=== PATIENT | male | born 1965 | race Caucasian/White ===

== ENCOUNTER 2018-02-17 14:58 | Inpatient (IN) | payer OTHER ==
[2018-02-17] MEDS ORDERED: NORMAL SALINE 1000 ML 1,000 ML IV ONE (17:01)
--- NOTE | 2018-02-17 17:01 | ER Document Report ---
ED Medical Screen (RME) - General Chief Complaint: Skin Sore(s) Stated Complaint: R FOOT PAIN Time Seen by Provider: 02/17/18 16:55 Notes: Patient is a 52-year-old male with diabetes mellitus that presents to the emergency department for chief complaint of foot pain, and worsened diabetic foot wound and abscess. ROS: GENERAL: Denies fever or chills CV: Denies chest pain PHYSICAL EXAMINATION: Vital signs reviewed. GENERAL: Well-appearing, well-nourished and in no acute distress. HEAD: Atraumatic, normocephalic. EYES: Pupils equal round extraocular movements intact, conjunctiva are normal. ENT: Nares patent NECK: Normal range of motion CV: Heart regular rate and rhythm LUNGS: No respiratory distress Musculoskeletal: The sole of the right foot has a deep wound, and erythema extending, wound measures approximately 2 cm x 2 cm, currently packed with gauze. NEUROLOGICAL: Normal speech PSYCH: Normal mood, normal affect. MDM: Patient seen and examined for rapid initial assessment. Vital signs reviewed. A comprehensive ED assessment and evaluation of the patient, analysis of test results and completion of the medical decision making process will be conducted by additional ED providers. *Note is created using voice recognition software and may contain spelling, syntax or grammatical errors. - Related Data Allergies/Adverse Reactions: lisinopril Allergy (Verified 02/17/18 15:02) tape Allergy (Uncoded 02/17/18 15:02) Physical Exam - Vital signs Vitals: Temp Pulse Resp BP Pulse Ox 98.7 F 100 18 197/88 H 97 02/17/18 16:08 02/17/18 16:08 02/17/18 16:08 02/17/18 16:08 02/17/18 16:08 Course - Vital Signs Vital signs: Temp Pulse Resp BP Pulse Ox 98.7 F 100 18 197/88 H 97 02/17/18 16:08 02/17/18 16:08 02/17/18 16:08 02/17/18 16:08 02/17/18 16:08 Doctor's Discharge - Discharge Referrals: LOCALMD,NO [Primary Care Provider] - Follow up as needed
[2018-02-17] MEDS ORDERED: VANCOMYCIN HCL INJ 1000 MG VIAL IV ONE (17:04)
--- NOTE | 2018-02-17 17:46 | RADIOLOGY REPORT (SQ) ---
EXAM DESCRIPTION: FOOT RIGHT COMPLETE COMPLETED DATE/TIME: 02/17/2018 5:32 pm REASON FOR STUDY: RIGHT DIABETIC FOOT WOUND COMPARISON: None. NUMBER OF VIEWS: Three views. TECHNIQUE: AP, lateral and oblique radiographic images acquired of the right foot. LIMITATIONS: None. FINDINGS: MINERALIZATION: Normal. BONES: Amputation of the 1st digit. No evidence of osteomyelitis. JOINTS: Marked degenerative joint changes in the 2nd metatarsal phalangeal joint. SOFT TISSUES: There is an ulcer in the ball of foot. OTHER: No other significant finding. IMPRESSION: Prior amputation. Degenerative joint disease. TECHNICAL DOCUMENTATION: JOB ID: [id number] [employer]- All Rights Reserved Reading location - IP/workstation name: [email or web address]
--- NOTE | 2018-02-17 19:30 | EKG REPORT ---
SEVERITY:- ABNORMAL ECG - SINUS RHYTHM LEFT ANTERIOR FASCICULAR BLOCK : Confirmed by: Ronny Espana MD 17-Feb-2018 19:29:34
[2018-02-17] MEDS ORDERED: VANCOMYCIN HCL INJ 1000 MG VIAL ONE ×2 (19:56→20:40)
[2018-02-17] MEDS ORDERED: PIPERACILLIN/TAZOBACTAM 3.375 GM VIAL IV ONE (20:26)
--- NOTE | 2018-02-17 20:48 | ER Document Report ---
ED General - General Chief Complaint: Skin Sore(s) Stated Complaint: R FOOT PAIN Time Seen by Provider: 02/17/18 16:55 - HPI Notes: 52-year-old diabetic male presents with pain, swelling, and ulcer to his right foot. It has been worsening over the past 4 days. He just recently moved here. He was seen by intellectual property counsel today and abscess was opened and drained about 4 cc of pus. He has a approximate 1 cm ulcer with about 2 cm penetration according to the podiatry notes. X-ray did not show any signs of osteomyelitis. He has had prior amputations. Redness and swelling has extended up towards ankle. Denies fevers or chills. He has had nausea and one episode of vomiting. - Related Data Allergies/Adverse Reactions: lisinopril Allergy (Verified 02/17/18 15:02) tape Allergy (Uncoded 02/17/18 15:02) Past Medical History - Social History Smoking Status: Never Smoker Family History: Reviewed & Not Pertinent Patient has suicidal ideation: No Patient has homicidal ideation: No Endocrine Medical History: Reports: Hx Diabetes Mellitus Type 1 Renal/ Medical History: Denies: Hx Peritoneal Dialysis Review of Systems - Review of Systems Notes: Constitutional: Negative for fever. HENT: Negative for sore throat. Eyes: Negative for visual changes. Cardiovascular: Negative for chest pain. Respiratory: Negative for shortness of breath. Gastrointestinal: Negative for abdominal pain, positive for vomiting, negative for diarrhea. Genitourinary: Negative for dysuria. Musculoskeletal: Negative for back pain. Skin: Negative for rash. Positive for right foot ulcer and infection Neurological: Negative for headaches, weakness or numbness. 10 point ROS negative except as marked above and in HPI. Physical Exam - Vital signs Vitals: Temp Pulse Resp BP Pulse Ox 98.7 F 100 18 197/88 H 97 02/17/18 16:08 02/17/18 16:08 02/17/18 16:08 02/17/18 16:08 02/17/18 16:08 - Notes Notes: PHYSICAL EXAMINATION: GENERAL: Well-appearing, well-nourished and in no acute distress. HEAD: Atraumatic, normocephalic. EYES: Pupils equal round and reactive to light, extraocular movements intact, conjunctiva are normal. ENT: nares patent, oropharynx clear without exudates. Moist mucous membranes. NECK: Normal range of motion, supple without lymphadenopathy LUNGS: Breath sounds clear to auscultation bilaterally and equal. No wheezes rales or rhonchi. HEART: Regular rate and rhythm, no chest wall tenderness ABDOMEN: Soft, nontender, normoactive bowel sounds. No guarding, no rebound. No masses appreciated. EXTREMITIES: Normal range of motion. Edema right foot extending to mid ankle with cellulitis and diabetic ulcer with packing in place. Prior amputations. NEUROLOGICAL: Cranial nerves grossly intact. Normal speech, normal gait. Normal sensory and motor exams. PSYCH: Normal mood, normal affect. SKIN: Erythema and warmth right foot with swelling and erythema extending up to mid ankle. Approximate 2 cm ulcer to base of first metatarsal extending deep into foot with packing in place. Course - Re-evaluation Re-evalutation: 02/17/18 20:47 Already evaluated an I&D by podiatry today and recommended admission for IV antibiotics. Culture sent. Broad-spectrum antibiotics initiated. Discussed with hospitalist for admission. Labs pending. - Vital Signs Vital signs: Temp Pulse Resp BP Pulse Ox 98.7 F 100 18 197/88 H 97 02/17/18 16:08 02/17/18 16:08 02/17/18 16:08 02/17/18 16:08 02/17/18 16:08 - Laboratory Laboratory results interpreted by sd: 02/17/18 17:34 POC Glucose 344 H Discharge - Discharge Clinical Impression: Cellulitis Qualifiers: Site of cellulitis: extremity Site of cellulitis of extremity: lower extremity Laterality: right Qualified Code(s): L03.115 - Cellulitis of right lower limb Diabetic foot ulcer Qualifiers: Diabetic foot ulcer location: midfoot Diabetes mellitus type: due to underlying condition Laterality: right Non-pressure ulcer stage: with other severity Qualified Code(s): E08.621 - Diabetes mellitus due to underlying condition with foot ulcer; L97.418 - Non-pressure chronic ulcer of right heel and midfoot with other specified severity; L97.418 - Non-pressure chronic ulcer of right heel and midfoot with other specified severity; L97.418 - Non-pressure chronic ulcer of right heel and midfoot with other specified severity; L97.418 - Non-pressure chronic ulcer of right heel and midfoot with other specified severity Condition: Fair Disposition: ADMITTED INPATIENT Admitting Provider: Hospitalist Unit Admitted: Medical Floor Referrals: LOCALMD,NO [Primary Care Provider] - Follow up as needed
[2018-02-17 20:53] LABS: ABSOLUTE BASOPHILS # (AUTO) 0.1 10^3/uL (0.0-0.2); ABSOLUTE EOSINOPHILS # (AUTO) 0.2 10^3/uL (0.0-0.6); ABSOLUTE LYMPHOCYTES (AUTO) 1.2 10^3/uL (0.5-4.7); ABSOLUTE MONOCYTES (AUTO) 1.1 10^3/uL (0.1-1.4); ABSOLUTE NEUT (AUTO) 14.5 10^3/uL (1.7-8.2); BASOPHILS % (AUTO) 0.4 % (0-2); EOSINOPHILS % (AUTO) 1.1 % (0-6); HEMATOCRIT 35.3 % (37.9-51.0); HEMOGLOBIN 12.1 g/dL (13.5-17.0); LYMPHOCYTES % (AUTO) 6.9 % (13-45); MEAN CORPUSCULAR HGB CONC 34.1 g/dL (32.0-36.0); MEAN CORPUSCULAR VOLUME 85 fl (80-97); MONOCYTES % (AUTO) 6.3 % (3-13); PLATELET COUNT 267 10^3/uL (150-450); RED BLOOD COUNT 4.16 10^6/uL (4.35-5.55); SEGMENTED NEUTROPHILS % (AUTO) 85.3 % (42-78); TOTAL CELLS COUNTED % (AUTO) 100 %
[2018-02-17 21:16] LABS: ALANINE AMINOTRANSFERASE 17 U/L (21-72); ALBUMIN 3.6 g/dL (3.5-5.0); ALKALINE PHOSPHATASE 173 U/L (38-126); ANION GAP 9 (5-19); ASPARTATE AMINO TRANSFERASE 22 U/L (17-59); BILIRUBIN,DIRECT 0.5 mg/dL (0.0-0.4); BILIRUBIN,TOTAL 0.9 mg/dL (0.2-1.3); BLOOD UREA NITROGEN 31 mg/dL (7-20); CARBON DIOXIDE 29 mmol/L (22-30); CHLORIDE 101 mmol/L (98-107); GLUCOSE 309 mg/dL (75-110); POTASSIUM 3.7 mmol/L (3.6-5.0); SODIUM 138.8 mmol/L (137-145); TOTAL PROTEIN 7.4 g/dL (6.3-8.2)
[2018-02-17 21:34] LABS: ERYTHROCYTE SEDIMENTATION RATE 110 mm/hr (0-20)
[2018-02-17 21:45] LABS: C-REACTIVE PROTEIN 346.6 mg/L (<10.0)
[2018-02-17] MEDS ORDERED: OXYCODONE-ACETAMINOPHEN 5-325 MG TABLET PO PRN (22:22)
[2018-02-17] MEDS ORDERED: TEMAZEPAM 7.5 MG CAPSULE PO PRN (22:22)
[2018-02-17] MEDS ORDERED: MAG HYDROX/AL HYDROX/SIMETH SUSP 30 ML UDCUP PO PRN (22:22)
[2018-02-17] MEDS ORDERED: ACETAMINOPHEN 325 MG TABLET PO PRN (22:22)
[2018-02-17] MEDS ORDERED: VANCOMYCIN HCL INJ 1000 MG VIAL IV SCH (22:45)
[2018-02-17] MEDS ORDERED: PIPERACILLIN/TAZOBACTAM 3.375 GM VIAL IV SCH (22:45)
[2018-02-17] MEDS ORDERED: PIPERACILLIN/TAZOBACTAM 3.375 GM VIAL IV PRN (22:51)
[2018-02-18] MEDS: NORMAL SALINE 1000 ML 1,000 ML IV PRN ×2 (00:44→11:07)
[2018-02-18] MEDS ORDERED: LABETALOL HCL INJ 20 MG/4 ML DISP.SYRIN IV PRN (01:14)
--- NOTE | 2018-02-18 01:14 | PDOC H&P ---
History of Present Illness Admission Date/PCP: 02/17/18 21:06 None Patient complains of: Right foot pain History of Present Illness: JOHN SANDERS is a 52 year old male. Patient comes to the emergency department as he noticed a callous about a week ago in the base of the first metatarsum, did not go to his police service technician who is in [place] until today as he noticed swelling, redness, warmth extending to the mid ankle area, apparently he had clear secretions. He was to his police service technician and she noticed an abscess in that area that was open and draining about 4 cc of pulse, he has approximately 1 cm ulcer with about 2 cm penetration according to the podiatry notes, there is a drain in place with no further secretions. His tells me that the police service technician sent him to the emergency department and he might need an I&D done by general surgery as well as a MRI. Patient has been nauseous but denies vomiting, fever, chills, chest pain, shortness of breath. X-ray of the right foot shows degenerative joint disease but no osteomyelitis. Patient was initiated on IV Zosyn and IV vancomycin. Patient just moved to this area. Cultures sent by the police service technician. Past Medical History Cardiac Medical History: Reports: Hypertension Pulmonary Medical History: Reports: Sleep Apnea - Not on CPAP yet Neurological Medical History: Reports: Ischemic CVA, Other - Silent stroke as per MRI done on November this year. 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 Endocrine Medical History: Reports: Diabetes Mellitus Type 2 Psychiatric Medical History: Reports: Post Traumatic Stress Disorder Past Surgical History Past Surgical History: Right first toe amputation 2013, secondary to diabetic complication Past Surgical History: Reports: Other - Left toe shave bone cataract surgery Neck cyst Social History Smoking Status: Never Smoker Frequency of Alcohol Use: None Hx Recreational Drug Use: No Hx Prescription Drug Abuse: No Past Social History Note: Lives with his who is at the bedside Family History Family History: Reviewed & Not Pertinent Parental Family History Reviewed: No - Patient is adopted Children Family History Reviewed: NA Sibling(s) Family History Reviewed.: NA Medication/Allergy Allergies/Adverse Reactions: lisinopril Allergy (Verified 02/17/18 15:02) tape Allergy (Uncoded 02/17/18 15:02) Review of Systems Review of Systems: As outlined in the HPI, others negative Physical Exam Vital Signs: Temp Pulse Resp BP Pulse Ox 98.3 F 100 18 197/88 H 97 02/17/18 23:09 02/17/18 16:08 02/17/18 16:08 02/17/18 16:08 02/17/18 16:08 Additional comments: General appearance: Well-developed, well-nourished, alert and cooperative, and appears to be in no acute distress Head: Normocephalic Eyes: PEERL, EOMI, vision is grossly intact. Ears: External auditory canal and tympanic membranes clear, hearing grossly intact. Nose: No nasal discharge. Throat: Oral cavity and pharynx normal. No inflammation, swelling, exudate or lesions. Neck: Neck supple, nontender without lymphadenopathy, masses or thyromegaly. Cardiac: Normal S1 and S2. No S3, S4 or murmurs. Rhythm is regular. There is no peripheral edema, cyanosis or pallor. Extremities are warm and well perfused. Capillary refill is less than 2 seconds. No carotid bruits. Lungs: Clear to auscultation and percussion without rales, rhonchi, wheezing or diminished breath sounds. Not using accessory muscles. Abdomen: Positive bowel sounds. Soft. Nondistended, nontender. No guarding or rebound. No masses. No hepatosplenomegaly Extremities: Right foot: Approximately 1-2 cm of ulcer in the base of the first metatarsal extending deep into the foot with a packing in place, surrounded by erythema and swelling. Left foot with callus to the base of the first toe, apparently not infected. Neurological: Cranial nerves II through XII grossly intact. Strength and sensation symmetric and intact throughout. Reflexes 2+ throughout. Skin: Skin normal color, texture and turgor with no lesions or eruptions, warm and dry. Psychiatric: The mental examination revealed the patient was oriented to person , place, and time. The patient was able to demonstrate good judgment on recent , without hallucinations, abnormal affect or abnormal behaviors. Results Laboratory Results: 02/17/18 02/17/18 02/17/18 17:34 20:25 20:25 WBC 17.0 H RBC 4.16 L Hgb 12.1 L Hct 35.3 L MCV 85 MCH 29.0 MCHC 34.1 RDW 13.0 Plt Count 267 Seg Neutrophils % 85.3 H Lymphocytes % 6.9 L Monocytes % 6.3 Eosinophils % 1.1 Basophils % 0.4 Absolute Neutrophils 14.5 H Absolute Lymphocytes 1.2 Absolute Monocytes 1.1 Absolute Eosinophils 0.2 Absolute Basophils 0.1 ESR 110 H Sodium 138.8 Potassium 3.7 Chloride 101 Carbon Dioxide 29 Anion Gap 9 BUN 31 H Creatinine 1.33 H Est GFR ( Amer) > 60 Est GFR (Non-Af Amer) 57 L Glucose 309 H POC Glucose 344 H Calcium 9.0 Total Bilirubin 0.9 Direct Bilirubin 0.5 H AST 22 ALT 17 L Alkaline Phosphatase 173 H C-Reactive Protein 346.6 H Total Protein 7.4 Albumin 3.6 Impressions: Foot X-Ray 02/17/18 17:02 IMPRESSION: Prior amputation. Degenerative joint disease. Assessment & Plan - Diagnosis (1) Diabetic foot ulcer Qualifiers: Diabetic foot ulcer location: midfoot Diabetes mellitus type: due to underlying condition Laterality: right Non-pressure ulcer stage: with other severity Qualified Code(s): E08.621 - Diabetes mellitus due to underlying condition with foot ulcer; L97.418 - Non-pressure chronic ulcer of right heel and midfoot with other specified severity; L97.418 - Non-pressure chronic ulcer of right heel and midfoot with other specified severity; L97.418 - Non-pressure chronic ulcer of right heel and midfoot with other specified severity; L97.418 - Non-pressure chronic ulcer of right heel and midfoot with other specified severity Is this a current diagnosis for this admission?: Yes Plan: Diabetic foot ulcer to the base of the first metatarsal with cellulitis, status post debridement by his police service technician, currently with a packing. Patient will continue with IV Zosyn and IV vancomycin. We will have to request cultures from his police service technician. He will pain medication as needed. I will request an MRI of the foot to rule out osteomyelitis, so far x-ray of the right foot is negative and shows degenerative joint disease. Please follow blood cultures. Will place a consultation for general surgery for reassessment and further recommendations. IV fluids. Cytosis with white blood cells 17 K with 85% neutrophils. (2) Diabetes mellitus, type II Is this a current diagnosis for this admission?: Yes Plan: Resume his home diabetic medication, unfortunately medication reconciliation has not been done yet. Accu-Cheks every 4 hours with insulin lispro sliding scale and hypoglycemia protocol. His blood sugar in the ED was 309, tells me that he usually gets uncontrolled when he has any kind of infection. (3) Hypertension Is this a current diagnosis for this admission?: Yes Plan: His blood pressure has been elevated initially 197/88, will resume his home antihypertensive medications and place him on Labetalol IV as needed. - Time Time Spent: 30 to 50 Minutes - Inpatient Certification Medical Necessity: Risk of Complication if Not Cared For in Hospital
[2018-02-18] MEDS ORDERED: GLUCAGON,HUMAN RECOMB 1 MG INJ IM PRN (01:45)
[2018-02-18] MEDS ORDERED: DEXTROSE 40% GEL 15 GM TUBE PO PRN ×4 (01:45→07:45)
[2018-02-18] MEDS ORDERED: DEXTROSE 50%-WATER 25 GM/50 ML DISP.SYRIN IV PRN ×4 (01:45→07:45)
[2018-02-18] MEDS: PIPERACILLIN SODIUM/TAZOBACTAM 3.375 GM in NORMAL SALINE 100 ML IV SCH ×4 (02:45→18:24)
[2018-02-18] MEDS: PROMETHAZINE HCL INJ 25 MG/1 ML VIAL IV PRN ×2 (03:05→08:29)
[2018-02-18] MEDS ORDERED: PIPERACILLIN/TAZOBACTAM 3.375 GM VIAL IV ONE (04:54)
[2018-02-18] MEDS: HEPARIN SOD (PORCINE) 5,000 UNIT/ML 1 ML SYRINGE SUBCUT SCH ×3 (05:34→21:20)
[2018-02-18 06:47] LABS: INTERNATIONAL RATION (INR) 1.11; PROTHROMBIN TIME 14.9 SEC (11.4-15.4)
[2018-02-18 06:48] LABS: PARTIAL THROMBOPLASTIN TIME 37.3 SEC (23.5-35.8)
[2018-02-18 07:01] LABS: ANION GAP 7 (5-19); BLOOD UREA NITROGEN 26 mg/dL (7-20); CALCIUM 8.1 mg/dL (8.4-10.2); CARBON DIOXIDE 27 mmol/L (22-30); CHLORIDE 106 mmol/L (98-107); GLUCOSE 215 mg/dL (75-110); PHOSPHORUS 3.2 mg/dL (2.5-4.5); POTASSIUM 3.5 mmol/L (3.6-5.0); SODIUM 140.1 mmol/L (137-145)
[2018-02-18] MEDS ORDERED: GLUCAGON,HUMAN RECOMB 1 MG INJ SUBCUT PRN (07:45)
--- NOTE | 2018-02-18 07:54 | PDOC CONSULTATION ---
Consultation Consult Date: 02/18/18 Consult reason:: Diabetic foot ulcer History of Present Illness Admission Date/PCP: 02/17/18 21:06 History of Present Illness: JOHN SANDERS is a 52 year old male seen in consultation at the request of the hospitalist service. Patient has had an ulcer to the right plantar surface for the last 2 months. The patient reports that he saw his stone crusher operator and debridement was performed. The patient had purulent drainage from his foot, and was sent directly to the emergency department. The patient has lost most of the feeling in his foot. He denies any pain associated with his infection. Patient denies any chest pain, shortness of breath, fevers, chills, dizziness, orthostasis, blurry vision, abdominal pain, diarrhea, melena, hematochezia. The patient has had nausea and occasional vomiting. He finds it difficult to eat. Past Medical History Cardiac Medical History: Reports: Hypertension Pulmonary Medical History: Reports: Sleep Apnea - Not on CPAP yet Neurological Medical History: Reports: Ischemic CVA, Other - Silent stroke as per MRI done on November this year. 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 Endocrine Medical History: Reports: Diabetes Mellitus Type 1, Diabetes Mellitus Type 2 Psychiatric Medical History: Reports: Post Traumatic Stress Disorder Past Surgical History Past Surgical History: Reports: Other - Left toe shave bone, cataract surgery, Neck cyst, debridement of rt foot Social History Smoking Status: Never Smoker Frequency of Alcohol Use: None Hx Recreational Drug Use: No Drugs: None Hx Prescription Drug Abuse: No Family History Family History: Reviewed & Not Pertinent Parental Family History Reviewed: Yes Children Family History Reviewed: Yes Sibling(s) Family History Reviewed.: Yes Medication/Allergy Allergies/Adverse Reactions: lisinopril Allergy (Verified 02/17/18 15:02) tape Allergy (Uncoded 02/17/18 15:02) Review of Systems Constitutional: PRESENT: anorexia. ABSENT: chills, fatigue, fever(s), headache( s) Eyes: ABSENT: visual disturbances Ears: ABSENT: hearing changes Nose, Mouth, and Throat: ABSENT: sore throat Cardiovascular: ABSENT: chest pain, palpitations Respiratory: ABSENT: cough, dyspnea Gastrointestinal: PRESENT: nausea, vomiting. ABSENT: abdominal pain, diarrhea Genitourinary: ABSENT: dysuria Musculoskeletal: ABSENT: back pain Integumentary: PRESENT: wounds - Right plantar ulcer Neurological: PRESENT: numbness, paresthesias. ABSENT: abnormal movements, abnormal speech, convulsions, dizziness Psychiatric: ABSENT: anxiety, depression Endocrine: ABSENT: cold intolerance, heat intolerance Hematologic/Lymphatic: ABSENT: easy bleeding, easy bruising Physical Exam Vital Signs: Temp Pulse Resp BP Pulse Ox 98.8 F 96 16 158/77 H 99 02/18/18 02:46 02/18/18 02:46 02/18/18 02:46 02/18/18 02:46 02/18/18 02:46 Intake & Output 02/17/18 02/18/18 02/19/18 06:59 06:59 06:59 Weight 106.8 kg General appearance: PRESENT: no acute distress Head exam: PRESENT: atraumatic, normocephalic Eye exam: PRESENT: EOMI, PERRLA. ABSENT: scleral icterus Mouth exam: PRESENT: moist, neck supple Teeth exam: PRESENT: poor dentation Neck exam: ABSENT: lymphadenopathy, meningismus, tenderness, thyromegaly, tracheal deviation Respiratory exam: PRESENT: clear to auscultation rupa, unlabored. ABSENT: chest wall tenderness, tachypnea, wheezes Cardiovascular exam: PRESENT: RRR Pulses: PRESENT: normal radial pulses Vascular exam: PRESENT: pallor GI/Abdominal exam: PRESENT: normal bowel sounds, soft. ABSENT: distended, guarding, rebound, tenderness Rectal exam: PRESENT: deferred Extremities exam: PRESENT: pedal edema, other - Ulcer to the right plantar surface. Purulent material emanating from the ulcer. Musculoskeletal exam: PRESENT: other - Status post right great toe amputation Neurological exam: PRESENT: alert, awake, oriented to person, oriented to place , oriented to time, oriented to situation, CN II-XII grossly intact. ABSENT: motor sensory deficit Psychiatric exam: ABSENT: agitated, anxious, depressed Focused psych exam: ABSENT: delusional Skin exam: PRESENT: other - Ulcer to right plantar surface of the foot. ABSENT : cyanosis, jaundice Results Laboratory Results: 02/18/18 06:31 02/18/18 06:31 02/18/18 02/18/18 06:31 06:31 WBC Cancelled RBC Cancelled Hgb Cancelled Hct Cancelled MCV Cancelled MCH Cancelled MCHC Cancelled RDW Cancelled Plt Count Cancelled Seg Neutrophils % Cancelled Lymphocytes % Cancelled Monocytes % Cancelled Eosinophils % Cancelled Basophils % Cancelled Absolute Neutrophils Cancelled Absolute Lymphocytes Cancelled Absolute Monocytes Cancelled Absolute Eosinophils Cancelled Absolute Basophils Cancelled Sodium 140.1 Potassium 3.5 L Chloride 106 Carbon Dioxide 27 Anion Gap 7 BUN 26 H Creatinine 1.19 Est GFR ( Amer) > 60 Est GFR (Non-Af Amer) > 60 Glucose 215 H Calcium 8.1 L Phosphorus 3.2 Magnesium 2.0 Impressions: Foot X-Ray 02/17/18 17:02 IMPRESSION: Prior amputation. Degenerative joint disease. Assessment & Plan - Diagnosis (1) Diabetes mellitus type II, uncontrolled Qualifiers: Glycemic state: with hyperglycemia Qualified Code(s): E11.65 - Type 2 diabetes mellitus with hyperglycemia Is this a current diagnosis for this admission?: Yes (2) Diabetic foot ulcer Qualifiers: Diabetic foot ulcer location: midfoot Diabetes mellitus type: due to underlying condition Laterality: right Non-pressure ulcer stage: with other severity Qualified Code(s): E08.621 - Diabetes mellitus due to underlying condition with foot ulcer; L97.418 - Non-pressure chronic ulcer of right heel and midfoot with other specified severity; L97.418 - Non-pressure chronic ulcer of right heel and midfoot with other specified severity; L97.418 - Non-pressure chronic ulcer of right heel and midfoot with other specified severity; L97.418 - Non-pressure chronic ulcer of right heel and midfoot with other specified severity Is this a current diagnosis for this admission?: Yes - Plan Summary Plan Summary: This is a 52-year-old male with a diabetic foot ulcer to the right plantar surface. There is purulent material emanating from the ulcer. The patient will require incision and drainage of the ulcer today. N.p.o. now. The patient would also benefit from an MRI of the foot to identify any active osteomyelitis. I will also order a peripheral arterial duplex to assess his vascular flow. Risks/benefits discussed, informed consent obtained, and all questions answered.
[2018-02-18 08:29] LABS: ABSOLUTE BASOPHILS # (AUTO) 0.1 10^3/uL (0.0-0.2); ABSOLUTE EOSINOPHILS # (AUTO) 0.3 10^3/uL (0.0-0.6); ABSOLUTE LYMPHOCYTES (AUTO) 1.2 10^3/uL (0.5-4.7); ABSOLUTE MONOCYTES (AUTO) 1.1 10^3/uL (0.1-1.4); BASOPHILS % (AUTO) 0.4 % (0-2); EOSINOPHILS % (AUTO) 1.5 % (0-6); HEMATOCRIT 26.5 % (37.9-51.0); LYMPHOCYTES % (AUTO) 6.9 % (13-45); MEAN CORPUSCULAR HEMOGLOBIN 29.5 pg (27.0-33.4); MEAN CORPUSCULAR HGB CONC 34.8 g/dL (32.0-36.0); MEAN CORPUSCULAR VOLUME 85 fl (80-97); MONOCYTES % (AUTO) 6.8 % (3-13); PLATELET COUNT 232 10^3/uL (150-450); RED BLOOD COUNT 3.13 10^6/uL (4.35-5.55); RED CELL DISTRIBUTION WIDTH 12.7 % (11.5-14.0); SEGMENTED NEUTROPHILS % (AUTO) 84.4 % (42-78); TOTAL CELLS COUNTED % (AUTO) 100 %; WHITE BLOOD COUNT 16.6 10^3/uL (4.0-10.5)
[2018-02-18 08:33] LABS: HEMOGLOBIN 9.2 g/dL (13.5-17.0)
--- NOTE | 2018-02-18 12:45 | RADIOLOGY REPORT (SQ) ---
EXAM DESCRIPTION: MRI RT LOWER EXTREMITY COMBO COMPLETED DATE/TIME: 02/18/2018 12:25 pm REASON FOR STUDY: right diabetic foot infection, eval osteo COMPARISON: None. TECHNIQUE: Multiplanar imaging of the right foot to include fat and fluid sensitive sequences. LIMITATIONS: Patient motion. FINDINGS: BONE MARROW: No marrow signal alteration. Specifically no marrow replacement or marrow ed elias. No evidence for osteomyelitis. No cortical break through. SOFT TISSUES: Plantar cellulitis extending into the deep forefoot. Skin ulcers plantar aspect 1st me tatarsal stump and 2nd metatarsal heads. No abscess. OTHER: No other significant finding. IMPRESSION: Cellulitis. No evidence of osteomyelitis. TECHNICAL DOCUMENTATION: JOB ID: [id number] [employer]- All Rights Reserved Reading location - IP/workstation name: [email or web address]
[2018-02-18] MEDS ORDERED: LIDOCAINE 0.5% INJ-PF (5 MG/ML) 50 ML SDV ONE (13:43)
[2018-02-18] MEDS ORDERED: EPHEDRINE SULFATE INJ 50 MG/1 ML AMPULE ONE (14:06)
[2018-02-18] MEDS ORDERED: ONDANSETRON HCL INJ/PF 4 MG/2 ML SDV ONE (14:06)
[2018-02-18] MEDS ORDERED: MIDAZOLAM 2 MG/2 ML INJ ONE (14:06)
[2018-02-18] MEDS ORDERED: HYDROMORPHONE HCL INJ/PF 2 MG/ML AMPULE ONE (14:06)
[2018-02-18] MEDS ORDERED: PROPOFOL INJ 200 MG/20 ML VIAL IV ONE (14:07)
[2018-02-18] MEDS ORDERED: DIPHENHYDRAMINE HCL 50 MG/ML VIAL IV PRN (14:31)
[2018-02-18] MEDS ORDERED: ONDANSETRON HCL INJ/PF 4 MG/2 ML SDV IV PRN (14:31)
[2018-02-18] MEDS ORDERED: FENTANYL CITRATE INJ/PF 100 MCG/2 ML AMPUL IV PRN ×3 (14:31)
[2018-02-18] MEDS ORDERED: MEPERIDINE HCL/PF INJ 25 MG/1 ML DISP.SYRIN IV PRN (14:31)
[2018-02-18] MEDS ORDERED: VANCOMYCIN HCL 2,000 MG in DEXTROSE 5%-WATER 500 ML IV ONE (16:00)
--- NOTE | 2018-02-18 16:36 | OPERATIVE REPORT E ---
Operative Report NAME: JOHN SANDERS : 1965 AGE: 52Y DATE OF SURGERY: 02/18/2018 ROOM: 424 PREOPERATIVE DIAGNOSIS: Abscess of the right foot. POSTOPERATIVE DIAGNOSIS: Abscess of the right foot. OPERATION: Incision and drainage, debridement and placement of drains through the path of the tendons but not through the bone. SURGEON: ALLIE HUDDLESTON M.D. ANESTHESIA: Local, MAC. INDICATION: This is a 52-year-old male with history of diabetes and a right big toe amputation, apparently fell and injured his right foot plantar area about a week ago. The patient has a chronic ulcer along the right foot plantar area for the past few months, and he is being followed at the [facility] in [place]. The foot got swollen, and the patient eventually went to the ED last night. He had an MRI of the right foot which was negative for osteomyelitis. The patient is starting to have a little amount of discharge from the middle part of the ulcer scab on the plantar area. DESCRIPTION OF PROCEDURE: After adequate IV sedation, the patient was placed in supine position and the right leg elevated, and the right foot and lower leg were then prepped and draped in the usual sterile fashion. Appropriate timeout was then called. Next, the area that was slightly draining purulent material was then probed with a hemostat and further pus squeezed out. Cultures were then obtained. The area was subsequently injected with 10 mL of 1% Xylocaine surrounding the area of the scab ulcer which roughly measured about 2 cm. Ulcer was debrided. This was opposite the 3rd metatarsal area. Next, the hemostat was then placed through the ulcer area and noted to go towards the area of the first toe amputation site. An incision was made towards the area, roughly about 4 cm long. A 1/4 inch kumar drain was eventually threaded to this area fom the ulcer site. Next, the foot was then squeezed out and further pus noted coming from the area of the plantar site. This was further probed and a kumar drain eventually was placed here thru a 1.5 cm counter incision. An area further medially was noted to extrude some purulent material. Again, this was then further probed and another kumar drain placed. All the 3 drains were then anchored to the skin with 4-0 Prolene. The patient did have a considerable amount of bleeding, though no active bleeding noted after completion of the procedure. Most of the bleeding controlled with cautery. Sterile dressings were then placed over the operative sites. Needle, instrument, and sponge count were all correct and estimated blood loss about 30 mL. The patient was then brought to the recovery room in satisfactory condition. DICTATING PHYSICIAN: ALLIE HUDDLESTON M.D. [id number] PHY#: [id number] ID: [id number] JOB#: [id number] ACCT: [id number] cc:ALLIE HUDDLESTON M.D. > MTDD
[2018-02-18] MEDS: LOSARTAN POTASSIUM 50 MG TABLET PO SCH (21:19)
[2018-02-18] MEDS: INSULIN LISPRO 100 UNIT/ML 3 ML VIAL SUBCUT PRN (21:19)
[2018-02-19] MEDS: PIPERACILLIN SODIUM/TAZOBACTAM 3.375 GM in NORMAL SALINE 100 ML IV SCH ×4 (01:17→17:46)
[2018-02-19] MEDS: HEPARIN SOD (PORCINE) 5,000 UNIT/ML 1 ML SYRINGE SUBCUT SCH ×3 (09:18→22:49)
[2018-02-19] MEDS: VANCOMYCIN HCL 1,500 MG in DEXTROSE 5%-WATER 250 ML IV SCH ×2 (09:18→18:36)
--- NOTE | 2018-02-19 10:12 | XCELERA REPORT ---
[address] [address] Lower Extremity Arterial Evaluation Name: JOHN SANDERS Age: 52 yrs Gender: Male : 1965 Patient Status: Inpatient Patient Location: [facility]^A Study Date: 02/18/2018 10:13 AM Procedure: Normal velocity and triphasic waveforms noted from the Common Femoral artery to the Posterior Tibial artery. Spectral broadening, with no diminution in velocity at the Anterior Tibial. 20-49% stenosis at the Anterior tibial artery. Ankle Brachial index not done manish to patient refusal. Reason For Study: foot ulcerations Ordering Physician: TITUS WHEAT Performed By: Candis Hernández Measurements and Calculations Right Left PURCHASE REQUEST EDITOR PSV 159.5 168.9 cm/sec Prox PFA PSV -168.9 71.6 cm/sec Prox SFA PSV 145.4 128.5 cm/sec Mid SFA PSV -124.9 -90.4 cm/sec Dist SFA PSV -130.4 -101.5cm/sec Prox Pop A PSV 152.4 108.1 cm/sec Dist ANALI PSV 152.4 71.6 cm/sec Dist NAIL GALVANIZER PSV 150.1 85.5 cm/sec Uriel Pedis PSV 143.2 69.4 cm/sec Left Side Arterial Evaluation Normal velocity and triphasic waveforms noted from the Common Femoral artery to the infrageniculate vessels. 0 % stenosis. Ankle Brachial index not done due to patient declining.. Interpretation Summary Mild hemodynamically significant lesions in the right lower extremity only, on duplex imaging, at rest. No hemodynamically significant lesions in the left lower extremity only, on duplex imaging, at rest. : TITUS WHEAT > Jarod Roberson
[2018-02-19] MEDS: INSULIN LISPRO 100 UNIT/ML 3 ML VIAL SUBCUT PRN ×2 (10:24→22:50)
[2018-02-19] MEDS ORDERED: SUCCINYLCHOLINE CHLORIDE INJ 200 MG/10 ML VIAL ONE (10:24)
--- NOTE | 2018-02-19 13:01 | PDOC PROGRESS REPORT ---
Subjective Progress Note for:: 02/19/18 Subjective:: No complaints, patient has a dysesthetic foot; nauseated Reason For Visit: RIGHT 1ST TOE/AMPUTATION SITE INFECTION Physical Exam Vital Signs: Temp Pulse Resp BP Pulse Ox 98.8 F 82 18 148/72 H 95 02/19/18 11:59 02/19/18 11:59 02/19/18 11:59 02/19/18 11:59 02/19/18 11:59 Intake & Output 02/18/18 02/19/18 02/20/18 06:59 06:59 06:59 Intake Total 3738 Output Total 625 Balance 3113 Weight 106.8 kg 106.8 kg General appearance: PRESENT: no acute distress Musculoskeletal exam: PRESENT: other - Right foot examined; 3 [place] drains, small; one is fallen out; there is cellulitic and edematous changes to the distal foot; there is heaped up nonviable tissue coming mal perforans ulcer. Results Laboratory Results: 02/18/18 08:07 02/18/18 06:31 Impressions: Foot X-Ray 02/17/18 17:02 IMPRESSION: Prior amputation. Degenerative joint disease. Lower Extremity MRI 02/18/18 00:00 IMPRESSION: Cellulitis. No evidence of osteomyelitis. Assessment & Plan - Diagnosis (1) Diabetic foot ulcer Qualifiers: Diabetic foot ulcer location: midfoot Diabetes mellitus type: due to underlying condition Laterality: right Non-pressure ulcer stage: with other severity Qualified Code(s): E08.621 - Diabetes mellitus due to underlying condition with foot ulcer; L97.418 - Non-pressure chronic ulcer of right heel and midfoot with other specified severity; L97.418 - Non-pressure chronic ulcer of right heel and midfoot with other specified severity; L97.418 - Non-pressure chronic ulcer of right heel and midfoot with other specified severity; L97.418 - Non-pressure chronic ulcer of right heel and midfoot with other specified severity Is this a current diagnosis for this admission?: Yes Plan: Impression: Infected diabetic foot at site of second mal perforans ulcer with inadequate source control of sepsis. Medications: 1. Keep patient n.p.o. 2. Patient to return to operating room today for additional debridement, possible drain placement, to better control sepsis involving right foot. The importance of this was explained to the patient. I believe he understands and agrees to proceed.
[2018-02-19] MEDS ORDERED: MIDAZOLAM 2 MG/2 ML INJ ONE (14:36)
[2018-02-19] MEDS ORDERED: PROPOFOL INJ 200 MG/20 ML VIAL IV ONE (14:37)
[2018-02-19] MEDS ORDERED: KETAMINE HCL INJ 500 MG/10 ML VIAL ONE (15:35)
[2018-02-19] MEDS ORDERED: LIDOCAINE 1% INJ-PF (10 MG/ML) 30 ML SDV ONE (15:43)
[2018-02-19] MEDS ORDERED: DIPHENHYDRAMINE HCL 50 MG/ML VIAL IV PRN (16:05)
[2018-02-19] MEDS ORDERED: OXYCODONE-ACETAMINOPHEN 5-325 MG TABLET PO PRN ×2 (16:05)
[2018-02-19] MEDS ORDERED: MEPERIDINE HCL/PF INJ 25 MG/1 ML DISP.SYRIN IV PRN (16:05)
[2018-02-19] MEDS ORDERED: PROMETHAZINE HCL INJ 25 MG/1 ML VIAL IV PRN ×2 (16:05)
[2018-02-19] MEDS ORDERED: MORPHINE SULFATE 10 MG/ML INJ IV PRN (16:05)
[2018-02-19] MEDS ORDERED: FENTANYL CITRATE INJ/PF 100 MCG/2 ML AMPUL IV PRN ×3 (16:05)
[2018-02-19] MEDS ORDERED: FENTANYL CITRATE INJ/PF 100 MCG/2 ML AMPUL ONE (16:08)
--- NOTE | 2018-02-19 16:35 | Operative Report ---
Operative Report DATE OF SURGERY: 02/19/18 PREOPERATIVE DIAGNOSIS: Septic right foot; status post remote right great toe amputation status post debridement right foot POSTOPERATIVE DIAGNOSIS: Same with soft tissue infection right foot including right second mal perforans ulcer, with extension up the plantar surface of the foot OPERATION: Excisional debridement of skin, subcutaneous tissue, fascia of the right foot including the right second metatarsal perforans ulcer, underlying plantar surface fascia below the first tarsal head, counterincision mid plantar foot, second counterincision small aspect right foot placement of [place] loop drain between 2 counterincisions. SURGEON: POLLY NOVAK ANESTHESIA: GA TISSUE REMOVED OR ALTERED: Necrotic skin, tissue, fascia; tissue sent for Gram stain culture and sensitivity COMPLICATIONS: None ESTIMATED BLOOD LOSS: 75 cc INTRAOPERATIVE FINDINGS: See below PROCEDURE: The patient was taken to the operating room where general anesthesia was induced. Right foot was exposed, residual [place] drains removed, prepped and draped in sterile fashion Surgical plan and surgical timeout conducted. The foot was significant for previous right great toe amputation; by imaging, the right first metatarsal head persisted. Was evidence of a previous opening of the mal perforans ulcer at the second metatarsal head. There is a counter incision mid plantar foot, medial aspect. Using a #10 blade, a 8 x 3.5 cm ellipse of skin, subcutaneous tissue, and deep subcutaneous tissue was excised, including a portion of the previous operative incision closing the first great toe amputation. Purulent subcutaneous tissue and nonviable fascia debrided with rongeurs, medium then large. The counter incision previously made by Dr. Yoon was opened in elliptical fashion and seropurulent discharge was evacuated. This tract in the deep plantar space all the way up to the small foot, medial aspect, subtalar. A counterincision was made over the talus medially, and these 2 counter incisions were connected by the [place] sucker; no further more proximal pus was encountered. A large [place] drain was placed between the 2 counterincisions, and tied in a loop knot. We now vigorously gated all wounds particularly the initial second metatarsal head wound. Of note there was no apparent communication with the periosteum of either the first and second metatarsal heads. Hemostasis was achieved with electrocautery, Surgicel placed in the recess of the wound, and all wounds packed with iodoform 1/2 inch packing. 4 x 4's Kerlix all applied. Patient tolerated procedure well, taken recovery in stable condition.
[2018-02-19 18:49] LABS: HEMATOCRIT 25.9 % (37.9-51.0); HEMOGLOBIN 8.9 g/dL (13.5-17.0); MEAN CORPUSCULAR HEMOGLOBIN 28.9 pg (27.0-33.4); MEAN CORPUSCULAR HGB CONC 34.4 g/dL (32.0-36.0); MEAN CORPUSCULAR VOLUME 84 fl (80-97); PLATELET COUNT 241 10^3/uL (150-450); RED BLOOD COUNT 3.08 10^6/uL (4.35-5.55); RED CELL DISTRIBUTION WIDTH 12.7 % (11.5-14.0); WHITE BLOOD COUNT 14.7 10^3/uL (4.0-10.5)
--- NOTE | 2018-02-19 21:04 | PDOC PROGRESS REPORT ---
Subjective Progress Note for:: 02/19/18 Subjective:: Reji states that his right foot and toes have been swollen and tender for the last 5 days prior to his admission. He states that his foot has continued to be red and swollen and gotten more tender and more swollen over that period of time. Eventually he came to the emergency room and was subsequently admitted for an ulceration of the sole of his right foot in the area of the second metatarsal phalangeal joint. He states that the wound started to drain a couple of days ago and he decided finally to seek attention due to the increasing discomfort of walking. He denies fever or chills but acknowledges that he has had some nausea and vomiting that he feels are associated with this episode. He has had previous similar problems that have resulted in amputations of his right great toe and prior hospitalizations. He is anticipating having surgery today as the surgeon has already seen him and is apparently going to do a biopsy of the bone as well as surgically addressing the wound of his right sole. 02/19/18: Reji had debridement of his right plantar ulceration yesterday and surgery is planning to take him back again for further debridement today, according to his understanding. He states that he is having moderate pain but it is reasonably well-controlled by his medications. He denies feeling feverish or chilled and he has had no palpitations or sensation of tachycardia or weakness, syncope or lightheadedness with activity. We will follow his hemoglobin later today after he returns from surgery and recheck his routine lab works tomorrow. Reason For Visit: RIGHT 1ST TOE/AMPUTATION SITE INFECTION Physical Exam Vital Signs: Temp Pulse Resp BP Pulse Ox 98.4 F 78 16 142/72 H 95 02/19/18 19:35 02/19/18 19:35 02/19/18 19:35 02/19/18 19:35 02/19/18 19:35 Intake & Output 02/18/18 02/19/18 02/20/18 06:59 06:59 06:59 Intake Total 3738 3100 Output Total 097 4910 Balance 3113 450 Weight 106.8 kg 106.8 kg Results Laboratory Results: 02/19/18 18:43 02/18/18 06:31 02/19/18 18:43 WBC 14.7 H RBC 3.08 L Hgb 8.9 L Hct 25.9 L MCV 84 MCH 28.9 MCHC 34.4 RDW 12.7 Plt Count 241 Impressions: Foot X-Ray 02/17/18 17:02 IMPRESSION: Prior amputation. Degenerative joint disease. Lower Extremity MRI 02/18/18 00:00 IMPRESSION: Cellulitis. No evidence of osteomyelitis. Assessment & Plan - Diagnosis (1) Diabetes mellitus type II, uncontrolled Qualifiers: Glycemic state: with hyperglycemia Qualified Code(s): E11.65 - Type 2 diabetes mellitus with hyperglycemia Is this a current diagnosis for this admission?: Yes Plan: Continue with diabetic diet, home medications for diabetes and before meals and at bedtime blood sugar determinations using a sliding scale for correction. (2) Diabetic foot ulcer Qualifiers: Diabetic foot ulcer location: midfoot Diabetes mellitus type: due to underlying condition Laterality: right Non-pressure ulcer stage: with other severity Qualified Code(s): E08.621 - Diabetes mellitus due to underlying condition with foot ulcer; L97.418 - Non-pressure chronic ulcer of right heel and midfoot with other specified severity; L97.418 - Non-pressure chronic ulcer of right heel and midfoot with other specified severity; L97.418 - Non-pressure chronic ulcer of right heel and midfoot with other specified severity; L97.418 - Non-pressure chronic ulcer of right heel and midfoot with other specified severity Is this a current diagnosis for this admission?: Yes Plan: Patient is on IV antibiotics utilizing vancomycin and Zosyn. His wound and treatment of his infection will be managed by the surgical services coordinator. (3) Hypertension Is this a current diagnosis for this admission?: Yes - Time Time Spent with patient: 25-34 minutes Medications reviewed and adjusted accordingly: Yes
[2018-02-19] MEDS: LOSARTAN POTASSIUM 50 MG TABLET PO SCH (22:46)
[2018-02-20] MEDS: PIPERACILLIN SODIUM/TAZOBACTAM 3.375 GM in NORMAL SALINE 100 ML IV SCH ×4 (00:39→20:52)
[2018-02-20] MEDS: INSULIN LISPRO 100 UNIT/ML 3 ML VIAL SUBCUT PRN ×6 (00:40→18:31)
[2018-02-20] MEDS: NORMAL SALINE 1000 ML 1,000 ML IV PRN (03:23)
[2018-02-20] MEDS: HEPARIN SOD (PORCINE) 5,000 UNIT/ML 1 ML SYRINGE SUBCUT SCH ×3 (05:34→21:01)
[2018-02-20] MEDS: VANCOMYCIN HCL 1,500 MG in DEXTROSE 5%-WATER 250 ML IV SCH ×2 (06:41→18:30)
[2018-02-20 06:57] LABS: ABSOLUTE BASOPHILS # (AUTO) 0.1 10^3/uL (0.0-0.2); ABSOLUTE EOSINOPHILS # (AUTO) 0.2 10^3/uL (0.0-0.6); ABSOLUTE LYMPHOCYTES (AUTO) 1.3 10^3/uL (0.5-4.7); ABSOLUTE NEUT (AUTO) 10.8 10^3/uL (1.7-8.2); BASOPHILS % (AUTO) 0.6 % (0-2); EOSINOPHILS % (AUTO) 1.3 % (0-6); HEMATOCRIT 26.5 % (37.9-51.0); HEMOGLOBIN 9.2 g/dL (13.5-17.0); MEAN CORPUSCULAR HEMOGLOBIN 29.4 pg (27.0-33.4); MEAN CORPUSCULAR HGB CONC 34.7 g/dL (32.0-36.0); MEAN CORPUSCULAR VOLUME 85 fl (80-97); MONOCYTES % (AUTO) 7.7 % (3-13); PLATELET COUNT 247 10^3/uL (150-450); RED BLOOD COUNT 3.13 10^6/uL (4.35-5.55); SEGMENTED NEUTROPHILS % (AUTO) 80.4 % (42-78); TOTAL CELLS COUNTED % (AUTO) 100 %; WHITE BLOOD COUNT 13.4 10^3/uL (4.0-10.5)
[2018-02-20 07:20] LABS: ANION GAP 9 (5-19); BLOOD UREA NITROGEN 25 mg/dL (7-20); CALCIUM 8.1 mg/dL (8.4-10.2); CARBON DIOXIDE 22 mmol/L (22-30); CHLORIDE 109 mmol/L (98-107); GLUCOSE 139 mg/dL (75-110); POTASSIUM 3.9 mmol/L (3.6-5.0); SODIUM 140.4 mmol/L (137-145)
[2018-02-20] MEDS ORDERED: ATORVASTATIN CALCIUM 20 MG TABLET PO PRN (15:09)
[2018-02-20] MEDS ORDERED: (PENDING PHARMACY ID) (Sennosides [Senna] 8.6 MG) PO SCH (15:15)
[2018-02-20] MEDS: GABAPENTIN 300 MG CAPSULE PO SCH ×2 (18:26→23:32)
[2018-02-20] MEDS: ASPIRIN 81 MG TABLET, ENT COATED PO SCH (18:29)
[2018-02-20] MEDS: SENNOSIDES/DOCUSATE 8.6-50 MG 1 EACH TABLET PO SCH (18:30)
[2018-02-20] MEDS: DULOXETINE HCL 30 MG CAPSULE.DR PO SCH ×2 (18:30→23:29)
[2018-02-20 18:48] LABS: VANCOMYCIN,TROUGH 21.7 ug/mL (5.0-20.0)
[2018-02-20] MEDS: QUETIAPINE FUMARATE 100 MG TABLET PO SCH (20:55)
[2018-02-20] MEDS: INSULIN GLARGINE,HUM.REC.ANLOG 300 UNIT/3 ML INSULN.PEN SUBCUT SCH (21:00)
[2018-02-20] MEDS: LOSARTAN POTASSIUM 50 MG TABLET PO SCH (21:01)
[2018-02-20] MEDS: TRAZODONE HCL 50 MG TABLET PO SCH (21:06)
[2018-02-20] MEDS ORDERED: (PENDING PHARMACY ID) (Trazodone Hcl [Desyrel] 100 MG) PO SCH (22:00)
--- NOTE | 2018-02-20 23:47 | PDOC PROGRESS REPORT ---
Subjective Progress Note for:: 02/20/18 Subjective:: no pains Reason For Visit: RIGHT 1ST TOE/AMPUTATION SITE INFECTION Physical Exam Vital Signs: Temp Pulse Resp BP Pulse Ox 98.4 F 91 18 171/89 H 98 02/20/18 19:29 02/20/18 19:29 02/20/18 19:29 02/20/18 19:29 02/20/18 19:29 Intake & Output 02/19/18 02/20/18 02/21/18 06:59 06:59 06:59 Intake Total 3738 4067 924 Output Total 625 2650 600 Balance 3113 1417 324 Weight 106.8 kg 106.7 kg Exam: Dressings are dry. foot is warm. Results Laboratory Results: 02/20/18 06:27 02/20/18 06:27 02/20/18 02/20/18 06:27 06:27 WBC 13.4 H RBC 3.13 L Hgb 9.2 L Hct 26.5 L MCV 85 MCH 29.4 MCHC 34.7 RDW 13.0 Plt Count 247 Seg Neutrophils % 80.4 H Lymphocytes % 10.0 L Monocytes % 7.7 Eosinophils % 1.3 Basophils % 0.6 Absolute Neutrophils 10.8 H Absolute Lymphocytes 1.3 Absolute Monocytes 1.0 Absolute Eosinophils 0.2 Absolute Basophils 0.1 Sodium 140.4 Potassium 3.9 Chloride 109 H Carbon Dioxide 22 Anion Gap 9 BUN 25 H Creatinine 1.33 H Est GFR ( Amer) > 60 Est GFR (Non-Af Amer) 57 L Glucose 139 H Calcium 8.1 L Magnesium 1.9 02/18/18 14:31 Foot - Right Gram Stain - Final Impressions: Foot X-Ray 02/17/18 17:02 IMPRESSION: Prior amputation. Degenerative joint disease. Lower Extremity MRI 02/18/18 00:00 IMPRESSION: Cellulitis. No evidence of osteomyelitis. Assessment & Plan - Time Time Spent with patient: 15-24 minutes - Inpatient Certification Medical Necessity: Need For IV Fluids, Need for IV Antibiotics - Plan Summary Plan Summary: Continue IV antibiotics Will remove dressing tomorrow
--- NOTE | 2018-02-21 00:48 | PDOC PROGRESS REPORT ---
Subjective Progress Note for:: 02/20/18 Subjective:: Reji states that his right foot and toes have been swollen and tender for the last 5 days prior to his admission. He states that his foot has continued to be red and swollen and gotten more tender and more swollen over that period of time. Eventually he came to the emergency room and was subsequently admitted for an ulceration of the sole of his right foot in the area of the second metatarsal phalangeal joint. He states that the wound started to drain a couple of days ago and he decided finally to seek attention due to the increasing discomfort of walking. He denies fever or chills but acknowledges that he has had some nausea and vomiting that he feels are associated with this episode. He has had previous similar problems that have resulted in amputations of his right great toe and prior hospitalizations. He is anticipating having surgery today as the surgeon has already seen him and is apparently going to do a biopsy of the bone as well as surgically addressing the wound of his right sole. 02/19/18: Reji had debridement of his right plantar ulceration yesterday and surgery is planning to take him back again for further debridement today, according to his understanding. He states that he is having moderate pain but it is reasonably well-controlled by his medications. He denies feeling feverish or chilled and he has had no palpitations or sensation of tachycardia or weakness, syncope or lightheadedness with activity. We will follow his hemoglobin later today after he returns from surgery and recheck his routine lab works tomorrow. 02/20/18: Reji is depressed today. He complains of flushing (warm and sweaty) feeling on the left side of his face. He admits he has had this numerous times in the past. He also complains of dyspepsia and upper esophageal pain/discomfort. He is upset that the surgeon has not seen him today. His wound has been draining a lot and he is worried about losing his foot. Reason For Visit: RIGHT 1ST TOE/AMPUTATION SITE INFECTION Physical Exam Vital Signs: Temp Pulse Resp BP Pulse Ox 99.0 F 96 18 172/65 H 93 02/20/18 23:12 02/20/18 23:12 02/20/18 23:12 02/20/18 23:12 02/20/18 23:12 Intake & Output 02/19/18 02/20/18 02/21/18 06:59 06:59 06:59 Intake Total 3737 4067 1150 Output Total 330 3850 600 Balance 3113 1417 550 Weight 106.8 kg 106.7 kg General appearance: PRESENT: cooperative, mild distress Head exam: PRESENT: atraumatic, normocephalic Eye exam: PRESENT: conjunctiva pink. ABSENT: scleral icterus Ear exam: PRESENT: normal external ear exam. ABSENT: bleeding, drainage Mouth exam: PRESENT: neck supple, tongue midline Neck exam: ABSENT: thyromegaly, tracheal deviation Respiratory exam: PRESENT: clear to auscultation rupa, symmetrical, unlabored Cardiovascular exam: PRESENT: RRR. ABSENT: clicks, gallop, rubs Pulses: PRESENT: normal carotid pulses, normal radial pulses Vascular exam: PRESENT: normal capillary refill. ABSENT: pallor GI/Abdominal exam: PRESENT: normal bowel sounds, soft. ABSENT: tenderness Extremities exam: ABSENT: full ROM, joint swelling Musculoskeletal exam: ABSENT: deformity, dislocation Neurological exam: PRESENT: alert, awake, oriented to person, oriented to place , oriented to time, oriented to situation, CN II-XII grossly intact. ABSENT: motor sensory deficit Psychiatric exam: PRESENT: depressed, flat affect Skin exam: ABSENT: jaundice, rash, urticaria Results Laboratory Results: 02/20/18 06:27 02/20/18 06:27 02/20/18 02/20/18 06:27 06:27 WBC 13.4 H RBC 3.13 L Hgb 9.2 L Hct 26.5 L MCV 85 MCH 29.4 MCHC 34.7 RDW 13.0 Plt Count 247 Seg Neutrophils % 80.4 H Lymphocytes % 10.0 L Monocytes % 7.7 Eosinophils % 1.3 Basophils % 0.6 Absolute Neutrophils 10.8 H Absolute Lymphocytes 1.3 Absolute Monocytes 1.0 Absolute Eosinophils 0.2 Absolute Basophils 0.1 Sodium 140.4 Potassium 3.9 Chloride 109 H Carbon Dioxide 22 Anion Gap 9 BUN 25 H Creatinine 1.33 H Est GFR ( Amer) > 60 Est GFR (Non-Af Amer) 57 L Glucose 139 H Calcium 8.1 L Magnesium 1.9 02/18/18 14:31 Foot - Right Gram Stain - Final Impressions: Foot X-Ray 02/17/18 17:02 IMPRESSION: Prior amputation. Degenerative joint disease. Lower Extremity MRI 02/18/18 00:00 IMPRESSION: Cellulitis. No evidence of osteomyelitis. Assessment & Plan - Diagnosis (1) Diabetes mellitus type II, uncontrolled Qualifiers: Glycemic state: with hyperglycemia Qualified Code(s): E11.65 - Type 2 diabetes mellitus with hyperglycemia Is this a current diagnosis for this admission?: Yes Plan: Continue with diabetic diet, home medications for diabetes and before meals and at bedtime blood sugar determinations using a sliding scale for correction. (2) Diabetic foot ulcer Qualifiers: Diabetic foot ulcer location: midfoot Diabetes mellitus type: due to underlying condition Laterality: right Non-pressure ulcer stage: with other severity Qualified Code(s): E08.621 - Diabetes mellitus due to underlying condition with foot ulcer; L97.418 - Non-pressure chronic ulcer of right heel and midfoot with other specified severity; L97.418 - Non-pressure chronic ulcer of right heel and midfoot with other specified severity; L97.418 - Non-pressure chronic ulcer of right heel and midfoot with other specified severity; L97.418 - Non-pressure chronic ulcer of right heel and midfoot with other specified severity Is this a current diagnosis for this admission?: Yes Plan: Patient is on IV antibiotics utilizing vancomycin and Zosyn. His wound and treatment of his infection will be managed by the [employer] consultant. (3) Hypertension Is this a current diagnosis for this admission?: Yes Plan: Patient will have his usual home medications restarted and further adjustment of medications can be made if his blood pressure is not well controlled when he is back on his regular medications. (4) Dysthymic disorder Is this a current diagnosis for this admission?: Yes Plan: Restart home medications including antidepressant agents. - Time Time Spent with patient: 35 or more minutes Anticipated discharge: Home
[2018-02-21] MEDS: PIPERACILLIN SODIUM/TAZOBACTAM 3.375 GM in NORMAL SALINE 100 ML IV SCH ×3 (01:12→13:47)
[2018-02-21] MEDS: GABAPENTIN 300 MG CAPSULE PO SCH ×3 (05:08→21:01)
[2018-02-21] MEDS: HEPARIN SOD (PORCINE) 5,000 UNIT/ML 1 ML SYRINGE SUBCUT SCH ×3 (05:08→21:02)
[2018-02-21 05:36] LABS: ABSOLUTE BASOPHILS # (AUTO) 0.1 10^3/uL (0.0-0.2); ABSOLUTE EOSINOPHILS # (AUTO) 0.2 10^3/uL (0.0-0.6); ABSOLUTE LYMPHOCYTES (AUTO) 1.4 10^3/uL (0.5-4.7); ABSOLUTE MONOCYTES (AUTO) 0.9 10^3/uL (0.1-1.4); ABSOLUTE NEUT (AUTO) 7.5 10^3/uL (1.7-8.2); BASOPHILS % (AUTO) 0.5 % (0-2); EOSINOPHILS % (AUTO) 2.3 % (0-6); HEMATOCRIT 22.2 % (37.9-51.0); LYMPHOCYTES % (AUTO) 13.4 % (13-45); MEAN CORPUSCULAR HEMOGLOBIN 29.9 pg (27.0-33.4); MEAN CORPUSCULAR HGB CONC 35.3 g/dL (32.0-36.0); MEAN CORPUSCULAR VOLUME 85 fl (80-97); MONOCYTES % (AUTO) 9.2 % (3-13); PLATELET COUNT 265 10^3/uL (150-450); RED BLOOD COUNT 2.62 10^6/uL (4.35-5.55); RED CELL DISTRIBUTION WIDTH 12.9 % (11.5-14.0); SEGMENTED NEUTROPHILS % (AUTO) 74.6 % (42-78); TOTAL CELLS COUNTED % (AUTO) 100 %; WHITE BLOOD COUNT 10.1 10^3/uL (4.0-10.5)
[2018-02-21 05:52] LABS: ANION GAP 6 (5-19); BLOOD UREA NITROGEN 20 mg/dL (7-20); CALCIUM 7.7 mg/dL (8.4-10.2); CARBON DIOXIDE 24 mmol/L (22-30); CHLORIDE 111 mmol/L (98-107); GLUCOSE 182 mg/dL (75-110); POTASSIUM 3.6 mmol/L (3.6-5.0); SODIUM 141.4 mmol/L (137-145)
[2018-02-21 06:06] LABS: HEMOGLOBIN 7.8 g/dL (13.5-17.0)
[2018-02-21] MEDS: INSULIN LISPRO 100 UNIT/ML 3 ML VIAL SUBCUT PRN ×2 (08:42→18:49)
[2018-02-21] MEDS: FUROSEMIDE 40 MG TABLET PO SCH (08:43)
[2018-02-21] MEDS: HYDROCHLOROTHIAZIDE 25 MG TABLET PO SCH (08:44)
[2018-02-21] MEDS: NORMAL SALINE 1000 ML 1,000 ML IV PRN ×2 (08:47→19:00)
[2018-02-21] MEDS: QUETIAPINE FUMARATE 100 MG TABLET PO SCH (10:23)
[2018-02-21] MEDS: ASPIRIN 81 MG TABLET, ENT COATED PO SCH (10:23)
[2018-02-21] MEDS: DULOXETINE HCL 30 MG CAPSULE.DR PO SCH ×2 (10:23→21:01)
[2018-02-21] MEDS ORDERED: BENZOCAINE/MENTHOL SORE THROAT LOZENGE BUCCAL PRN (12:46)
[2018-02-21] MEDS ORDERED: VANCOMYCIN HCL 1,250 MG in DEXTROSE 5%-WATER 250 ML IV SCH (13:00)
--- NOTE | 2018-02-21 15:37 | PDOC PROGRESS REPORT ---
Subjective Progress Note for:: 02/21/18 Subjective:: Reji states that his right foot and toes have been swollen and tender for the last 5 days prior to his admission. He states that his foot has continued to be red and swollen and gotten more tender and more swollen over that period of time. Eventually he came to the emergency room and was subsequently admitted for an ulceration of the sole of his right foot in the area of the second metatarsal phalangeal joint. He states that the wound started to drain a couple of days ago and he decided finally to seek attention due to the increasing discomfort of walking. He denies fever or chills but acknowledges that he has had some nausea and vomiting that he feels are associated with this episode. He has had previous similar problems that have resulted in amputations of his right great toe and prior hospitalizations. He is anticipating having surgery today as the surgeon has already seen him and is apparently going to do a biopsy of the bone as well as surgically addressing the wound of his right sole. 02/19/18: Reji had debridement of his right plantar ulceration yesterday and surgery is planning to take him back again for further debridement today, according to his understanding. He states that he is having moderate pain but it is reasonably well-controlled by his medications. He denies feeling feverish or chilled and he has had no palpitations or sensation of tachycardia or weakness, syncope or lightheadedness with activity. We will follow his hemoglobin later today after he returns from surgery and recheck his routine lab works tomorrow. 02/20/18: Reji is depressed today. He complains of flushing (warm and sweaty) feeling on the left side of his face. He admits he has had this numerous times in the past. He also complains of dyspepsia and upper esophageal pain/discomfort. He is upset that the surgeon has not seen him today. His wound has been draining a lot and he is worried about losing his foot. 02/21/18: Reji is still somewhat depressed today and continues to have some sensation of warmth and sweating on the left side of his face he also feels like he has something stuck in his throat which he describes as a feeling of like a piece of spaghetti that will not come up and it will not go down. Additionally he is disappointed that his surgery is again not seen him yet today and he feels that his wound is continuing to be draining too much and he is worried about losing his foot. He continues to be angry about his most recent induction for surgical anesthesia and he has been noted to be complaining of the minor problems and annoyances he addresses the nursing staff today. Reason For Visit: RIGHT 1ST TOE/AMPUTATION SITE INFECTION Physical Exam Vital Signs: Temp Pulse Resp BP Pulse Ox 98.2 F 88 16 138/66 H 99 02/21/18 13:52 02/21/18 13:52 02/21/18 13:52 02/21/18 13:52 02/21/18 13:52 Intake & Output 02/20/18 02/21/18 02/22/18 06:59 06:59 06:59 Intake Total 4067 1450 0 Output Total 2650 600 Balance 1417 850 0 Weight 106.7 kg 100.4 kg General appearance: PRESENT: cooperative, mild distress - Emotionally upset and angry Head exam: PRESENT: atraumatic, normocephalic Eye exam: PRESENT: conjunctiva pink. ABSENT: conjunctival injection Ear exam: PRESENT: normal external ear exam. ABSENT: drainage Mouth exam: PRESENT: moist, neck supple Neck exam: ABSENT: thyromegaly, tracheal deviation Respiratory exam: PRESENT: clear to auscultation rupa, symmetrical, unlabored Cardiovascular exam: PRESENT: RRR. ABSENT: clicks, gallop, rubs Vascular exam: PRESENT: normal capillary refill. ABSENT: pallor GI/Abdominal exam: PRESENT: normal bowel sounds, soft. ABSENT: tenderness Extremities exam: PRESENT: tenderness - Right foot with surgical dressing noted. Dressing is partially saturated with serosanguineous drainage., +1 edema - Left lower extremity, +2 edema - Right lower extremity Musculoskeletal exam: ABSENT: deformity, dislocation Neurological exam: PRESENT: alert, awake, oriented to person, oriented to place , oriented to time, oriented to situation, CN II-XII grossly intact. ABSENT: motor sensory deficit Psychiatric exam: PRESENT: anxious, depressed, unusual affect Skin exam: ABSENT: jaundice, rash, urticaria Results Laboratory Results: 02/21/18 04:59 02/21/18 04:59 02/21/18 02/21/18 02/21/18 04:59 04:59 06:58 WBC 10.1 RBC 2.62 L Hgb 7.8 L Hct 22.2 L MCV 85 MCH 29.9 MCHC 35.3 RDW 12.9 Plt Count 265 Seg Neutrophils % 74.6 Lymphocytes % 13.4 Monocytes % 9.2 Eosinophils % 2.3 Basophils % 0.5 Absolute Neutrophils 7.5 Absolute Lymphocytes 1.4 Absolute Monocytes 0.9 Absolute Eosinophils 0.2 Absolute Basophils 0.1 Sodium 141.4 Potassium 3.6 Chloride 111 H Carbon Dioxide 24 Anion Gap 6 BUN 20 Creatinine 1.42 H Est GFR ( Amer) > 60 Est GFR (Non-Af Amer) 53 L Glucose 182 H Calcium 7.7 L Magnesium 1.8 Blood Type O NEGATIVE Antibody Screen NEGATIVE 02/18/18 14:31 Foot - Right Gram Stain - Final 02/18/18 14:31 Foot - Right Wound Culture - Final Staphylococcus Aureus No Anaerobic Organisms 02/18/18 00:32 Toe - Abscess Gram Stain - Final Impressions: Foot X-Ray 02/17/18 17:02 IMPRESSION: Prior amputation. Degenerative joint disease. Lower Extremity MRI 02/18/18 00:00 IMPRESSION: Cellulitis. No evidence of osteomyelitis. Assessment & Plan - Diagnosis (1) Diabetes mellitus type II, uncontrolled Qualifiers: Glycemic state: with hyperglycemia Qualified Code(s): E11.65 - Type 2 diabetes mellitus with hyperglycemia Is this a current diagnosis for this admission?: Yes Plan: Continue with diabetic diet, home medications for diabetes and before meals and at bedtime blood sugar determinations using a sliding scale for correction. (2) Diabetic foot ulcer Qualifiers: Diabetic foot ulcer location: midfoot Diabetes mellitus type: due to underlying condition Laterality: right Non-pressure ulcer stage: with other severity Qualified Code(s): E08.621 - Diabetes mellitus due to underlying condition with foot ulcer; L97.418 - Non-pressure chronic ulcer of right heel and midfoot with other specified severity; L97.418 - Non-pressure chronic ulcer of right heel and midfoot with other specified severity; L97.418 - Non-pressure chronic ulcer of right heel and midfoot with other specified severity; L97.418 - Non-pressure chronic ulcer of right heel and midfoot with other specified severity Is this a current diagnosis for this admission?: Yes Plan: Patient is on IV antibiotics utilizing vancomycin and Zosyn. His wound and treatment of his infection will be managed by the commercial solar sales consultant. His culture results are positive for Staphylococcus aureus which is coagulase- negative. This bacteria is broadly sensitive to beta-lactam antibiotics and as such therapy will be changed to Ancef 2 g every 8 hours. (3) Hypertension Is this a current diagnosis for this admission?: Yes Plan: Patient will have his usual home medications restarted and further adjustment of medications can be made if his blood pressure is not well controlled when he is back on his regular medications. (4) Dysthymic disorder Is this a current diagnosis for this admission?: Yes Plan: Restart home medications including antidepressant agents. - Time Time Spent with patient: 25-34 minutes Medications reviewed and adjusted accordingly: Yes
[2018-02-21 17:10] LABS: ARTERIAL BLOOD BASE EXCESS 0.8 mmol/L; ARTERIAL BLOOD H2CO3 1.32 mmol/L (1.05-1.35); ARTERIAL BLOOD O2 SATURATION 95.9 % (94-98); ARTERIAL BLOOD PCO2 43.7 mmHg (35-45); ARTERIAL BLOOD PH 7.39 (7.35-7.45); ARTERIAL BLOOD PO2 81.1 mmHg (80-100); ARTERIAL BLOOD TOTAL CO2 27.4 mmol/L (23-27)
[2018-02-21 17:11] LABS: ARTERIAL BLOOD FIO2 2L
[2018-02-21] MEDS ORDERED: CEFAZOLIN 2 GM/D5W RTU 2 GM/50 ML RTUPB IV SCH (18:00)
[2018-02-21] MEDS: SENNOSIDES/DOCUSATE 8.6-50 MG 1 EACH TABLET PO SCH (18:48)
[2018-02-21] MEDS: CEFAZOLIN SODIUM 2 GM in DEXTROSE 5%-WATER 100 ML IV SCH (18:49)
[2018-02-21] MEDS: LOSARTAN POTASSIUM 50 MG TABLET PO SCH (21:01)
[2018-02-21] MEDS: TRAZODONE HCL 50 MG TABLET PO SCH (21:01)
[2018-02-21] MEDS: INSULIN GLARGINE,HUM.REC.ANLOG 300 UNIT/3 ML INSULN.PEN SUBCUT SCH (21:02)
[2018-02-22] MEDS: CEFAZOLIN SODIUM 2 GM in DEXTROSE 5%-WATER 100 ML IV SCH ×5 (00:37→23:56)
[2018-02-22] MEDS: NORMAL SALINE 1000 ML 1,000 ML IV PRN ×2 (04:28→20:00)
[2018-02-22] MEDS: GABAPENTIN 300 MG CAPSULE PO SCH ×3 (05:01→22:42)
[2018-02-22] MEDS: HEPARIN SOD (PORCINE) 5,000 UNIT/ML 1 ML SYRINGE SUBCUT SCH ×3 (05:02→22:41)
[2018-02-22 07:22] LABS: ABSOLUTE EOSINOPHILS # (AUTO) 0.2 10^3/uL (0.0-0.6); ABSOLUTE LYMPHOCYTES (AUTO) 1.1 10^3/uL (0.5-4.7); ABSOLUTE MONOCYTES (AUTO) 0.9 10^3/uL (0.1-1.4); ABSOLUTE NEUT (AUTO) 7.4 10^3/uL (1.7-8.2); BASOPHILS % (AUTO) 0.4 % (0-2); EOSINOPHILS % (AUTO) 2.4 % (0-6); LYMPHOCYTES % (AUTO) 11.8 % (13-45); MEAN CORPUSCULAR HEMOGLOBIN 29.8 pg (27.0-33.4); MEAN CORPUSCULAR HGB CONC 35.1 g/dL (32.0-36.0); MEAN CORPUSCULAR VOLUME 85 fl (80-97); PLATELET COUNT 299 10^3/uL (150-450); RED BLOOD COUNT 3.42 10^6/uL (4.35-5.55); RED CELL DISTRIBUTION WIDTH 12.9 % (11.5-14.0); SEGMENTED NEUTROPHILS % (AUTO) 76.4 % (42-78); TOTAL CELLS COUNTED % (AUTO) 100 %; WHITE BLOOD COUNT 9.7 10^3/uL (4.0-10.5)
[2018-02-22 07:23] LABS: ANION GAP 7 (5-19); BLOOD UREA NITROGEN 17 mg/dL (7-20); CALCIUM 8.7 mg/dL (8.4-10.2); CARBON DIOXIDE 25 mmol/L (22-30); CHLORIDE 108 mmol/L (98-107); GLUCOSE 172 mg/dL (75-110); POTASSIUM 3.8 mmol/L (3.6-5.0); SODIUM 140.1 mmol/L (137-145)
[2018-02-22 07:29] LABS: HEMOGLOBIN 10.2 g/dL (13.5-17.0)
[2018-02-22] MEDS: HYDROCHLOROTHIAZIDE 25 MG TABLET PO SCH (07:53)
[2018-02-22] MEDS: FUROSEMIDE 40 MG TABLET PO SCH (07:54)
[2018-02-22] MEDS: INSULIN LISPRO 100 UNIT/ML 3 ML VIAL SUBCUT PRN (08:17)
[2018-02-22] MEDS: PROMETHAZINE HCL INJ 25 MG/1 ML VIAL IV PRN ×2 (08:17→22:57)
[2018-02-22] MEDS: QUETIAPINE FUMARATE 100 MG TABLET PO SCH (11:06)
[2018-02-22] MEDS: DULOXETINE HCL 30 MG CAPSULE.DR PO SCH ×2 (11:06→22:42)
[2018-02-22] MEDS: METOPROLOL SUCCINATE 50 MG TAB.SR.24H PO SCH (11:06)
[2018-02-22] MEDS: ASPIRIN 81 MG TABLET, ENT COATED PO SCH (11:06)
[2018-02-22] MEDS: SENNOSIDES/DOCUSATE 8.6-50 MG 1 EACH TABLET PO SCH (17:29)
--- NOTE | 2018-02-22 20:21 | PDOC PROGRESS REPORT ---
Subjective Progress Note for:: 02/22/18 Subjective:: Reji states that his right foot and toes have been swollen and tender for the last 5 days prior to his admission. He states that his foot has continued to be red and swollen and gotten more tender and more swollen over that period of time. Eventually he came to the emergency room and was subsequently admitted for an ulceration of the sole of his right foot in the area of the second metatarsal phalangeal joint. He states that the wound started to drain a couple of days ago and he decided finally to seek attention due to the increasing discomfort of walking. He denies fever or chills but acknowledges that he has had some nausea and vomiting that he feels are associated with this episode. He has had previous similar problems that have resulted in amputations of his right great toe and prior hospitalizations. He is anticipating having surgery today as the surgeon has already seen him and is apparently going to do a biopsy of the bone as well as surgically addressing the wound of his right sole. 02/19/18: Reji had debridement of his right plantar ulceration yesterday and surgery is planning to take him back again for further debridement today, according to his understanding. He states that he is having moderate pain but it is reasonably well-controlled by his medications. He denies feeling feverish or chilled and he has had no palpitations or sensation of tachycardia or weakness, syncope or lightheadedness with activity. We will follow his hemoglobin later today after he returns from surgery and recheck his routine lab works tomorrow. 02/20/18: Reji is depressed today. He complains of flushing (warm and sweaty) feeling on the left side of his face. He admits he has had this numerous times in the past. He also complains of dyspepsia and upper esophageal pain/discomfort. He is upset that the surgeon has not seen him today. His wound has been draining a lot and he is worried about losing his foot. 02/21/18: Reji is still somewhat depressed today and continues to have some sensation of warmth and sweating on the left side of his face he also feels like he has something stuck in his throat which he describes as a feeling of like a piece of spaghetti that will not come up and it will not go down. Additionally he is disappointed that his surgery is again not seen him yet today and he feels that his wound is continuing to be draining too much and he is worried about losing his foot. He continues to be angry about his most recent induction for surgical anesthesia and he has been noted to be complaining of the minor problems and annoyances he addresses the nursing staff today. 02/22/18: Reji continues to do well postoperatively he is tolerating increased amounts of activity though he is still allowed to step on his foot. He is having minimal discomfort and his mood is generally improved. He denies any nausea vomiting diarrhea cough fever or chills. We are awaiting surgery's approval for disposition. Reason For Visit: RIGHT 1ST TOE/AMPUTATION SITE INFECTION Physical Exam Vital Signs: Temp Pulse Resp BP Pulse Ox 98.0 F 77 16 167/90 H 95 02/22/18 15:03 02/22/18 15:03 02/22/18 15:03 02/22/18 15:03 02/22/18 15:03 Intake & Output 02/21/18 02/22/18 02/23/18 06:59 06:59 06:59 Intake Total 1700 4256 1418 Output Total 600 0 Balance 1100 4256 1418 Weight 100.4 kg 100.4 kg General appearance: PRESENT: no acute distress, cooperative Head exam: PRESENT: atraumatic, normocephalic Eye exam: PRESENT: conjunctiva pink. ABSENT: conjunctival injection Ear exam: PRESENT: normal external ear exam. ABSENT: drainage Mouth exam: PRESENT: moist, neck supple Neck exam: ABSENT: thyromegaly, tracheal deviation Respiratory exam: PRESENT: clear to auscultation rupa, symmetrical, unlabored Cardiovascular exam: PRESENT: RRR. ABSENT: clicks, gallop, rubs Vascular exam: PRESENT: normal capillary refill. ABSENT: pallor GI/Abdominal exam: PRESENT: normal bowel sounds, soft Extremities exam: PRESENT: tenderness - Left foot is rice cleaning machine tender at the toes with a bulky dressing present covering the area.. ABSENT: joint swelling Musculoskeletal exam: ABSENT: deformity, dislocation Neurological exam: PRESENT: alert, awake, oriented to person, oriented to place , oriented to time, oriented to situation, CN II-XII grossly intact. ABSENT: motor sensory deficit Psychiatric exam: PRESENT: appropriate affect, normal mood Skin exam: ABSENT: jaundice, rash, urticaria Results Laboratory Results: 02/22/18 06:34 02/22/18 06:34 02/22/18 02/22/18 06:34 06:34 WBC 9.7 RBC 3.42 L Hgb 10.2 L D Hct 29.0 L MCV 85 MCH 29.8 MCHC 35.1 RDW 12.9 Plt Count 299 Seg Neutrophils % 76.4 Lymphocytes % 11.8 L Monocytes % 9.0 Eosinophils % 2.4 Basophils % 0.4 Absolute Neutrophils 7.4 Absolute Lymphocytes 1.1 Absolute Monocytes 0.9 Absolute Eosinophils 0.2 Absolute Basophils 0.0 Sodium 140.1 Potassium 3.8 Chloride 108 H Carbon Dioxide 25 Anion Gap 7 BUN 17 Creatinine 1.44 H Est GFR ( Amer) > 60 Est GFR (Non-Af Amer) 52 L Glucose 172 H Calcium 8.7 Magnesium 1.8 02/18/18 00:32 Toe - Abscess Gram Stain - Final Impressions: Foot X-Ray 02/17/18 17:02 IMPRESSION: Prior amputation. Degenerative joint disease. Lower Extremity MRI 02/18/18 00:00 IMPRESSION: Cellulitis. No evidence of osteomyelitis. Assessment & Plan - Diagnosis (1) Diabetes mellitus type II, uncontrolled Qualifiers: Glycemic state: with hyperglycemia Qualified Code(s): E11.65 - Type 2 diabetes mellitus with hyperglycemia Is this a current diagnosis for this admission?: Yes Plan: Continue with diabetic diet, home medications for diabetes and before meals and at bedtime blood sugar determinations using a sliding scale for correction. (2) Diabetic foot ulcer Qualifiers: Diabetic foot ulcer location: midfoot Diabetes mellitus type: due to underlying condition Laterality: right Non-pressure ulcer stage: with other severity Qualified Code(s): E08.621 - Diabetes mellitus due to underlying condition with foot ulcer; L97.418 - Non-pressure chronic ulcer of right heel and midfoot with other specified severity; L97.418 - Non-pressure chronic ulcer of right heel and midfoot with other specified severity; L97.418 - Non-pressure chronic ulcer of right heel and midfoot with other specified severity; L97.418 - Non-pressure chronic ulcer of right heel and midfoot with other specified severity Is this a current diagnosis for this admission?: Yes Plan: Patient is now on IV Ancef and this may be converted to oral Keflex at the time of discharge. His wound and treatment of his infection will be managed by the director surgical. (3) Hypertension Is this a current diagnosis for this admission?: Yes Plan: Patient will have his usual home medications restarted and further adjustment of medications can be made if his blood pressure is not well controlled when he is back on his regular medications. (4) Dysthymic disorder Is this a current diagnosis for this admission?: Yes Plan: Restart home medications including antidepressant agents. - Time Time Spent with patient: 25-34 minutes Medications reviewed and adjusted accordingly: Yes
--- NOTE | 2018-02-22 22:06 | PDOC PROGRESS REPORT ---
Subjective Progress Note for:: 02/22/18 Subjective:: minimal pains Reason For Visit: RIGHT 1ST TOE/AMPUTATION SITE INFECTION Physical Exam Vital Signs: Temp Pulse Resp BP Pulse Ox 98.0 F 77 16 167/90 H 95 02/22/18 15:03 02/22/18 15:03 02/22/18 15:03 02/22/18 15:03 02/22/18 15:03 Intake & Output 02/21/18 02/22/18 02/23/18 06:59 06:59 06:59 Intake Total 1700 4256 1418 Output Total 600 0 Balance 1100 4256 1418 Weight 100.4 kg 100.4 kg Exam: Dressings changed No drainage noted but the medial part of right foot still has redness/ cellulitis. Rubber drain left in placed Wet to dry dressings placed and wrapped with kerlix over 2 ABD pads. concerned about left foot being pale earlier today. Left foot is warm with palpable ankle pulses. Results Laboratory Results: 02/22/18 06:34 02/22/18 06:34 02/22/18 02/22/18 06:34 06:34 WBC 9.7 RBC 3.42 L Hgb 10.2 L D Hct 29.0 L MCV 85 MCH 29.8 MCHC 35.1 RDW 12.9 Plt Count 299 Seg Neutrophils % 76.4 Lymphocytes % 11.8 L Monocytes % 9.0 Eosinophils % 2.4 Basophils % 0.4 Absolute Neutrophils 7.4 Absolute Lymphocytes 1.1 Absolute Monocytes 0.9 Absolute Eosinophils 0.2 Absolute Basophils 0.0 Sodium 140.1 Potassium 3.8 Chloride 108 H Carbon Dioxide 25 Anion Gap 7 BUN 17 Creatinine 1.44 H Est GFR ( Amer) > 60 Est GFR (Non-Af Amer) 52 L Glucose 172 H Calcium 8.7 Magnesium 1.8 02/18/18 00:32 Toe - Abscess Gram Stain - Final Impressions: Foot X-Ray 02/17/18 17:02 IMPRESSION: Prior amputation. Degenerative joint disease. Lower Extremity MRI 02/18/18 00:00 IMPRESSION: Cellulitis. No evidence of osteomyelitis. Assessment & Plan - Diagnosis (1) Abscess Is this a current diagnosis for this admission?: Yes - Time Time Spent with patient: 15-24 minutes - Inpatient Certification Medical Necessity: Need Close Monitoring Due to Risk of Patient Decompensation, Need for IV Antibiotics, Risk of Complication if Not Cared For in Hospital - Plan Summary Plan Summary: Continue IV antibiotics Leg elevation
[2018-02-22] MEDS: TRAZODONE HCL 50 MG TABLET PO SCH (22:42)
[2018-02-22] MEDS: LOSARTAN POTASSIUM 50 MG TABLET PO SCH (22:42)
[2018-02-22] MEDS: INSULIN GLARGINE,HUM.REC.ANLOG 300 UNIT/3 ML INSULN.PEN SUBCUT SCH (22:43)
[2018-02-23] MEDS: CEFAZOLIN SODIUM 2 GM in DEXTROSE 5%-WATER 100 ML IV SCH ×2 (06:34→11:11)
[2018-02-23] MEDS: HEPARIN SOD (PORCINE) 5,000 UNIT/ML 1 ML SYRINGE SUBCUT SCH ×3 (06:35→21:31)
[2018-02-23] MEDS: GABAPENTIN 300 MG CAPSULE PO SCH ×3 (06:36→21:40)
[2018-02-23] MEDS: HYDROCHLOROTHIAZIDE 25 MG TABLET PO SCH (08:07)
[2018-02-23] MEDS: FUROSEMIDE 40 MG TABLET PO SCH (08:07)
[2018-02-23] MEDS: METOPROLOL SUCCINATE 50 MG TAB.SR.24H PO SCH (11:11)
[2018-02-23] MEDS: DULOXETINE HCL 30 MG CAPSULE.DR PO SCH ×2 (11:12→21:31)
[2018-02-23] MEDS: ASPIRIN 81 MG TABLET, ENT COATED PO SCH (11:12)
[2018-02-23] MEDS: QUETIAPINE FUMARATE 100 MG TABLET PO SCH (11:12)
--- NOTE | 2018-02-23 14:59 | PDOC PROGRESS REPORT ---
Subjective Progress Note for:: 02/23/18 Reason For Visit: RIGHT 1ST TOE/AMPUTATION SITE INFECTION Patient is postoperative day 4 status post vigorous debridement right foot. He has no complaints. Physical Exam Vital Signs: Temp Pulse Resp BP Pulse Ox 98.1 F 79 20 152/80 H 99 02/23/18 11:05 02/23/18 11:05 02/23/18 11:05 02/23/18 11:05 02/23/18 11:05 Intake & Output 02/22/18 02/23/18 02/24/18 06:59 06:59 06:59 Intake Total 4256 2718 200 Output Total 0 Balance 4256 2718 200 Weight 100.4 kg 104.2 kg General appearance: PRESENT: no acute distress Extremities exam: PRESENT: other - Right foot dressing examined; Clay loop drain removed; all 3 wounds clean, no foul smell; minimal serous discharge right forefoot granulating nicely, no foul smell; erythema and edema to foot resolved Results Laboratory Results: 02/22/18 06:34 02/22/18 06:34 02/18/18 00:32 Toe - Abscess Gram Stain - Final 02/18/18 00:32 Toe - Abscess Wound Culture - Final Staphylococcus Aureus Skin Gilda No Anaerobic Organisms Impressions: Foot X-Ray 02/17/18 17:02 IMPRESSION: Prior amputation. Degenerative joint disease. Lower Extremity MRI 02/18/18 00:00 IMPRESSION: Cellulitis. No evidence of osteomyelitis. Assessment & Plan - Diagnosis (1) Diabetic foot ulcer Qualifiers: Diabetic foot ulcer location: midfoot Diabetes mellitus type: due to underlying condition Laterality: right Non-pressure ulcer stage: with other severity Qualified Code(s): E08.621 - Diabetes mellitus due to underlying condition with foot ulcer; L97.418 - Non-pressure chronic ulcer of right heel and midfoot with other specified severity; L97.418 - Non-pressure chronic ulcer of right heel and midfoot with other specified severity; L97.418 - Non-pressure chronic ulcer of right heel and midfoot with other specified severity; L97.418 - Non-pressure chronic ulcer of right heel and midfoot with other specified severity Is this a current diagnosis for this admission?: Yes Plan: Patient is 4 days status post vigorous debridement of right foot, with excellent source control of septic focus; growing staph aureus, sensitive to antimicrobials Recommendations 1. Continue local wound care; orders written 2. May be up with surgical boot only 3. Patient follow-up with [facility] upon discharge him from hospital 4. Patient can be managed on p.o. antibiotics upon discharge from hospital.
[2018-02-23] MEDS ORDERED: BISACODYL 5 MG TABEC PO PRN (15:56)
[2018-02-23] MEDS: CEPHALEXIN 500 MG CAPSULE PO SCH ×2 (16:17→21:33)
[2018-02-23] MEDS: ONDANSETRON 4 MG TAB.RAPDIS PO SCH ×2 (16:18→21:31)
[2018-02-23] MEDS ORDERED: BISACODYL 5 MG TABEC PO ONE (17:00)
--- NOTE | 2018-02-23 17:06 | PDOC PROGRESS REPORT ---
Subjective Progress Note for:: 02/23/18 Subjective:: Reji states that his right foot and toes have been swollen and tender for the last 5 days prior to his admission. He states that his foot has continued to be red and swollen and gotten more tender and more swollen over that period of time. Eventually he came to the emergency room and was subsequently admitted for an ulceration of the sole of his right foot in the area of the second metatarsal phalangeal joint. He states that the wound started to drain a couple of days ago and he decided finally to seek attention due to the increasing discomfort of walking. He denies fever or chills but acknowledges that he has had some nausea and vomiting that he feels are associated with this episode. He has had previous similar problems that have resulted in amputations of his right great toe and prior hospitalizations. He is anticipating having surgery today as the surgeon has already seen him and is apparently going to do a biopsy of the bone as well as surgically addressing the wound of his right sole. 02/19/18: Reji had debridement of his right plantar ulceration yesterday and surgery is planning to take him back again for further debridement today, according to his understanding. He states that he is having moderate pain but it is reasonably well-controlled by his medications. He denies feeling feverish or chilled and he has had no palpitations or sensation of tachycardia or weakness, syncope or lightheadedness with activity. We will follow his hemoglobin later today after he returns from surgery and recheck his routine lab works tomorrow. 02/20/18: Reji is depressed today. He complains of flushing (warm and sweaty) feeling on the left side of his face. He admits he has had this numerous times in the past. He also complains of dyspepsia and upper esophageal pain/discomfort. He is upset that the surgeon has not seen him today. His wound has been draining a lot and he is worried about losing his foot. 02/21/18: Reji is still somewhat depressed today and continues to have some sensation of warmth and sweating on the left side of his face he also feels like he has something stuck in his throat which he describes as a feeling of like a piece of spaghetti that will not come up and it will not go down. Additionally he is disappointed that his surgery is again not seen him yet today and he feels that his wound is continuing to be draining too much and he is worried about losing his foot. He continues to be angry about his most recent induction for surgical anesthesia and he has been noted to be complaining of the minor problems and annoyances he addresses the nursing staff today. 02/22/18: Reji continues to do well postoperatively he is tolerating increased amounts of activity though he is still allowed to step on his foot. He is having minimal discomfort and his mood is generally improved. He denies any nausea vomiting diarrhea cough fever or chills. We are awaiting surgery's approval for disposition. 02/23/18: Reji once again is doing quite well. He denies nausea, vomiting, diarrhea, fever, chills, chest pain and dyspnea. His blood pressure has been doing quite well and remains in good control and he feels well with this. Additionally his appetite is improved and he feels much better emotionally with less depression since his surgeon told him that his wound is healing very nicely and that he can be placed on oral antibiotics and followed up as an outpatient. I have discussed this with the surgeon and with Reji and he will be started on oral antibiotics today with the plan to be discharged tomorrow. This was agreeable to both Reji and his surgeon. Reason For Visit: RIGHT 1ST TOE/AMPUTATION SITE INFECTION Physical Exam Vital Signs: Temp Pulse Resp BP Pulse Ox 98.2 F 74 16 156/76 H 92 02/23/18 15:02 02/23/18 15:02 02/23/18 15:02 02/23/18 15:02 02/23/18 15:02 Intake & Output 02/22/18 02/23/18 02/24/18 06:59 06:59 06:59 Intake Total 4256 2718 200 Output Total 0 Balance 4256 2718 200 Weight 100.4 kg 104.2 kg General appearance: PRESENT: no acute distress, cooperative Head exam: PRESENT: atraumatic, normocephalic Eye exam: PRESENT: conjunctiva pink. ABSENT: conjunctival injection Ear exam: PRESENT: normal external ear exam. ABSENT: drainage Mouth exam: PRESENT: moist, neck supple Neck exam: ABSENT: thyromegaly, tracheal deviation Respiratory exam: PRESENT: clear to auscultation rupa, symmetrical, unlabored Cardiovascular exam: PRESENT: RRR. ABSENT: clicks, gallop, rubs Vascular exam: PRESENT: normal capillary refill. ABSENT: pallor GI/Abdominal exam: PRESENT: normal bowel sounds, soft Extremities exam: ABSENT: clubbing, joint swelling Musculoskeletal exam: PRESENT: deformity - Status post amputation of the right great toe. ABSENT: dislocation Neurological exam: PRESENT: alert, awake, oriented to person, oriented to place , oriented to time, oriented to situation, CN II-XII grossly intact. ABSENT: motor sensory deficit Psychiatric exam: PRESENT: appropriate affect, normal mood Skin exam: ABSENT: jaundice, rash, urticaria Results Laboratory Results: 02/22/18 06:34 02/22/18 06:34 02/18/18 00:32 Toe - Abscess Gram Stain - Final 02/18/18 00:32 Toe - Abscess Wound Culture - Final Staphylococcus Aureus Skin Gilda No Anaerobic Organisms Impressions: Foot X-Ray 02/17/18 17:02 IMPRESSION: Prior amputation. Degenerative joint disease. Lower Extremity MRI 02/18/18 00:00 IMPRESSION: Cellulitis. No evidence of osteomyelitis. Assessment & Plan - Diagnosis (1) Diabetes mellitus type II, uncontrolled Qualifiers: Glycemic state: with hyperglycemia Qualified Code(s): E11.65 - Type 2 diabetes mellitus with hyperglycemia Is this a current diagnosis for this admission?: Yes Plan: Continue with diabetic diet, home medications for diabetes and before meals and at bedtime blood sugar determinations using a sliding scale for correction. (2) Diabetic foot ulcer Qualifiers: Diabetic foot ulcer location: midfoot Diabetes mellitus type: due to underlying condition Laterality: right Non-pressure ulcer stage: with other severity Qualified Code(s): E08.621 - Diabetes mellitus due to underlying condition with foot ulcer; L97.418 - Non-pressure chronic ulcer of right heel and midfoot with other specified severity; L97.418 - Non-pressure chronic ulcer of right heel and midfoot with other specified severity; L97.418 - Non-pressure chronic ulcer of right heel and midfoot with other specified severity; L97.418 - Non-pressure chronic ulcer of right heel and midfoot with other specified severity Is this a current diagnosis for this admission?: Yes Plan: Patient is now on IV Ancef and this will be converted to oral Keflex today in anticipation of discharge tomorrow if he remains stable. (3) Hypertension Is this a current diagnosis for this admission?: Yes Plan: Patient will have his usual home medications restarted and further adjustment of medications can be made if his blood pressure is not well controlled when he is back on his regular medications. (4) Dysthymic disorder Is this a current diagnosis for this admission?: Yes Plan: Continue home medications including antidepressant agents. - Time Time Spent with patient: 25-34 minutes Medications reviewed and adjusted accordingly: Yes Anticipated discharge: Home with Homehealth Within: within 24 hours
[2018-02-23] MEDS: SENNOSIDES/DOCUSATE 8.6-50 MG 1 EACH TABLET PO SCH (17:13)
[2018-02-23] MEDS: PROMETHAZINE HCL INJ 25 MG/1 ML VIAL IV PRN (20:34)
[2018-02-23] MEDS ORDERED: INSULIN GLARGINE,HUM.REC.ANLOG 1,000 UNIT/10 ML UNIT SUBCUT ONE (21:15)
[2018-02-23] MEDS: LOSARTAN POTASSIUM 50 MG TABLET PO SCH (21:31)
[2018-02-23] MEDS: TRAZODONE HCL 50 MG TABLET PO SCH (21:31)
[2018-02-23] MEDS: INSULIN GLARGINE,HUM.REC.ANLOG 300 UNIT/3 ML INSULN.PEN SUBCUT SCH (21:40)
[2018-02-24] MEDS: HEPARIN SOD (PORCINE) 5,000 UNIT/ML 1 ML SYRINGE SUBCUT SCH (06:26)
[2018-02-24] MEDS: GABAPENTIN 300 MG CAPSULE PO SCH (06:27)
[2018-02-24] MEDS: CEPHALEXIN 500 MG CAPSULE PO SCH ×2 (08:52→11:14)
[2018-02-24] MEDS: FUROSEMIDE 40 MG TABLET PO SCH (08:52)
[2018-02-24] MEDS: ONDANSETRON 4 MG TAB.RAPDIS PO SCH ×2 (08:52→11:14)
[2018-02-24] MEDS: HYDROCHLOROTHIAZIDE 25 MG TABLET PO SCH (08:52)
--- NOTE | 2018-02-24 09:20 | PDOC DISCHARGE SUMMARY ---
General - Admit/Disc Date/PCP Admission Date/Primary Care Provider: 02/17/18 21:06 Discharge Date: 02/24/18 - Discharge Diagnosis (1) Diabetic foot ulcer Is this a current diagnosis for this admission?: Yes Summary: Cellulitis and abscess formation which required extensive debridement. (2) Diabetes mellitus type II, uncontrolled Is this a current diagnosis for this admission?: Yes (3) Hypertension Is this a current diagnosis for this admission?: Yes - Additional Information Resuscitation Status: Full Code Discharge Diet: Diabetic Discharge Activity: Activity As Tolerated Prescriptions: Cephalexin Monohydrate [Keflex 500 mg Capsule] 1,000 mg PO ACHS 10 Days #80 capsule Metoprolol Succinate 100 mg PO ACBRKFST 30 Days #30 tab.er.24h Ondansetron [Zofran Odt 4 mg Tablet] 4 mg PO ACHS 10 Days #40 tab.rapdis Home Medications: Aspirin [Aspirin EC] 81 mg PO DAILY 02/18/18 Atorvastatin Calcium [Lipitor 20 mg Tablet] 20 mg PO .NOT STARTED PRN 02/18/18 Duloxetine HCl [Cymbalta] 30 mg PO Q12 02/18/18 Furosemide [Lasix 40 mg Tablet] 40 mg PO QAM 02/18/18 Gabapentin [Neurontin 300 mg Capsule] 300 mg PO Q8 02/18/18 Hydrochlorothiazide [Hydrodiuril 25 mg Tablet] 25 mg PO QAM 02/18/18 Insulin Aspart [Novolog Insulin (Aspart) 100 unit/mL] 10 - 12 unit SUBCUT AC 10/31 Insulin Glargine,Hum.rec.anlog [Lantus Solostar] 50 unit SQ QHS 02/18/18 Losartan Potassium [Cozaar 100 mg Tablet] 100 mg PO DAILY 02/18/18 Quetiapine Fumarate [Seroquel 100 mg Tablet] 100 mg PO DAILY 02/18/18 Sennosides [Senna] 8.6 mg PO DAILY 02/18/18 Trazodone HCl [Desyrel] 100 mg PO QHS 02/18/18 Cephalexin Monohydrate [Keflex 500 mg Capsule] 1,000 mg PO ACHS 10 Days #80 capsule 02/23/18 Metoprolol Succinate 100 mg PO ACBRKFST 30 Days #30 tab.er.24h 02/23/18 Ondansetron [Zofran Odt 4 mg Tablet] 4 mg PO ACHS 10 Days #40 tab.rapdis History of Present Illness History of Present Illness: JOHN SANDERS is a 52 year old male Patient comes to the emergency department as he noticed a callous about a week ago in the base of the first metatarsum, did not go to his respooler who is in [place] until today as he noticed swelling, redness, warmth extending to the mid ankle area, apparently he had clear secretions. He was to his respooler and she noticed an abscess in that area that was open and draining about 4 cc of pulse, he has approximately 1 cm ulcer with about 2 cm penetration according to the podiatry notes, there is a drain in place with no further secretions. His tells me that the respooler sent him to the emergency department and he might need an I&D done by general surgery as well as a MRI. Patient has been nauseous but denies vomiting, fever, chills, chest pain, shortness of breath. X-ray of the right foot shows degenerative joint disease but no osteomyelitis. Patient was initiated on IV Zosyn and IV vancomycin. Patient just moved to this area. Cultures sent by the respooler. Hospital Course Hospital Course: This is a 52 years old male patient with past medical history of diabetes mellitus and hypertension admitted for right foot cellulitis and abscess. Patient seen and evaluated by Dr. Prince who performed incision and drainage and extensive debridement. His wound culture grew MSSA which is sensitive to multiple antibiotics. Yesterday patient reevaluated by Dr. Prince who cleared him for discharge and follow-up at wound care center. This morning patient seen and evaluated at bedside. He is awake alert oriented he does not have any new complaints. His vital signs are within normal limits. I will continue all his medication and I will prescribe for him Keflex. Physical Exam Vital Signs: Temp Pulse Resp BP Pulse Ox 98.4 F 79 18 172/85 H 97 02/24/18 07:22 02/24/18 07:22 02/24/18 07:22 02/24/18 07:22 02/24/18 07:22 Intake & Output 02/23/18 02/24/18 02/25/18 06:59 06:59 06:59 Intake Total 2718 1321 Balance 2718 1321 Weight 104.2 kg 104.8 kg General appearance: PRESENT: no acute distress, well-developed, well-nourished Head exam: PRESENT: atraumatic, normocephalic Eye exam: PRESENT: conjunctiva pink, EOMI, PERRLA. ABSENT: scleral icterus Ear exam: PRESENT: normal external ear exam Mouth exam: PRESENT: moist, tongue midline Neck exam: ABSENT: carotid bruit, JVD, lymphadenopathy, thyromegaly Respiratory exam: PRESENT: clear to auscultation rupa. ABSENT: rales, rhonchi, wheezes Cardiovascular exam: PRESENT: RRR. ABSENT: diastolic murmur, rubs, systolic murmur Pulses: PRESENT: normal dorsalis pedis pul Vascular exam: PRESENT: normal capillary refill GI/Abdominal exam: PRESENT: normal bowel sounds, soft. ABSENT: distended, guarding, mass, organolmegaly, rebound, tenderness Rectal exam: PRESENT: deferred Extremities exam: PRESENT: full ROM, other - Right foot dressed no oozing or soaking.. ABSENT: calf tenderness, clubbing, pedal edema Neurological exam: PRESENT: alert, awake, oriented to person, oriented to place , oriented to time, oriented to situation, CN II-XII grossly intact. ABSENT: motor sensory deficit Psychiatric exam: PRESENT: appropriate affect, normal mood. ABSENT: homicidal ideation, suicidal ideation Skin exam: PRESENT: dry, intact, warm. ABSENT: cyanosis, rash Results Laboratory Results: 02/22/18 06:34 02/22/18 06:34 02/18/18 00:32 Toe - Abscess Gram Stain - Final 02/18/18 00:32 Toe - Abscess Wound Culture - Final Staphylococcus Aureus Skin Gilda No Anaerobic Organisms Impressions: Foot X-Ray 02/17/18 17:02 IMPRESSION: Prior amputation. Degenerative joint disease. Lower Extremity MRI 02/18/18 00:00 IMPRESSION: Cellulitis. No evidence of osteomyelitis. Qualifiers - * PATIENT BEING DISCHARGED WITH ANY OF THE FOLLOWING DIAGNOSIS: No
[2018-02-24] MEDS: DULOXETINE HCL 30 MG CAPSULE.DR PO SCH (10:50)
[2018-02-24] MEDS: QUETIAPINE FUMARATE 100 MG TABLET PO SCH (10:50)
[2018-02-24] MEDS: ASPIRIN 81 MG TABLET, ENT COATED PO SCH (10:50)
[2018-02-24] MEDS: METOPROLOL SUCCINATE 50 MG TAB.SR.24H PO SCH (10:51)
[2018-02-24 13:53] VITALS: BP 113/60
== END 2018-02-24 14:19 | disposition home or self-care (01) | DRG 623 ==
LOC: ER 14:58 → EH 21:06 → 4S 02-18 02:20
PROVIDERS: ADMIT Internal Medicine; ATTEND Internal Medicine
PROC: 0L9 Tendons, Drainage (ICD-10-PCS; 2018-02-18)
PROC: 0JBQ0ZZ Excision of Right Foot Subcutaneous Tissue and Fascia, Open Approach (ICD-10-PCS; principal; 2018-02-19 14:45)
PROC: 30233N1 Transfusion of Nonautologous Red Blood Cells into Peripheral Vein, Percutaneous Approach (ICD-10-PCS; 2018-02-21)
PROC: 5A09457 Assistance with Respiratory Ventilation, 24-96 Consecutive Hours, Continuous Positive Airway Pressure (ICD-10-PCS; 2018-02-21)
DX: E11.621 Type 2 diabetes mellitus with foot ulcer (principal); L02.611 Cutaneous abscess of right foot; L97.418 Non-pressure chronic ulcer of right heel and midfoot with other specified severity; I10 Essential (primary) hypertension; L03.031 Cellulitis of right toe; B95.61 Methicillin susceptible Staphylococcus aureus infection as the cause of diseases classified elsewhere; G47.30 Sleep apnea, unspecified; F43.10 Post-traumatic stress disorder, unspecified; F34.1 Dysthymic disorder; Z79.899 Other long term (current) drug therapy; Z79.4 Long term (current) use of insulin; Z86.73 Personal history of transient ischemic attack (TIA), and cerebral infarction without residual deficits; Z88.8 Allergy status to other drugs, medicaments and biological substances
CPT/HCPCS: 01470; 01480; 36415; 36430; 36600; 80048; 80053; 80202; 82803; 82962; 83036; 83735; 84100; 85025; 85027; 85610; 85652; 85730; 86140; 86850; 86900; 86901; 86920; 87040; 87070; 87075; 87077; 87186; 87205; 93005; 93010; 93925; 94660; 96365; 99285; A9576; J0330; J0690; J1170; J1644; J1815; J2250; J2405; J2543; J2550; J2704; J3010; J3370; J3490; J7030; J7060; P9016; S0119

== ENCOUNTER → 2018-03-26 | Outpatient (CLI) | payer OTHER ==
[2018-03-26 10:32] LABS: ABSOLUTE BASOPHILS # (AUTO) 0.1 10^3/uL (0.0-0.2); ABSOLUTE EOSINOPHILS # (AUTO) 0.1 10^3/uL (0.0-0.6); ABSOLUTE LYMPHOCYTES (AUTO) 1.4 10^3/uL (0.5-4.7); ABSOLUTE MONOCYTES (AUTO) 0.6 10^3/uL (0.1-1.4); ABSOLUTE NEUT (AUTO) 7.9 10^3/uL (1.7-8.2); BASOPHILS % (AUTO) 0.5 % (0-2); EOSINOPHILS % (AUTO) 1.3 % (0-6); HEMATOCRIT 31.3 % (37.9-51.0); HEMOGLOBIN 10.8 g/dL (13.5-17.0); LYMPHOCYTES % (AUTO) 14.2 % (13-45); MEAN CORPUSCULAR HEMOGLOBIN 29.4 pg (27.0-33.4); MEAN CORPUSCULAR HGB CONC 34.5 g/dL (32.0-36.0); MEAN CORPUSCULAR VOLUME 85 fl (80-97); PLATELET COUNT 329 10^3/uL (150-450); RED BLOOD COUNT 3.67 10^6/uL (4.35-5.55); RED CELL DISTRIBUTION WIDTH 13.7 % (11.5-14.0); TOTAL CELLS COUNTED % (AUTO) 100 %; WHITE BLOOD COUNT 10.1 10^3/uL (4.0-10.5)
--- NOTE | 2018-03-26 10:46 | RADIOLOGY REPORT (SQ) ---
EXAM DESCRIPTION: FOOT RIGHT COMPLETE COMPLETED DATE/TIME: 03/26/2018 10:17 am REASON FOR STUDY: NON-PRS CHRONIC ULCER OTH PRT RIGHT FOOT W FAT LAYER EXPOSED L97.512 NON-PRS ENGINEERING ADMINISTRATOR WILDA ULCER OTH PRT RIGHT FOOT W FAT LAYER COMPARISON: None. NUMBER OF VIEWS: Three views. TECHNIQUE: AP, lateral and oblique radiographic images acquired of the right foot. LIMITATIONS: None. FINDINGS: MINERALIZATION: Normal. BONES: There is amputation of the great toe including a small portion of the head of the 1st metatars al. There is no evidence of osteomyelitis. JOINTS: No effusions. SOFT TISSUES: Soft tissue swelling in the distal foot. OTHER: No other significant finding. IMPRESSION: No evidence of osteomyelitis. Soft tissue swelling. TECHNICAL DOCUMENTATION: JOB ID: [id number] [employer]- All Rights Reserved Reading location - IP/workstation name: [email or web address]
[2018-03-26 10:57] LABS: ALANINE AMINOTRANSFERASE 18 U/L (21-72); ALBUMIN 3.2 g/dL (3.5-5.0); ALKALINE PHOSPHATASE 106 U/L (38-126); ANION GAP 8 (5-19); ASPARTATE AMINO TRANSFERASE 13 U/L (17-59); BILIRUBIN,DIRECT 0.2 mg/dL (0.0-0.4); BILIRUBIN,TOTAL 0.4 mg/dL (0.2-1.3); BLOOD UREA NITROGEN 28 mg/dL (7-20); C-REACTIVE PROTEIN 29.7 mg/L (<10.0); CARBON DIOXIDE 28 mmol/L (22-30); CHLORIDE 106 mmol/L (98-107); GLUCOSE 197 mg/dL (75-110); POTASSIUM 4.1 mmol/L (3.6-5.0); SODIUM 141.5 mmol/L (137-145); TOTAL PROTEIN 6.1 g/dL (6.3-8.2)
[2018-03-26 11:07] LABS: ERYTHROCYTE SEDIMENTATION RATE 97 mm/hr (0-20)
--- NOTE | 2018-03-26 12:56 | XCELERA REPORT ---
[address] [address] Lower Extremity Arterial Evaluation Name: JOHN SANDERS Age: 52 yrs Gender: Male : 1965 Patient Status: Outpatient Patient Location: Study Date: 03/26/2018 08:20 AM Procedure: A color flow and duplex scan of the lower extremity arteries was performed bilaterally with velocity and waveform anaylsis. Reason For Study: ULCER Ordering Physician: KATHY CABRERA Performed By: Ned Solis Measurements and Calculations Right Left MECHANICAL ENGINEERING TECHNICIAN PSV 147.6 139.7 cm/sec Prox PFA PSV -144.4 -110.6cm/sec Prox SFA PSV 151.0 128.9 cm/sec Mid SFA PSV -150.2 -107.0cm/sec Dist SFA PSV -183.7 -128.5cm/sec Prox Pop A PSV 191.9 146.1 cm/sec Dist ANALI PSV 153.6 109.4 cm/sec Dist PUBLICITY DIRECTOR PSV 148.5 137.0 cm/sec Uriel Pedis PSV -184.6cm/sec Right Side Arterial Evaluation Normal velocity and triphasic waveforms noted from the Common Femoral artery to the infrageniculate vessels. 0 % stenosis. Ankle Brachial index not done due to bandage. Left Side Arterial Evaluation Normal velocity and triphasic waveforms noted from the Common Femoral artery to the infrageniculate vessels. 0 % stenosis. Ankle Brachial index not done due patient declining.. Interpretation Summary No hemodynamically significant lesions in the bilateral lower extremities, on duplex imaging, at rest. : KATHY CABRERA > Jarod Roberson
--- NOTE | 2018-03-27 16:05 | XCELERA REPORT ---
[address] [address] Lower Extremity Venous Evaluation Procedure: A bilateral duplex scan of the lower extremity veins was performed. The evaluation included responses to compression and other maneuvers with patient in the supine and standing positions to assess venous insufficiency. Right Sided Venous Evaluation Deep venous system evaluatiion shows patent veins with no obstruction or significant reflux identified. Sapheno Femoral junction: no reflux. Femoral vein reflux: no reflux. Greater Saphenous vein, Proximal thigh: reflux: no reflux. Greater Saphenous vein, Distal thigh: reflux: no reflux. Greater Saphenous vein, Proximal below knee: reflux: no reflux. No significant Perforators identified. Left Sided Venous Evaluation Deep venous system evaluatiion shows patent veins with no obstruction or significant reflux identified. Sapheno Femoral junction: no reflux. Femoral vein reflux: no reflux. Greater Saphenous vein, Proximal thigh: reflux: no reflux. Greater Saphenous vein, Distal thigh: reflux: no reflux. Greater Saphenous vein, Proximal below knee: reflux: no reflux. No significant Perforators identified. Interpretation Summary No duplex evidence of DVT or obstruction in the bilateral lower extremities. No significant deep or superficial reflux noted. Name: JOHN SANDERS Age: 52 yrs Gender: Male : 1965 Patient Status: Outpatient Patient Location: Study Date: 03/26/2018 08:46 AM Reason For Study: ULCER Ordering Physician: KATHY CABRERA Performed By: Ned Solis : KATHY CABRERA > Jarod Roberson
== END ==
LOC: SP 07:17
PROVIDERS: ATTEND Nurse Practitioner
DX: L97.512 Non-pressure chronic ulcer of other part of right foot with fat layer exposed (principal)
CPT/HCPCS: 36415; 80053; 83036; 85025; 85652; 86140; 93925; 93970

== ENCOUNTER → 2018-04-24 | Outpatient (CLI) | payer OTHER ==
--- NOTE | 2018-04-24 13:15 | RADIOLOGY REPORT (SQ) ---
EXAM DESCRIPTION: FOOT RIGHT COMPLETE COMPLETED DATE/TIME: 04/24/2018 12:59 pm REASON FOR STUDY: TYPE 2 DIABETES (E11.621), NON-PRS CHRONIC ULCER OTH PRT RIGHT FOOT W FAT L COMPARISON: 03/26/2018. NUMBER OF VIEWS: Three views right foot. LIMITATIONS: Limited clinical information. Area of reported ulcer is not marked on the radiographs. FINDINGS: Status post resection distal great toe. This is chronic. Amputated at the level of the m etatarsal head. No bone resorption here. 2nd toe MP arthropathy. Probable IP joint arthropathy in the 2nd toe as well. Relatively similar appearance compared to prior. Soft tissue artifact along th e plantar aspect of the foot distally. Presumably ulcer lies in this region. No aggressive bone ava truction. OTHER: No other significant finding. IMPRESSION: 1. No overt osteomyelitis. Findings as above, fairly stable. TECHNICAL DOCUMENTATION: JOB ID: [id number] Reading location - IP/workstation name: [email or web address]
[2018-04-24 14:07] LABS: ABSOLUTE EOSINOPHILS # (AUTO) 0.3 10^3/uL (0.0-0.6); ABSOLUTE LYMPHOCYTES (AUTO) 1.3 10^3/uL (0.5-4.7); ABSOLUTE MONOCYTES (AUTO) 0.8 10^3/uL (0.1-1.4); ABSOLUTE NEUT (AUTO) 7.9 10^3/uL (1.7-8.2); BASOPHILS % (AUTO) 0.4 % (0-2); EOSINOPHILS % (AUTO) 2.5 % (0-6); HEMATOCRIT 34.2 % (37.9-51.0); HEMOGLOBIN 11.7 g/dL (13.5-17.0); LYMPHOCYTES % (AUTO) 13.1 % (13-45); MEAN CORPUSCULAR HEMOGLOBIN 28.7 pg (27.0-33.4); MEAN CORPUSCULAR HGB CONC 34.2 g/dL (32.0-36.0); MEAN CORPUSCULAR VOLUME 84 fl (80-97); MONOCYTES % (AUTO) 7.4 % (3-13); PLATELET COUNT 241 10^3/uL (150-450); RED BLOOD COUNT 4.08 10^6/uL (4.35-5.55); RED CELL DISTRIBUTION WIDTH 14.5 % (11.5-14.0); SEGMENTED NEUTROPHILS % (AUTO) 76.6 % (42-78); TOTAL CELLS COUNTED % (AUTO) 100 %; WHITE BLOOD COUNT 10.3 10^3/uL (4.0-10.5)
[2018-04-24 14:33] LABS: ALANINE AMINOTRANSFERASE 16 U/L (21-72); ALBUMIN 3.1 g/dL (3.5-5.0); ALKALINE PHOSPHATASE 108 U/L (38-126); ANION GAP 11 (5-19); ASPARTATE AMINO TRANSFERASE 17 U/L (17-59); BILIRUBIN,DIRECT 0.2 mg/dL (0.0-0.4); BILIRUBIN,TOTAL 0.8 mg/dL (0.2-1.3); BLOOD UREA NITROGEN 28 mg/dL (7-20); C-REACTIVE PROTEIN 30.2 mg/L (<10.0); CALCIUM 8.7 mg/dL (8.4-10.2); CARBON DIOXIDE 25 mmol/L (22-30); CHLORIDE 108 mmol/L (98-107); GLUCOSE 122 mg/dL (75-110); POTASSIUM 3.9 mmol/L (3.6-5.0); SODIUM 143.8 mmol/L (137-145); TOTAL PROTEIN 5.8 g/dL (6.3-8.2)
[2018-04-24 14:46] LABS: ERYTHROCYTE SEDIMENTATION RATE 56 mm/hr (0-20)
== END ==
LOC: RAD 12:44
PROVIDERS: ATTEND Nurse Practitioner
DX: E11.621 Type 2 diabetes mellitus with foot ulcer (principal); L97.512 Non-pressure chronic ulcer of other part of right foot with fat layer exposed
CPT/HCPCS: 36415; 80053; 83036; 85025; 85652; 86140

== ENCOUNTER 2018-05-18 15:00 | Inpatient (IN) | payer OTHER ==
--- NOTE | 2018-05-18 16:57 | ER Document Report ---
ED Medical Screen (RME) - General Chief Complaint: Breathing Difficulty Stated Complaint: SWOLLEN LEGS,SHORTNESS OF BREATH Time Seen by Provider: 05/18/18 16:54 Mode of Arrival: Ambulatory Information source: Patient Notes: 52-year-old man with a history of hypertension diabetes, congestive heart failure presents to the emergency room with shortness of breath, dyspnea on exertion, worsening lower extremity swelling TRAVEL OUTSIDE OF THE [place] IN LAST 30 DAYS: No - Related Data Allergies/Adverse Reactions: lisinopril Allergy (Verified 02/17/18 15:02) tape Allergy (Uncoded 02/17/18 15:02) Past Medical History - Past Medical History Cardiac Medical History: Reports: Hx Hypertension Pulmonary Medical History: Reports: Hx Sleep Apnea - Not on CPAP yet Endocrine Medical History: Reports: Hx Diabetes Mellitus Type 1, Hx Diabetes Mellitus Type 2 Renal/ Medical History: Denies: Hx Peritoneal Dialysis Psychiatric Medical History: Reports: Hx Post Traumatic Stress Disorder Past Surgical History: Reports: Other - Left toe shave bone, cataract surgery, Neck cyst, debridement of rt foot Physical Exam - Vital signs Vitals: Temp Pulse Resp BP Pulse Ox 98.1 F 88 14 176/78 H 95 05/18/18 15:15 05/18/18 15:15 05/18/18 15:15 05/18/18 15:15 05/18/18 15:15 Course - Vital Signs Vital signs: Temp Pulse Resp BP Pulse Ox 98.1 F 88 14 176/78 H 95 05/18/18 15:15 05/18/18 15:15 05/18/18 15:15 05/18/18 15:15 05/18/18 15:15 Doctor's Discharge - Discharge Referrals: KATHY CABRERA, RECREATION TECHNICIAN [Primary Care Provider] - Follow up as needed
[2018-05-18 17:45] LABS: ABSOLUTE BASOPHILS # (AUTO) 0.1 10^3/uL (0.0-0.2); ABSOLUTE EOSINOPHILS # (AUTO) 0.1 10^3/uL (0.0-0.6); ABSOLUTE LYMPHOCYTES (AUTO) 1.4 10^3/uL (0.5-4.7); ABSOLUTE MONOCYTES (AUTO) 0.8 10^3/uL (0.1-1.4); ABSOLUTE NEUT (AUTO) 9.4 10^3/uL (1.7-8.2); BASOPHILS % (AUTO) 0.5 % (0-2); EOSINOPHILS % (AUTO) 1.1 % (0-6); HEMATOCRIT 34.7 % (37.9-51.0); HEMOGLOBIN 11.8 g/dL (13.5-17.0); LYMPHOCYTES % (AUTO) 11.7 % (13-45); MEAN CORPUSCULAR HEMOGLOBIN 27.9 pg (27.0-33.4); MEAN CORPUSCULAR HGB CONC 33.9 g/dL (32.0-36.0); MEAN CORPUSCULAR VOLUME 82 fl (80-97); MONOCYTES % (AUTO) 6.5 % (3-13); PLATELET COUNT 258 10^3/uL (150-450); RED BLOOD COUNT 4.21 10^6/uL (4.35-5.55); RED CELL DISTRIBUTION WIDTH 14.9 % (11.5-14.0); SEGMENTED NEUTROPHILS % (AUTO) 80.2 % (42-78); TOTAL CELLS COUNTED % (AUTO) 100 %; WHITE BLOOD COUNT 11.7 10^3/uL (4.0-10.5)
[2018-05-18 17:56] LABS: ALANINE AMINOTRANSFERASE 13 U/L (21-72); ALBUMIN 3.7 g/dL (3.5-5.0); ALKALINE PHOSPHATASE 136 U/L (38-126); ANION GAP 11 (5-19); ASPARTATE AMINO TRANSFERASE 33 U/L (17-59); BILIRUBIN,DIRECT 0.3 mg/dL (0.0-0.4); BILIRUBIN,TOTAL 1.2 mg/dL (0.2-1.3); BLOOD UREA NITROGEN 33 mg/dL (7-20); CALCIUM 9.3 mg/dL (8.4-10.2); CARBON DIOXIDE 29 mmol/L (22-30); CHLORIDE 105 mmol/L (98-107); CREATINE KINASE 214 U/L (55-170); GLUCOSE 170 mg/dL (75-110); POTASSIUM 4.1 mmol/L (3.6-5.0); SODIUM 144.7 mmol/L (137-145)
--- NOTE | 2018-05-18 18:00 | RADIOLOGY REPORT (SQ) ---
EXAM DESCRIPTION: CHEST SINGLE VIEW COMPLETED DATE/TIME: 05/18/2018 5:47 pm REASON FOR STUDY: sob COMPARISON: None. EXAM PARAMETERS: NUMBER OF VIEWS: One view. TECHNIQUE: Single frontal radiographic view of the chest acquired. RADIATION DOSE: NA LIMITATIONS: None. FINDINGS: LUNGS AND PLEURA: Bilateral pleural effusions. No pneumothorax. MEDIASTINUM AND HILAR STRUCTURES: No masses. Contour normal. HEART AND VASCULAR STRUCTURES: Heart normal in size. Normal vasculature. BONES: No acute findings. HARDWARE: None in the chest. OTHER: No other significant finding. IMPRESSION: Bilateral pleural effusions. TECHNICAL DOCUMENTATION: JOB ID: [id number] [employer] All Rights Reserved Reading location - IP/workstation name: [email or web address]
[2018-05-18 18:08] LABS: CREATINE KINASE MB 3.45 ng/mL (<4.55); TROPONIN I 0.014 ng/mL
[2018-05-18] MEDS ORDERED: FUROSEMIDE INJ/PF 40 MG/4 ML SDV IV ONE ×2 (20:06→23:35)
--- NOTE | 2018-05-18 20:57 | ER Document Report ---
ED Respiratory Problem - General Chief Complaint: Breathing Difficulty Stated Complaint: SWOLLEN LEGS,SHORTNESS OF BREATH Time Seen by Provider: 05/18/18 16:54 Mode of Arrival: Ambulatory Notes: Patient is a 52-year-old male who comes in with increasing dyspnea on exertion and orthopnea. Patient does not have a primary care doctor as his left and he has not been [facility] a new one through [facility]. Denies chest pain. Denies cough or fever. Patient had surgery on his foot and states that he had Dopplers within the last month or 2 but cannot tell me the exact day. TRAVEL OUTSIDE OF THE [place] IN LAST 30 DAYS: No - HPI Patient complains to provider of: Short of breath Duration: Continuous Quality of pain: No pain Context: denies: Hx CHF Short of Breath: Mild Associated symptoms: Ankle/leg swelling - Related Data Allergies/Adverse Reactions: lisinopril Allergy (Verified 02/17/18 15:02) tape Allergy (Uncoded 02/17/18 15:02) Past Medical History - General Information source: Patient - Social History Smoking Status: Never Smoker Chew tobacco use (# tins/day): No Frequency of alcohol use: None Family History: Reviewed & Not Pertinent Patient has suicidal ideation: No Patient has homicidal ideation: No - Past Medical History Cardiac Medical History: Reports: Hx Hypertension Pulmonary Medical History: Reports: Hx Sleep Apnea - Not on CPAP yet Endocrine Medical History: Reports: Hx Diabetes Mellitus Type 2 Renal/ Medical History: Denies: Hx Peritoneal Dialysis Psychiatric Medical History: Reports: Hx Post Traumatic Stress Disorder Past Surgical History: Reports: Other - Left toe shave bone, cataract surgery, Neck cyst, debridement of rt foot Review of Systems - Review of Systems Constitutional: No symptoms reported EENT: No symptoms reported Cardiovascular: No symptoms reported Respiratory: See HPI Gastrointestinal: No symptoms reported Genitourinary: No symptoms reported Male Genitourinary: No symptoms reported Musculoskeletal: No symptoms reported Skin: No symptoms reported Hematologic/Lymphatic: No symptoms reported Neurological/Psychological: No symptoms reported Physical Exam - Vital signs Vitals: Temp Pulse Resp BP Pulse Ox 98.1 F 88 14 176/78 H 95 05/18/18 15:15 05/18/18 15:15 05/18/18 15:15 05/18/18 15:15 05/18/18 15:15 Interpretation: Normal - General General appearance: Appears well, Alert - HEENT Head: Normocephalic, Atraumatic Eyes: Normal Pupils: PERRL - Respiratory Respiratory status: No respiratory distress Chest status: Nontender Breath sounds: Decreased air movement - At bases Chest palpation: Normal - Cardiovascular Rhythm: Regular Heart sounds: Normal auscultation Murmur: No - Abdominal Inspection: Normal Distension: No distension Bowel sounds: Normal Tenderness: Nontender Organomegaly: No organomegaly - Back Back: Normal, Nontender - Extremities General upper extremity: Normal inspection, Nontender, Normal color, Normal ROM , Normal temperature General lower extremity: Normal inspection, Nontender, Normal color, Normal ROM , Normal temperature, Normal weight bearing. No: Armando's sign - Neurological Neuro grossly intact: Yes Cognition: Normal Orientation: AAOx4 Gregory Coma Scale Eye Opening: Spontaneous Everett Coma Scale Verbal: Oriented Everett Coma Scale Motor: Obeys Commands Grgeory Coma Scale Total: 15 Speech: Normal Motor strength normal: LUE, RUE, LLE, RLE Sensory: Normal - Psychological Associated symptoms: Normal affect, Normal mood - Skin Skin Temperature: Warm Skin Moisture: Dry Skin Color: Normal Course - Re-evaluation Re-evalutation: 1 patient is a 52-year-old male with increasing dyspnea on exertion, orthopnea. Denies chest pain. He does not have a primary care doctor and has never had an echocardiogram. BNP is elevated. Bilateral pleural effusions on x-ray. No evidence for pneumonia or infection. Patient was given Lasix and will be admitted to the hospital service for further evaluation of what appears to be new onset heart failure. Patient is agreeable to this plan. Stable time of admission. Of note, Dopplers of bilateral lower extremities negative for DVT - Vital Signs Vital signs: Temp Pulse Resp BP Pulse Ox 98.1 F 88 24 H 163/89 H 94 05/18/18 15:15 05/18/18 15:15 05/18/18 22:01 05/18/18 22:01 05/18/18 22:01 - Laboratory Result Diagrams: 05/18/18 17:34 05/18/18 17:34 Laboratory results interpreted by me: 05/18/18 05/18/18 05/18/18 17:34 17:34 17:34 WBC 11.7 H RBC 4.21 L Hgb 11.8 L Hct 34.7 L RDW 14.9 H Seg Neutrophils % 80.2 H Lymphocytes % 11.7 L Absolute Neutrophils 9.4 H D-Dimer BUN 33 H Creatinine 1.26 H Glucose 170 H ALT 13 L Alkaline Phosphatase 136 H Creatine Kinase 214 H NT-Pro-B Natriuret Pep 3100 H 05/18/18 17:34 WBC RBC Hgb Hct RDW Seg Neutrophils % Lymphocytes % Absolute Neutrophils D-Dimer 1.32 H BUN Creatinine Glucose ALT Alkaline Phosphatase Creatine Kinase NT-Pro-B Natriuret Pep - Diagnostic Test Radiology reviewed: Reports reviewed Discharge - Discharge Clinical Impression: New onset of congestive heart failure Condition: Stable Disposition: ADMITTED INPATIENT [facility] Admitted: Telemetry
[2018-05-18] MEDS ORDERED: ACETAMINOPHEN 325 MG TABLET PO PRN (22:54)
[2018-05-18] MEDS ORDERED: MAG HYDROX/AL HYDROX/SIMETH SUSP 30 ML UDCUP PO PRN (22:54)
[2018-05-18] MEDS ORDERED: PROMETHAZINE HCL INJ 25 MG/1 ML VIAL IV PRN (22:54)
--- NOTE | 2018-05-19 00:46 | PDOC H&P ---
History of Present Illness Admission Date/PCP: 05/18/18 21:01 None Patient complains of: Shortness of breath History of Present Illness: JOHN SANDERS is a 52 year old male with medical history remarkable for hypertension, MAXIMINO not on CPAP, ischemic CVA, Graham's palsy, diabetes mellitus type 2. Information was obtained via patient and who is at the bedside. Apparently patient has been having worsening lower extremities edema for the last 3-4 weeks, he went to see a primary doctor in [place] who told him he might have CHF and started him on Lasix 100 mg for 2 days, 80 mg next 2 days, 60 mg next 2 days and he was not on a maintenance dose of 40 mg a day. His tells me that initially he improved but as the dose was getting lower his lower extremities edema was worsening, lately has been associated with orthopnea , patient has to sleep on his right side with 2 pillows, intermittent dry cough , progressive shortness of breath with wheezing. His oxygen saturation has been 96% on room air but he is evident on some respiratory distress. His chest x-ray shows mild bilateral pleural effusion, BNP 3100, no prior to compare it. Patient does not have any history of CHF and [facility] and he is supposed to get a primary care physician on July. 40 mg of IV Lasix given in the emergency department. Past Medical History Cardiac Medical History: Reports: Hypertension Pulmonary Medical History: Reports: Sleep Apnea - Not on CPAP yet Neurological Medical History: Reports: Ischemic CVA, Other - Silent stroke as per MRI done November 2017. 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 Past Surgical History: Reports: Other - Left toe shave bone, cataract surgery, Neck cyst, debridement of rt foot Social History Information Source: Patient Smoking Status: Never Smoker Frequency of Alcohol Use: None Hx Recreational Drug Use: No Drugs: None Hx Prescription Drug Abuse: No Past Social History Note: Lives with his who is at the bedside Family History Family History: Reviewed & Not Pertinent Family History: Patient is adopted Parental Family History Reviewed: Yes Children Family History Reviewed: NA Sibling(s) Family History Reviewed.: NA Medication/Allergy Home Medications: Aspirin [Aspirin EC] 81 mg PO DAILY 02/18/18 Atorvastatin Calcium [Lipitor 20 mg Tablet] 10 mg PO QHS 02/18/18 Duloxetine HCl [Cymbalta] 120 mg PO Q12 02/18/18 Furosemide [Lasix 40 mg Tablet] 40 mg PO QAM 02/18/18 Gabapentin [Neurontin 300 mg Capsule] 300 mg PO Q8 02/18/18 Hydrochlorothiazide [Hydrodiuril 25 mg Tablet] 25 mg PO QAM 02/18/18 Insulin Aspart [Novolog Insulin (Aspart) 100 unit/mL] 5 unit SUBCUT AC 02/18/18 Insulin Glargine,Hum.rec.anlog [Lantus Solostar] 40 unit SQ QHS 02/18/18 Losartan Potassium [Cozaar 100 mg Tablet] 100 mg PO DAILY 02/18/18 Quetiapine Fumarate [Seroquel 100 mg Tablet] 100 mg PO QHS 02/18/18 Trazodone HCl [Desyrel] 100 mg PO QHS 02/18/18 Amlodipine Besylate [Norvasc 10 mg Tablet] 10 mg PO DAILY 05/18/18 Loratadine [Claritin 10 mg Tablet] 10 mg PO DAILY 05/18/18 Metoprolol Tartrate [Lopressor 50 mg Tablet] 50 mg PO Q12 05/18/18 Omeprazole 20 mg PO DAILY 05/18/18 Allergies/Adverse Reactions: lisinopril Allergy (Verified 02/17/18 15:02) tape Allergy (Uncoded 02/17/18 15:02) Review of Systems Review of Systems: As outlined in the HPI, all others negative Physical Exam Vital Signs: Temp Pulse Resp BP Pulse Ox 98.1 F 88 24 H 163/89 H 94 05/18/18 15:15 05/18/18 15:15 05/18/18 22:01 05/18/18 22:01 05/18/18 22:01 Additional comments: General appearance: Well-developed, morbidly obese, alert and cooperative, and appears to be in mild distress secondary to shortness of breath Head: Normocephalic Eyes: PEERL, EOMI, vision is grossly intact. Ears: External auditory canal and tympanic membranes clear, hearing grossly intact. Nose: No nasal discharge. Throat: Oral cavity and pharynx normal. No inflammation, swelling, exudate or lesions. Neck: Neck supple, nontender without lymphadenopathy, masses or thyromegaly. Cardiac: Normal S1 and S2. No S3, S4 or murmurs. Rhythm is regular. There is no cyanosis or pallor. Extremities are warm and well perfused. Capillary refill is less than 2 seconds. No carotid bruits. Lungs: Bibasilar crackles, mild expiratory wheezing, no appreciate rhonchi, distant breath sounds. Not using accessory muscles. Abdomen: Positive bowel sounds. Soft. Nondistended, nontender. No guarding or rebound. No masses. Difficult to appreciate hepatosplenomegaly due to body habitus Extremities: No significant deformity or joint abnormality. 4+ lower extremities pitting edema. Peripheral pulses intact. Neurological: Cranial nerves II through XII grossly intact. Strength and sensation symmetric and intact throughout. Reflexes 2+ throughout. Skin: Skin normal color, texture and turgor with no lesions or eruptions, warm and dry. Psychiatric: The mental examination revealed the patient was oriented to person , place, and time. The patient was able to demonstrate good judgment on recent , without hallucinations, abnormal affect or abnormal behaviors. Results Laboratory Results: 05/18/18 21:17 Troponin I 0.014 05/18/18 05/18/18 05/18/18 17:34 17:34 17:34 WBC 11.7 H RBC 4.21 L Hgb 11.8 L Hct 34.7 L MCV 82 MCH 27.9 MCHC 33.9 RDW 14.9 H Plt Count 258 Seg Neutrophils % 80.2 H Lymphocytes % 11.7 L Monocytes % 6.5 Eosinophils % 1.1 Basophils % 0.5 Absolute Neutrophils 9.4 H Absolute Lymphocytes 1.4 Absolute Monocytes 0.8 Absolute Eosinophils 0.1 Absolute Basophils 0.1 D-Dimer Sodium 144.7 Potassium 4.1 Chloride 105 Carbon Dioxide 29 Anion Gap 11 BUN 33 H Creatinine 1.26 H Est GFR ( Amer) > 60 Est GFR (Non-Af Amer) > 60 Glucose 170 H Calcium 9.3 Total Bilirubin 1.2 Direct Bilirubin 0.3 AST 33 ALT 13 L Alkaline Phosphatase 136 H Creatine Kinase 214 H CK-MB (CK-2) 3.45 Troponin I 0.014 NT-Pro-B Natriuret Pep 3100 H Total Protein 7.0 Albumin 3.7 05/18/18 05/18/18 17:34 21:17 WBC RBC Hgb Hct MCV MCH MCHC RDW Plt Count Seg Neutrophils % Lymphocytes % Monocytes % Eosinophils % Basophils % Absolute Neutrophils Absolute Lymphocytes Absolute Monocytes Absolute Eosinophils Absolute Basophils D-Dimer 1.32 H Sodium Potassium Chloride Carbon Dioxide Anion Gap BUN Creatinine Est GFR ( Amer) Est GFR (Non-Af Amer) Glucose Calcium Total Bilirubin Direct Bilirubin AST ALT Alkaline Phosphatase Creatine Kinase CK-MB (CK-2) Troponin I 0.014 NT-Pro-B Natriuret Pep Total Protein Albumin EKG Comments: Sinus rhythm at 86 beats per minute, T wave inversions in lead III Impressions: Chest X-Ray 05/18/18 16:56 IMPRESSION: Bilateral pleural effusions. Assessment & Plan - Diagnosis (1) New onset of congestive heart failure Is this a current diagnosis for this admission?: Yes Plan: Patient comes with symptomatology consistent with a florid onset of CHF exacerbation. I will place the patient 60 mg IV Lasix twice daily, I will give him 40 mg more of IV Lasix in addition to the 40 given in the emergency department. Gambino catheter is ordered for strict urinary input and output. Daily weights. Echocardiogram ordered. Cardiology consultation with Dr. Martins for assessment and further recommendations. Cardiac markers x3. BNP 3100, no prior to compare to. Patient initially tachycardic 121x' and tachypneic with a respiratory of 27x' P.o. potassium started. Chest x-ray shows bilateral small pleural effusions, do not appreciate pulmonary edema. First set of troponins negative. (2) Diabetes mellitus, type II Is this a current diagnosis for this admission?: Yes Plan: Resume insulin NovoLog and glargine. Accu-Cheks q. before meals and at bedtime , insulin lispro sliding scale and hypoglycemia protocol. (3) Hypertension Qualifiers: Hypertension type: essential hypertension Qualified Code(s): I10 - Essential (primary) hypertension Is this a current diagnosis for this admission?: Yes Plan: Uncontrolled blood pressure in the emergency department. We will place the patient on IV Lopressor as needed. Resume home antihypertensive. (4) DVT prophylaxis Is this a current diagnosis for this admission?: Yes Plan: Lovenox - Time Time Spent: 50 to 70 Minutes - Inpatient Certification Based on my medical assessment, after consideration of the patient's comorbidities, presenting symptoms, or acuity I expect that the services needed warrant INPATIENT care.: Yes I certify that my determination is in accordance with my understanding of Medicare's requirements for reasonable and necessary INPATIENT services [42 CFR 412.3e].: Yes Medical Necessity: Risk of Complication if Not Cared For in Hospital - Acute respiratory recent distress with respiratory failure - Plan Summary Plan Summary: Case discussed with patient and at the bedside, agree with plan
[2018-05-19 03:36] LABS: INTERNATIONAL RATION (INR) 1.06; PROTHROMBIN TIME 14.3 SEC (11.4-15.4)
[2018-05-19 03:37] LABS: PARTIAL THROMBOPLASTIN TIME 31.6 SEC (23.5-35.8)
[2018-05-19 03:38] LABS: ANION GAP 9 (5-19); BLOOD UREA NITROGEN 31 mg/dL (7-20); CALCIUM 8.8 mg/dL (8.4-10.2); CARBON DIOXIDE 29 mmol/L (22-30); CHLORIDE 104 mmol/L (98-107); GLUCOSE 179 mg/dL (75-110); POTASSIUM 3.8 mmol/L (3.6-5.0); SODIUM 141.9 mmol/L (137-145); TRIGLYCERIDES 109 mg/dL (<150)
[2018-05-19 03:48] LABS: DIRECT LDL 113 mg/dL (<100)
[2018-05-19] MEDS: HEPARIN SOD (PORCINE) 5,000 UNIT/ML 1 ML SYRINGE SUBCUT SCH ×3 (06:25→22:23)
[2018-05-19 06:47] LABS: ARTERIAL BLOOD BASE EXCESS 4.8 mmol/L; ARTERIAL BLOOD FIO2 ROOM AIR; ARTERIAL BLOOD HCO3 29.4 mmol/L (20-24); ARTERIAL BLOOD PCO2 43.3 mmHg (35-45); ARTERIAL BLOOD PH 7.45 (7.35-7.45); ARTERIAL BLOOD PO2 57.5 mmHg (80-100); ARTERIAL BLOOD TOTAL CO2 30.7 mmol/L (23-27)
[2018-05-19] MEDS: POTASSIUM CHLORIDE 10 MEQ CAPSULE.ER PO SCH ×2 (10:57→22:23)
[2018-05-19] MEDS: FUROSEMIDE 20 MG TABLET PO SCH ×2 (10:58→17:47)
--- NOTE | 2018-05-19 11:14 | XCELERA REPORT ---
[address] [place] [facility] [address] Lower Extremity Venous Evaluation Procedure: Color flow and duplex imaging of the veins of the right lower extremity as well as the left Common Femoral vein. Right Sided Venous Evaluation Normal vessel filling wall to wall, compression and augmentation as well as Colour flow down to the infrageniculate veins. Left Sided Venous Evaluation The left common femoral vein is fully compressible. Spontaneous and phasic flow is present in the left common femoral vein. Interpretation Summary No duplex evidence of DVT or obstruction in the right lower extremity nor in the left Common Femoral vein. Name: JOHN SANDERS Age: 52 yrs Gender: Male : 1965 Patient Status: Inpatient Patient Location: [place] [address]^A Study Date: 05/18/2018 09:09 PM Reason For Study: leg swelling, recent surgery Ordering Physician: CHRISTOPHER MARTINEZ Performed By: Marija Lui : CHRISTOPHER MARTINEZ > Jarod Roberson
--- NOTE | 2018-05-19 11:26 | EKG REPORT ---
SEVERITY:- ABNORMAL ECG - SINUS RHYTHM MARKEDLY LEFT QRS AXIS BORDERLINE PROLONGED QT INTERVAL INCOMPLETE RIGHT BUNDLE BRANCH BLOCK : Confirmed by: Emy De Jesus 19-May-2018 11:25:50
[2018-05-19] MEDS ORDERED: GLUCAGON,HUMAN RECOMB 1 MG INJ IM PRN (11:59)
[2018-05-19] MEDS ORDERED: DEXTROSE 50%-WATER SYRINGE 12.5 GM/25 ML DOSE IV PRN (11:59)
[2018-05-19] MEDS ORDERED: DEXTROSE 50%-WATER SYRINGE 25 GM/50 ML DOSE IV PRN (11:59)
[2018-05-19] MEDS ORDERED: DEXTROSE 40% GEL 15 GM TUBE X 2 PO PRN (11:59)
[2018-05-19] MEDS ORDERED: DEXTROSE 40% GEL 15 GM TUBE PO PRN (11:59)
[2018-05-19] MEDS: INSULIN LISPRO 100 UNIT/ML 3 ML VIAL SUBCUT PRN (14:17)
[2018-05-19] MEDS: INSULIN LISPRO 100 UNIT/ML 3 ML VIAL SUBCUT SCH (17:44)
--- NOTE | 2018-05-19 21:41 | PDOC PROGRESS REPORT ---
Subjective Progress Note for:: 05/19/18 Subjective:: Patient is sitting at the edge of the bed. Marked edema bilateral lower extremities. Kerlix wrap on the right ankle. Patient is breathing comfortably. Reason For Visit: HEART FAILURE Physical Exam Vital Signs: Temp Pulse Resp BP Pulse Ox 98.1 F 87 18 171/89 H 95 05/19/18 20:34 05/19/18 20:34 05/19/18 20:34 05/19/18 20:34 05/19/18 20:34 Intake & Output 05/18/18 05/19/18 05/20/18 06:59 06:59 06:59 Intake Total 590 Output Total 800 Balance -800 590 Weight 115.3 kg General appearance: PRESENT: no acute distress, cooperative, well-developed Respiratory exam: PRESENT: rales - Faint rales bilateral bases, symmetrical, unlabored. ABSENT: prolonged expiratory phas, wheezes Cardiovascular exam: PRESENT: RRR, +S1, +S2, systolic murmur - 2/6 GI/Abdominal exam: PRESENT: normal bowel sounds, soft. ABSENT: distended, guarding, tenderness Extremities exam: PRESENT: +2 edema Neurological exam: PRESENT: alert, awake, oriented to person, oriented to place , oriented to time, oriented to situation Results Laboratory Results: 05/19/18 03:14 05/19/18 05/19/18 03:14 06:20 Carbonic Acid 1.30 HCO3/H2CO3 Ratio 22:1 ABG pH 7.45 ABG pCO2 43.3 ABG pO2 57.5 L ABG HCO3 29.4 H ABG O2 Saturation 91.0 L ABG Base Excess 4.8 FiO2 ROOM AIR Sodium 141.9 Potassium 3.8 Chloride 104 Carbon Dioxide 29 Anion Gap 9 BUN 31 H Creatinine 1.23 Est GFR ( Amer) > 60 Est GFR (Non-Af Amer) > 60 Glucose 179 H Calcium 8.8 Magnesium 1.8 Triglycerides 109 Cholesterol 140.90 LDL Cholesterol Direct 113 H VLDL Cholesterol 22.0 HDL Cholesterol 30 L 05/18/18 05/19/18 05/19/18 21:17 03:14 09:42 Troponin I 0.014 0.016 0.015 05/19/18 14:50 Troponin I 0.015 Impressions: Chest X-Ray 05/18/18 16:56 IMPRESSION: Bilateral pleural effusions. Assessment & Plan - Diagnosis (1) New onset of congestive heart failure Is this a current diagnosis for this admission?: Yes Plan: Patient is on increased dose of furosemide. I have added Zaroxolyn. Echocardiogram is pending. I resumed his beta-ethan therapy as well as his losartan. (2) Diabetes mellitus, type II Qualifiers: Diabetes mellitus assisted insulin use: with assisted use Diabetes mellitus complication status: without complication Qualified Code(s): E11.9 - Type 2 diabetes mellitus without complications; Z79.4 - halfway (current) use of insulin; Z79.4 - halfway (current) use of insulin; Z79.4 - halfway ( current) use of insulin; Z79.4 - [employer] (current) use of insulin Is this a current diagnosis for this admission?: Yes Plan: The patient will be on his Lantus with a sliding scale. We will continue to monitor his sliding scale needs and adjust his Lantus dose accordingly. (3) Hypertension Qualifiers: Hypertension type: essential hypertension Qualified Code(s): I10 - Essential (primary) hypertension Is this a current diagnosis for this admission?: Yes Plan: I have resumed all his medications except the hydrochlorothiazide as he is on markedly increased dose of furosemide. We will continue to monitor his blood pressure. (4) Localized edema Is this a current diagnosis for this admission?: Yes Plan: Admitted Micah to the furosemide. In addition I have obtained urine studies to assess for renal involvement. The patient would benefit from 2 layer compression wraps as well. - Time Time Spent with patient: 25-34 minutes Medications reviewed and adjusted accordingly: Yes
[2018-05-19] MEDS: GABAPENTIN 300 MG CAPSULE PO SCH (22:23)
[2018-05-19] MEDS: AMLODIPINE BESYLATE 10 MG TABLET PO SCH (22:23)
[2018-05-19] MEDS: DULOXETINE HCL 30 MG CAPSULE.DR PO SCH (22:23)
[2018-05-19] MEDS: QUETIAPINE FUMARATE 100 MG TABLET PO SCH (22:24)
[2018-05-19] MEDS: METOPROLOL TARTRATE 50 MG TABLET PO SCH (22:24)
[2018-05-19] MEDS: INSULIN GLARGINE,HUM.REC.ANLOG 300 UNIT/3 ML INSULN.PEN SUBCUT SCH (22:24)
--- NOTE | 2018-05-19 23:20 | XCELERA REPORT ---
[address] [address] Transthoracic Echocardiogram Report Name: JOHN SANDERS Age: 52 yrs Gender: Male : 1965 Patient Status: Inpatient Patient Location: [address] [place] [address] Study Date: 05/19/2018 10:32 AM Procedure: A two-dimensional transthoracic echocardiogram with color flow and Doppler was performed. Study Quality: Poor. The study was technically difficult with many images being suboptimal in quality. Reason For Study: new onset chf History: CHF. Ordering Physician: CHAY SNOW Performed By: Barbara Posadas Interpretation Summary The left ventricle is normal in size. There is normal left ventricular wall thickness. LV EF is > than 65% Left ventricular systolic function is low normal. Doppler measurements suggest normal left ventricular diastolic function The left ventricular wall motion is normal. The left atrial size is normal. There is no evidence of mitral valve prolapse. There is no mitral valve stenosis. There is no mitral regurgitation noted. There is no aortic valve stenosis No aortic regurgitation is present. There is no LVOT obstruction. There is no tricuspid stenosis. No tricuspid regurgitation. Unable to calculate RVSP due lack of TR jet. The pulmonic valve is not well visualized. There is no pericardial effusion. MMode/2D Measurements & Calculations RVDd: 3.2 cm LVIDd: 5.4 cm FS: 39.2 % Ao root diam: 3.0 cm IVSd: 0.98 cm LVIDs: 3.3 cm EDV(Teich): 143.3 ml Ao root area: 7.2 cm2 LVPWd: 1.1 cm ESV(Teich): 44.2 ml EF(Teich): 69.1 % Doppler Measurements & Calculations MV E max zulema: MV dec slope: Ao V2 max: LV V1 max P.9 cm/sec 143.9 cm/sec 4.7 mmHg MV A max zulema: 716.9 cm/sec2 Ao max PG: LV V1 max: 101.8 cm/sec MV dec time: 0.16 sec8.3 mmHg 108.2 cm/sec MV E/A: 1.1 PA V2 max: 91.3 cm/sec PA max P.3 mmHg Left Ventricle The left ventricle is normal in size. There is normal left ventricular wall thickness. LV EF is > than 65%. Left ventricular systolic function is low normal. Doppler measurements suggest normal left ventricular diastolic function. The left ventricular wall motion is normal. Right Ventricle The right ventricle is not well visualized secondary to technical limitations. Atria Right atrium not well visualized secondary to technical limitations. The left atrial size is normal. Mitral Valve There is no evidence of mitral valve prolapse. There is no vegetation seen on the mitral valve. There is no mitral valve stenosis. There is no mitral regurgitation noted. Aortic Valve There is no aortic valvular vegetation. There is no aortic valve stenosis. There is no LVOT obstruction. No aortic regurgitation is present. Tricuspid Valve There is no tricuspid stenosis. Unable to calculate RVSP due lack of TR jet. No tricuspid regurgitation. Pulmonic Valve The pulmonic valve is not well visualized. Great Vessels The aortic root is normal size. Effusions There is no pericardial effusion. : CHAY SNOW > Stacia Evans
[2018-05-20] MEDS: HEPARIN SOD (PORCINE) 5,000 UNIT/ML 1 ML SYRINGE SUBCUT SCH ×3 (05:11→21:55)
[2018-05-20] MEDS: GABAPENTIN 300 MG CAPSULE PO SCH ×3 (05:12→21:54)
[2018-05-20 07:00] LABS: UR PRO/CREAT RATIO RESULT 2.3 mg/mg (0.0-0.2); URINE CREATININE 67.8 mg/dL (22-328); URINE PROTEIN 153.6 mg/dL (<12)
[2018-05-20 07:03] LABS: ABSOLUTE EOSINOPHILS # (AUTO) 0.1 10^3/uL (0.0-0.6); ABSOLUTE LYMPHOCYTES (AUTO) 1.4 10^3/uL (0.5-4.7); ABSOLUTE MONOCYTES (AUTO) 0.8 10^3/uL (0.1-1.4); BASOPHILS % (AUTO) 0.3 % (0-2); EOSINOPHILS % (AUTO) 1.7 % (0-6); HEMATOCRIT 28.6 % (37.9-51.0); HEMOGLOBIN 10.1 g/dL (13.5-17.0); LYMPHOCYTES % (AUTO) 16.8 % (13-45); MEAN CORPUSCULAR HEMOGLOBIN 28.7 pg (27.0-33.4); MEAN CORPUSCULAR HGB CONC 35.3 g/dL (32.0-36.0); MEAN CORPUSCULAR VOLUME 81 fl (80-97); MONOCYTES % (AUTO) 9.2 % (3-13); PLATELET COUNT 187 10^3/uL (150-450); RED BLOOD COUNT 3.52 10^6/uL (4.35-5.55); RED CELL DISTRIBUTION WIDTH 14.5 % (11.5-14.0); TOTAL CELLS COUNTED % (AUTO) 100 %; WHITE BLOOD COUNT 8.3 10^3/uL (4.0-10.5)
[2018-05-20 07:18] LABS: ALBUMIN 2.9 g/dL (3.5-5.0); ANION GAP 8 (5-19); BLOOD UREA NITROGEN 35 mg/dL (7-20); CALCIUM 8.9 mg/dL (8.4-10.2); CARBON DIOXIDE 29 mmol/L (22-30); CHLORIDE 107 mmol/L (98-107); GLUCOSE 85 mg/dL (75-110); PHOSPHORUS 4.2 mg/dL (2.5-4.5); POTASSIUM 4.5 mmol/L (3.6-5.0); SODIUM 143.9 mmol/L (137-145)
[2018-05-20] MEDS: INSULIN LISPRO 100 UNIT/ML 3 ML VIAL SUBCUT SCH ×3 (10:53→17:10)
[2018-05-20] MEDS: METOPROLOL TARTRATE 50 MG TABLET PO SCH ×2 (10:56→21:54)
[2018-05-20] MEDS: FUROSEMIDE 20 MG TABLET PO SCH ×2 (10:56→17:26)
[2018-05-20] MEDS: POTASSIUM CHLORIDE 10 MEQ CAPSULE.ER PO SCH ×2 (10:56→21:54)
[2018-05-20] MEDS: DULOXETINE HCL 30 MG CAPSULE.DR PO SCH ×2 (10:56→21:54)
[2018-05-20] MEDS: LOSARTAN POTASSIUM 50 MG TABLET PO SCH (10:57)
[2018-05-20] MEDS: METOLAZONE 2.5 MG TABLET PO SCH ×2 (10:57→17:27)
--- NOTE | 2018-05-20 18:29 | PDOC PROGRESS REPORT ---
Subjective Progress Note for:: 05/20/18 Subjective:: Patient is sitting at the edge of the bed. Marked edema bilateral lower extremities. Kerlix wrap on the right ankle. Patient is breathing comfortably. 05/20/2018-the patient actually feels better. He has less edema in his legs. Easier. His is at the bedside. Reason For Visit: HEART FAILURE Physical Exam Vital Signs: Temp Pulse Resp BP Pulse Ox 98.1 F 75 14 135/66 H 93 05/20/18 16:55 05/20/18 16:55 05/20/18 16:55 05/20/18 16:55 05/20/18 16:55 Intake & Output 05/19/18 05/20/18 05/21/18 06:59 06:59 06:59 Intake Total 1332 Output Total 800 300 Balance -800 1032 Weight 115.3 kg 113.7 kg General appearance: PRESENT: no acute distress, cooperative, well-developed Mouth exam: PRESENT: moist, tongue midline Respiratory exam: ABSENT: rales, rhonchi, wheezes Cardiovascular exam: PRESENT: RRR, +S1, +S2. ABSENT: systolic murmur GI/Abdominal exam: PRESENT: normal bowel sounds, soft. ABSENT: tenderness Extremities exam: PRESENT: +2 edema Neurological exam: PRESENT: alert, awake, oriented to person, oriented to place , oriented to time, oriented to situation, CN II-XII grossly intact Psychiatric exam: PRESENT: appropriate affect, normal mood Results Laboratory Results: 05/20/18 06:30 05/20/18 06:30 05/20/18 05/20/18 06:30 06:30 WBC 8.3 RBC 3.52 L Hgb 10.1 L Hct 28.6 L MCV 81 MCH 28.7 MCHC 35.3 RDW 14.5 H Plt Count 187 Seg Neutrophils % 72.0 Lymphocytes % 16.8 Monocytes % 9.2 Eosinophils % 1.7 Basophils % 0.3 Absolute Neutrophils 6.0 Absolute Lymphocytes 1.4 Absolute Monocytes 0.8 Absolute Eosinophils 0.1 Absolute Basophils 0.0 Sodium 143.9 Potassium 4.5 Chloride 107 Carbon Dioxide 29 Anion Gap 8 BUN 35 H Creatinine 1.36 H Est GFR ( Amer) > 60 Est GFR (Non-Af Amer) 55 L Glucose 85 Calcium 8.9 Phosphorus 4.2 Albumin 2.9 L 05/18/18 05/19/18 05/19/18 21:17 03:14 09:42 Troponin I 0.014 0.016 0.015 05/19/18 14:50 Troponin I 0.015 Impressions: Chest X-Ray 05/18/18 16:56 IMPRESSION: Bilateral pleural effusions. Assessment & Plan - Diagnosis (1) Acute kidney failure Qualifiers: Acute renal failure type: unspecified Qualified Code(s): N17.9 - Acute kidney failure, unspecified Is this a current diagnosis for this admission?: Yes Plan: 05/20/2018-urine studies show proteinuria. The patient's serum creatinine is slowly increasing. The edema is renal in origin. I have ordered additional studies including renal ultrasound and serology studies. I will have nephrology see the patient tomorrow. The patient reports no history of kidney disease to the best of his knowledge. 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 We will continue to monitor his sliding scale needs and adjust his Lantus dose accordingly. 05/20/[id number] are stable. Continue current regimen. (3) Hypertension Qualifiers: Hypertension type: essential hypertension Qualified Code(s): I10 - Essential (primary) hypertension Is this a current diagnosis for this admission?: Yes Plan: I have resumed all his medications except the hydrochlorothiazide as he is on markedly increased dose of furosemide. We will continue to monitor his blood pressure. 05/20/2018-with the resumption of the patient's antihypertensive medications his blood pressure is much better. Continue current regimen. The only medication that is on hold is the hydrochlorothiazide. (4) Localized edema Is this a current diagnosis for this admission?: Yes Plan: Admitted Micah to the furosemide. In addition I have obtained urine studies to assess for renal involvement. The patient would benefit from 2 layer compression wraps as well. 05/20/2018-patient has less edema in both legs. In fact his breathing is easier. We will continue diuresis. The etiology of the edema is going to be renal. (5) New onset of congestive heart failure Is this a current diagnosis for this admission?: No Plan: Patient is on increased dose of furosemide. I have added Zaroxolyn. Echocardiogram is pending. I resumed his beta-ethan therapy as well as his losartan. 05/20/2018-the patient's echocardiogram in fact was normal. This rules out congestive heart failure. This edema appears to be renal in nature. See above. - Time Time Spent with patient: 25-34 minutes Medications reviewed and adjusted accordingly: Yes
[2018-05-20] MEDS: QUETIAPINE FUMARATE 100 MG TABLET PO SCH (21:54)
[2018-05-20] MEDS: INSULIN GLARGINE,HUM.REC.ANLOG 300 UNIT/3 ML INSULN.PEN SUBCUT SCH (21:55)
[2018-05-20] MEDS: AMLODIPINE BESYLATE 10 MG TABLET PO SCH (21:55)
[2018-05-21] MEDS: GABAPENTIN 300 MG CAPSULE PO SCH ×3 (05:03→21:57)
[2018-05-21] MEDS: HEPARIN SOD (PORCINE) 5,000 UNIT/ML 1 ML SYRINGE SUBCUT SCH ×3 (05:29→21:56)
--- NOTE | 2018-05-21 06:48 | RADIOLOGY REPORT (SQ) ---
EXAM DESCRIPTION: US RETROPERITONEUM COMPLETED DATE/TME: 05/21/2018 06:00 CLINICAL HISTORY: 52 years Male, proteinuria Comparison: None. LIMITATIONS: None. FINDINGS: 12-cm right kidney, 12-cm left kidney, and urinary bladder with demonstrated bilateral ureteral jet flow appear otherwise of normal size, shape, echotexture, and vascularity. IMPRESSION: Normal renal sonogram.
[2018-05-21] MEDS: INSULIN LISPRO 100 UNIT/ML 3 ML VIAL SUBCUT SCH ×3 (08:07→17:45)
[2018-05-21] MEDS: DULOXETINE HCL 30 MG CAPSULE.DR PO SCH ×2 (09:47→21:54)
[2018-05-21] MEDS: FUROSEMIDE 20 MG TABLET PO SCH ×2 (09:48→18:53)
[2018-05-21] MEDS: LOSARTAN POTASSIUM 50 MG TABLET PO SCH (09:48)
[2018-05-21] MEDS: METOPROLOL TARTRATE 50 MG TABLET PO SCH ×2 (09:49→21:56)
[2018-05-21] MEDS: METOLAZONE 2.5 MG TABLET PO SCH ×2 (09:49→18:53)
[2018-05-21] MEDS: POTASSIUM CHLORIDE 10 MEQ CAPSULE.ER PO SCH (09:49)
[2018-05-21 12:15] LABS: ANION GAP 10 (5-19); BLOOD UREA NITROGEN 33 mg/dL (7-20); CALCIUM 9.3 mg/dL (8.4-10.2); CARBON DIOXIDE 29 mmol/L (22-30); CHLORIDE 103 mmol/L (98-107); GLUCOSE 87 mg/dL (75-110); PHOSPHORUS 4.7 mg/dL (2.5-4.5); POTASSIUM 5.1 mmol/L (3.6-5.0); SODIUM 142.2 mmol/L (137-145)
[2018-05-21] MEDS ORDERED: PROMETHAZINE HCL INJ 25 MG/1 ML VIAL IV PRN (13:00)
--- NOTE | 2018-05-21 21:07 | PDOC CONSULTATION ---
Consultation Consult Date: 05/21/18 Attending physician:: CHAPIN HERRERA Consult reason:: I was asked to see the patient because of proteinuria and worsening kidney function. History of Present Illness Admission Date/PCP: 05/18/18 21:01 History of Present Illness: JOHN SANDERS is a 52 year old male with history of diabetes mellitus type 2, previous silent LA, hypertension, obstructive sleep apnea not currently using CPAP and ischemic CVA who presented to the emergency room and was admitted on May 18, 2018 due to worsening lower extremity edema and shortness of breath. Patient related that he is having shortness of breath for about 3-4 weeks associated with 3 pillow orthopnea and increasing lower extremity swelling. He went to [facility] and was told that he has congestive heart failure with a chest x-ray showing some fluid in the lungs likely. He was being given Lasix initially at 40 mg once a day only. Later on he was given higher dose of Lasix of 100 mg daily for 2 days and then tapered for the next 6 days until 40 mg once a day. It helps until he is taking the Lasix but then the leg swelling got worse again. He is currently taking losartan but this previously on lisinopril which was discontinued because of persistent coughing. When he presented he has a BUN of 33 and creatinine of 1.26 with estimated GFR greater than 60. Currently he has a BUN of 33, creatinine of 1.39 with estimated GFR 54. Based on records from the past his BUN has been running anywhere from 20-30, creatinine about 1.2-1.4 with estimated GFR 52-57. Patient also has mildly elevated phosphorus of 11.7 and a low albumin of 3.0. Urine protein to creatinine ratio done was 2.3. He has negative ASO titer. His urine output is anywhere between 13-1400 daily. He had an renal ultrasound which shows bilateral normal-sized kidneys of around 12 cm each without any obstruction or any other remarkable findings. He had an echocardiogram which showed normal left ventricular ejection fraction of greater than 65%. Patient denies any known kidney problems in the past but he had an episode of kidney stone more than 20 years ago. He denied any history of denies steroidal anti- inflammatory abuse but states that he was taking Aleve every once in a while. He denies any blood in the urine but notes some slight foamy urine once in a while. He said he has history of hepatitis unknown what kind. His diabetes has been currently controlled with A1c recently of 6.8 but last year it was 12.8 and admittedly has not been very well controlled until this year. Patient related that in February he had foot surgery for diabetic foot ulcers. Currently still having 3 ulcers in his right foot. Since admission the patient is being given a higher dose of Lasix currently at 60 mg p.o. twice daily. Patient admits that his leg swelling and shortness of breath are significantly better now compared to admission. Past Medical History Cardiac Medical History: Reports: Hypertension-primary, Myocardial Infarction - Silent LA Pulmonary Medical History: Reports: Sleep Apnea - Not on CPAP yet Neurological Medical History: Reports: Ischemic CVA, Other - Silent stroke as per MRI done November 2017. Graham's palsy in 2017 Endocrine Medical History: Reports: Diabetes Mellitus Type 2 Complications of Diabetes: Reports: Retinopathy Psychiatric Medical History: Reports: Post Traumatic Stress Disorder Past Surgical History Past Surgical History: Reports: Orthopedic Surgery - Right big toe amputation in 2013 for diabetic complication, Other - Left toe shave bone, cataract surgery , Neck cyst, debridement of rt foot Social History Information Source: Patient Smoking Status: Never Smoker Frequency of Alcohol Use: None Hx Recreational Drug Use: No Drugs: None Hx Prescription Drug Abuse: No - Advance Directive Resuscitation Status: Full Code Family History Family History: Other - Unknown since patient is adopted Parental Family History Reviewed: Yes - Patient was adopted Children Family History Reviewed: Unknown Sibling(s) Family History Reviewed.: Unknown Medication/Allergy Home Medications: Aspirin [Aspirin EC] 81 mg PO DAILY 02/18/18 Atorvastatin Calcium [Lipitor 20 mg Tablet] 10 mg PO QHS 02/18/18 Duloxetine HCl [Cymbalta] 120 mg PO Q12 02/18/18 Furosemide [Lasix 40 mg Tablet] 40 mg PO QAM 02/18/18 Gabapentin [Neurontin 300 mg Capsule] 300 mg PO Q8 02/18/18 Hydrochlorothiazide [Hydrodiuril 25 mg Tablet] 25 mg PO QAM 02/18/18 Insulin Aspart [Novolog Insulin (Aspart) 100 unit/mL] 5 unit SUBCUT AC 02/18/18 Insulin Glargine,Hum.rec.anlog [Lantus Solostar] 40 unit SQ QHS 02/18/18 Losartan Potassium [Cozaar 100 mg Tablet] 100 mg PO DAILY 02/18/18 Quetiapine Fumarate [Seroquel 100 mg Tablet] 100 mg PO QHS 02/18/18 Trazodone HCl [Desyrel] 100 mg PO QHS 02/18/18 Amlodipine Besylate [Norvasc 10 mg Tablet] 10 mg PO DAILY 05/18/18 Loratadine [Claritin 10 mg Tablet] 10 mg PO DAILY 05/18/18 Metoprolol Tartrate [Lopressor 50 mg Tablet] 50 mg PO Q12 05/18/18 Omeprazole 20 mg PO DAILY 05/18/18 Allergies/Adverse Reactions: lisinopril Allergy (Verified 02/17/18 15:02) tape Allergy (Uncoded 02/17/18 15:02) Review of Systems All systems: reviewed and no additional remarkable complaints except as stated Review of Systems: Constitutional: ABSENT: chills, fatigue, fever(s), headache(s), weight gain, weight loss Eyes: ABSENT: visual disturbances Ears: ABSENT: hearing changes Cardiovascular: ABSENT: chest pain, palpitations; admits shortness of breath, orthopnea, edema Respiratory: ABSENT: cough, dyspnea, hemoptysis Gastrointestinal: ABSENT: abdominal pain, constipation, diarrhea, hematemesis, hematochezia, nausea, vomiting Genitourinary: ABSENT: dysuria, hematuria Musculoskeletal: ABSENT: joint swelling Integumentary: ABSENT: rash, wounds Neurological: ABSENT: abnormal gait, abnormal speech, confusion, dizziness, focal weakness, numbness, syncope Psychiatric: ABSENT: anxiety, depression Endocrine: ABSENT: cold intolerance, heat intolerance, polydipsia, polyuria Hematologic/Lymphatic: ABSENT: easy bleeding, easy bruising, lymphadenopathy Physical Exam Vital Signs: Temp Pulse Resp BP Pulse Ox 98.0 F 68 14 149/80 H 94 05/21/18 15:35 05/21/18 15:35 05/21/18 15:35 05/21/18 15:35 05/21/18 15:35 Intake & Output 05/20/18 05/21/18 05/22/18 06:59 06:59 06:59 Intake Total 1332 1005 438 Output Total 300 1300 1405 Balance 1032 -057 -968 Weight 113.7 kg 111.7 kg Exam: General appearance: No acute distress, cooperative, well-developed, well- nourished Head exam: PRESENT: atraumatic, normocephalic Eye exam: PRESENT: Conjunctiva pale, EOMI, PERRLA. ABSENT: conjunctival injection, scleral icterus Mouth exam: PRESENT: moist, neck supple, tongue midline Neck exam: PRESENT: full ROM. ABSENT: carotid bruit, JVD, lymphadenopathy, thyromegaly Respiratory exam: PRESENT: clear to auscultation bilaterally. ABSENT: rales, rhonchi, stridor, wheezes Cardiovascular exam: PRESENT: RRR, +S1, +S2. ABSENT: systolic murmur Pulses: PRESENT: normal radial pulses, normal dorsalis pedis pulses GI/Abdominal exam: PRESENT: normal bowel sounds, soft. ABSENT: guarding, mass, tenderness Rectal exam: Deferred Extremities exam: PRESENT: full ROM. Grade 2 bilateral pitting edema slightly improved from admission ABSENT: calf tenderness Musculoskeletal: PRESENT: full ROM. ABSENT: deformity Neurological exam: PRESENT: alert, Awake, Oriented to person, Oriented to place , Oriented to time, reflexes normal, CN II-XII grossly intact. ABSENT: motor sensory deficit Psychiatric exam: PRESENT: appropriate affect, normal mood. ABSENT: homicidal ideation, suicidal ideation Skin exam: PRESENT: intact, dry, warm. ABSENT: rash Results Laboratory Results: 05/20/18 06:30 05/21/18 06:21 05/21/18 06:21 Sodium 142.2 Potassium 5.1 H Chloride 103 Carbon Dioxide 29 Anion Gap 10 BUN 33 H Creatinine 1.39 H Est GFR ( Amer) > 60 Est GFR (Non-Af Amer) 54 L Glucose 87 Calcium 9.3 Phosphorus 4.7 H Albumin 3.0 L 05/18/18 05/19/18 05/19/18 21:17 03:14 09:42 Troponin I 0.014 0.016 0.015 05/19/18 14:50 Troponin I 0.015 Impressions: Chest X-Ray 05/18/18 16:56 IMPRESSION: Bilateral pleural effusions. Renal Ultrasound 05/21/18 06:00 IMPRESSION: Normal renal sonogram. Assessment & Plan - Diagnosis (1) Chronic kidney disease, stage 3 Is this a current diagnosis for this admission?: Yes Plan: Review of records reveals that the patient must be having abnormal kidney function for a while and his kidney function currently he is not really worse. Mild elevation of creatinine is expected due to diuresis. Patient has not nephrotic range proteinuria. Most likely cause of the patient's CKD is diabetic nephropathy associated with nonnephrotic range proteinuria, hypoalbuminemia and peripheral leg edema. Due to the proteinuria also need to rule out other causes including paraproteinemia, cannot really exclude membranous nephropathy however history favors diabetic nephropathy as a cause. We will check for complications of chronic kidney disease and send some lab work. Discussed with patient and his at bedside regarding chronic kidney disease including etiology and complications. 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 (2) Diabetic nephropathy Qualifiers: Diabetes mellitus type: type 2 Qualified Code(s): E11.21 - Type 2 diabetes mellitus with diabetic nephropathy Is this a current diagnosis for this admission?: Yes Plan: Positive for non-nephrotic range proteinuria. Continue losartan as the patient is unable to tolerate lisinopril. (3) Proteinuria due to type 2 diabetes mellitus Is this a current diagnosis for this admission?: Yes (4) Anemia in chronic kidney disease Is this a current diagnosis for this admission?: Yes Plan: Check iron panel. (5) Hyperphosphatemia Is this a current diagnosis for this admission?: Yes Plan: Mild. Follow low phosphorus diet. 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 (7) Hypertension Qualifiers: Hypertension type: essential hypertension Qualified Code(s): I10 - Essential (primary) hypertension Is this a current diagnosis for this admission?: Yes Plan: Fairly controlled. - Notes Notes: Thank you very much for this consultation. We will follow patient with you. - Time Time Spent: Greater than 70 Minutes
[2018-05-21] MEDS: AMLODIPINE BESYLATE 10 MG TABLET PO SCH (21:54)
[2018-05-21] MEDS: QUETIAPINE FUMARATE 100 MG TABLET PO SCH (21:54)
[2018-05-21] MEDS: INSULIN GLARGINE,HUM.REC.ANLOG 300 UNIT/3 ML INSULN.PEN SUBCUT SCH (21:55)
[2018-05-22 04:03] LABS: URINE CREATININE 34.2 mg/dL (22-328)
[2018-05-22 04:17] LABS: APPEARANCE,URINE CLEAR; BILIRUBIN,URINE NEGATIVE (NEGATIVE); COLOR,URINE COLORLESS; GLUCOSE, URINE NEGATIVE (NEGATIVE); KETONES,URINE NEGATIVE (NEGATIVE); LEUKOCYTE ESTERASE,URINE NEGATIVE (NEGATIVE); NITRITE,URINE NEGATIVE (NEGATIVE); PROTEIN,URINE 30 mg/dL (NEGATIVE); URINE SPECIFIC GRAVITY 1.006; UROBILINOGEN,URINE NEGATIVE mg/dL (<2.0)
[2018-05-22] MEDS: HEPARIN SOD (PORCINE) 5,000 UNIT/ML 1 ML SYRINGE SUBCUT SCH ×3 (05:16→21:34)
[2018-05-22] MEDS: GABAPENTIN 300 MG CAPSULE PO SCH ×3 (05:16→21:33)
[2018-05-22 05:29] LABS: ABSOLUTE RETICS # 0.058 10^6/uL (0.028-0.122)
[2018-05-22 05:54] LABS: IRON(TIBC) 39.8 ug/dL (49-181)
[2018-05-22] MEDS: DULOXETINE HCL 30 MG CAPSULE.DR PO SCH ×2 (11:16→21:34)
[2018-05-22] MEDS: METOPROLOL TARTRATE 50 MG TABLET PO SCH ×2 (11:17→21:32)
[2018-05-22] MEDS: FUROSEMIDE 20 MG TABLET PO SCH ×2 (11:17→17:45)
[2018-05-22] MEDS: METOLAZONE 2.5 MG TABLET PO SCH ×2 (11:17→17:45)
[2018-05-22] MEDS: LOSARTAN POTASSIUM 50 MG TABLET PO SCH (11:18)
[2018-05-22] MEDS: POTASSIUM CHLORIDE 10 MEQ CAPSULE.ER PO SCH (12:10)
[2018-05-22] MEDS: INSULIN LISPRO 100 UNIT/ML 3 ML VIAL SUBCUT PRN (12:28)
[2018-05-22 13:46] LABS: ANION GAP 10 (5-19); BLOOD UREA NITROGEN 36 mg/dL (7-20); CARBON DIOXIDE 31 mmol/L (22-30); CHLORIDE 101 mmol/L (98-107); GLUCOSE 65 mg/dL (75-110); POTASSIUM 4.7 mmol/L (3.6-5.0); SODIUM 141.9 mmol/L (137-145)
--- NOTE | 2018-05-22 16:58 | PDOC PROGRESS REPORT ---
Subjective Progress Note for:: 05/21/18 Subjective:: Patient is sitting at the edge of the bed. Marked edema bilateral lower extremities. Kerlix wrap on the right ankle. Patient is breathing comfortably. 05/20/2018-the patient actually feels better. He has less edema in his legs. Easier. His is at the bedside. 05/21/2018-patient is resting in bed. His is present. Multiple questions again today. The patient is actually resting comfortably. Reason For Visit: HEART FAILURE Physical Exam Vital Signs: Temp Pulse Resp BP Pulse Ox 98.1 F 65 14 120/54 L 96 05/22/18 14:13 05/22/18 14:13 05/22/18 14:13 05/22/18 14:13 05/22/18 14:13 Intake & Output 05/21/18 05/22/18 05/23/18 06:59 06:59 06:59 Intake Total 1005 970 Output Total 1300 2305 Balance -295 -1335 Weight 111.7 kg 108.4 kg General appearance: PRESENT: no acute distress, cooperative, well-developed Respiratory exam: PRESENT: clear to auscultation rupa, symmetrical, unlabored. ABSENT: rales, rhonchi, wheezes Cardiovascular exam: PRESENT: RRR, +S1, +S2 GI/Abdominal exam: PRESENT: normal bowel sounds, soft. ABSENT: tenderness Extremities exam: PRESENT: +1 edema Neurological exam: PRESENT: alert, awake, oriented to person, oriented to place , oriented to time, oriented to situation Psychiatric exam: PRESENT: appropriate affect, normal mood. ABSENT: agitated, anxious Additional comments: The patient is status post old hallux amputation. On the plantar aspect near the first met head there is diabetic ulcer. There is excellent granulation tissue. There is a keratinized margin. Results Laboratory Results: 05/20/18 06:30 05/22/18 03:59 05/22/18 05/22/18 05/22/18 03:25 03:51 03:59 Retic Count (auto) Absolute Retic Sodium Potassium Chloride Carbon Dioxide Anion Gap BUN Creatinine Est GFR ( Amer) Est GFR (Non-Af Amer) Glucose Calcium Magnesium Iron TIBC % Saturation Ferritin Vitamin B12 Folate PTH Intact 62.7 Urine Color COLORLESS Urine Appearance CLEAR Urine pH 6.0 Ur Specific [place] 1.006 Urine Protein 30 H Urine Glucose (UA) NEGATIVE Urine Ketones NEGATIVE Urine Blood NEGATIVE Urine Nitrite NEGATIVE Ur Leukocyte Esterase NEGATIVE Urine WBC (Auto) 0 Urine RBC (Auto) 0 Ur 24 Hour Volume [id number] 05/22/18 05/22/18 05/22/18 03:59 03:59 03:59 Retic Count (auto) 1.60 Absolute Retic 0.058 Sodium 141.9 Potassium 4.7 Chloride 101 Carbon Dioxide 31 H Anion Gap 10 BUN 36 H Creatinine 1.55 H Est GFR ( Amer) 58 L Est GFR (Non-Af Amer) 48 L Glucose 65 L Calcium 9.0 Magnesium 2.4 H Iron 39.8 L TIBC 221 L % Saturation 18 Ferritin 417.00 Vitamin B12 276.0 Folate 12.80 PTH Intact Urine Color Urine Appearance Urine pH Ur Specific [place] Urine Protein Urine Glucose (UA) Urine Ketones Urine Blood Urine Nitrite Ur Leukocyte Esterase Urine WBC (Auto) Urine RBC (Auto) Ur 24 Hour Volume 05/18/18 05/19/18 05/19/18 21:17 03:14 09:42 Troponin I 0.014 0.016 0.015 05/19/18 14:50 Troponin I 0.015 Impressions: Chest X-Ray 05/18/18 16:56 IMPRESSION: Bilateral pleural effusions. Renal Ultrasound 05/21/18 06:00 IMPRESSION: Normal renal sonogram. Assessment & Plan - Diagnosis (1) Acute kidney failure Qualifiers: Acute renal failure type: unspecified Qualified Code(s): N17.9 - Acute kidney failure, unspecified Is this a current diagnosis for this admission?: Yes Plan: 05/20/2018-urine studies show proteinuria. The patient's serum creatinine is slowly increasing. The edema is renal in origin. I have ordered additional studies including renal ultrasound and serology studies. I will have nephrology see the patient tomorrow. The patient reports no history of kidney disease to the best of his knowledge. 05/21/2018-appreciate nephrology input. Likely early stages of diabetic nephropathy. Please see Dr. Llanos's note. 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 We will continue to monitor his sliding scale needs and adjust his Lantus dose accordingly. 05/20/[id number] are stable. Continue current regimen. 05/21/2018-as noted above current regimen has good control of his diabetes. (3) Hypertension Qualifiers: Hypertension type: essential hypertension Qualified Code(s): I10 - Essential (primary) hypertension Is this a current diagnosis for this admission?: Yes Plan: I have resumed all his medications except the hydrochlorothiazide as he is on markedly increased dose of furosemide. We will continue to monitor his blood pressure. 05/20/2018-with the resumption of the patient's antihypertensive medications his blood pressure is much better. Continue current regimen. The only medication that is on hold is the hydrochlorothiazide. 05/21/2018-continue current regimen. He may not need the hydrochlorothiazide moving forward. (4) Localized edema Is this a current diagnosis for this admission?: Yes Plan: Admitted Zaroxolyn to the furosemide. In addition I have obtained urine studies to assess for renal involvement. The patient would benefit from 2 layer compression wraps as well. 05/20/2018-patient has less edema in both legs. In fact his breathing is easier. We will continue diuresis. The etiology of the edema is going to be renal. 05/21/2018-responding to diuresis. (5) New onset of congestive heart failure Is this a current diagnosis for this admission?: No Plan: Patient is on increased dose of furosemide. I have added Zaroxolyn. Echocardiogram is pending. I resumed his beta-ethan therapy as well as his losartan. 05/20/2018-the patient's echocardiogram in fact was normal. This rules out congestive heart failure. This edema appears to be renal in nature. See above. - Time Time Spent with patient: 15-24 minutes Medications reviewed and adjusted accordingly: Yes
--- NOTE | 2018-05-22 20:18 | PDOC PROGRESS REPORT ---
Subjective Progress Note for:: 05/22/18 - Seen on rounds this morning Subjective:: Patient states that he is feeling much better with his breathing at this time. States that he has been having this swelling for the last 3-4 weeks. Is been going to his primary care to figure out what the problem is. He is currently being seen by a sprayer hand in our hospital. Reason For Visit: HEART FAILURE Physical Exam Vital Signs: Temp Pulse Resp BP Pulse Ox 98.0 F 64 16 141/81 H 95 05/22/18 17:11 05/22/18 17:11 05/22/18 17:11 05/22/18 17:11 05/22/18 17:11 Intake & Output 05/21/18 05/22/18 05/23/18 06:59 06:59 06:59 Intake Total 1005 970 768 Output Total 1300 2305 450 Balance -295 -1335 318 Weight 246 lb 4.101 oz 238 lb 15.697 oz General appearance: PRESENT: no acute distress Head exam: PRESENT: atraumatic, normocephalic Eye exam: PRESENT: EOMI. ABSENT: conjunctival injection, scleral icterus Ear exam: PRESENT: normal external ear exam Mouth exam: PRESENT: moist, tongue midline Neck exam: ABSENT: tracheal deviation Respiratory exam: PRESENT: clear to auscultation rupa, symmetrical Cardiovascular exam: PRESENT: +S1, +S2 Pulses: PRESENT: +1 pedal pulses bilateral GI/Abdominal exam: PRESENT: normal bowel sounds, soft. ABSENT: tenderness Extremities exam: PRESENT: pedal edema - Bilateral lower extremity edema Musculoskeletal exam: ABSENT: tenderness Neurological exam: PRESENT: alert, awake, oriented to person, oriented to place , oriented to time, oriented to situation, CN II-XII grossly intact Skin exam: PRESENT: dry, warm, other - There are some open areas of wounds noted in lower extremities Results Laboratory Results: 05/20/18 06:30 05/22/18 03:59 05/22/18 05/22/18 05/22/18 03:25 03:51 03:59 Retic Count (auto) Absolute Retic Sodium Potassium Chloride Carbon Dioxide Anion Gap BUN Creatinine Est GFR ( Amer) Est GFR (Non-Af Amer) Glucose Calcium Magnesium Iron TIBC % Saturation Ferritin Vitamin B12 Folate PTH Intact 62.7 Urine Color COLORLESS Urine Appearance CLEAR Urine pH 6.0 Ur Specific [place] 1.006 Urine Protein 30 H Urine Glucose (UA) NEGATIVE Urine Ketones NEGATIVE Urine Blood NEGATIVE Urine Nitrite NEGATIVE Ur Leukocyte Esterase NEGATIVE Urine WBC (Auto) 0 Urine RBC (Auto) 0 Ur 24 Hour Volume [id number] 05/22/18 05/22/18 05/22/18 03:59 03:59 03:59 Retic Count (auto) 1.60 Absolute Retic 0.058 Sodium 141.9 Potassium 4.7 Chloride 101 Carbon Dioxide 31 H Anion Gap 10 BUN 36 H Creatinine 1.55 H Est GFR ( Amer) 58 L Est GFR (Non-Af Amer) 48 L Glucose 65 L Calcium 9.0 Magnesium 2.4 H Iron 39.8 L TIBC 221 L % Saturation 18 Ferritin 417.00 Vitamin B12 276.0 Folate 12.80 PTH Intact Urine Color Urine Appearance Urine pH Ur Specific [place] Urine Protein Urine Glucose (UA) Urine Ketones Urine Blood Urine Nitrite Ur Leukocyte Esterase Urine WBC (Auto) Urine RBC (Auto) Ur 24 Hour Volume 05/18/18 05/19/18 05/19/18 21:17 03:14 09:42 Troponin I 0.014 0.016 0.015 05/19/18 14:50 Troponin I 0.015 Impressions: Chest X-Ray 05/18/18 16:56 IMPRESSION: Bilateral pleural effusions. Renal Ultrasound 05/21/18 06:00 IMPRESSION: Normal renal sonogram. Assessment & Plan - Diagnosis (1) Anemia in chronic kidney disease Is this a current diagnosis for this admission?: Yes (2) Diabetic nephropathy Qualifiers: Diabetes mellitus type: type 2 Qualified Code(s): E11.21 - Type 2 diabetes mellitus with diabetic nephropathy Is this a current diagnosis for this admission?: Yes (3) Localized edema Is this a current diagnosis for this admission?: Yes (4) Diabetes mellitus, type II Qualifiers: Diabetes mellitus intermediate insulin use: with terminal supervisor use Diabetes mellitus complication status: without complication Qualified Code(s): E11.9 - Type 2 diabetes mellitus without complications; Z79.4 - supervisor intermediates (current) use of insulin; Z79.4 - supervisor intermediates (current) use of insulin; Z79.4 - supervisor intermediates ( current) use of insulin; Z79.4 - halfway (current) use of insulin Is this a current diagnosis for this admission?: Yes (5) Hypertension Qualifiers: Hypertension type: essential hypertension Qualified Code(s): I10 - Essential (primary) hypertension Is this a current diagnosis for this admission?: Yes - Plan Summary Plan Summary: Lower extremity edema-currently he is on Lasix 60 mg twice daily and Zaroxolyn 2.5 mg twice daily. He is having good urine output and his creatinine is stable. We will have to transition him to p.o. Lasix upon discharge. Most likely his Lasix will need to be titrated outpatient by his PCP. We did have an echocardiogram completed but does not show any systolic or diastolic dysfunction. Chronic kidney disease-nephrology is consulted and I appreciate their assistance. As per nephrology this is most likely diabetic nephropathy which is also the cause of his lower extremity edema. We will continue with losartan and diuresis with Lasix and Zaroxolyn. Anemia of chronic disease-most likely secondary to chronic kidney disease. Diabetes mellitus-continue with Lantus and sliding scale insulin
[2018-05-22] MEDS: AMLODIPINE BESYLATE 10 MG TABLET PO SCH (21:33)
[2018-05-22] MEDS: QUETIAPINE FUMARATE 100 MG TABLET PO SCH (21:38)
[2018-05-22] MEDS: INSULIN GLARGINE,HUM.REC.ANLOG 300 UNIT/3 ML INSULN.PEN SUBCUT SCH (21:41)
--- NOTE | 2018-05-22 22:26 | PDOC PROGRESS REPORT ---
Subjective Progress Note for:: 05/22/18 Subjective:: Patient is feeling much better and noticeably his leg swelling is much better as well. His breathing is improved as well. He does not have any new complaints. Reason For Visit: HEART FAILURE Physical Exam Vital Signs: Temp Pulse Resp BP Pulse Ox 98.0 F 69 16 143/83 H 98 05/22/18 19:45 05/22/18 19:45 05/22/18 19:45 05/22/18 19:45 05/22/18 19:45 Intake & Output 05/21/18 05/22/18 05/23/18 06:59 06:59 06:59 Intake Total 1005 970 768 Output Total 1300 2305 450 Balance -295 -1335 318 Weight 111.7 kg 108.4 kg Exam: General appearance: PRESENT: no acute distress, cooperative, well-developed, well-nourished Head exam: PRESENT: atraumatic, normocephalic Eye exam: PRESENT: conjunctiva pink, PERRLA. ABSENT: scleral icterus Neck exam: ABSENT: JVD Respiratory exam: PRESENT: Normal breath sounds. ABSENT: crackles, rales, rhonchi, unlabored, wheezes Cardiovascular exam: PRESENT: Regular rate rhythm -+S1, +S2. ABSENT: diastolic murmur, systolic murmur GI/Abdominal exam: PRESENT: normal bowel sounds, soft. ABSENT: guarding, mass, tenderness Extremities exam: Much improved grade 1 bilateral lower extremity pitting edema Neurological exam: PRESENT: alert, awake, oriented to person, place and time. Skin exam: PRESENT: dry, warm, Results Laboratory Results: 05/20/18 06:30 05/22/18 03:59 05/22/18 05/22/18 05/22/18 03:25 03:51 03:59 Retic Count (auto) Absolute Retic Sodium Potassium Chloride Carbon Dioxide Anion Gap BUN Creatinine Est GFR ( Amer) Est GFR (Non-Af Amer) Glucose Calcium Magnesium Iron TIBC % Saturation Ferritin Vitamin B12 Folate PTH Intact 62.7 Urine Color COLORLESS Urine Appearance CLEAR Urine pH 6.0 Ur Specific [place] 1.006 Urine Protein 30 H Urine Glucose (UA) NEGATIVE Urine Ketones NEGATIVE Urine Blood NEGATIVE Urine Nitrite NEGATIVE Ur Leukocyte Esterase NEGATIVE Urine WBC (Auto) 0 Urine RBC (Auto) 0 Ur 24 Hour Volume [id number] 05/22/18 05/22/1805/22/18 03:59 03:59 03:59 Retic Count (auto) 1.60 Absolute Retic 0.058 Sodium 141.9 Potassium 4.7 Chloride 101 Carbon Dioxide 31 H Anion Gap 10 BUN 36 H Creatinine 1.55 H Est GFR ( Amer) 58 L Est GFR (Non-Af Amer) 48 L Glucose 65 L Calcium 9.0 Magnesium 2.4 H Iron 39.8 L TIBC 221 L % Saturation 18 Ferritin 417.00 Vitamin B12 276.0 Folate 12.80 PTH Intact Urine Color Urine Appearance Urine pH Ur Specific [place] Urine Protein Urine Glucose (UA) Urine Ketones Urine Blood Urine Nitrite Ur Leukocyte Esterase Urine WBC (Auto) Urine RBC (Auto) Ur 24 Hour Volume 05/18/18 05/19/18 05/19/18 21:17 03:14 09:42 Troponin I 0.014 0.016 0.015 05/19/18 14:50 Troponin I 0.015 Impressions: Chest X-Ray 05/18/18 16:56 IMPRESSION: Bilateral pleural effusions. Renal Ultrasound 05/21/18 06:00 IMPRESSION: Normal renal sonogram. Assessment & Plan - Diagnosis (1) Chronic kidney disease, stage 3 Is this a current diagnosis for this admission?: Yes Plan: Mild increase in the creatinine is expected with initiation of Lasix and Zaroxolyn. Patient will need maintenance doses and this can be further adjusted as an outpatient. Patient is likely to be establishing a new baseline kidney function at this point. (2) Diabetic nephropathy Qualifiers: Diabetes mellitus type: type 2 Qualified Code(s): E11.21 - Type 2 diabetes mellitus with diabetic nephropathy Is this a current diagnosis for this admission?: Yes (3) Proteinuria due to type 2 diabetes mellitus Is this a current diagnosis for this admission?: Yes Plan: With thin nonnephrotic range. (4) Anemia in chronic kidney disease Is this a current diagnosis for this admission?: Yes Plan: Iron is mildly low so we will start ferrous sulfate 325 mg p.o. daily (5) Hyperphosphatemia Is this a current diagnosis for this admission?: Yes Plan: Needs low phosphorus diet. (6) Diabetes mellitus, type II Qualifiers: Diabetes mellitus car top bolter insulin use: with car top bolter use Diabetes mellitus complication status: without complication Qualified Code(s): E11.9 - Type 2 diabetes mellitus without complications; Z79.4 - USP (current) use of insulin; Z79.4 - hydro excavation operator (current) use of insulin; Z79.4 - USP ( current) use of insulin; Z79.4 - USP (current) use of insulin Is this a current diagnosis for this admission?: Yes (7) Hypertension Qualifiers: Hypertension type: essential hypertension Qualified Code(s): I10 - Essential (primary) hypertension Is this a current diagnosis for this admission?: Yes - Notes Notes: Continue current management. Patient should go home with current medications. From nephrology standpoint I think patient can be discharged home tomorrow. I will be happy to see the patient in outpatient setting in 2-3 weeks. However since the patient needs authorization with [facility], he needs to work on this referral. - Time Time with patient: 15-25 minutes
[2018-05-23] MEDS: HEPARIN SOD (PORCINE) 5,000 UNIT/ML 1 ML SYRINGE SUBCUT SCH (05:24)
[2018-05-23] MEDS: GABAPENTIN 300 MG CAPSULE PO SCH (05:25)
[2018-05-23] MEDS: DULOXETINE HCL 30 MG CAPSULE.DR PO SCH (09:04)
[2018-05-23] MEDS: LOSARTAN POTASSIUM 50 MG TABLET PO SCH (09:04)
[2018-05-23] MEDS: FUROSEMIDE 20 MG TABLET PO SCH (09:05)
[2018-05-23] MEDS: METOPROLOL TARTRATE 50 MG TABLET PO SCH (09:05)
[2018-05-23] MEDS: POTASSIUM CHLORIDE 10 MEQ CAPSULE.ER PO SCH (09:05)
[2018-05-23] MEDS: METOLAZONE 2.5 MG TABLET PO SCH (09:05)
[2018-05-23 09:38] LABS: HEPATITS B SURFACE ANTIGEN Negative (Negative)
[2018-05-23] MEDS ORDERED: FERROUS SULFATE 325 MG TABLET PO SCH (10:00)
[2018-05-23 10:12] LABS: ANION GAP 13 (5-19); BLOOD UREA NITROGEN 39 mg/dL (7-20); CALCIUM 9.7 mg/dL (8.4-10.2); CARBON DIOXIDE 31 mmol/L (22-30); CHLORIDE 97 mmol/L (98-107); GLUCOSE 111 mg/dL (75-110); SODIUM 141.2 mmol/L (137-145)
[2018-05-23 12:52] VITALS: BP 112/58
--- NOTE | 2018-05-23 17:22 | PDOC DISCHARGE SUMMARY ---
General - Admit/Disc Date/PCP Admission Date/Primary Care Provider: 05/18/18 21:01 Discharge Date: 05/23/18 - Discharge Diagnosis (1) Anemia in chronic kidney disease Is this a current diagnosis for this admission?: Yes (2) Diabetic nephropathy Is this a current diagnosis for this admission?: Yes (3) Localized edema Is this a current diagnosis for this admission?: Yes (4) Diabetes mellitus, type II Is this a current diagnosis for this admission?: Yes (5) Hypertension Is this a current diagnosis for this admission?: Yes - Additional Information Resuscitation Status: Full Code Discharge Diet: Cardiac, Diabetic Discharge Activity: Activity As Tolerated, Slowly Increase Activity Prescriptions: Ferrous Sulfate [Feosol 325 mg Tablet] 325 mg PO DAILY #30 tablet Furosemide [Lasix 20 mg Tablet] 60 mg PO BID #60 tablet Metolazone [Zaroxolyn 2.5 mg Tablet] 2.5 mg PO BID 30 Days #60 tablet Potassium Chloride [Klor-Con 10 Meq Capsule ER] 20 meq PO DAILY #30 capsule.er Home Medications: Aspirin [Aspirin EC] 81 mg PO DAILY 02/18/18 Atorvastatin Calcium [Lipitor 20 mg Tablet] 10 mg PO QHS 02/18/18 Duloxetine HCl [Cymbalta] 120 mg PO Q12 02/18/18 Gabapentin [Neurontin 300 mg Capsule] 300 mg PO Q8 02/18/18 Insulin Aspart [Novolog Insulin (Aspart) 100 unit/mL] 5 unit SUBCUT AC 02/18/18 Insulin Glargine,Hum.rec.anlog [Lantus Solostar] 40 unit SQ QHS 02/18/18 Losartan Potassium [Cozaar 100 mg Tablet] 100 mg PO DAILY 02/18/18 Quetiapine Fumarate [Seroquel 100 mg Tablet] 100 mg PO QHS 02/18/18 Trazodone HCl [Desyrel] 100 mg PO QHS 02/18/18 Amlodipine Besylate [Norvasc 10 mg Tablet] 10 mg PO DAILY 05/18/18 Loratadine [Claritin 10 mg Tablet] 10 mg PO DAILY 05/18/18 Metoprolol Tartrate [Lopressor 50 mg Tablet] 50 mg PO Q12 05/18/18 Omeprazole 20 mg PO DAILY 05/18/18 Amlodipine Besylate [Norvasc 10 mg Tablet] 10 mg PO QHS tablet 05/23/18 Duloxetine HCl [Cymbalta 30 mg Capsule.] 120 mg PO Q12 capsule. 05/23/18 Ferrous Sulfate [Feosol 325 mg Tablet] 325 mg PO DAILY #30 tablet 05/23/18 Furosemide [Lasix 20 mg Tablet] 60 mg PO BID #60 tablet 05/23/18 Gabapentin [Neurontin 300 mg Capsule] 300 mg PO Q8 capsule 05/23/18 Insulin Glargine,Hum.rec.anlog [Lantus Insulin 100 Unit/mL] 40 unit SUBCUT QHS insuln.pen 05/23/18 Losartan Potassium [Cozaar 50 mg Tablet] 100 mg PO DAILY tablet 05/23/18 Metolazone [Zaroxolyn 2.5 mg Tablet] 2.5 mg PO BID 30 Days #60 tablet 05/23/18 Metoprolol Tartrate [Lopressor 50 mg Tablet] 50 mg PO Q12 tablet 05/23/18 Potassium Chloride [Klor-Con 10 Meq Capsule ER] 20 meq PO DAILY #30 capsule.er 05/23/18 Quetiapine Fumarate [Seroquel 100 mg Tablet] 100 mg PO QHS tablet 05/23/18 History of Present Illness History of Present Illness: JOHN SANDERS is a 52 year old male was admitted for suspected heart failure. please see initial H&P for full A&P Hospital Course Hospital Course: After admission to the hospital he was started on IV Lasix and he had an echocardiogram. Initially it was suspected that he has congestive heart failure. But his echocardiogram did not showed preserved EF and no diastolic dysfunction. Due to his acute renal failure nephrology was consulted. After further evaluation it was deemed by nephrology that he has diabetic nephropathy which most likely caused him lower extremity edema. His insulin was titrated and his glucose was much well controlled. He was also found to be anemic and iron pills were ordered. For his lower extremity edema he was started on Zaroxolyn. His hydrochlorothiazide was stopped due to hyperkalemia. He was told to follow-up with his PCP within 1 week. He was told to follow-up with nephrology within 1-2 weeks. Today during rounds he requested discharge. I discussed with him about his care and he verbalized understanding. Physical Exam Vital Signs: Temp Pulse Resp BP Pulse Ox 97.7 F 64 14 110/83 97 05/23/18 07:46 05/23/18 07:46 05/23/18 07:46 05/23/18 07:46 05/23/18 07:46 Intake & Output 05/22/18 05/23/18 05/24/18 06:59 06:59 06:59 Intake Total 970 1242 Output Total 2305 1250 Balance -1335 -8 Weight 238 lb 15.697 oz 238 lb 15.697 oz General appearance: PRESENT: no acute distress Head exam: PRESENT: atraumatic, normocephalic Eye exam: PRESENT: EOMI. ABSENT: conjunctival injection, scleral icterus Ear exam: PRESENT: normal external ear exam Mouth exam: PRESENT: tongue midline Neck exam: ABSENT: tracheal deviation Respiratory exam: PRESENT: clear to auscultation rupa, symmetrical Cardiovascular exam: PRESENT: +S1, +S2 GI/Abdominal exam: PRESENT: normal bowel sounds, soft. ABSENT: tenderness Extremities exam: PRESENT: +1 edema - bilaterally at the ankles Musculoskeletal exam: ABSENT: tenderness Neurological exam: PRESENT: alert, awake, oriented to person, oriented to place , oriented to time, oriented to situation, CN II-XII grossly intact Skin exam: PRESENT: dry, skin tears - some small areas of wound on b/l shins- does not look infected, warm Results Laboratory Results: 05/20/18 06:30 05/23/18 09:20 05/22/18 05/23/18 03:59 09:20 Sodium 141.9 141.2 Potassium 4.7 5.0 Chloride 101 97 L Carbon Dioxide 31 H 31 H Anion Gap 10 13 BUN 36 H 39 H Creatinine 1.55 H 1.57 H Est GFR ( Amer) 58 L 57 L Est GFR (Non-Af Amer) 48 L 47 L Glucose 65 L 111 H Calcium 9.0 9.7 Magnesium 2.4 H 2.6 H 05/18/18 05/19/18 05/19/18 21:17 03:14 09:42 Troponin I 0.014 0.016 0.015 05/19/18 14:50 Troponin I 0.015 Impressions: Chest X-Ray 05/18/18 16:56 IMPRESSION: Bilateral pleural effusions. Renal Ultrasound 05/21/18 06:00 IMPRESSION: Normal renal sonogram. Qualifiers - * PATIENT BEING DISCHARGED WITH ANY OF THE FOLLOWING DIAGNOSIS: No Plan Time Spent: Less than 30 Minutes
[2018-05-23 17:28] LABS: ANTINUCLEAR ANTIBODIES Negative (Negative)
[2018-05-23 17:31] LABS: HEPATITIS B CORE AB TOT Negative (Negative); HEPATITIS B SURFACE AB QUANT <3.1 mIU/mL (Immunity>9)
[2018-05-25 16:38] LABS: A/G RATIO 1.1 (0.7-1.7); ALBUMIN 2 2.8 g/dL (2.9-4.4); ALPHA-2-GLOBULIN 2 0.8 g/dL (0.4-1.0); BETA GLOBULINS 0.8 g/dL (0.7-1.3); GAMMA GLOBULIN 0.7 g/dL (0.4-1.8); GLOBULIN TOTAL 2.6 g/dL (2.2-3.9); MONOCLONAL SPIKE Not Observed g/dL (Not Observ); PROTEIN TOTAL SERUM 5.4 g/dL (6.0-8.5)
== END 2018-05-23 13:25 | disposition home or self-care (01) | DRG 683 ==
LOC: ER 15:00 → EH 21:01 → 5 05-19 01:47
PROVIDERS: ADMIT Internal Medicine; ATTEND Internal Medicine
DX: I12.9 Hypertensive chronic kidney disease with stage 1 through stage 4 chronic kidney disease, or unspecified chronic kidney disease (principal); N17.9 Acute kidney failure, unspecified; E11.21 Type 2 diabetes mellitus with diabetic nephropathy; E11.22 Type 2 diabetes mellitus with diabetic chronic kidney disease; E83.39 Other disorders of phosphorus metabolism; N18.3 Chronic kidney disease, stage 3 (moderate); E87.5 Hyperkalemia; L97.519 Non-pressure chronic ulcer of other part of right foot with unspecified severity; E11.621 Type 2 diabetes mellitus with foot ulcer; R80.8 Other proteinuria; F43.10 Post-traumatic stress disorder, unspecified; D63.1 Anemia in chronic kidney disease; G47.33 Obstructive sleep apnea (adult) (pediatric); I25.2 Old myocardial infarction; Z86.73 Personal history of transient ischemic attack (TIA), and cerebral infarction without residual deficits; Z89.411 Acquired absence of right great toe; Z79.4 Long term (current) use of insulin; Z79.899 Other long term (current) drug therapy; Z88.8 Allergy status to other drugs, medicaments and biological substances
CPT/HCPCS: 36415; 71045; 76770; 80048; 80053; 80061; 80069; 81001; 82550; 82553; 82570; 82607; 82728; 82746; 82803; 82962; 83540; 83550; 83735; 83880; 83970; 84156; 84165; 84484; 85025; 85045; 85379; 85610; 85730; 86038; 86060; 86317; 86704; 87340; 87521; 93005; 93010; 93306; 93971; 96374; 99285; J1644; J1815; J1940; J3490

== ENCOUNTER → 2018-06-25 | Outpatient (CLI) | payer OTHER ==
[2018-06-25 12:03] LABS: ABSOLUTE BASOPHILS # (AUTO) 0.1 10^3/uL (0.0-0.2); ABSOLUTE EOSINOPHILS # (AUTO) 0.2 10^3/uL (0.0-0.6); ABSOLUTE LYMPHOCYTES (AUTO) 1.9 10^3/uL (0.5-4.7); ABSOLUTE MONOCYTES (AUTO) 0.8 10^3/uL (0.1-1.4); BASOPHILS % (AUTO) 0.6 % (0-2); EOSINOPHILS % (AUTO) 1.4 % (0-6); HEMATOCRIT 34.1 % (37.9-51.0); HEMOGLOBIN 11.7 g/dL (13.5-17.0); LYMPHOCYTES % (AUTO) 17.5 % (13-45); MEAN CORPUSCULAR HEMOGLOBIN 28.4 pg (27.0-33.4); MEAN CORPUSCULAR HGB CONC 34.4 g/dL (32.0-36.0); MEAN CORPUSCULAR VOLUME 82 fl (80-97); PLATELET COUNT 311 10^3/uL (150-450); RED BLOOD COUNT 4.14 10^6/uL (4.35-5.55); RED CELL DISTRIBUTION WIDTH 14.8 % (11.5-14.0); SEGMENTED NEUTROPHILS % (AUTO) 73.5 % (42-78); TOTAL CELLS COUNTED % (AUTO) 100 %; WHITE BLOOD COUNT 10.9 10^3/uL (4.0-10.5)
[2018-06-25 12:29] LABS: ALANINE AMINOTRANSFERASE 16 U/L (21-72); ALBUMIN 3.6 g/dL (3.5-5.0); ALKALINE PHOSPHATASE 122 U/L (38-126); ANION GAP 8 (5-19); ASPARTATE AMINO TRANSFERASE 15 U/L (17-59); BILIRUBIN,DIRECT 0.2 mg/dL (0.0-0.4); BILIRUBIN,TOTAL 0.6 mg/dL (0.2-1.3); BLOOD UREA NITROGEN 48 mg/dL (7-20); C-REACTIVE PROTEIN 20.4 mg/L (<10.0); CALCIUM 9.2 mg/dL (8.4-10.2); CARBON DIOXIDE 28 mmol/L (22-30); CHLORIDE 103 mmol/L (98-107); GLUCOSE 157 mg/dL (75-110); SODIUM 139.2 mmol/L (137-145); TOTAL PROTEIN 6.3 g/dL (6.3-8.2)
[2018-06-25 12:39] LABS: ERYTHROCYTE SEDIMENTATION RATE 92 mm/hr (0-20)
--- NOTE | 2018-06-25 13:59 | RADIOLOGY REPORT (SQ) ---
EXAM DESCRIPTION: FOOT RIGHT COMPLETE COMPLETED DATE/TIME: 06/25/2018 11:40 am REASON FOR STUDY: NON-PRS CHRONIC ULCER OTH PRT RIGHT FOOT W FAT LAYER EXPOSED (L97.512) L97.512 NO N-PRS CHRONIC ULCER OTH PRT RIGHT FOOT W FAT LAYER E11.621 TYPE 2 DIABETES MELLITUS WITH FOOT ULCER COMPARISON: 04/24/2018 NUMBER OF VIEWS: Three views. TECHNIQUE: AP, lateral and oblique radiographic images acquired of the right foot. LIMITATIONS: None. FINDINGS: MINERALIZATION: Osteopenia. 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 No active periosteal reaction. JOINTS: Intact. SOFT TISSUES: Vascular calcifications. No foreign body. OTHER: No other significant finding. IMPRESSION: No evidence of osteomyelitis. TECHNICAL DOCUMENTATION: JOB ID: [id number] [employer]- All Rights Reserved Reading location - IP/workstation name: [email or web address]
== END ==
LOC: RAD 11:23
PROVIDERS: ATTEND Nurse Practitioner
DX: E11.621 Type 2 diabetes mellitus with foot ulcer (principal); L97.512 Non-pressure chronic ulcer of other part of right foot with fat layer exposed
CPT/HCPCS: 36415; 80053; 83036; 85025; 85652; 86140

== ENCOUNTER 2018-07-08 12:29 | Inpatient (IN) | payer OTHER ==
--- NOTE | 2018-07-08 14:35 | ER Document Report ---
ED General - General Chief Complaint: Shortness Of Breath Stated Complaint: DIFFICULTY BREATHING Time Seen by Provider: 07/08/18 14:21 TRAVEL OUTSIDE OF THE [place] IN LAST 30 DAYS: No - HPI Notes: Patient is a 52-year-old male that presents to the emergency department for chief complaint of shortness of breath and fluid overload. Patient states he has had a 20 pound weight gain in the last week. He states that his legs have become significantly more swollen and he is getting progressively more short of breath. He does endorse orthopnea. He denies fevers and chills but does report a dry cough. Patient states he takes Lasix 60 mg twice daily and has not changed his dosing. He states he is urinating frequently. He denies any chest pain and lightheadedness. Patient states he has had similar issues back in May and was told that he had renal failure. He states he had an echo that showed it was not from congestive heart failure. Past medical history: CKD Past Surgical History: Reviewed in chart Social History: Denies drugs alcohol and tobacco Family History: Reviewed and noncontributory for presenting illness Allergies: Reviewed, see documented allergy list. REVIEW OF SYSTEMS: CONSTITUTIONAL : No fever No chills No diaphoresis No recent illness EENT: No vision changes No congestion No sore throat CARDIOVASCULAR: No chest pain No palpitations RESPIRATORY: shortness of breath cough difficulty breathing GASTROINTESTINAL: No abdominal pain No nausea No vomiting No diarrhea GENITOURINARY: No dysuria No hematuria No difficulty urinating MUSCULOSKELETAL: No back pain No leg pain No arm pain SKIN: No rashes No lesions LYMPHATIC: No swollen, enlarged glands. NEUROLOGICAL: No lightheadedness No headache No weakness No paresthesias PSYCHIATRIC: No anxiety No depression PHYSICAL EXAMINATION: Vital signs reviewed, nursing noted reviewed. GENERAL: Well-appearing, obese and in no acute distress. HEAD: Atraumatic, normocephalic. EYES: Eyes appear normal, extraocular movements intact, sclera anicteric, conjunctiva are normal. ENT: nares patent, oropharynx clear without exudates. Moist mucous membranes. NECK: Normal range of motion, supple without lymphadenopathy LUNGS: Breath sounds diminished to auscultation bilaterally and equal. No wheezes rales or rhonchi. HEART: Regular rate and rhythm without murmurs ABDOMEN: Protuberant, soft, nontender, normoactive bowel sounds. No rebound, guarding, or rigidity. No masses appreciated. EXTREMITIES: Nontender, good range of motion, +2 pitting edema bilateral lower extremities NEUROLOGICAL: No focal neurological deficits. Moves all extremities spontaneously Motor and sensory grossly intact on exam. PSYCH: Normal mood, normal affect. SKIN: Warm, Dry, normal turgor, right foot wound dressing clean and dry, erythema consistent with venous stasis to bilateral lower extremities - Related Data Allergies/Adverse Reactions: lisinopril Allergy (Verified 07/08/18 12:31) tape Allergy (Uncoded 07/08/18 12:31) Past Medical History - Social History Smoking Status: Unknown if Ever Smoked Family History: Reviewed & Not Pertinent Patient has suicidal ideation: No Patient has homicidal ideation: No - Past Medical History Cardiac Medical History: Reports: Hx Heart Attack - Silent [place], Hx Hypertension Pulmonary Medical History: Reports: Hx Sleep Apnea - Not on CPAP yet Endocrine Medical History: Reports: Hx Diabetes Mellitus Type 1, Hx Diabetes Mellitus Type 2 Renal/ Medical History: Denies: Hx Peritoneal Dialysis Psychiatric Medical History: Reports: Hx Post Traumatic Stress Disorder Denies: Hx Depression Past Surgical History: Reports: Hx Orthopedic Surgery - Right big toe amputation in 2013 for diabetic complication, Other - Left toe shave bone, cataract surgery, Neck cyst, debridement of rt foot Physical Exam - Vital signs Vitals: Temp Pulse Resp BP Pulse Ox 98.2 F 76 20 156/72 H 97 07/08/18 13:05 07/08/18 13:05 07/08/18 13:05 07/08/18 13:05 07/08/18 13:05 Course - Re-evaluation Re-evalutation: 07/08/18 14:34 Vitals reviewed. Nursing notes reviewed. Patient is afebrile and nontoxic in appearance. He is in no acute respiratory distress. He does appear fluid overload with significant peripheral edema. He is currently oxygenating well on room air. EKG shows no acute ischemic changes 07/08/18 14:56 While he was placing an IV in this patient he clutched his chest and started complaining that his heart was racing. Telemetry monitoring showed SVT with a rate around 160 at max. Patient did vasovagal maneuvers which did not relieve the SVT, carotid massage did make his SVT stop. Patient is now back in normal sinus rhythm with no cardiac symptomology. I did review his previous chart records which showed a normal ejection fraction in May. He was diagnosed with CKD 3 which is what they believe the edema was from. Patient states that he has had heart palpitations like this which lasts for a few minutes at a time and only occur 1 or 2 times a month. He has never been diagnosed with a dysrhythmia. Chest x-ray today shows some mild pulmonary vascular congestion. Lab work is still pending. - Vital Signs Vital signs: Temp Pulse Resp BP Pulse Ox 98.2 F 76 20 156/72 H 97 07/08/18 13:05 07/08/18 13:05 07/08/18 13:05 07/08/18 13:05 07/08/18 13:05 - EKG Interpretation by Me Additional EKG results interpreted by me: 07/08/18 14:34 Interpreted by myself 1403: Normal sinus rhythm, rate 76, left axis, no ectopy, no STEMI, borderline prolonged QT, QTc 477 Procedures - Additional Procedures IV insertion Time performed: 14:45 Additional Procedures: IV insertion, Other - Right proximal extremity ultrasound-guided IV placement. Linear probe used. 18-gauge needle. One attempt. Good blood flow and flushed easily with normal saline. Secured in place with tape. Notes: 07/08/18 14:55 Peripheral IV with ultrasound assistance Discharge - Discharge Clinical Impression: SVT (supraventricular tachycardia), Peripheral edema Pulmonary edema Qualifiers: Chronicity: acute Qualified Code(s): J81.0 - Acute pulmonary edema
--- NOTE | 2018-07-08 14:49 | RADIOLOGY REPORT (SQ) ---
EXAM DESCRIPTION: CHEST SINGLE VIEW COMPLETED DATE/TIME: 07/08/2018 2:42 pm REASON FOR STUDY: sob COMPARISON: 05/18/2018. EXAM PARAMETERS: NUMBER OF VIEWS: One view. TECHNIQUE: Single frontal radiographic view of the chest acquired. RADIATION DOSE: NA LIMITATIONS: None. FINDINGS: LUNGS AND PLEURA: No opacities, masses or pneumothorax. No pleural effusion. MEDIASTINUM AND HILAR STRUCTURES: No masses. Contour normal. HEART AND VASCULAR STRUCTURES: Cardiomegaly. Mild vascular prominence. BONES: No acute findings. HARDWARE: None in the chest. OTHER: No other significant finding. IMPRESSION: CARDIOMEGALY. MILD VASCULAR PROMINENCE. TECHNICAL DOCUMENTATION: JOB ID: [id number] [employer]- All Rights Reserved Reading location - IP/workstation name: [email or web address]
[2018-07-08 15:18] LABS: APPEARANCE,URINE CLEAR; BILIRUBIN,URINE NEGATIVE (NEGATIVE); COLOR,URINE YELLOW; GLUCOSE, URINE 150 mg/dL (NEGATIVE); KETONES,URINE NEGATIVE (NEGATIVE); LEUKOCYTE ESTERASE,URINE NEGATIVE (NEGATIVE); NITRITE,URINE NEGATIVE (NEGATIVE); PROTEIN,URINE >=500 mg/dL (NEGATIVE); URINE SPECIFIC GRAVITY 1.013; UROBILINOGEN,URINE NEGATIVE mg/dL (<2.0)
[2018-07-08 15:29] LABS: ABSOLUTE EOSINOPHILS # (AUTO) 0.2 10^3/uL (0.0-0.6); ABSOLUTE LYMPHOCYTES (AUTO) 2.1 10^3/uL (0.5-4.7); ABSOLUTE MONOCYTES (AUTO) 0.9 10^3/uL (0.1-1.4); ABSOLUTE NEUT (AUTO) 10.3 10^3/uL (1.7-8.2); BASOPHILS % (AUTO) 0.3 % (0-2); EOSINOPHILS % (AUTO) 1.6 % (0-6); HEMOGLOBIN 10.4 g/dL (13.5-17.0); LYMPHOCYTES % (AUTO) 15.6 % (13-45); MEAN CORPUSCULAR HEMOGLOBIN 28.8 pg (27.0-33.4); MEAN CORPUSCULAR HGB CONC 34.6 g/dL (32.0-36.0); MEAN CORPUSCULAR VOLUME 83 fl (80-97); MONOCYTES % (AUTO) 6.4 % (3-13); RED CELL DISTRIBUTION WIDTH 15.2 % (11.5-14.0); SEGMENTED NEUTROPHILS % (AUTO) 76.1 % (42-78); TOTAL CELLS COUNTED % (AUTO) 100 %; WHITE BLOOD COUNT 13.5 10^3/uL (4.0-10.5)
[2018-07-08 15:37] LABS: ALANINE AMINOTRANSFERASE 14 U/L (21-72); ALBUMIN 3.5 g/dL (3.5-5.0); ALKALINE PHOSPHATASE 105 U/L (38-126); ANION GAP 5 (5-19); ASPARTATE AMINO TRANSFERASE 25 U/L (17-59); BILIRUBIN,DIRECT 0.3 mg/dL (0.0-0.4); BILIRUBIN,TOTAL 0.8 mg/dL (0.2-1.3); BLOOD UREA NITROGEN 41 mg/dL (7-20); CARBON DIOXIDE 28 mmol/L (22-30); CHLORIDE 108 mmol/L (98-107); GLUCOSE 216 mg/dL (75-110); POTASSIUM 4.5 mmol/L (3.6-5.0); TOTAL PROTEIN 6.3 g/dL (6.3-8.2)
[2018-07-08] MEDS ORDERED: FUROSEMIDE INJ/PF 40 MG/4 ML SDV IV ONE (15:43)
[2018-07-08 15:49] LABS: PLATELET COUNT 215 10^3/uL (150-450)
[2018-07-08] MEDS ORDERED: DEXTROSE 50%-WATER 25 GM/50 ML DISP.SYRIN IV PRN ×2 (17:22)
[2018-07-08] MEDS ORDERED: DEXTROSE 40% GEL 15 GM TUBE PO PRN ×2 (17:22)
[2018-07-08] MEDS ORDERED: GLUCAGON,HUMAN RECOMB 1 MG INJ IM PRN (17:22)
[2018-07-08] MEDS ORDERED: IPRATROPIUM/ALBUTEROL 0.5-2.5 MG/3 ML AMPUL NEB PRN (17:23)
[2018-07-08] MEDS ORDERED: ACETAMINOPHEN 325 MG TABLET PO PRN (17:23)
--- NOTE | 2018-07-08 17:52 | PDOC H&P ---
History of Present Illness Admission Date/PCP: 07/08/18 16:20 History of Present Illness: JOHN SANDERS is a 52 year old male past medical history of type 2 diabetes, hypertension, obstructive sleep apnea, diabetic neuropathy, right foot diabetic foot, right foot great toe amputation, patient has had several recent admissions for volume overload. Last admission was on 05/18/2018 and discharged on 05/23/2018 admitted for volume overload. Patient had an echo done which was read as normal he has seen Dr. Garza as outpatient and a stress was scheduled for next week. Patient also has history of diabetic nephropathy and Dr. Llanos manager mental health was consulted to rule out renal causes of volume overload. Complete renal workup was done by nephrology and patient was found to have non nephrotic range proteinuria hypoalbuminemia and a workup was also done to rule out any paraproteinemia which was negative. Membranous nephropathy could not be ruled out as per nephrology notes patient. Renal ultrasound was also read as normal. Patient presenting to the ED today complaining of worsening bilateral lower extremity edema, orthopnea, paroxysmal nocturnal dyspnea, low urine output, foamy urine and dyspnea on exertion. Patient has been trying to see nephrology as an outpatient however due to the fact that he is being via its being arranged by [place]. Patient is stating that he is drinks about 2-3 L of water per day and he states that he feels bloated, low appetite however he has gained about 20 pounds since last week. While in the ED it was also observed the patient had a run of SVT by ED doctor. On my encounter patient did not have any chest pain, nausea, vomiting, diarrhea, constipation. Past Medical History Cardiac Medical History: Reports: Myocardial Infarction - Silent ME, Hypertension Pulmonary Medical History: Reports: Sleep Apnea - Not on CPAP yet Endocrine Medical History: Reports: Diabetes Mellitus Type 1, Diabetes Mellitus Type 2 Psychiatric Medical History: Reports: Post Traumatic Stress Disorder Denies: Depression Past Surgical History Past Surgical History: Reports: Orthopedic Surgery - Right big toe amputation in 2013 for diabetic complication, Other - Left toe shave bone, cataract surgery, N samantha cyst, debridement of rt foot Social History Smoking Status: Unknown if Ever Smoked Frequency of Alcohol Use: None Hx Recreational Drug Use: No Drugs: None Hx Prescription Drug Abuse: No - Advance Directive Resuscitation Status: Full Code Family History Family History: Reviewed & Not Pertinent Parental Family History Reviewed: Yes Children Family History Reviewed: Yes Sibling(s) Family History Reviewed.: Yes Medication/Allergy Home Medications: Aspirin [Aspirin EC] 81 mg PO DAILY 02/18/18 Atorvastatin Calcium [Lipitor 20 mg Tablet] 10 mg PO QHS 02/18/18 Duloxetine HCl [Cymbalta] 120 mg PO Q12 02/18/18 Insulin Aspart [Novolog Insulin (Aspart) 100 unit/mL] 5 unit SUBCUT AC 02/18/18 Insulin Glargine,Hum.rec.anlog [Lantus Solostar] 40 unit SQ QHS 02/18/18 Losartan Potassium [Cozaar 100 mg Tablet] 100 mg PO DAILY 02/18/18 Quetiapine Fumarate [Seroquel 100 mg Tablet] 100 mg PO QHS 02/18/18 Trazodone HCl [Desyrel] 100 mg PO QHS 02/18/18 Amlodipine Besylate [Norvasc 10 mg Tablet] 10 mg PO DAILY 05/18/18 Metoprolol Tartrate [Lopressor 50 mg Tablet] 50 mg PO Q12 05/18/18 Omeprazole 20 mg PO DAILY 05/18/18 Ferrous Sulfate [Feosol 325 mg Tablet] 325 mg PO DAILY #30 tablet 05/23/18 Furosemide [Lasix 20 mg Tablet] 60 mg PO BID #60 tablet 05/23/18 Potassium Chloride [Klor-Con 10 Meq Capsule ER] 20 meq PO DAILY #30 capsule.er 05/23/18 Allergies/Adverse Reactions: lisinopril Allergy (Verified 07/08/18 17:10) tape Allergy (Uncoded 07/08/18 17:10) Review of Systems Constitutional: PRESENT: anorexia, fatigue, weight gain Cardiovascular: PRESENT: dyspnea on exertion, edema, orthropnea Respiratory: PRESENT: dyspnea Gastrointestinal: PRESENT: bloating. ABSENT: as per HPI, abdominal pain, coffee ground emesis, constipation, diarrhea, dysphagia, heartburn, hematemesis, hematochezia, melena, nausea, vomiting, other Genitourinary: ABSENT: as per HPI, difficulty urinating, dysuria, hematuria, nocturia, other Integumentary: ABSENT: rash, wounds Neurological: ABSENT: abnormal gait, abnormal speech, confusion, dizziness, focal weakness, syncope Physical Exam Vital Signs: Temp Pulse Resp BP Pulse Ox 98.2 F 76 20 156/72 H 97 07/08/18 13:05 07/08/18 13:05 07/08/18 13:05 07/08/18 13:05 07/08/18 13:05 Intake & Output 07/07/18 07/08/18 07/09/18 06:59 06:59 06:59 Weight 117.2 kg General appearance: PRESENT: mild distress Head exam: PRESENT: atraumatic, normocephalic Eye exam: PRESENT: conjunctiva pink, EOMI, PERRLA. ABSENT: scleral icterus Neck exam: ABSENT: carotid bruit, JVD, lymphadenopathy, thyromegaly Respiratory exam: PRESENT: clear to auscultation rupa. ABSENT: rales, rhonchi, wheezes Cardiovascular exam: PRESENT: RRR. ABSENT: diastolic murmur, rubs, systolic murmur Pulses: PRESENT: normal dorsalis pedis pul GI/Abdominal exam: PRESENT: distended, normal bowel sounds, soft. ABSENT: guarding, mass, organolmegaly, rebound, tenderness Extremities exam: PRESENT: full ROM, pedal edema, +2 edema Neurological exam: PRESENT: alert, awake, oriented to person, oriented to place, oriented to time, oriented to situation, CN II-XII grossly intact. ABSENT: motor sensory deficit Psychiatric exam: PRESENT: anxious Skin exam: PRESENT: other - Bilateral lower extremity erythema. Results Laboratory Results: 07/08/18 14:46 07/08/18 14:46 07/08/18 07/08/18 07/08/18 14:46 14:46 14:46 WBC 13.5 H RBC 3.60 L Hgb 10.4 L Hct 30.0 L MCV 83 MCH 28.8 MCHC 34.6 RDW 15.2 H Plt Count 215 Seg Neutrophils % 76.1 Lymphocytes % 15.6 Monocytes % 6.4 Eosinophils % 1.6 Basophils % 0.3 Absolute Neutrophils 10.3 H Absolute Lymphocytes 2.1 Absolute Monocytes 0.9 Absolute Eosinophils 0.2 Absolute Basophils 0.0 Sodium 141.0 Potassium 4.5 Chloride 108 H Carbon Dioxide 28 Anion Gap 5 BUN 41 H Creatinine 1.61 H Est GFR ( Amer) 55 L Est GFR (Non-Af Amer) 46 L Glucose 216 H Calcium 9.0 Total Bilirubin 0.8 AST 25 ALT 14 L Alkaline Phosphatase 105 Total Protein 6.3 Albumin 3.5 Urine Color YELLOW Urine Appearance CLEAR Urine pH 5.0 Ur Specific [place] 1.013 Urine Protein >=500 H Urine Glucose (UA) 150 H Urine Ketones NEGATIVE Urine Blood NEGATIVE Urine Nitrite NEGATIVE Ur Leukocyte Esterase NEGATIVE Urine WBC (Auto) 1 Urine RBC (Auto) 4 07/08/18 14:46 Troponin I < 0.012 Impressions: Chest X-Ray 07/08/18 14:10 IMPRESSION: CARDIOMEGALY. MILD VASCULAR PROMINENCE. Assessment & Plan - Diagnosis (1) Volume overload Is this a current diagnosis for this admission?: Yes Plan: Likely secondary to worsening diabetic nephropathy. An echo previous admission was normal. Patient was to have a stress test by Nathan next week. Will consult cardiology to see if patient can have a stress test on this admission to rule out any underlying causes of volume overload. Troponins negative. Will obtain BNP. Fluid restriction, IV Lasix, strict in and out, cardiac diet. (2) Diabetes mellitus, type II Qualifiers: Diabetes mellitus nursing home insulin use: with middle or intermediate school principal use Diabetes shree itus complication status: without complication Qualified Code(s): E11.9 - Type 2 diabetes mellitus without complications; Z79.4 - ocean transportation intermediary (current) use of insulin; Z79.4 - [facility] (current) use of insulin; Z79.4 - [facility] (current) use of insulin; Z79.4 - ocean transportation intermediary (current) use of insulin Plan: Diabetic diet, Accu-Cheks, sliding scale insulin, long-acting insulin, pre-meal insulin. Diet and lifestyle modification. Adjust insulin dosage as needed. Restart home meds on discharge. Patient PCP follow-up. (3) Diabetic nephropathy Qualifiers: Diabetes mellitus type: type 2 Qualified Code(s): E11.21 - Type 2 diabetes mellitus with diabetic nephropathy Is this a current diagnosis for this admission?: Yes Plan: Optimize blood pressure and diabetes. Restart ARB. Patient allergic to lisinopril. Outpatient nephrology follow-up. Note. Complete renal workup was done by Dr. Llanos and last admission patient was found to have nonnephrotic range proteinuria and workup for paraproteinemia also came back negative. (4) Hypertension Qualifiers: Hypertension type: essential hypertension Qualified Code(s): I10 - Essential (primary) hypertension Is this a current diagnosis for this admission?: Yes Plan: Not optimized. Start home meds. Adjust meds as needed. (5) Hyperlipidemia Is this a current diagnosis for this admission?: No Plan: Restart home meds. Diet and lifestyle modification. (6) Depression Is this a current diagnosis for this admission?: No Plan: Restart home meds.
[2018-07-08] MEDS ORDERED: ATORVASTATIN CALCIUM 20 MG TABLET PO SCH (22:00)
[2018-07-08] MEDS: HEPARIN SOD (PORCINE) 5,000 UNIT/ML 1 ML SYRINGE SUBCUT SCH (22:11)
[2018-07-08] MEDS: DULOXETINE HCL 30 MG CAPSULE.DR PO SCH (22:13)
[2018-07-08] MEDS: FUROSEMIDE INJ/PF 40 MG/4 ML SDV IV SCH (22:14)
[2018-07-08] MEDS: TRAZODONE HCL 50 MG TABLET PO SCH (22:14)
[2018-07-08] MEDS: QUETIAPINE FUMARATE 100 MG TABLET PO SCH (22:14)
[2018-07-08] MEDS: ATORVASTATIN CALCIUM 20 MG TABLET PO SCH (22:14)
[2018-07-08] MEDS: INSULIN LISPRO 100 UNIT/ML 3 ML VIAL SUBCUT PRN (22:58)
[2018-07-08] MEDS: INSULIN GLARGINE,HUM.REC.ANLOG 300 UNIT/3 ML INSULN.PEN SUBCUT SCH (22:59)
[2018-07-09 05:19] LABS: HEMATOCRIT 25.7 % (37.9-51.0); HEMOGLOBIN 9.2 g/dL (13.5-17.0); MEAN CORPUSCULAR HEMOGLOBIN 29.2 pg (27.0-33.4); MEAN CORPUSCULAR HGB CONC 35.9 g/dL (32.0-36.0); MEAN CORPUSCULAR VOLUME 81 fl (80-97); PLATELET COUNT 196 10^3/uL (150-450); RED BLOOD COUNT 3.16 10^6/uL (4.35-5.55); WHITE BLOOD COUNT 9.3 10^3/uL (4.0-10.5)
[2018-07-09] MEDS: HEPARIN SOD (PORCINE) 5,000 UNIT/ML 1 ML SYRINGE SUBCUT SCH ×3 (05:28→21:56)
[2018-07-09] MEDS: FUROSEMIDE INJ/PF 40 MG/4 ML SDV IV SCH ×3 (05:34→21:55)
[2018-07-09 05:37] LABS: PHOSPHORUS 4.6 mg/dL (2.5-4.5)
--- NOTE | 2018-07-09 08:07 | EKG REPORT ---
SEVERITY:- BORDERLINE ECG - SINUS RHYTHM LEFT AXIS DEVIATION CONSIDER ANTERIOR INFARCT BORDERLINE PROLONGED QT INTERVAL : Confirmed by: Stacia Evans MD 09-Jul-2018 08:07:06
--- NOTE | 2018-07-09 09:50 | PDOC PROGRESS REPORT ---
Subjective Progress Note for:: 07/09/18 Subjective:: JOHN SANDERS is a 52 year old male past medical history of type 2 diabetes, hypertension, obstructive sleep apnea, diabetic neuropathy, right foot diabetic foot, right foot great toe amputation, patient has had several recent admissions for volume overload. Last admission was on 05/18/2018 and discharged on 05/23/2018 admitted for volume overload. Patient had an echo done which was read as normal he has seen Dr. Garza as outpatient and a stress was scheduled for next week. Patient also has history of diabetic nephropathy and Dr. Llanos staff development coordinator rn was consulted to rule out renal causes of volume overload. Complete renal workup was done by nephrology and patient was found to have nonnephrotic range proteinuria hypoalbuminemia and a workup was also done to rule out any paraproteinemia which was negative. Membranous nephropathy could not be ruled out as per nephrology notes patient. Renal ultrasound was also read as normal. Patient presenting to the ED today complaining of worsening bilateral lower extremity edema, orthopnea, paroxysmal nocturnal dyspnea, low urine output, foamy urine and dyspnea on exertion. Patient has been trying to see nephrology as an outpatient however due to the fact that he is being via its being arranged by [place]. Patient is stating that he is drinks about 2-3 L of water per day and he states that he feels bloated, low appetite however he has gained about 20 pounds since last week. While in the ED it was also observed the patient had a run of SVT by ED doctor. On my encounter patient did not have any chest pain, nausea, vomiting, diarrhea, constipation. 07/09/2018. No acute events overnight. Patient complaining of nausea but denying any vomiting. Patient states that her his shortness of breath and lower extremity edema has improved and he has been having increased urine output since admission. Denies any fever, chest pain, palpitation, dizziness, diarrhea, constipation. Patient has an outpatient follow-up with Dr. Evans for a stress test. Reason For Visit: VOLUME OVERLOAD, SVT Physical Exam Vital Signs: Temp Pulse Resp BP Pulse Ox 98.2 F 88 20 135/62 H 95 07/09/18 07:45 07/09/18 07:45 07/09/18 07:45 07/09/18 07:45 07/09/18 07:45 Intake & Output 07/08/18 07/09/18 07/10/18 06:59 06:59 06:59 Weight 116.5 kg General appearance: PRESENT: no acute distress, well-developed, well-nourished Head exam: PRESENT: atraumatic, normocephalic Respiratory exam: PRESENT: clear to auscultation rupa. ABSENT: rales, rhonchi, wheezes Cardiovascular exam: PRESENT: RRR. ABSENT: diastolic murmur, rubs, systolic murmur GI/Abdominal exam: PRESENT: normal bowel sounds, soft. ABSENT: distended, guarding, mass, organolmegaly, rebound, tenderness Extremities exam: PRESENT: +1 edema, other - Bilateral lower extremity stasis dermatitis. Neurological exam: PRESENT: alert, awake, oriented to person, oriented to place, oriented to time, oriented to situation, CN II-XII grossly intact. ABSENT: elin r sensory deficit Results Laboratory Results: 07/09/18 04:31 07/08/18 07/08/18 07/08/18 14:46 14:46 14:46 WBC 13.5 H RBC 3.60 L Hgb 10.4 L Hct 30.0 L MCV 83 MCH 28.8 MCHC 34.6 RDW 15.2 H Plt Count 215 Seg Neutrophils % 76.1 Lymphocytes % 15.6 Monocytes % 6.4 Eosinophils % 1.6 Basophils % 0.3 Absolute Neutrophils 10.3 H Absolute Lymphocytes 2.1 Absolute Monocytes 0.9 Absolute Eosinophils 0.2 Absolute Basophils 0.0 Sodium 141.0 Potassium 4.5 Chloride 108 H Carbon Dioxide 28 Anion Gap 5 BUN 41 H Creatinine 1.61 H Est GFR ( Amer) 55 L Est GFR (Non-Af Amer) 46 L Glucose 216 H Calcium 9.0 Phosphorus Magnesium Total Bilirubin 0.8 AST 25 ALT 14 L Alkaline Phosphatase 105 Total Protein 6.3 Albumin 3.5 Urine Color YELLOW Urine Appearance CLEAR Urine pH 5.0 Ur Specific [place] 1.013 Urine Protein >=500 H Urine Glucose (UA) 150 H Urine Ketones NEGATIVE Urine Blood NEGATIVE Urine Nitrite NEGATIVE Ur Leukocyte Esterase NEGATIVE Urine WBC (Auto) 1 Urine RBC (Auto) 4 07/09/18 07/09/18 04:31 04:31 WBC 9.3 RBC 3.16 L Hgb 9.2 L Hct 25.7 L MCV 81 MCH 29.2 MCHC 35.9 RDW 15.0 H Plt Count 196 Seg Neutrophils % Lymphocytes % Monocytes % Eosinophils % Basophils % Absolute Neutrophils Absolute Lymphocytes Absolute Monocytes Absolute Eosinophils Absolute Basophils Sodium Potassium Chloride Carbon Dioxide Anion Gap BUN Creatinine Est GFR ( Amer) Est GFR (Non-Af Amer) Glucose Calcium Phosphorus 4.6 H Magnesium 2.0 Total Bilirubin AST ALT Alkaline Phosphatase Total Protein Albumin Urine Color Urine Appearance Urine pH Ur Specific [place] Urine Protein Urine Glucose (UA) Urine Ketones Urine Blood Urine Nitrite Ur Leukocyte Esterase Urine WBC (Auto) Urine RBC (Auto) 07/08/18 07/08/18 14:46 14:46 Troponin I < 0.012 NT-Pro-B Natriuret Pep 3930 H Impressions: Chest X-Ray 07/08/18 14:10 IMPRESSION: CARDIOMEGALY. MILD VASCULAR PROMINENCE. Assessment & Plan - Diagnosis (1) Volume overload Is this a current diagnosis for this admission?: Yes Plan: Improving. Likely secondary to worsening diabetic nephropathy underlying undiagnosed CHF excessive fluid intake. On admission patient stated that his fluid intake it is about 2-3 L/day. BNP 3930, troponin less than 0.012. Continue fluid restriction, IV Lasix, strict in and out, cardiac diet. 05/19/2018 2D echo left ventricular ejection fraction more than 65%, with left ventricular normal diastolic function. 05/2018 renal ultrasound read as normal renal sonogram. 05/17/2018 bilateral lower extremity venous Doppler negative for any DVT or obstruction. 05/22/2018: PT of 62.7, albumin 3.5, total protein 6.3, globulin 2.6, albumin/globulin ratio 1.1, alpha-1 globulin 0.8 beta globulins 0.8, globulins 0.7, M spike not observed, urine protein/creatinine ratio 2.3 urine total protein 153, hepatitis panel negative. 05/21/2018 nephrology was consulted and complete workup was done impression was diabetic nephropathy associated with nonnephrotic proteinuria. And patient was suggested to be started on ARB since he is allergic to lisinopril. Patient has an outpatient appointment with Dr. Evans for cardiac a stress test. I had a conversation with Dr. Evans and told him about patient he suggested that patient could be seen as outpatient for cardiac a stress test. (2) Diabetes mellitus, type II Qualifiers: Diabetes mellitus middle or intermediate school principal insulin use: with halfway use Diabetes mellitus complication status: without complication Qualified Code(s): E11.9 - Type 2 diabetes mellitus without complications; Z79.4 - manager intermediate (current) use of insulin Is this a current diagnosis for this admission?: Yes Plan: Home meds insulin aspart 5 units before meal, Lantus 40 units nightly 06/25/2018 hemoglobin A1c 7.4. Fasting blood glucose 131, POC glucose 124 -218 Continue Lantus 30 units nightly, sliding scale insulin, Accu-Chek, diabetic diet. Outpatient PCP follow-up. (3) Diabetic nephropathy Qualifiers: Diabetes mellitus type: type 2 Qualified Code(s): E11.21 - Type 2 diabetes mellitus with diabetic nephropathy Is this a current diagnosis for this admission?: Yes Plan: Optimize diabetic control. Continue ARB. Monitor electrolytes and volume status. Outpatient nephrology follow-up. 05/2018 renal ultrasound read as normal renal sonogram. 05/17/2018 bilateral lower extremity venous Doppler negative for any DVT or obstruction. 05/22/2018: PT of 62.7, albumin 3.5, total protein 6.3, globulin 2.6, albumin/globulin ratio 1.1, alpha-1 globulin 0.8 beta globulins 0.8, globulins 0.7, M spike not observed, urine protein/creatinine ratio 2.3 urine total protein 153, hepatitis panel negative. 05/21/2018 nephrology was consulted and complete workup was done impression was diabetic nephropathy associated with nonnephrotic proteinuria. And patient was suggested to be started on ARB since he is allergic to lisinopril. (4) Hypertension Qualifiers: Hypertension type: essential hypertension Qualified Code(s): I10 - Essential (primary) hypertension Is this a current diagnosis for this admission?: Yes Plan: Normotensive. Systolic blood pressure ranging from 147-165 continue losartan, Lasix IV, hydralazine as needed. Monitor volume status and vitals. Adjust meds as needed. (5) Hyperlipidemia Is this a current diagnosis for this admission?: No Plan: Continue high intensity statins. Diet and lifestyle modification. (6) Depression Is this a current diagnosis for this admission?: No Plan: Denies any suicidal or homicidal ideation. Continue home meds. (7) SVT (supraventricular tachycardia) Is this a current diagnosis for this admission?: Yes Plan: Nonsustained. Asymptomatic. Low-dose beta-blockers titrate up if needed. Jorge Luis bennett has cardiology follow-up next week with Dr. Evans as outpatient.
[2018-07-09] MEDS ORDERED: POTASSIUM CHLORIDE 10 MEQ CAPSULE.ER PO SCH (10:00)
[2018-07-09 10:01] LABS: ANION GAP 5 (5-19); BLOOD UREA NITROGEN 40 mg/dL (7-20); CALCIUM 8.7 mg/dL (8.4-10.2); CARBON DIOXIDE 29 mmol/L (22-30); CHLORIDE 107 mmol/L (98-107); GLUCOSE 131 mg/dL (75-110); POTASSIUM 3.9 mmol/L (3.6-5.0); SODIUM 141.3 mmol/L (137-145)
[2018-07-09] MEDS: LOSARTAN POTASSIUM 50 MG TABLET PO SCH (10:10)
[2018-07-09] MEDS: LANSOPRAZOLE 15 MG TAB.RAP.DR PO SCH (10:10)
[2018-07-09] MEDS: ASPIRIN 81 MG TABLET, ENT COATED PO SCH (10:10)
[2018-07-09] MEDS: DULOXETINE HCL 30 MG CAPSULE.DR PO SCH ×2 (10:10→21:56)
[2018-07-09] MEDS: PROMETHAZINE HCL 25 MG TABLET PO PRN ×2 (10:10→20:46)
[2018-07-09] MEDS: FERROUS SULFATE 325 MG TABLET PO SCH (10:10)
[2018-07-09] MEDS: INSULIN GLARGINE,HUM.REC.ANLOG 300 UNIT/3 ML INSULN.PEN SUBCUT SCH (21:55)
[2018-07-09] MEDS: QUETIAPINE FUMARATE 100 MG TABLET PO SCH (21:55)
[2018-07-09] MEDS: TRAZODONE HCL 50 MG TABLET PO SCH (21:55)
[2018-07-09] MEDS: ATORVASTATIN CALCIUM 20 MG TABLET PO SCH (21:55)
[2018-07-09] MEDS ORDERED: CARVEDILOL 6.25 MG TABLET PO SCH (22:00)
[2018-07-09] MEDS: HYDRALAZINE HCL INJ/PF 20 MG/1 ML SDV IV PRN (22:05)
[2018-07-10 05:22] LABS: ABSOLUTE EOSINOPHILS # (AUTO) 0.1 10^3/uL (0.0-0.6); ABSOLUTE LYMPHOCYTES (AUTO) 1.4 10^3/uL (0.5-4.7); ABSOLUTE MONOCYTES (AUTO) 0.6 10^3/uL (0.1-1.4); ABSOLUTE NEUT (AUTO) 5.6 10^3/uL (1.7-8.2); BASOPHILS % (AUTO) 0.3 % (0-2); EOSINOPHILS % (AUTO) 1.7 % (0-6); HEMATOCRIT 25.4 % (37.9-51.0); HEMOGLOBIN 9.1 g/dL (13.5-17.0); LYMPHOCYTES % (AUTO) 17.8 % (13-45); MEAN CORPUSCULAR HEMOGLOBIN 29.2 pg (27.0-33.4); MEAN CORPUSCULAR HGB CONC 35.7 g/dL (32.0-36.0); MEAN CORPUSCULAR VOLUME 82 fl (80-97); MONOCYTES % (AUTO) 7.3 % (3-13); PLATELET COUNT 188 10^3/uL (150-450); RED BLOOD COUNT 3.11 10^6/uL (4.35-5.55); RED CELL DISTRIBUTION WIDTH 15.2 % (11.5-14.0); SEGMENTED NEUTROPHILS % (AUTO) 72.9 % (42-78); TOTAL CELLS COUNTED % (AUTO) 100 %; WHITE BLOOD COUNT 7.7 10^3/uL (4.0-10.5)
[2018-07-10 05:41] LABS: ALANINE AMINOTRANSFERASE 24 U/L (21-72); ALBUMIN 2.7 g/dL (3.5-5.0); ALKALINE PHOSPHATASE 101 U/L (38-126); ANION GAP 5 (5-19); ASPARTATE AMINO TRANSFERASE 15 U/L (17-59); BILIRUBIN,DIRECT 0.2 mg/dL (0.0-0.4); BILIRUBIN,TOTAL 0.8 mg/dL (0.2-1.3); BLOOD UREA NITROGEN 35 mg/dL (7-20); CALCIUM 8.6 mg/dL (8.4-10.2); CARBON DIOXIDE 30 mmol/L (22-30); CHLORIDE 106 mmol/L (98-107); GLUCOSE 92 mg/dL (75-110); POTASSIUM 3.7 mmol/L (3.6-5.0); SODIUM 140.7 mmol/L (137-145); TOTAL PROTEIN 4.9 g/dL (6.3-8.2)
[2018-07-10] MEDS: HEPARIN SOD (PORCINE) 5,000 UNIT/ML 1 ML SYRINGE SUBCUT SCH ×3 (06:09→21:58)
[2018-07-10] MEDS: FUROSEMIDE INJ/PF 40 MG/4 ML SDV IV SCH ×3 (06:10→21:59)
[2018-07-10] MEDS: DULOXETINE HCL 30 MG CAPSULE.DR PO SCH ×2 (10:27→21:58)
[2018-07-10] MEDS: FERROUS SULFATE 325 MG TABLET PO SCH (10:28)
[2018-07-10] MEDS: LANSOPRAZOLE 15 MG TAB.RAP.DR PO SCH (10:29)
[2018-07-10] MEDS: ASPIRIN 81 MG TABLET, ENT COATED PO SCH (10:29)
[2018-07-10] MEDS: LOSARTAN POTASSIUM 50 MG TABLET PO SCH (10:29)
[2018-07-10 12:39] LABS: ANION GAP 10 (5-19); BLOOD UREA NITROGEN 34 mg/dL (7-20); CALCIUM 8.8 mg/dL (8.4-10.2); CARBON DIOXIDE 28 mmol/L (22-30); CHLORIDE 102 mmol/L (98-107); GLUCOSE 133 mg/dL (75-110); POTASSIUM 3.9 mmol/L (3.6-5.0); SODIUM 140.1 mmol/L (137-145)
[2018-07-10] MEDS: CARVEDILOL 12.5 MG TABLET PO SCH ×2 (15:40→21:58)
--- NOTE | 2018-07-10 16:36 | PDOC PROGRESS REPORT ---
Subjective Progress Note for:: 07/10/18 Subjective:: JOHN SANDERS is a 52 year old male past medical history of type 2 diabetes, hypertension, obstructive sleep apnea, diabetic neuropathy, right foot diabetic foot, right foot great toe amputation, patient has had several recent admissions for volume overload. Last admission was on 05/18/2018 and discharged on 05/23/2018 admitted for volume overload. Patient had an echo done which was read as normal he has seen Dr. Garza as outpatient and a stress was scheduled for next week. Patient also has history of diabetic nephropathy and Dr. Llanos social media campaign manager was consulted to rule out renal causes of volume overload. Complete renal workup was done by nephrology and patient was found to have nonnephrotic range proteinuria hypoalbuminemia and a workup was also done to rule out any paraproteinemia which was negative. Membranous nephropathy could not be ruled out as per nephrology notes patient. Renal ultrasound was also read as normal. Patient presenting to the ED today complaining of worsening bilateral lower extremity edema, orthopnea, paroxysmal nocturnal dyspnea, low urine output, foamy urine and dyspnea on exertion. Patient has been trying to see nephrology as an outpatient however due to the fact that he is being via its being arranged by [place]. Patient is stating that he is drinks about 2-3 L of water per day and he states that he feels bloated, low appetite however he has gained about 20 pounds since last week. While in the ED it was also observed the patient had a run of SVT by ED doctor. On my encounter patient did not have any chest pain, nausea, vomiting, diarrhea, constipation. 07/09/2018. No acute events overnight. Patient complaining of nausea but denying any vomiting. Patient states that her his shortness of breath and lower extremity edema has improved and he has been having increased urine output since admission. Denies any fever, chest pain, palpitation, dizziness, diarrhea, constipation. Patient has an outpatient follow-up with Dr. Evans for a stress test. 07/10/2018. No acute events overnight. Patient still complaining of nausea but denying any vomiting. Shortness of breath and lower extremity edema has improved. Patient is PE O tolerant and having normal bowel and bladder movement. Reason For Visit: FLUID OVERLOAD, SVT Physical Exam Vital Signs: Temp Pulse Resp BP Pulse Ox 97.9 F 83 18 159/79 H 94 07/10/18 11:50 07/10/18 11:50 07/10/18 11:50 07/10/18 11:50 07/10/18 11:50 Intake & Output 07/09/18 07/10/18 07/11/18 06:59 06:59 06:59 Intake Total 644 Output Total 1700 650 Balance -1056 -650 Weight 116.5 kg 112.8 kg Results Laboratory Results: 07/10/18 04:26 07/10/18 11:05 07/10/18 07/10/18 07/10/18 04:26 04:26 11:05 WBC 7.7 RBC 3.11 L Hgb 9.1 L Hct 25.4 L MCV 82 MCH 29.2 MCHC 35.7 RDW 15.2 H Plt Count 188 Seg Neutrophils % 72.9 Lymphocytes % 17.8 Monocytes % 7.3 Eosinophils % 1.7 Basophils % 0.3 Absolute Neutrophils 5.6 Absolute Lymphocytes 1.4 Absolute Monocytes 0.6 Absolute Eosinophils 0.1 Absolute Basophils 0.0 Sodium 140.7 140.1 Potassium 3.7 3.9 Chloride 106 102 Carbon Dioxide 30 28 Anion Gap 5 10 BUN 35 H 34 H Creatinine 1.52 H 1.40 H Est GFR ( Amer) 59 L > 60 Est GFR (Non-Af Amer) 49 L 54 L Glucose 92 133 H Calcium 8.6 8.8 Magnesium 2.0 Total Bilirubin 0.8 AST 15 L ALT 24 Alkaline Phosphatase 101 Total Protein 4.9 L Albumin 2.7 L 07/08/18 07/08/18 14:46 14:46 Troponin I < 0.012 NT-Pro-B Natriuret Pep 3930 H Impressions: Chest X-Ray 07/08/18 14:10 IMPRESSION: CARDIOMEGALY. MILD VASCULAR PROMINENCE. Assessment & Plan - Diagnosis (1) Volume overload Is this a current diagnosis for this admission?: Yes Plan: Improving. Water balance -650, weight down by 4 kg since admission. Lower extremity edema improving. Likely secondary to worsening diabetic nephropathy underlying undiagnosed CHF excessive fluid intake. On admission patient stated that his fluid intake it is about 2-3 L/day. BNP 3930, troponin less than 0.012. Continue fluid restriction, IV Lasix, strict in and out, cardiac diet. 05/19/2018 2D echo left ventricular ejection fraction more than 65%, with left ventricular normal diastolic function. 05/2018 renal ultrasound read as normal renal sonogram. 05/17/2018 bilateral lower extremity venous Doppler negative for any DVT or obstruction. 05/22/2018: PT of 62.7, albumin 3.5, total protein 6.3, globulin 2.6, albumin/globulin ratio 1.1, alpha-1 globulin 0.8 beta globulins 0.8, globulins 0.7, M spike not observed, urine protein/creatinine ratio 2.3 urine total protein 153, hepatitis panel negative. 05/21/2018 nephrology was consulted and complete workup was done impression was diabetic nephropathy associated with nonnephrotic proteinuria. And patient was suggested to be started on ARB since he is allergic to lisinopril. Cardiology has been consulted. 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 Fasting blood glucose 131, POC glucose 124 -218 Continue Lantus 30 units nightly, sliding scale insulin, Accu-Chek, diabetic diet. Outpatient PCP follow-up. (3) Diabetic nephropathy Qualifiers: Diabetes mellitus type: type 2 Qualified Code(s): E11.21 - Type 2 diabetes mellitus with diabetic nephropathy Is this a current diagnosis for this admission?: Yes Plan: Optimize diabetic control. Continue ARB. Monitor electrolytes and volume status. Outpatient nephrology follow-up. 05/2018 renal ultrasound read as normal renal sonogram. 05/17/2018 bilateral lower extremity venous Doppler negative for any DVT or obstruction. 05/22/2018: PT of 62.7, albumin 3.5, total protein 6.3, globulin 2.6, albumin/globulin ratio 1.1, alpha-1 globulin 0.8 beta globulins 0.8, globulins 0.7, M spike not observed, urine protein/creatinine ratio 2.3 urine total protein 153, hepatitis panel negative. 05/21/2018 nephrology was consulted and complete workup was done impression was diabetic nephropathy associated with nonnephrotic proteinuria. And patient was suggested to be started on ARB since he is allergic to lisinopril. (4) Hypertension Qualifiers: Hypertension type: essential hypertension Qualified Code(s): I10 - Essential (primary) hypertension Is this a current diagnosis for this admission?: Yes Plan: Not optimized. Systolic blood pressure ranging from 147-165 Continue losartan, Lasix IV, hydralazine as needed. Added carvedilol 12.5 twice daily. Monitor volume status and vitals. Adjust meds as needed. (5) Hyperlipidemia Is this a current diagnosis for this admission?: No Plan: Continue high intensity statins. Diet and lifestyle modification. (6) Depression Is this a current diagnosis for this admission?: No Plan: Denies any suicidal or homicidal ideation. Continue home meds. (7) SVT (supraventricular tachycardia) Is this a current diagnosis for this admission?: Yes Plan: Nonsustained. Asymptomatic. Low-dose beta-blockers titrate up if needed. Cardiology has been consulted.
[2018-07-10] MEDS: TRAZODONE HCL 50 MG TABLET PO SCH (21:58)
[2018-07-10] MEDS: QUETIAPINE FUMARATE 100 MG TABLET PO SCH (22:00)
[2018-07-10] MEDS: ATORVASTATIN CALCIUM 20 MG TABLET PO SCH (22:00)
[2018-07-10] MEDS: HYDRALAZINE HCL INJ/PF 20 MG/1 ML SDV IV PRN (22:00)
[2018-07-10] MEDS: INSULIN GLARGINE,HUM.REC.ANLOG 300 UNIT/3 ML INSULN.PEN SUBCUT SCH (22:01)
[2018-07-10] MEDS: INSULIN LISPRO 100 UNIT/ML 3 ML VIAL SUBCUT PRN (22:02)
[2018-07-11] MEDS: FUROSEMIDE INJ/PF 40 MG/4 ML SDV IV SCH ×2 (05:30→14:48)
[2018-07-11] MEDS: HEPARIN SOD (PORCINE) 5,000 UNIT/ML 1 ML SYRINGE SUBCUT SCH ×2 (05:31→14:53)
[2018-07-11 05:53] LABS: ALANINE AMINOTRANSFERASE 16 U/L (21-72); ALBUMIN 2.6 g/dL (3.5-5.0); ALKALINE PHOSPHATASE 93 U/L (38-126); ANION GAP 7 (5-19); ASPARTATE AMINO TRANSFERASE 12 U/L (17-59); BILIRUBIN,DIRECT 0.2 mg/dL (0.0-0.4); BILIRUBIN,TOTAL 0.6 mg/dL (0.2-1.3); BLOOD UREA NITROGEN 37 mg/dL (7-20); CALCIUM 8.3 mg/dL (8.4-10.2); CARBON DIOXIDE 30 mmol/L (22-30); CHLORIDE 104 mmol/L (98-107); GLUCOSE 141 mg/dL (75-110); POTASSIUM 3.7 mmol/L (3.6-5.0); SODIUM 140.9 mmol/L (137-145); TOTAL PROTEIN 4.8 g/dL (6.3-8.2)
[2018-07-11] MEDS: LOSARTAN POTASSIUM 50 MG TABLET PO SCH (09:16)
[2018-07-11] MEDS: FERROUS SULFATE 325 MG TABLET PO SCH (09:17)
[2018-07-11] MEDS: ASPIRIN 81 MG TABLET, ENT COATED PO SCH (09:17)
[2018-07-11] MEDS: LANSOPRAZOLE 15 MG TAB.RAP.DR PO SCH (09:17)
[2018-07-11] MEDS: CARVEDILOL 12.5 MG TABLET PO SCH (09:17)
[2018-07-11] MEDS ORDERED: DULOXETINE HCL 30 MG CAPSULE.DR PO SCH (10:00)
[2018-07-11 10:31] LABS: ANION GAP 6 (5-19); BLOOD UREA NITROGEN 38 mg/dL (7-20); CALCIUM 8.8 mg/dL (8.4-10.2); CARBON DIOXIDE 32 mmol/L (22-30); CHLORIDE 103 mmol/L (98-107); GLUCOSE 116 mg/dL (75-110); POTASSIUM 3.9 mmol/L (3.6-5.0); SODIUM 140.7 mmol/L (137-145)
[2018-07-11] MEDS: INSULIN LISPRO 100 UNIT/ML 3 ML VIAL SUBCUT PRN (12:49)
[2018-07-11 15:05] VITALS: BP 149/73
--- NOTE | 2018-07-15 14:00 | PDOC DISCHARGE SUMMARY ---
General - Admit/Disc Date/PCP Admission Date/Primary Care Provider: 07/09/18 11:08 Discharge Date: 07/11/18 - Discharge Diagnosis (1) Volume overload Is this a current diagnosis for this admission?: Yes (2) Diabetes mellitus, type II Is this a current diagnosis for this admission?: Yes (3) Diabetic nephropathy Is this a current diagnosis for this admission?: Yes (4) Hypertension Is this a current diagnosis for this admission?: Yes (5) Hyperlipidemia Is this a current diagnosis for this admission?: No (6) Depression Is this a current diagnosis for this admission?: No (7) SVT (supraventricular tachycardia) Is this a current diagnosis for this admission?: Yes - Additional Information Resuscitation Status: Full Code Discharge Diet: Cardiac, Diabetic Discharge Activity: Activity As Tolerated Home Medications: Aspirin [Aspirin EC] 81 mg PO DAILY 02/18/18 Duloxetine HCl [Cymbalta] 120 mg PO Q12 02/18/18 Insulin Aspart [Novolog Insulin (Aspart) 100 unit/mL] 5 unit SUBCUT AC 02/18/18 Insulin Glargine,Hum.rec.anlog [Lantus Solostar] 40 unit SQ QHS 02/18/18 Losartan Potassium [Cozaar 100 mg Tablet] 100 mg PO DAILY 02/18/18 Quetiapine Fumarate [Seroquel 100 mg Tablet] 100 mg PO QHS 02/18/18 Trazodone HCl [Desyrel] 100 mg PO QHS 02/18/18 Amlodipine Besylate [Norvasc 10 mg Tablet] 10 mg PO DAILY 05/18/18 Metoprolol Tartrate [Lopressor 50 mg Tablet] 50 mg PO Q12 05/18/18 Omeprazole 20 mg PO DAILY 05/18/18 Furosemide [Lasix 20 mg Tablet] 60 mg PO BID #60 tablet 05/23/18 Garlic 100 mg PO Q2D 07/08/18 Iron 65 mg PO DAILY 07/08/18 Losartan Potassium 100 mg PO DAILY 07/08/18 Metoprolol Tartrate [Lopressor 100 mg Tablet] 200 mg PO DAILY 07/08/18 Multivitamin [Multiple Vitamins] 1 tab PO DAILY 07/08/18 Sennosides 1 tab PO DAILY 07/08/18 History of Present Illness History of Present Illness: JOHN SANDERS is a 52 year old male past medical history of type 2 diabetes, h ypertension, obstructive sleep apnea, diabetic neuropathy, right foot diabetic foot, right foot great toe amputation, patient has had several recent admissions for volume overload. Last admission was on 05/18/2018 and discharged on 05/23/2018 admitted for volume overload. Patient had an echo done which was read as normal he has seen Dr. Garza as outpatient and a stress was scheduled for next week. Patient also has history of diabetic nephropathy and Dr. Llanos prison keeper was consulted to rule out renal causes of volume overload. Complete renal workup was done by nephrology and patient was found to have nonnephrotic range proteinuria hypoalbuminemia and a workup was also done to rule out any paraproteinemia which was negative. Membranous nephropathy could not be ruled out as per nephrology notes patient. Renal ultrasound was also read as normal. Patient presenting to the ED today complaining of worsening bilateral lower extremity edema, orthopnea, paroxysmal nocturnal dyspnea, low urine output, foamy urine and dyspnea on exertion. Patient has been trying to see nephrology as an outpatient however due to the fact that he is being via its being arranged by [place]. Patient is stating that he is drinks about 2-3 L of water per day and he states that he feels bloated, low appetite however he has gained about 20 pounds since last week. While in the ED it was also observed the patient had a run of SVT by ED doctor. On my encounter patient did not have any chest pain, nausea, vomiting, diarrhea, constipation. Hospital Course Hospital Course: (1) Volume overload Bulimic at the day of discharge. Negative fluid balance, weight down by 4 kg since admission. Lower extremity edema imprved Was likely secondary to worsening diabetic nephropathy underlying undiagnosed CHF and excessive fluid intake. On admission patient stated that his fluid intake it is about 2-3 L/day. BNP 3930, troponin less than 0.012. Was placed on fluid restriction, IV Lasix, strict in and out, cardiac diet. 05/19/2018 2D echo left ventricular ejection fraction more than 65%, with left ventricular normal diastolic function. 05/2018 renal ultrasound read as normal renal sonogram. 05/17/2018 bilateral lower extremity venous Doppler negative for any DVT or obstruction. 05/22/2018: PT of 62.7, albumin 3.5, total protein 6.3, globulin 2.6, a lbumin/globulin ratio 1.1, alpha-1 globulin 0.8 beta globulins 0.8, globulins 0.7, M spike not observed, urine protein/creatinine ratio 2.3 urine total protein 153, hepatitis panel negative. 05/21/2018 nephrology was consulted and complete workup was done impression was diabetic nephropathy associated with nonnephrotic proteinuria. And patient was suggested to be started on ARB since he is allergic to lisinopril. Cardiology was consulted. Patient was to follow-up at the [facility]. Had an appointment with Dr. Evans on 07/20/2018. (2) Diabetes mellitus, type II Accu-Chek, aspart, long-acting insulin, diabetic diet. 06/25/2018 hemoglobin A1c 7.4. Fasting blood glucose 131, POC glucose 124 -218 Outpatient PCP follow-up. (3) Diabetic nephropathy Optimize diabetic control. Continue ARB. Outpatient nephrology follow-up. 05/2018 renal ultrasound read as normal renal sonogram. 05/17/2018 bilateral lower extremity venous Doppler negative for any DVT or obstruction. 05/22/2018: PT of 62.7, albumin 3.5, total protein 6.3, globulin 2.6, albumin/globulin ratio 1.1, alpha-1 globulin 0.8 beta globulins 0.8, globulins 0.7, M spike not observed, urine protein/creatinine ratio 2.3 urine total protein 153, hepatitis panel negative. 05/21/2018 nephrology was consulted and complete workup was done impression was diabetic nephropathy associated with nonnephrotic proteinuria. And patient was suggested to be started on ARB since he is allergic to lisinopril. (4) Hypertension Continued on his losartan, Lasix as needed hydralazine. Started on carvedilol 12.5 twice daily. Monitor volume status and vitals. Adjust meds as needed. (5) Hyperlipidemia Continue high intensity statins. Diet and lifestyle modification. (6) Depression Denies any suicidal or homicidal ideation. Continue home meds. (7) SVT (supraventricular tachycardia) Improved. Was started on carvedilol. Outpatient cardiology follow-up. Patient was to follow-up at the [facility]. Had an appointment with Dr. Evans on 07/20/2018. Physical Exam Vital Signs: Temp Pulse Resp BP Pulse Ox 98.0 F 73 18 149/73 H 96 07/11/18 15:03 07/11/18 15:03 07/11/18 15:03 07/11/18 15:03 07/11/18 15:03 General appearance: PRESENT: no acute distress, well-developed, well-nourished Head exam: PRESENT: atraumatic, normocephalic Neck exam: ABSENT: carotid bruit, JVD, lymphadenopathy, thyromegaly Respiratory exam: PRESENT: clear to auscultation rupa. ABSENT: rales, rhonchi, w heezes Cardiovascular exam: PRESENT: RRR. ABSENT: diastolic murmur, rubs, systolic murmur Extremities exam: PRESENT: full ROM. ABSENT: calf tenderness, clubbing, pedal edema Neurological exam: PRESENT: alert, awake, oriented to person, oriented to place, oriented to time, oriented to situation, CN II-XII grossly intact. ABSENT: motor sensory deficit Results Laboratory Results: 07/10/18 04:26 07/11/18 09:33 07/08/18 07/08/18 14:46 14:46 Troponin I < 0.012 NT-Pro-B Natriuret Pep 3930 H Impressions: Chest X-Ray 07/08/18 14:10 IMPRESSION: CARDIOMEGALY. MILD VASCULAR PROMINENCE. Qualifiers - * PATIENT BEING DISCHARGED WITH ANY OF THE FOLLOWING DIAGNOSIS: No VTE patient discharged on overlapping Therapy?: Yes
== END 2018-07-11 17:15 | disposition home or self-care (01) | DRG 699 ==
LOC: ER 12:29 → INTOOBSV 16:20 → EH 16:20 → 3W 17:51 → OBSVTOIN 07-09 11:08
PROVIDERS: ADMIT Internal Medicine; ATTEND Internal Medicine
DX: E11.21 Type 2 diabetes mellitus with diabetic nephropathy (principal); I47.1 Supraventricular tachycardia; I11.0 Hypertensive heart disease with heart failure; I50.9 Heart failure, unspecified; E87.70 Fluid overload, unspecified; E11.40 Type 2 diabetes mellitus with diabetic neuropathy, unspecified; E11.69 Type 2 diabetes mellitus with other specified complication; G47.33 Obstructive sleep apnea (adult) (pediatric); F43.10 Post-traumatic stress disorder, unspecified; R63.0 Anorexia; R06.00 Dyspnea, unspecified; E78.5 Hyperlipidemia, unspecified; F32.9 Major depressive disorder, single episode, unspecified; I87.2 Venous insufficiency (chronic) (peripheral); R80.9 Proteinuria, unspecified; Z89.411 Acquired absence of right great toe; I25.2 Old myocardial infarction; Z79.82 Long term (current) use of aspirin; Z79.4 Long term (current) use of insulin; Z88.8 Allergy status to other drugs, medicaments and biological substances
CPT/HCPCS: 36415; 71045; 80048; 80053; 81001; 82962; 83735; 83880; 84100; 84484; 85025; 85027; 93005; 93010; 99285; G0378; J0360; J1815; J1940; J3490

== ENCOUNTER → 2018-08-10 | Outpatient (CLI) | payer OTHER ==
[2018-08-10 12:08] LABS: ABSOLUTE EOSINOPHILS # (AUTO) 0.2 10^3/uL (0.0-0.6); ABSOLUTE LYMPHOCYTES (AUTO) 1.6 10^3/uL (0.5-4.7); ABSOLUTE MONOCYTES (AUTO) 0.8 10^3/uL (0.1-1.4); ABSOLUTE NEUT (AUTO) 9.2 10^3/uL (1.7-8.2); BASOPHILS % (AUTO) 0.3 % (0-2); EOSINOPHILS % (AUTO) 1.8 % (0-6); HEMATOCRIT 29.3 % (37.9-51.0); HEMOGLOBIN 10.2 g/dL (13.5-17.0); LYMPHOCYTES % (AUTO) 13.2 % (13-45); MEAN CORPUSCULAR HEMOGLOBIN 29.1 pg (27.0-33.4); MEAN CORPUSCULAR HGB CONC 34.8 g/dL (32.0-36.0); MEAN CORPUSCULAR VOLUME 84 fl (80-97); MONOCYTES % (AUTO) 6.6 % (3-13); PLATELET COUNT 255 10^3/uL (150-450); RED CELL DISTRIBUTION WIDTH 14.2 % (11.5-14.0); SEGMENTED NEUTROPHILS % (AUTO) 78.1 % (42-78); TOTAL CELLS COUNTED % (AUTO) 100 %; WHITE BLOOD COUNT 11.8 10^3/uL (4.0-10.5)
[2018-08-10 12:16] LABS: APPEARANCE,URINE CLEAR; BILIRUBIN,URINE NEGATIVE (NEGATIVE); COLOR,URINE YELLOW; GLUCOSE, URINE 50 mg/dL (NEGATIVE); KETONES,URINE NEGATIVE (NEGATIVE); LEUKOCYTE ESTERASE,URINE NEGATIVE (NEGATIVE); NITRITE,URINE NEGATIVE (NEGATIVE); PROTEIN,URINE 100 mg/dL (NEGATIVE); UROBILINOGEN,URINE NEGATIVE mg/dL (<2.0)
[2018-08-10 12:26] LABS: ALBUMIN 3.7 g/dL (3.5-5.0); ANION GAP 11 (5-19); BLOOD UREA NITROGEN 50 mg/dL (7-20); CALCIUM 9.4 mg/dL (8.4-10.2); CARBON DIOXIDE 26 mmol/L (22-30); CHLORIDE 104 mmol/L (98-107); GLUCOSE 236 mg/dL (75-110); IRON(TIBC) 50.5 ug/dL (49-181); PHOSPHORUS 4.9 mg/dL (2.5-4.5); POTASSIUM 4.5 mmol/L (3.6-5.0)
[2018-08-10 12:34] LABS: UR PRO/CREAT RATIO RESULT 1.2 mg/mg (0.0-0.2); URINE CREATININE 77.2 mg/dL (22-328); URINE PROTEIN 96.1 mg/dL (<12)
== END ==
LOC: LAB 11:44
PROVIDERS: ATTEND Internal Medicine Nephrology
DX: N18.3 Chronic kidney disease, stage 3 (moderate) (principal)
CPT/HCPCS: 36415; 80069; 81001; 82306; 82570; 82728; 83540; 83550; 83970; 84156; 85025

== ENCOUNTER → 2018-08-19 | Outpatient (CLI) | payer OTHER ==
--- NOTE | 2018-08-19 11:58 | RADIOLOGY REPORT (SQ) ---
EXAM DESCRIPTION: FOOT RIGHT COMPLETE COMPLETED DATE/TIME: 08/19/2018 11:31 am REASON FOR STUDY: E11.621 TYPE 2 DIABETES MELLITUS WITH FOOT ULCER L97.512 NON-PRS CHRONIC UL E11.62 1 TYPE 2 DIABETES MELLITUS WITH FOOT ULCER L97.512 NON-PRS CHRONIC ULCER OTH PRT RIGHT FOOT W FAT L DERRICK COMPARISON: Right foot films 04/24/2018, 06/25/2018 NUMBER OF VIEWS: Three views. TECHNIQUE: AP, lateral and oblique radiographic images acquired of the right foot. LIMITATIONS: None. FINDINGS: MINERALIZATION: Normal. BONES: Post right great toe amputation at the level of the 1st metatarsal head. Advanced arthritis a t the 2nd metatarsophalangeal joint, unchanged. No acute fracture. 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 OTHER: No other significant finding. IMPRESSION: Persistent plantar ulcer in the soft tissues, ball of foot near the 2nd MTP joint. No acute bony changes. TECHNICAL DOCUMENTATION: JOB ID: [id number] [employer]- All Rights Reserved Reading location - IP/workstation name: [email or web address]
== END ==
LOC: RAD 11:10
PROVIDERS: ATTEND Nurse Practitioner Family
DX: E11.621 Type 2 diabetes mellitus with foot ulcer (principal); L97.512 Non-pressure chronic ulcer of other part of right foot with fat layer exposed

== ENCOUNTER → 2018-09-14 | Outpatient (CLI) | payer OTHER ==
[2018-09-14 14:12] LABS: ABSOLUTE BASOPHILS # (AUTO) 0.1 10^3/uL (0.0-0.2); ABSOLUTE EOSINOPHILS # (AUTO) 0.2 10^3/uL (0.0-0.6); ABSOLUTE LYMPHOCYTES (AUTO) 1.2 10^3/uL (0.5-4.7); ABSOLUTE MONOCYTES (AUTO) 0.7 10^3/uL (0.1-1.4); ABSOLUTE NEUT (AUTO) 7.8 10^3/uL (1.7-8.2); BASOPHILS % (AUTO) 0.6 % (0-2); EOSINOPHILS % (AUTO) 1.7 % (0-6); HEMOGLOBIN 10.1 g/dL (13.5-17.0); LYMPHOCYTES % (AUTO) 11.9 % (13-45); MEAN CORPUSCULAR HEMOGLOBIN 29.8 pg (27.0-33.4); MEAN CORPUSCULAR HGB CONC 34.7 g/dL (32.0-36.0); MEAN CORPUSCULAR VOLUME 86 fl (80-97); MONOCYTES % (AUTO) 6.9 % (3-13); PLATELET COUNT 230 10^3/uL (150-450); RED BLOOD COUNT 3.37 10^6/uL (4.35-5.55); RED CELL DISTRIBUTION WIDTH 14.4 % (11.5-14.0); SEGMENTED NEUTROPHILS % (AUTO) 78.9 % (42-78); TOTAL CELLS COUNTED % (AUTO) 100 %; WHITE BLOOD COUNT 9.9 10^3/uL (4.0-10.5)
[2018-09-14 14:35] LABS: ALANINE AMINOTRANSFERASE 24 U/L (21-72); ALBUMIN 3.1 g/dL (3.5-5.0); ALKALINE PHOSPHATASE 126 U/L (38-126); ANION GAP 6 (5-19); ASPARTATE AMINO TRANSFERASE 18 U/L (17-59); BILIRUBIN,DIRECT 0.3 mg/dL (0.0-0.4); BILIRUBIN,TOTAL 0.7 mg/dL (0.2-1.3); BLOOD UREA NITROGEN 40 mg/dL (7-20); C-REACTIVE PROTEIN 13.4 mg/L (<10.0); CALCIUM 9.3 mg/dL (8.4-10.2); CARBON DIOXIDE 28 mmol/L (22-30); CHLORIDE 108 mmol/L (98-107); GLUCOSE 141 mg/dL (75-110); SODIUM 141.7 mmol/L (137-145); TOTAL PROTEIN 5.8 g/dL (6.3-8.2)
[2018-09-14 15:02] LABS: ERYTHROCYTE SEDIMENTATION RATE 70 mm/hr (0-20)
== END ==
LOC: WC 14:05
PROVIDERS: ATTEND Preventive Medicine Undersea and Hyperbaric Medicine
DX: L97.512 Non-pressure chronic ulcer of other part of right foot with fat layer exposed (principal)
CPT/HCPCS: 36415; 80053; 85025; 85652; 86140

== ENCOUNTER 2018-09-17 08:34 | Inpatient (IN) | payer OTHER ==
[2018-09-17] MEDS ORDERED: ASPIRIN 81 MG TABLET, CHEWABLE PO ONE (09:25)
[2018-09-17] MEDS ORDERED: NITROGLYCERIN 2% OINTMENT 1 GM PACKET TP ONE (09:26)
[2018-09-17] MEDS ORDERED: FUROSEMIDE INJ/PF 40 MG/4 ML SDV IV ONE (09:26)
--- NOTE | 2018-09-17 10:08 | ER Document Report ---
ED General - General Chief Complaint: Breathing Difficulty Stated Complaint: DIFFICULTY BREATHING Time Seen by Provider: 09/17/18 09:25 Mode of Arrival: Ambulatory Information source: Patient, Relative, [facility] Records Notes: 52-year-old male with hypertension, diabetes, sleep apnea, congestive heart failure who is noncompliant with his medication presents via private vehicle with his with shortness of breath. Patient will not answer questions so gives most of the history. She repeatedly states "I am pissed off". She states that she is "frustrated". She states that he "takes none of his medications". Reports that shortness of breath have been ongoing for several weeks. States patient's leg swelling has also been present for several days due to his noncompliance with his Lasix. Patient had a recent surgery for diabetic foot ulcer and right great and second toe amputation. Patient also has not had a bowel movement in approximately 10 days. TRAVEL OUTSIDE OF THE [place] IN LAST 30 DAYS: No - HPI Onset: Other Onset/Duration: Persistent Quality of pain: Achy - Abdominal pain Severity: Mild Associated symptoms: Leg swelling, Nausea, Vomiting, Shortness of breath. denies: Chest pain, Chills, Nonproductive cough, Productive cough, Fever Exacerbated by: Movement, Walking Relieved by: Denies Similar symptoms previously: Yes Recently seen / treated by doctor: Yes - Related Data Allergies/Adverse Reactions: lisinopril Allergy (Verified 09/17/18 08:39) tape Allergy (Uncoded 09/17/18 08:39) Past Medical History - General Information source: Patient, Relative, [facility] Records - Social History Smoking Status: Never Smoker Frequency of alcohol use: None Drug Abuse: None Lives with: Spouse/Significant other Family History: Reviewed & Not Pertinent Patient has suicidal ideation: No Patient has homicidal ideation: No - Past Medical History Cardiac Medical History: Reports: Hx Heart Attack - [place], Hx Hypertension Pulmonary Medical History: Reports: Hx Sleep Apnea - Not on CPAP yet Endocrine Medical History: Reports: Hx Diabetes Mellitus Type 1, Hx Diabetes Mellitus Type 2 Renal/ Medical History: Denies: Hx Peritoneal Dialysis Psychiatric Medical History: Reports: Hx Post Traumatic Stress Disorder Denies: Hx Depression Past Surgical History: Reports: Hx Orthopedic Surgery - Right big toe amputation in 2013 for diabetic complication, Other - Left toe shave bone, cataract surgery, Neck cyst, debridement of rt foot Review of Systems - Review of Systems Notes: Review of systems is limited as patient will not answer questions and is providing history -: Yes ROS unobtainable due to patient's medical condition Cardiovascular: denies: Chest pain Gastrointestinal: Abdomen distended, Abdominal pain, Nausea, Vomiting, Constipation Musculoskeletal: Leg swelling Physical Exam - Vital signs Vitals: Temp Pulse Resp BP Pulse Ox 98.3 F 91 28 H 186/81 H 99 09/17/18 08:37 09/17/18 08:37 09/17/18 08:37 09/17/18 08:37 09/17/18 08:37 - Notes Notes: PHYSICAL EXAMINATION: GENERAL: Well-appearing, well-nourished and in no acute distress. HEAD: Atraumatic, normocephalic. EYES: Pupils equal round and reactive to light, extraocular movements intact, sclera anicteric, conjunctiva are normal. ENT: Nares patent, oropharynx clear without exudates. Moist mucous membranes. NECK: Normal range of motion, supple without lymphadenopathy LUNGS: Visibly dyspneic, no accessory muscle use. Diminished breath sounds in all lung aleman. No hypoxia. HEART: Regular rate and rhythm without murmurs ABDOMEN: Soft, nontender, nondistended abdomen. No guarding, no rebound. No masses appreciated. Musculoskeletal: Normal range of motion, 2+ pitting edema. No cyanosis. NEUROLOGICAL: Cranial nerves grossly intact. Normal speech, Normal sensory, motor exams PSYCH: Normal mood, normal affect. SKIN: Quarter sized wound of the right foot on the plantar aspect without associated erythema, purulent discharge. Granulation tissue present. Course - Re-evaluation Re-evalutation: Laboratory 09/17/18 09/17/18 09/17/18 10:25 10:35 10:35 WBC 6.8 RBC 3.01 L Hgb 9.0 L Hct 25.4 L MCV 84 MCH 30.0 MCHC 35.6 RDW 14.3 H Plt Count 187 Seg Neutrophils % 72.7 Lymphocytes % 14.5 Monocytes % 11.2 Eosinophils % 1.2 Basophils % 0.4 Absolute Neutrophils 4.9 Absolute Lymphocytes 1.0 Absolute Monocytes 0.8 Absolute Eosinophils 0.1 Absolute Basophils 0.0 PT 13.7 INR 1.00 D-Dimer 1.59 H VBG pH 7.41 VBG pCO2 38.8 VBG HCO3 24.1 VBG Base Excess -0.3 Sodium Potassium Chloride Carbon Dioxide Anion Gap BUN Creatinine Est GFR ( Amer) Est GFR (Non-Af Amer) Glucose Calcium Total Bilirubin Direct Bilirubin Neonat Total Bilirubin Neonat Direct Bilirubin Neonat Indirect Bili AST ALT Alkaline Phosphatase Creatine Kinase CK-MB (CK-2) Troponin I NT-Pro-B Natriuret Pep Total Protein Albumin 09/17/18 09/17/18 10:35 10:35 WBC RBC Hgb Hct MCV MCH MCHC RDW Plt Count Seg Neutrophils % Lymphocytes % Monocytes % Eosinophils % Basophils % Absolute Neutrophils Absolute Lymphocytes Absolute Monocytes Absolute Eosinophils Absolute Basophils PT INR D-Dimer VBG pH VBG pCO2 VBG HCO3 VBG Base Excess Sodium 139.9 Potassium 3.9 Chloride 110 H Carbon Dioxide 22 Anion Gap 8 BUN 37 H Creatinine 1.56 H Est GFR ( Amer) 57 L Est GFR (Non-Af Amer) 47 L Glucose 218 H Calcium 8.5 Total Bilirubin 1.3 Direct Bilirubin 0.3 Neonat Total Bilirubin Not Reportable Neonat Direct Bilirubin Not Reportable Neonat Indirect Bili Not Reportable AST 22 ALT 35 Alkaline Phosphatase 143 H Creatine Kinase 323 H CK-MB (CK-2) 4.83 H Troponin I 0.021 NT-Pro-B Natriuret Pep 5370 H Total Protein 4.9 L Albumin 2.9 L Abdomen X-Ray 09/17/18 09:27 IMPRESSION: Mild fecal retention. Chest X-Ray 09/17/18 09:27 IMPRESSION: Left lower lobe pneumonia. Chest/Abdomen CTA 09/17/18 11:22 IMPRESSION: 1. No PE. 2. Bilateral lower lobe pneumonia. Temp Pulse Resp BP Pulse Ox 98.3 F 79 18 164/80 H 97 09/17/18 08:37 09/17/18 15:44 09/17/18 15:11 09/17/18 15:11 09/17/18 15:11 09/17/18 11:23 Patient refusing BiPAP. Bedside ultrasound performed and significant for B-lines throughout all lung fi elds indicative of interstitial edema. Chest x-ray does show a left lower lobe pneumonia for which ceftriaxone and doxycycline were administered. D-dimer elevated and with lower extremity swelling CTA will be performed. 09/17/18 11:59 Patient reevaluated and reports improvement of shortness of breath. Has had approximately 700 cc of urinary output. 09/17/18 11:59 Acute abdominal series does show mild fecal retention. 09/17/18 13:29 CTA obtained and negative for PE but did show small bilateral pleural effusion, small pericardial effusion. I did speak to Dr. Bishop who has accepted the patient for admission to the [facility] 09/17/18 16:58 - Vital Signs Vital signs: Temp Pulse Resp BP Pulse Ox 98.3 F 79 18 164/80 H 97 09/17/18 08:37 09/17/18 15:44 09/17/18 15:11 09/17/18 15:11 09/17/18 15:11 - Laboratory Result Diagrams: 09/17/18 10:35 09/17/18 10:35 Laboratory results interpreted by me: 09/17/18 09/17/18 09/17/18 10:35 10:35 10:35 RBC 3.01 L Hgb 9.0 L Hct 25.4 L RDW 14.3 H D-Dimer 1.59 H Chloride 110 H BUN 37 H Creatinine 1.56 H Est GFR ( Amer) 57 L Est GFR (Non-Af Amer) 47 L Glucose 218 H Alkaline Phosphatase 143 H Creatine Kinase 323 H CK-MB (CK-2) NT-Pro-B Natriuret Pep Total Protein 4.9 L Albumin 2.9 L 09/17/18 10:35 RBC Hgb Hct RDW D-Dimer Chloride BUN Creatinine Est GFR ( Amer) Est GFR (Non-Af Amer) Glucose Alkaline Phosphatase Creatine Kinase CK-MB (CK-2) 4.83 H NT-Pro-B Natriuret Pep 5370 H Total Protein Albumin - Diagnostic Test Radiology reviewed: Image reviewed, Reports reviewed - EKG Interpretation by Me EKG shows normal: Sinus rhythm Rate: Normal Rhythm: NSR [place]/QRS: Right axis deviation When compared to previous EKG there are: No significant change Critical Care Note - Critical Care Note Total time excluding time spent on procedures (mins): 35 - Minutes of critical care time spent in direct contact evaluating and reevaluating the patient, treating symptoms, reviewing labs and studies and speaking with family and consultants excluding any procedures Discharge - Discharge Clinical Impression: Bilateral pleural effusion, Pericardial effusion, Healthcare-associated pneumonia, Volume overload state of heart, Hypoalbuminemia, Noncompliance with medication regimen, Chronic kidney disease, stage 3 Dyspnea Qualifiers: Dyspnea type: unspecified Qualified Code(s): R06.00 - Dyspnea, unspecified Constipation Qualifiers: Constipation type: unspecified constipation type Qualified Code(s): K59.00 - Constipation, unspecified Condition: Good Disposition: ADMITTED INPATIENT Admitting Provider: Edna (Hospitalist) Unit Admitted: [facility]
[2018-09-17 10:47] LABS: ABSOLUTE EOSINOPHILS # (AUTO) 0.1 10^3/uL (0.0-0.6); ABSOLUTE MONOCYTES (AUTO) 0.8 10^3/uL (0.1-1.4); ABSOLUTE NEUT (AUTO) 4.9 10^3/uL (1.7-8.2); BASOPHILS % (AUTO) 0.4 % (0-2); EOSINOPHILS % (AUTO) 1.2 % (0-6); HEMATOCRIT 25.4 % (37.9-51.0); LYMPHOCYTES % (AUTO) 14.5 % (13-45); MEAN CORPUSCULAR HGB CONC 35.6 g/dL (32.0-36.0); MEAN CORPUSCULAR VOLUME 84 fl (80-97); MONOCYTES % (AUTO) 11.2 % (3-13); PLATELET COUNT 187 10^3/uL (150-450); RED BLOOD COUNT 3.01 10^6/uL (4.35-5.55); RED CELL DISTRIBUTION WIDTH 14.3 % (11.5-14.0); SEGMENTED NEUTROPHILS % (AUTO) 72.7 % (42-78); TOTAL CELLS COUNTED % (AUTO) 100 %; WHITE BLOOD COUNT 6.8 10^3/uL (4.0-10.5)
[2018-09-17 10:50] LABS: VENOUS BLOOD BASE EXCESS -0.3 mmol/L; VENOUS BLOOD HCO3 24.1 mmol/L (20-32); VENOUS BLOOD PCO2 38.8 mmHg (35-63); VENOUS BLOOD PH 7.41 (7.30-7.42)
[2018-09-17 11:07] LABS: ALANINE AMINOTRANSFERASE 35 U/L (21-72); ALBUMIN 2.9 g/dL (3.5-5.0); ALKALINE PHOSPHATASE 143 U/L (38-126); ANION GAP 8 (5-19); ASPARTATE AMINO TRANSFERASE 22 U/L (17-59); BILIRUBIN,DIRECT 0.3 mg/dL (0.0-0.4); BILIRUBIN,TOTAL 1.3 mg/dL (0.2-1.3); BLOOD UREA NITROGEN 37 mg/dL (7-20); CALCIUM 8.5 mg/dL (8.4-10.2); CARBON DIOXIDE 22 mmol/L (22-30); CHLORIDE 110 mmol/L (98-107); CREATINE KINASE 323 U/L (55-170); GLUCOSE 218 mg/dL (75-110); POTASSIUM 3.9 mmol/L (3.6-5.0); SODIUM 139.9 mmol/L (137-145); TOTAL PROTEIN 4.9 g/dL (6.3-8.2)
--- NOTE | 2018-09-17 11:10 | RADIOLOGY REPORT (SQ) ---
EXAM DESCRIPTION: CHEST 2 VIEWS COMPLETED DATE/TIME: 09/17/2018 10:54 am REASON FOR STUDY: sob COMPARISON: 07/08/2018 EXAM PARAMETERS: NUMBER OF VIEWS: two views TECHNIQUE: Digital Frontal and Lateral radiographic views of the chest acquired. RADIATION DOSE: NA LIMITATIONS: none FINDINGS: LUNGS AND PLEURA: Subsegmental airspace disease in the posterior costophrenic angle, left lower lobe. No large effusions. MEDIASTINUM AND HILAR STRUCTURES: No masses or contour abnormalities. HEART AND VASCULAR STRUCTURES: Mild cardiomegaly. No evidence for failure. BONES: No acute findings. HARDWARE: None in the chest. OTHER: No other significant finding. IMPRESSION: Left lower lobe pneumonia. TECHNICAL DOCUMENTATION: JOB ID: [id number] [employer]- All Rights Reserved Reading location - IP/workstation name: [email or web address]
[2018-09-17 11:11] LABS: PROTHROMBIN TIME 13.7 SEC (11.4-15.4)
--- NOTE | 2018-09-17 11:12 | RADIOLOGY REPORT (SQ) ---
EXAM DESCRIPTION: ABDOMEN 2 VIEWS COMPLETED DATE/TIME: 09/17/2018 10:54 am REASON FOR STUDY: constipation COMPARISON: None. NUMBER OF VIEWS: Two views. TECHNIQUE: Supine and erect/decubitus radiographic images of the abdomen acquired. LIMITATIONS: None. FINDINGS: FREE AIR: None. No abnormal gas collections. LUNG BASES: Clear. BOWEL GAS PATTERN: Abundant gas and fecal material from the cecum to the sigmoid colon. No dilated l oops. CALCIFICATIONS: No suspicious calcifications. SOFT TISSUES: No gross mass or suggestion of organomegaly. HARDWARE: None in the abdomen. BONES: No acute fracture. No worrisome bone lesions. OTHER: No other significant finding. IMPRESSION: Mild fecal retention. TECHNICAL DOCUMENTATION: JOB ID: [id number] [employer]- All Rights Reserved Reading location - IP/workstation name: [email or web address]
[2018-09-17 11:14] LABS: D-DIMER 1.59 ug/mL (0.00-0.50)
[2018-09-17 11:16] LABS: CREATINE KINASE MB 4.83 ng/mL (<4.55); TROPONIN I 0.021 ng/mL
[2018-09-17] MEDS ORDERED: CEFTRIAXONE 1 GM/D5W RTU 1 GM/50 ML RTUPB IV ONE (11:21)
[2018-09-17] MEDS ORDERED: DOXYCYCLINE HYCLATE 100 MG TABLET PO ONE (11:22)
--- NOTE | 2018-09-17 12:26 | EKG REPORT ---
SEVERITY:- BORDERLINE ECG - SINUS RHYTHM CONSIDER ANTERIOR INFARCT BORDERLINE PROLONGED QT INTERVAL : Confirmed by: Ronny Espana MD 17-Sep-2018 12:25:36
--- NOTE | 2018-09-17 13:00 | RADIOLOGY REPORT (SQ) ---
EXAM DESCRIPTION: CTA CHEST COMPLETED DATE/TIME: 09/17/2018 12:45 pm REASON FOR STUDY: elevated dimer sob COMPARISON: None. TECHNIQUE: CT scan of the chest performed using helical scanning technique with dynamic intravenous contrast injection. Images reviewed with lung, soft tissue and bone windows. Reconstructed coronal and sagittal MPR images reviewed. Additional 3 dimensional post-processing performed to develop Maximal Intensity Projection images (UT P). All images stored on PACS. All CT scanners at this facility use dose modulation, iterative reconstruction, and/or weight based d osing when appropriate to reduce radiation dose to as low as reasonably achievable (ALARA). [facility]: Dose Right [facility]: CareDose [facility]: Dose Right [facility]: Teradose 4D [facility]: SunnyBump CONTRAST TYPE AND DOSE: contrast/concentration: Isovue 350.00 mg/ml; Total Contrast Delivered: 87.0 ml; Total Saline Delivered: 80.0 ml Contrast bolus optimized for the pulmonary arteries. Not diagnostic for the aorta. RENAL FUNCTION: GFR > 60. RADIATION DOSE: CT Rad equipment meets quality standard of care and radiation dose reduction techniq ues were employed. CTDIvol: 29.6 - 72.8 mGy. DLP: 1243 mGy-cm. . LIMITATIONS: None. FINDINGS: LUNGS AND PLEURA: Small pleural effusions bilaterally with associated airspace disease in the lung bases. AORTA AND GREAT VESSELS: No aneurysm. Contrast bolus not optimized for the aorta. HEART: Small pericardial effusion. PULMONARY ARTERIES: No emboli visualized in the main pulmonary arteries or the segmental branches. HILAR AND MEDIASTINAL STRUCTURES: No identified masses or abnormal nodes. HARDWARE: None in the chest. UPPER ABDOMEN: No significant findings. Limited exam. THYROID AND OTHER SOFT TISSUES: No masses. No adenopathy. BONES: No acute or significant finding. 3D MIPS: Confirm above findings. OTHER: No other significant finding. IMPRESSION: 1. No PE. 2. Bilateral lower lobe pneumonia. COMMENT: Quality ID # [id number]: Final reports with documentation of one or more dose reduction techniques (e.g., Automated exposure control, adjustment of the mA and/or kV according to patient size, use of iterative reconstruction technique) TECHNICAL DOCUMENTATION: JOB ID: [id number] [employer]- All Rights Reserved Reading location - IP/workstation name: [email or web address]
[2018-09-17] MEDS ORDERED: MAGNESIUM CITRATE 296 ML BOTTLE PO ONE (13:01)
[2018-09-17] MEDS ORDERED: PIPERACILLIN/TAZOBACTAM 3.375 GM VIAL IV ONE (13:09)
[2018-09-17] MEDS ORDERED: DEXTROSE 50%-WATER 25 GM/50 ML DISP.SYRIN IV PRN ×2 (14:24)
[2018-09-17] MEDS ORDERED: GLUCAGON,HUMAN RECOMB 1 MG INJ IM PRN (14:24)
[2018-09-17] MEDS ORDERED: DEXTROSE 40% GEL 15 GM TUBE PO PRN ×2 (14:24)
--- NOTE | 2018-09-17 14:43 | PDOC H&P ---
History of Present Illness Admission Date/PCP: 09/17/18 13:59 History of Present Illness: JOHN SANDERS is a 52 year old male with a history of multiple medical problems including chronic kidney disease due to diabetic nephropathy, insulin-dependent diabetes mellitus, diabetic neuropathy, reported prior history of stroke, hyperlipidemia, hypertension, morbid obesity, obstructive sleep apnea, and a long history of noncompliance with his treatment regimen for his various conditions, especially in the last few months, and according to his for the past 7 years. He comes in today with a 10-14-day history of progressive shortness of breath. He is not been having any fevers. No cough. He does endorse orthopnea. He says his shortness of breath gets worse with exertion. He has had worsening bilateral leg edema over that period of time. He has not taken his blood pressure medication in over a week. He only takes his Lasix intermittently. His says that he only takes his insulin periodically. The patient cannot or will not tell me why he is so noncompliant with his treatment regimen. He has been to the hospital twice in the last couple of months with the exact same problems. Some of his fluid retention was attributed to diabetic nephropathy, and an echocardiogram was done but the right ventricle could not be visualized, this was back in May. Today a d-dimer was slightly elevated and so a CTA of the chest was performed. The test was negative for PE, but the pulmonary arteries did seem to be a bit prominent, and he has some bilateral edema and small bilateral pleural effusions. He was also hypertensive in the ER, with systolics in the 180s and diastolics near 100. He is being admitted for diuresis and further evaluation. Past Medical History Cardiac Medical History: Reports: Myocardial Infarction - Silent [place], Hypertension Pulmonary Medical History: Reports: Sleep Apnea - Not on CPAP yet Endocrine Medical History: Reports: Diabetes Mellitus Type 1, Diabetes Mellitus Type 2 Renal/ Medical History: Reports: Chronic Kidney Disease Psychiatric Medical History: Reports: Post Traumatic Stress Disorder Denies: Depression Past Surgical History Past Surgical History: Reports: Orthopedic Surgery - Right big toe amputation in 2013 for diabetic complication, Other - Left toe shave bone, cataract surgery, Neck cyst, debridement of rt foot Social History Lives with: Spouse/Significant other Smoking Status: Never Smoker Frequency of Alcohol Use: None Hx Recreational Drug Use: No Drugs: None Hx Prescription Drug Abuse: No Family History Family History: Reviewed & Not Pertinent, CAD, DM, Hyperlipidemia, Hypertension Parental Family History Reviewed: Yes Children Family History Reviewed: Yes Sibling(s) Family History Reviewed.: Yes Medication/Allergy Home Medications: Aspirin [Aspirin EC] 81 mg PO DAILY 02/18/18 Duloxetine HCl [Cymbalta] 120 mg PO Q12 02/18/18 Insulin Aspart [Novolog Insulin (Aspart) 100 unit/mL] 5 unit SUBCUT AC 02/18/18 Insulin Glargine,Hum.rec.anlog [Lantus Solostar] 40 unit SQ QHS 02/18/18 Losartan Potassium [Cozaar 100 mg Tablet] 100 mg PO DAILY 02/18/18 Quetiapine Fumarate [Seroquel 100 mg Tablet] 100 mg PO QHS 02/18/18 Trazodone HCl [Desyrel] 100 mg PO QHS 02/18/18 Amlodipine Besylate [Norvasc 10 mg Tablet] 10 mg PO DAILY 05/18/18 Metoprolol Tartrate [Lopressor 50 mg Tablet] 50 mg PO Q12 05/18/18 Omeprazole 20 mg PO DAILY 05/18/18 Furosemide [Lasix 20 mg Tablet] 60 mg PO BID #60 tablet 05/23/18 Garlic 100 mg PO Q2D 07/08/18 Iron 65 mg PO DAILY 07/08/18 Losartan Potassium 100 mg PO DAILY 07/08/18 Metoprolol Tartrate [Lopressor 100 mg Tablet] 200 mg PO DAILY 07/08/18 Multivitamin [Multiple Vitamins] 1 tab PO DAILY 07/08/18 Sennosides 1 tab PO DAILY 07/08/18 Allergies/Adverse Reactions: lisinopril Allergy (Verified 09/17/18 08:39) tape Allergy (Uncoded 09/17/18 08:39) Review of Systems All systems: reviewed and no additional remarkable complaints except as stated - All systems were reviewed and were negative except as noted in the HPI Physical Exam Vital Signs: Temp Pulse Resp BP Pulse Ox 98.3 F 91 23 H 177/87 H 95 09/17/18 08:37 09/17/18 08:37 09/17/18 12:00 09/17/18 11:31 09/17/18 12:00 Intake & Output 09/16/18 09/17/18 09/18/18 06:59 06:59 06:59 Intake Total 50 Output Total 600 Balance -550 Weight 118.1 kg General appearance: PRESENT: no acute distress, cooperative, disheveled, morbidly obese Head exam: PRESENT: atraumatic, normocephalic Eye exam: PRESENT: EOMI, PERRLA. ABSENT: conjunctival injection, nystagmus, scleral icterus Ear exam: PRESENT: normal external ear exam Mouth exam: PRESENT: moist, neck supple Teeth exam: PRESENT: poor dentation Throat exam: ABSENT: post pharyngeal erythema Neck exam: PRESENT: full ROM. ABSENT: carotid bruit, JVD - But difficult to tell due to his body habitus, lymphadenopathy, meningismus, tenderness, thyromegaly Respiratory exam: PRESENT: crackles - Bibasilar, decreased breath sounds, symmetrical, unlabored. ABSENT: accessory muscle use, prolonged expiratory phas, rhonchi, tachypnea, wheezes Cardiovascular exam: PRESENT: RRR, +S1, +S2, systolic murmur - His heart sounds were muffled but he sounded like he had a soft 1 out of 6 systolic murmur at the left upper sternal border Pulses: PRESENT: normal carotid pulses Vascular exam: PRESENT: normal capillary refill GI/Abdominal exam: PRESENT: normal bowel sounds, soft. ABSENT: distended, guarding, rebound, tenderness Extremities exam: PRESENT: pedal edema, +2 edema - Up to the knees bilaterally, other - His great toe of his right foot had been surgically amputated. ABSENT: clubbing Musculoskeletal exam: PRESENT: normal inspection. ABSENT: deformity - With the exception of the surgically amputated right big toe Neurological exam: PRESENT: alert, awake, oriented to person, oriented to place, oriented to time, oriented to situation, CN II-XII grossly intact, motor sensory deficit - Diminished sensation on the bottoms of his feet Psychiatric exam: PRESENT: flat affect Skin exam: PRESENT: dry, warm, other - He had a nonhealing ulcer on the plantar surface of his right foot over the head of the second metatarsal Results Laboratory Results: 09/17/18 10:35 09/17/18 10:35 09/17/18 09/17/18 09/17/18 10:25 10:35 10:35 WBC 6.8 RBC 3.01 L Hgb 9.0 L Hct 25.4 L MCV 84 MCH 30.0 MCHC 35.6 RDW 14.3 H Plt Count 187 Seg Neutrophils % 72.7 Lymphocytes % 14.5 Monocytes % 11.2 Eosinophils % 1.2 Basophils % 0.4 Absolute Neutrophils 4.9 Absolute Lymphocytes 1.0 Absolute Monocytes 0.8 Absolute Eosinophils 0.1 Absolute Basophils 0.0 VBG pH 7.41 VBG pCO2 38.8 VBG HCO3 24.1 VBG Base Excess -0.3 Sodium 139.9 Potassium 3.9 Chloride 110 H Carbon Dioxide 22 Anion Gap 8 BUN 37 H Creatinine 1.56 H Est GFR ( Amer) 57 L Est GFR (Non-Af Amer) 47 L Glucose 218 H Calcium 8.5 Total Bilirubin 1.3 AST 22 ALT 35 Alkaline Phosphatase 143 H Total Protein 4.9 L Albumin 2.9 L 09/17/18 09/17/18 10:35 10:35 Creatine Kinase 323 H CK-MB (CK-2) 4.83 H Troponin I 0.021 NT-Pro-B Natriuret Pep 5370 H Impressions: Abdomen X-Ray 09/17/18 09:27 IMPRESSION: Mild fecal retention. Chest X-Ray 09/17/18 09:27 IMPRESSION: Left lower lobe pneumonia. Chest/Abdomen CTA 09/17/18 11:22 IMPRESSION: 1. No PE. 2. Bilateral lower lobe pneumonia. Assessment and Plan - Diagnosis (1) Volume overload Qualifiers: Hypervolemia type: other Qualified Code(s): E87.79 - Other fluid overload Is this a current diagnosis for this admission?: Yes Plan: Part of this is due to his noncompliance in the setting of chronic kidney disease, but he has obstructive sleep apnea, and I suspect he has undiagnosed pulmonary hypertension and possible right-sided heart failure. We will can continue his beta-ethan and his ARB from home, we will switch his p.o. Lasix over to IV, fluid restriction of 1200 mL's a day, and will repeat an echocardiogram. (2) Chronic kidney disease, stage 3 Is this a current diagnosis for this admission?: Yes Plan: Actually at baseline and not acutely exacerbated (3) Noncompliance with medication regimen Is this a current diagnosis for this admission?: Yes Plan: He cannot give me a good reason why, and his is very frustrated with the patient seeming refusal to take care of himself. Counseled him regarding the importance of being compliant with his medication regimen. (4) Diabetes mellitus type II, uncontrolled Qualifiers: Glycemic state: with hyperglycemia Qualified Code(s): E11.65 - Type 2 diabetes mellitus with hyperglycemia Is this a current diagnosis for this admission?: Yes Plan: We will put him on the basal insulin he is on at home plus a sliding scale with a consistent carbohydrate diet (5) Diabetic foot ulcer Qualifiers: Diabetic foot ulcer location: midfoot Diabetes mellitus type: due to underlying condition Laterality: right Non-pressure ulcer stage: with other severity Qualified Code(s): E08.621 - Diabetes mellitus due to underlying condition with foot ulcer; L97.418 - Non-pressure chronic ulcer of right heel a nd midfoot with other specified severity; L97.418 - Non-pressure chronic ulcer of right heel and midfoot with other specified severity; L97.418 - Non-pressure chronic ulcer of right heel and midfoot with other specified severity; L97.418 - Non-pressure chronic ulcer of right heel and midfoot with other specified severity Is this a current diagnosis for this admission?: Yes Plan: Follows up with the wound care center for this. We will get their dressing change recommendations and implement them here. The wound does not look infected at this time. - Time Time Spent with patient: 35 or more minutes - Inpatient Certification Based on my medical assessment, after consideration of the patient's comorbidities, presenting symptoms, or acuity I expect that the services needed warrant INPATIENT care.: Yes I certify that my determination is in accordance with my understanding of Medicare's requirements for reasonable and necessary INPATIENT services [42 CFR 412.3e].: Yes Medical Necessity: Significant Comorbidiites Make Outpatient Treatment Too Risky, Need Close Monitoring Due to Risk of Patient Decompensation, Need For Continuous Telemetry Monitoring, Risk of Complication if Not Cared For in Hospital
[2018-09-17] MEDS ORDERED: AMLODIPINE BESYLATE 10 MG TABLET PO ONE (15:00)
[2018-09-17] MEDS ORDERED: LOSARTAN POTASSIUM 50 MG TABLET PO ONE (16:30)
[2018-09-17] MEDS: INSULIN LISPRO 100 UNIT/ML 3 ML VIAL SUBCUT SCH ×2 (16:56→23:11)
[2018-09-17] MEDS: CADEXOMER IODINE GEL 40 GM/TUBE TP SCH (20:29)
[2018-09-17] MEDS ORDERED: ATORVASTATIN CALCIUM 20 MG TABLET PO SCH (22:00)
[2018-09-17] MEDS ORDERED: INSULIN GLARGINE HUM REC ANLOG 40 UNIT SQ SCH (22:00)
[2018-09-17] MEDS ORDERED: QUETIAPINE FUMARATE 100 MG TABLET PO SCH (22:00)
[2018-09-17] MEDS ORDERED: DULOXETINE HCL 30 MG CAPSULE.DR PO SCH (22:00)
[2018-09-17] MEDS ORDERED: (PENDING PHARMACY ID) (Trazodone Hcl [Desyrel] 100 MG) PO SCH (22:00)
[2018-09-17] MEDS: DULOXETINE HCL 30 MG CAPSULE.DR PO SCH (22:25)
[2018-09-17] MEDS: ATORVASTATIN CALCIUM 10 MG TABLET PO SCH (22:26)
[2018-09-17] MEDS: METOPROLOL SUCCINATE 50 MG TAB.SR.24H PO SCH (22:26)
[2018-09-17] MEDS: QUETIAPINE FUMARATE 100 MG TABLET PO SCH (22:27)
[2018-09-17] MEDS: FUROSEMIDE INJ/PF 40 MG/4 ML SDV IV SCH (22:28)
[2018-09-17] MEDS: TRAZODONE HCL 50 MG TABLET PO SCH (22:29)
[2018-09-17] MEDS: HEPARIN SOD (PORCINE) 5,000 UNIT/ML 1 ML SYRINGE SUBCUT SCH (22:30)
[2018-09-18 05:12] LABS: ABSOLUTE EOSINOPHILS # (AUTO) 0.1 10^3/uL (0.0-0.6); ABSOLUTE LYMPHOCYTES (AUTO) 0.9 10^3/uL (0.5-4.7); ABSOLUTE MONOCYTES (AUTO) 0.7 10^3/uL (0.1-1.4); ABSOLUTE NEUT (AUTO) 4.3 10^3/uL (1.7-8.2); BASOPHILS % (AUTO) 0.4 % (0-2); EOSINOPHILS % (AUTO) 2.2 % (0-6); LYMPHOCYTES % (AUTO) 15.2 % (13-45); MEAN CORPUSCULAR HEMOGLOBIN 29.9 pg (27.0-33.4); MEAN CORPUSCULAR HGB CONC 35.7 g/dL (32.0-36.0); MEAN CORPUSCULAR VOLUME 84 fl (80-97); MONOCYTES % (AUTO) 11.4 % (3-13); PLATELET COUNT 179 10^3/uL (150-450); RED BLOOD COUNT 2.52 10^6/uL (4.35-5.55); RED CELL DISTRIBUTION WIDTH 14.1 % (11.5-14.0); SEGMENTED NEUTROPHILS % (AUTO) 70.8 % (42-78); TOTAL CELLS COUNTED % (AUTO) 100 %; WHITE BLOOD COUNT 6.1 10^3/uL (4.0-10.5)
[2018-09-18 05:33] LABS: BLOOD UREA NITROGEN 37 mg/dL (7-20); CALCIUM 8.3 mg/dL (8.4-10.2); CHOLESTEROL 123.12 mg/dL (0-200); GLUCOSE 162 mg/dL (75-110); POTASSIUM 3.8 mmol/L (3.6-5.0); TRIGLYCERIDES 131 mg/dL (<150)
[2018-09-18 05:37] LABS: HEMOGLOBIN 7.5 g/dL (13.5-17.0)
[2018-09-18 05:39] LABS: ANION GAP 5 (5-19); CARBON DIOXIDE 28 mmol/L (22-30); CHLORIDE 108 mmol/L (98-107); SODIUM 140.6 mmol/L (137-145)
[2018-09-18 05:44] LABS: DIRECT LDL 81 mg/dL (<100)
[2018-09-18] MEDS: HEPARIN SOD (PORCINE) 5,000 UNIT/ML 1 ML SYRINGE SUBCUT SCH ×3 (06:54→21:27)
[2018-09-18] MEDS ORDERED: NORMAL SALINE 250 ML IV PRN ×2 (08:10)
[2018-09-18] MEDS: INSULIN LISPRO 100 UNIT/ML 3 ML VIAL SUBCUT SCH ×4 (08:34→22:12)
[2018-09-18] MEDS ORDERED: FUROSEMIDE INJ/PF 40 MG/4 ML SDV IV PRN ×2 (09:00→16:30)
[2018-09-18] MEDS ORDERED: MULTIVITAMIN TABLET PO SCH (10:00)
[2018-09-18] MEDS ORDERED: ASPIRIN 81 MG TABLET, ENT COATED PO SCH (10:00)
[2018-09-18] MEDS ORDERED: SENNOSIDES PO SCH (10:00)
[2018-09-18] MEDS: DULOXETINE HCL 30 MG CAPSULE.DR PO SCH ×2 (10:23→10:25)
[2018-09-18] MEDS: LOSARTAN POTASSIUM 50 MG TABLET PO SCH (10:23)
[2018-09-18] MEDS: AMLODIPINE BESYLATE 10 MG TABLET PO SCH (10:23)
[2018-09-18] MEDS: METOPROLOL SUCCINATE 50 MG TAB.SR.24H PO SCH ×2 (10:23→21:26)
[2018-09-18] MEDS: FUROSEMIDE INJ/PF 40 MG/4 ML SDV IV SCH ×2 (10:23→21:26)
[2018-09-18] MEDS ORDERED: LOSARTAN POTASSIUM 50 MG TABLET PO ONE (15:30)
--- NOTE | 2018-09-18 17:28 | PDOC PROGRESS REPORT ---
Subjective Progress Note for:: 09/18/18 Subjective:: JOHN SANDERS is a 52 year old male with a history of multiple medical problems including chronic kidney disease due to diabetic nephropathy, insulin-dependent diabetes mellitus, diabetic neuropathy, reported prior history of stroke, hyperlipidemia, hypertension, morbid obesity, obstructive sleep apnea, and a long history of noncompliance with his treatment regimen. He presented to [facility] with a 10-14-day history of progressive shortness of breath. The patient was found to be volume overloaded with +3 pitting edema in his lower extremities. CT chest reveals bibasilar pneumonia. The patient was seen on rounds. He is resting in bed on supplemental oxygen via nasal cannula. He endorses shortness of breath. The patient has no other complaints. Lung sounds are clear, diminished in the bilateral bases. +2 pitting edema in the bilateral lower extremities. Patient's Hgb 7.5 this morning. No evidence of acute bleeding (no melena, no coffee-ground emesis, no open wounds). Plan for Hemoccult and anemia studies in a.m. Transfuse 2 units PRBCs. Anemia may be secondary to chronic kidney disease, although creatinine is 1.5 today, this is within the patient's baseline. Plan to consult Dr. Llanos for recommendations. Reason For Visit: SUSPECTED DIASTOLIC HEART FAILURE Physical Exam Vital Signs: Temp Pulse Resp BP Pulse Ox 97.5 F 68 16 138/70 H 96 09/18/18 16:09 09/18/18 16:09 09/18/18 16:09 09/18/18 16:09 09/18/18 16:09 Intake & Output 09/17/18 09/18/18 09/19/18 06:59 06:59 06:59 Intake Total 525 705 Output Total 1700 200 Balance -1175 505 Weight 114.8 kg General appearance: PRESENT: obese Head exam: PRESENT: atraumatic Eye exam: PRESENT: conjunctiva pink, PERRLA Mouth exam: PRESENT: moist, tongue midline Teeth exam: PRESENT: poor dentation Neck exam: PRESENT: full ROM Respiratory exam: PRESENT: clear to auscultation rupa, decreased breath sounds - Bilateral lower lobes, symmetrical, unlabored Cardiovascular exam: PRESENT: RRR Pulses: PRESENT: normal radial pulses, normal dorsalis pedis pul Vascular exam: PRESENT: pallor GI/Abdominal exam: PRESENT: distended, normal bowel sounds Rectal exam: PRESENT: deferred Extremities exam: PRESENT: full ROM, pedal edema, +2 edema Musculoskeletal exam: PRESENT: ambulatory, full ROM Neurological exam: PRESENT: alert, awake, oriented to person, oriented to place, oriented to time, oriented to situation Psychiatric exam: PRESENT: appropriate affect Skin exam: PRESENT: dry, intact, pallor Results Laboratory Results: 09/18/18 04:14 09/18/18 04:14 09/18/18 09/18/18 09/18/18 04:14 04:14 09:08 WBC 6.1 RBC 2.52 L Hgb 7.5 L Hct 21.0 L MCV 84 MCH 29.9 MCHC 35.7 RDW 14.1 H Plt Count 179 Seg Neutrophils % 70.8 Lymphocytes % 15.2 Monocytes % 11.4 Eosinophils % 2.2 Basophils % 0.4 Absolute Neutrophils 4.3 Absolute Lymphocytes 0.9 Absolute Monocytes 0.7 Absolute Eosinophils 0.1 Absolute Basophils 0.0 Sodium 140.6 Potassium 3.8 Chloride 108 H Carbon Dioxide 28 Anion Gap 5 BUN 37 H Creatinine 1.76 H Est GFR ( Amer) 50 L Est GFR (Non-Af Amer) 41 L Glucose 162 H Calcium 8.3 L Triglycerides 131 Cholesterol 123.12 LDL Cholesterol Direct 81 VLDL Cholesterol 26.0 HDL Cholesterol 24 L Stool Occult Blood Blood Type O NEGATIVE Antibody Screen NEGATIVE 09/18/18 13:55 WBC RBC Hgb Hct MCV MCH MCHC RDW Plt Count Seg Neutrophils % Lymphocytes % Monocytes % Eosinophils % Basophils % Absolute Neutrophils Absolute Lymphocytes Absolute Monocytes Absolute Eosinophils Absolute Basophils Sodium Potassium Chloride Carbon Dioxide Anion Gap BUN Creatinine Est GFR ( Amer) Est GFR (Non-Af Amer) Glucose Calcium Triglycerides Cholesterol LDL Cholesterol Direct VLDL Cholesterol HDL Cholesterol Stool Occult Blood NEGATIVE Blood Type Antibody Screen 09/17/18 09/17/18 09/18/18 10:35 10:35 04:14 Creatine Kinase 323 H CK-MB (CK-2) 4.83 H Troponin I 0.021 NT-Pro-B Natriuret Pep 5370 H 5900 H Impressions: Abdomen X-Ray 09/17/18 09:27 IMPRESSION: Mild fecal retention. Chest X-Ray 09/17/18 09:27 IMPRESSION: Left lower lobe pneumonia. Chest/Abdomen CTA 09/17/18 11:22 IMPRESSION: 1. No PE. 2. Bilateral lower lobe pneumonia. Status: Imported from PACS Assessment and Plan - Diagnosis (1) Volume overload Qualifiers: Hypervolemia type: other Qualified Code(s): E87.79 - Other fluid overload Is this a current diagnosis for this admission?: Yes Plan: Due to medication noncompliance in the setting of chronic kidney disease Patient has history of MAXIMINO, possibly undiagnosed pulmonary hypertension Continue home dose BB and ARB Daily IV lasix, additional dose between 2 U PRBC today 1200mL fluid restriction ECHOcardiogram done, awaiting results ECHO from 05/2018 shows LVEF 65% Unable to determine RVSP (2) Anemia Is this a current diagnosis for this admission?: Yes Plan: Hgb 7.5 No evidence of gross blood loss No melena. No coffee-ground emesis. No bleeding wounds. Patient reports he takes Aleve every day Plan for Hemoccult Anemia studies in a.m. Possibly related to chronic kidney disease, plan to consult Dr. Llanos. Appreciate her assistance (3) Chronic kidney disease, stage 3 Is this a current diagnosis for this admission?: Yes Plan: Creatinine 1.5 Within patient's baseline Patient is able to make urine without difficulty Consult Dr. Llanos, appreciate her assistance (4) Noncompliance with medication regimen Is this a current diagnosis for this admission?: Yes Plan: According to , patient has not been taking care of himself Has not taken home medications within 1 week Unclear reasoning (5) Diabetes mellitus type II, uncontrolled Qualifiers: Glycemic state: with hyperglycemia Qualified Code(s): E11.65 - Type 2 diabetes mellitus with hyperglycemia Is this a current diagnosis for this admission?: Yes Plan: Accu-Cheks AC at bedtime Humalog sliding scale insulin Diabetic cardiac diet (6) Diabetic foot ulcer Qualifiers: Diabetic foot ulcer location: midfoot Diabetes mellitus type: due to underlying condition Laterality: right Non-pressure ulcer stage: with other severity Qualified Code(s): E08.621 - Diabetes mellitus due to underlying condition with foot ulcer; L97.418 - Non-pressure chronic ulcer of right heel and midfoot with other specified severity Is this a current diagnosis for this admission?: Yes Plan: Follows up with the wound care center Currently wrapped in gauze and danielle bandage Topical Iodosorb gel - Time Time Spent with patient: 15-24 minutes Medications reviewed and adjusted accordingly: Yes Anticipated discharge: Home - Inpatient Certification Based on my medical assessment, after consideration of the patient's comorb idities, presenting symptoms, or acuity I expect that the services needed warrant INPATIENT care.: Yes I certify that my determination is in accordance with my understanding of Medicare's requirements for reasonable and necessary INPATIENT services [42 CFR 412.3e].: Yes Medical Necessity: Need For Continuous Telemetry Monitoring, Risk of Complication if Not Cared For in Hospital
--- NOTE | 2018-09-18 21:06 | PDOC CONSULTATION ---
Consultation Consult Date: 09/18/18 Attending physician:: FRANNIE ARCEO Consult reason:: I was asked to see the patient due to chronic kidney disease with volume overload and anemia. History of Present Illness Admission Date/PCP: 09/17/18 13:59 [facility] History of Present Illness: JOHN SANDERS is a 52 year old male known to me with history of chronic kidney disease stage III secondary to diabetic nephropathy with known proteinuria, diabetes mellitus type 2, hypertension, anemia of chronic kidney disease, and renal osteodystrophy who was admitted yesterday because of shortness of breath. Patient presented with 10-14 days history of shortness of breath worse on exertion, increasing lower extremity swelling and elevated blood pressure. Patient admits that he got off all his medications for 2 weeks. He did not give any specific reasons for stopping his medications but admits that he is getting depressed. He has been a couple of trips out of the state and during those trips he has not been taking his medications even with the reminder of his . He denies any chest pains. He claims he had good appetite. He denies any problems with urination and claims that he has good urine output and denies any blood in the urine. He said he has some nausea, vomiting and constipation. I just saw the patient in my office on August 19, 2018 and during that time patient was really looking good and has been taking his medications. During that time he was asymptomatic, did not complain of any shortness of breathing and has no leg swelling. His kidney function that was last drawn before that visit on August 10, 2018 showed a BUN of 50 and a creatinine of 1.92 with EGFR of 37 which is most likely his new baseline kidney function. He was taking Lasix 60 mg twice a day and spironolactone 25 mg once a day for maintenance along with all other blood pressure medications including amlodipine 10 mg, losartan 100 mg once a day, and metoprolol 100 mg twice a day. His hemoglobin w as 10.2 with good iron panel. Upon admission this time patient had a BUN of 37, creatinine of 1.56 with estimated GFR of 47. Today is a BUN of 37, creatinine of 1.76 and estimated GFR of 41. His hemoglobin has gone down from 9.0 to 7.5. Patient is currently being transfused packed RBC. Patient was started on Lasix 40 mg IV every 12 hours. He said his breathing is better. When I came into his room he was not even wearing his oxygen and he seems to be very comfortable. Past Medical History Cardiac Medical History: Reports: Coronary Artery Disease, Hypertension-primary, Myocardial Infarction - [place] Pulmonary Medical History: Reports: Sleep Apnea - Not on CPAP yet Neurological Medical History: Reports: Ischemic CVA, Other - Graham's palsy in 2018 Endocrine Medical History: Reports: Diabetes Mellitus Type 2, Other - Chronic diabetic foot ulcer Complications of Diabetes: Reports: Nephropathy, Retinopathy Renal/ Medical History: Reports: Chronic Kidney Disease Stage III, Hyperphosphatemia, Proteinuria, Renal Osteodystropy, Secondary Hyperparathyroidism Psychiatric Medical History: Reports: Post Traumatic Stress Disorder Hematology Medical History: Reports Anemia of Chronic Kidney Disease Past Surgical History Past Surgical History: Reports: Orthopedic Surgery - Right big toe amputation in 2013 for diabetic complication, Other - Left toe shave bone, cataract surgery, Neck cyst, debridement of rt foot Social History Information Source: Patient Lives with: Spouse/Significant other Smoking Status: Never Smoker Frequency of Alcohol Use: None Hx Recreational Drug Use: No Drugs: None Hx Prescription Drug Abuse: No - Advance Directive Resuscitation Status: Full Code Family History Parental Family History Reviewed: No - Unknown since patient is adopted Children Family History Reviewed: Yes Sibling(s) Family History Reviewed.: NA Medication/Allergy Home Medications: Amlodipine Besylate [Norvasc 10 mg Tablet] 10 mg PO DAILY 09/17/18 Aspirin [Ecotrin 81 mg EC Tablet] 81 mg PO DAILY 09/17/18 Atorvastatin Calcium [Lipitor 20 mg Tablet] 10 mg PO QHS 09/17/18 Cyanocobalamin (Vitamin B-12) [Vitamin B-12 500 mcg Tablet] 500 mcg PO DAILY 09/17/18 Duloxetine HCl [Cymbalta] 60 mg PO Q12 09/17/18 Ferrous Sulfate [Feosol 325 mg Tablet] 325 mg PO DAILY 09/17/18 Furosemide [Lasix 20 mg Tablet] 60 mg PO BID 09/17/18 Garlic [Garlic Oil] 1,000 mg PO SUTUTHSA@0800 09/17/18 Insulin Aspart [Novolog Insulin (Aspart) 100 unit/mL] 0 unit SQ .SLIDING SCALE 09/17/18 Insulin Glargine,Hum.rec.anlog [Lantus Insulin 100 Unit/1 ml 10 ml] 40 unit SQ QHS 09/17/18 Losartan Potassium [Cozaar 100 mg Tablet] 100 mg PO DAILY 09/17/18 Metoprolol Tartrate [Lopressor 100 mg Tablet] 100 mg PO Q12 09/17/18 Multivitamin with Minerals [One Daily Plus Minerals] 1 tab PO DAILY 09/17/18 Quetiapine Fumarate [Seroquel 100 mg Tablet] 100 mg PO QHS 09/17/18 Sennosides [Senna] 17.2 mg PO DAILY 09/17/18 Spironolactone [Aldactone 25 mg Tablet] 25 mg PO DAILY 09/17/18 Trazodone HCl [Desyrel 50 mg Tablet] 150 mg PO QHS 09/17/18 Allergies/Adverse Reactions: lisinopril Allergy (Verified 09/17/18 08:39) tape Allergy (Uncoded 09/17/18 08:39) Review of Systems All systems: reviewed and no additional remarkable complaints except as stated Review of Systems: Constitutional: ABSENT: chills, fatigue, fever(s), headache(s), weight gain, weight loss Eyes: ABSENT: visual disturbances Ears: ABSENT: hearing changes Cardiovascular: ABSENT: chest pain, orthropnea, palpitations; admits dyspnea at rest and exertion and edema Respiratory: ABSENT: cough, dyspnea, hemoptysis Gastrointestinal: ABSENT: abdominal pain, diarrhea, hematemesis, hematochezia; admits nausea, vomiting and constipation Genitourinary: ABSENT: dysuria, hematuria Musculoskeletal: ABSENT: joint swelling Integumentary: ABSENT: rash, wounds Neurological: ABSENT: abnormal gait, abnormal speech, confusion, dizziness, focal weakness, numbness, syncope Psychiatric: ABSENT: anxiety; admits depression Endocrine: ABSENT: cold intolerance, heat intolerance, polydipsia, polyuria Hematologic/Lymphatic: ABSENT: easy bleeding, easy bruising, lymphadenopathy Physical Exam Vital Signs: Temp Pulse Resp BP Pulse Ox 98.1 F 68 18 141/66 H 96 09/18/18 20:11 09/18/18 20:11 09/18/18 20:11 09/18/18 20:11 09/18/18 20:11 Intake & Output 09/17/18 09/18/18 09/19/18 06:59 06:59 06:59 Intake Total 525 1130 Output Total 1700 600 Balance -1175 530 Weight 114.8 kg Exam: General appearance: No acute distress, cooperative, well-developed, well- nourished Head exam: PRESENT: atraumatic, normocephalic Eye exam: PRESENT: Conjunctiva pale, EOMI, PERRLA. ABSENT: conjunctival injection, scleral icterus Mouth exam: PRESENT: moist, neck supple, tongue midline Neck exam: PRESENT: full ROM. ABSENT: carotid bruit, JVD, lymphadenopathy, thyromegaly Respiratory exam: PRESENT: Diminished to auscultation bilaterally. ABSENT: rales, rhonchi, stridor, wheezes Cardiovascular exam: PRESENT: RRR, +S1, +S2. ABSENT: systolic murmur Pulses: PRESENT: normal radial pulses, normal dorsalis pedis pulses GI/Abdominal exam: PRESENT: normal bowel sounds, soft. ABSENT: guarding, mass, tenderness Rectal exam: Deferred Extremities exam: PRESENT: full ROM. Grade 2 bilateral lower extremity pitting edema ABSENT: calf tenderness Musculoskeletal: PRESENT: full ROM. ABSENT: deformity Neurological exam: PRESENT: alert, Awake, Oriented to person, Oriented to place, Oriented to time, reflexes normal, CN II-XII grossly intact. ABSENT: motor sensory deficit Psychiatric exam: PRESENT: appropriate affect, depressed mood. ABSENT: homicidal ideation, suicidal ideation Skin exam: PRESENT: intact, dry, warm. Pallor ABSENT: rash Results Laboratory Results: 09/18/18 04:14 09/18/18 04:14 09/18/18 09/18/18 09/18/18 04:14 04:14 09:08 WBC 6.1 RBC 2.52 L Hgb 7.5 L Hct 21.0 L MCV 84 MCH 29.9 MCHC 35.7 RDW 14.1 H Plt Count 179 Seg Neutrophils % 70.8 Lymphocytes % 15.2 Monocytes % 11.4 Eosinophils % 2.2 Basophils % 0.4 Absolute Neutrophils 4.3 Absolute Lymphocytes 0.9 Absolute Monocytes 0.7 Absolute Eosinophils 0.1 Absolute Basophils 0.0 Sodium 140.6 Potassium 3.8 Chloride 108 H Carbon Dioxide 28 Anion Gap 5 BUN 37 H Creatinine 1.76 H Est GFR ( Amer) 50 L Est GFR (Non-Af Amer) 41 L Glucose 162 H Calcium 8.3 L Triglycerides 131 Cholesterol 123.12 LDL Cholesterol Direct 81 VLDL Cholesterol 26.0 HDL Cholesterol 24 L Stool Occult Blood Blood Type O NEGATIVE Antibody Screen NEGATIVE 09/18/18 13:55 WBC RBC Hgb Hct MCV MCH MCHC RDW Plt Count Seg Neutrophils % Lymphocytes % Monocytes % Eosinophils % Basophils % Absolute Neutrophils Absolute Lymphocytes Absolute Monocytes Absolute Eosinophils Absolute Basophils Sodium Potassium Chloride Carbon Dioxide Anion Gap BUN Creatinine Est GFR ( Amer) Est GFR (Non-Af Amer) Glucose Calcium Triglycerides Cholesterol LDL Cholesterol Direct VLDL Cholesterol HDL Cholesterol Stool Occult Blood NEGATIVE Blood Type Antibody Screen 09/17/18 09/17/18 09/18/18 10:35 10:35 04:14 Creatine Kinase 323 H CK-MB (CK-2) 4.83 H Troponin I 0.021 NT-Pro-B Natriuret Pep 5370 H 5900 H Impressions: Abdomen X-Ray 09/17/18 09:27 IMPRESSION: Mild fecal retention. Chest X-Ray 09/17/18 09:27 IMPRESSION: Left lower lobe pneumonia. Chest/Abdomen CTA 09/17/18 11:22 IMPRESSION: 1. No PE. 2. Bilateral lower lobe pneumonia. Assessment & Plan - Diagnosis (1) Chronic kidney disease, stage 3 Is this a current diagnosis for this admission?: Yes Plan: This is secondary to diabetic nephropathy with known proteinuria. Patient's creatinine appears to be lower than his baseline but this may be due to fluid retention and does not mean improved kidney function. Patient does not need any acute renal replacement therapy at this time. We will continue to monitor kidney function while here in the hospital. (2) Volume overload Qualifiers: Hypervolemia type: other Qualified Code(s): E87.79 - Other fluid overload Is this a current diagnosis for this admission?: Yes Plan: With history of chronic kidney disease and noncompliance with medications discontinuing his high-dose Lasix, it resulted to hypervolemic state as presen hadley on admission. Agree with reinitiation of his diuretics. Currently the patient is diuresing well on current dose. (3) Diabetic nephropathy Qualifiers: Diabetes mellitus type: type 2 Qualified Code(s): E11.21 - Type 2 diabetes mellitus with diabetic nephropathy Is this a current diagnosis for this admission?: Yes (4) Anemia in chronic kidney disease Is this a current diagnosis for this admission?: Yes Plan: The patient's hemoglobin has dropped since couple of months ago which could be due to a combination of anemia of chronic kidney disease and hemodilution due to hypovolemic state. No evidence of active bleeding at this time. Agree with some blood transfusion. Patient has good iron stores from previous blood work. I will give him a dose of Procrit 20,000 units. (5) Noncompliance with medication regimen Is this a current diagnosis for this admission?: Yes Plan: Discussed importance with compliance with medications and treatment plan to pat iejomar. He seems to understood. I think his ongoing depression is impairing good clinical judgment. (6) Depression Is this a current diagnosis for this admission?: Yes Plan: Patient admits to feeling this way today. Need to start back on his duloxetine. Try to deputy general counsel patient regarding this but for long-term he would need to follow-up with psychiatrist. (7) Diabetes mellitus type II, uncontrolled Qualifiers: Glycemic state: with hyperglycemia Qualified Code(s): E11.65 - Type 2 diabetes mellitus with hyperglycemia Is this a current diagnosis for this admission?: Yes Plan: His hemoglobin A1c is 7.3. Resume medications. (8) Diabetic foot ulcer Qualifiers: Diabetic foot ulcer location: midfoot Diabetes mellitus type: due to underlying condition Laterality: right Non-pressure ulcer stage: with other severity Qualified Code(s): E08.621 - Diabetes mellitus due to underlying condition with foot ulcer; L97.418 - Non-pressure chronic ulcer of right heel and midfoot with other specified severity Is this a current diagnosis for this admission?: Yes (9) Hypertension Qualifiers: Hypertension type: essential hypertension Qualified Code(s): I10 - Essential (primary) hypertension Is this a current diagnosis for this admission?: Yes Plan: Currently fairly controlled with resumption of his medication regimen. - Notes Notes: Thank you very much for this consultation. We will follow the patient with you. - Time Time Spent: Greater than 70 Minutes
[2018-09-18] MEDS: TRAZODONE HCL 50 MG TABLET PO SCH (21:27)
[2018-09-18] MEDS: QUETIAPINE FUMARATE 100 MG TABLET PO SCH (21:27)
[2018-09-18] MEDS: ATORVASTATIN CALCIUM 10 MG TABLET PO SCH (21:27)
[2018-09-18] MEDS ORDERED: DULOXETINE HCL 30 MG CAPSULE.DR PO SCH (22:00)
[2018-09-18] MEDS: INSULIN GLARGINE,HUM.REC.ANLOG 1,000 UNIT/10 ML VIAL SUBCUT SCH (22:12)
[2018-09-18 22:23] LABS: HEMATOCRIT 25.4 % (37.9-51.0); MEAN CORPUSCULAR HEMOGLOBIN 30.1 pg (27.0-33.4); MEAN CORPUSCULAR HGB CONC 35.6 g/dL (32.0-36.0); MEAN CORPUSCULAR VOLUME 85 fl (80-97); PLATELET COUNT 192 10^3/uL (150-450); RED CELL DISTRIBUTION WIDTH 13.9 % (11.5-14.0); WHITE BLOOD COUNT 6.2 10^3/uL (4.0-10.5)
[2018-09-18] MEDS ORDERED: EPOETIN ALFA INJ 20000 UNIT/1 ML VIAL (RENAL) SUBCUT ONE (23:00)
[2018-09-19] MEDS: HEPARIN SOD (PORCINE) 5,000 UNIT/ML 1 ML SYRINGE SUBCUT SCH ×3 (05:45→21:14)
[2018-09-19 06:47] LABS: ABSOLUTE EOSINOPHILS # (AUTO) 0.2 10^3/uL (0.0-0.6); ABSOLUTE LYMPHOCYTES (AUTO) 1.4 10^3/uL (0.5-4.7); ABSOLUTE MONOCYTES (AUTO) 0.6 10^3/uL (0.1-1.4); ABSOLUTE NEUT (AUTO) 3.5 10^3/uL (1.7-8.2); ABSOLUTE RETICS # 0.091 10^6/uL (0.028-0.122); BASOPHILS % (AUTO) 0.4 % (0-2); EOSINOPHILS % (AUTO) 2.6 % (0-6); HEMATOCRIT 25.6 % (37.9-51.0); LYMPHOCYTES % (AUTO) 24.7 % (13-45); MEAN CORPUSCULAR HEMOGLOBIN 29.7 pg (27.0-33.4); MEAN CORPUSCULAR VOLUME 85 fl (80-97); MONOCYTES % (AUTO) 10.9 % (3-13); PLATELET COUNT 173 10^3/uL (150-450); RED BLOOD COUNT 3.02 10^6/uL (4.35-5.55); RETICULOCYTE COUNT (AUTO) 3.01 % (0.66-2.85); SEGMENTED NEUTROPHILS % (AUTO) 61.4 % (42-78); TOTAL CELLS COUNTED % (AUTO) 100 %; WHITE BLOOD COUNT 5.7 10^3/uL (4.0-10.5)
[2018-09-19 07:04] LABS: ANION GAP 6 (5-19); BLOOD UREA NITROGEN 44 mg/dL (7-20); CALCIUM 8.3 mg/dL (8.4-10.2); CARBON DIOXIDE 26 mmol/L (22-30); CHLORIDE 109 mmol/L (98-107); GLUCOSE 166 mg/dL (75-110); IRON(TIBC) 40.8 ug/dL (49-181); POTASSIUM 4.1 mmol/L (3.6-5.0); SODIUM 141.2 mmol/L (137-145)
[2018-09-19] MEDS: INSULIN LISPRO 100 UNIT/ML 3 ML VIAL SUBCUT SCH ×4 (08:12→21:13)
[2018-09-19] MEDS: LOSARTAN POTASSIUM 50 MG TABLET PO SCH (09:28)
[2018-09-19] MEDS: AMLODIPINE BESYLATE 10 MG TABLET PO SCH (09:28)
[2018-09-19] MEDS: METOPROLOL SUCCINATE 50 MG TAB.SR.24H PO SCH ×2 (09:28→21:13)
[2018-09-19] MEDS: FUROSEMIDE INJ/PF 40 MG/4 ML SDV IV SCH ×2 (09:30→21:12)
[2018-09-19] MEDS ORDERED: FUROSEMIDE INJ/PF 40 MG/4 ML SDV IV ONE (10:00)
[2018-09-19 11:02] LABS: 24 HOUR URINE POTASSIUM RESULT 40.4 mmol/day (25-125); 24 HOUR URINE PROTEIN RESULT 2223 mg/day (42-225); 24 HOUR URINE SODIUM RESULT 105 mmol/day (40-200); 24 HR URINE CREAT RESULT 1.2 mg/day (0.8-2.0); URINE CREATININE 90.1 mg/dL (22-328); URINE POTASSIUM 29.3 mmol/L (17-99); URINE PROTEIN 161.1 mg/dL (<12); URINE SODIUM 76 mmol/L (30-90)
[2018-09-19] MEDS: TRAMADOL HCL 50 MG TABLET PO PRN (13:46)
--- NOTE | 2018-09-19 14:38 | PSYCHOLOGICAL NOTE ---
Psych Note - Psych Note Date seen by psych provider: 09/19/18 Time seen by psych provider: 10:15 Psych Note: Reason for consult:Medication recommendations Contact Permissions: Corinne at bedside Patient is a 52 yo male admitted for medical concerns heart failure, stage 3 kidney disease, diabetes, pneumonia, and medical non-compliance. Patient reports he has PTSD and persistent depressive disorder (dysthemia) and while in [place] attended a PTSD group from 9am-3pm daily withe benefit. Since moving here, he attends group sessions and individual sessions weekly and psychiatric appointments monthly through the [facility]. He's prescribed Seroquel, Trazadone, and Cymbalta and thinks the medication "works a little too well" complaining of still being sleepy after he wakes. He admits that his nightmares have decreased, though the depression is unremitting. Patient discloses that he "isolates and loses (his) temper a lot". He has been on these medications for two years. He interrupts at this point to ask his if his speech is slurred and thinks he is having a Graham's Palsy episode. An RN evaluates and finds no cause for concern. Patient is noticeably anxious and asked about this he admits he is. His explains that he gets nervous with new people or doctors. Patient reports that he has trouble with his memory since he enlisted in the [employer] in 1985. He denies current SI, HI, and AV/H and any prior attempts though discloses that about one year ago "the voices told me to take all my insulin/They were strong enough that I actually opened the fridge/Then I started talking back and cursing them f.. you". Patient says he also feels sometimes like he's being grabbed". "Yes. He feels like he's being grabbed" his interjects and relays a story the patient told her about feeling like someone had grabbed his arm. While listening to her story, patient abruptly pivots his attention to the door then says, I can't focus with this damn voice". Asked where it is coming from he says "everywhere" looking all around the room and then focuses his attention on the wall above the Clinician's head. Of note, there has been soft ambient noise of nurses talking outside in the hallway the entire evaluation. There is no noise emanating from above or behind Clinician's head. Due to patient's increasing distress, Clinician began the process of wrapping up the evaluation Corinne says that patient does not take his medication at home due to back pain and he is very anxious and frustrated about his medical conditions and not knowing what exactly is wrong, feels he is being overmedicated, and is concerned that his kidneys are not able to process all the medication. She has to nag him to take his medication and finds this very frustrating. Patient has improved on psychiatric medication in that he sleeps well and has fewer nightmares and is less anxious, aggressive and volatile. He does little else but go to doctors appointments. Patient is alert and oriented x 4. Mood is anxious with congruent affect aeb psychomotor agitation, he reported anxiety, and thought he was having a Graham's Palsey episode. Patient denies SI, HI, and AV/H, but does not appear to be responding to internal stimuli aeb complained of not being able to focus due to voice behind Clinician's head and states, "I can't focus with this damn voice", and no delusions were noted. Conversational speech was WNL for rate, tone, and prosody. Eye contact was intermittently maintained. Thought processes were linear, organized, and rational. Intellectual abilities were estimated within the average range. Attention/concentration was WNL while, insight, judgment, and impulse control were impaired. Diagnosis: 309.81 (F43.10) Post Traumatic Stress Disorder, per pt hx 300.4 (F34.1) Persistent Depressive Disorder, per pt hx Medication recommendations as per psychiatric provider, Dr. Boyer are as follows: Discontinue Seroquel Discontinue Trazadone Decrease Cymbalta 60mg daily Start Effexor 37.5mg daily Impression/Plan: Patient is recommended for IVC due to impaired insight, judgment, and impulse control aeb patient was experiencing auditory hallucinations while being evaluated and stating "I can't focus with that damn voice" and was looking ar ound the room. Patient is 52 yo male with PTSD and persistent depressive disorder and significant medical problems who is treatment non-compliant at home. Medication recommendations were provided. Patient has had minimal improvement on his current regimen and c/o isolating, anhedonia, avoids crowds/public spaces, is suspicious of others and c/o being too sleepy. Plan is for medication stabilization, further observation and evaluation. Behavioral Health provided psychoeducation on importance of treatment compliance and consistent medication regimen. Consulted Dr. Jones in the care and treatment of this patient and ED physician who is in agreement with disposition and recommendation.
--- NOTE | 2018-09-19 16:08 | XCELERA REPORT ---
[address] [address] Transthoracic Echocardiogram Report Name: JOHN SANDERS Age: 52 yrs Gender: Male : 1965 Patient Status: Inpatient Patient Location: [address] [place], [place] [address] Study Date: 09/17/2018 05:37 PM Height: 72 in Weight: 260 lb BSA: 2.4 m2 Procedure: A two-dimensional transthoracic echocardiogram with color flow Doppler was performed. Study Quality: Poor. Poor doppler interogation and poor endocardial visualisation. The study was technically difficult with many images being suboptimal in quality. Reason For Study: PULMONARY HYPERTENSION / RH FAILURE History: PULMONARY HYPERTENSION / RH FAILURE. Ordering Physician: BLANK MOTA Performed By: Marija Lui Interpretation Summary Poor doppler interogation and poor endocardial visualisation. The left ventricle is normal in size. There is normal left ventricular wall thickness. The left ventricular ejection fraction is within normal limits. Left ventricular systolic function is normal. Doppler measurements suggest normal left ventricular diastolic function The left ventricular wall motion is normal. There is no thrombus. Cannot assess for ASD,VSD , or PFO. The right ventricle is not well visualized secondary to technical limitations The right ventricle is grossly normal size. Right atrium not well visualized secondary to technical limitations The left atrial size is normal. There is no evidence of mitral valve prolapse. There is no mitral valve stenosis. There is a trace amount of mitral regurgitation There is no aortic valve stenosis No aortic regurgitation is present. There is no tricuspid stenosis. There is a trace to mild amount of tricuspid regurgitation There is mild pulmonary hypertension by echo RVSP is 48 mm of Hg , with RA mean of 10. The pulmonic valve is not well visualized. There is no pericardial effusion. MMode/2D Measurements & Calculations RVDd: 2.9 cm LVIDd: 5.2 cm FS: 40.3 % Ao root diam: 2.9 cm IVSd: 1.1 cm LVIDs: 3.1 cm EDV(Teich): 129.4 ml Ao root area: 6.6 cm2 LVPWd: 0.97 cm ESV(Teich): 38.1 ml LA dimension: 3.8 cm EF(Teich): 70.6 % Doppler Measurements & Calculations MV E max zulema: MV P1/2t max zulema: Ao V2 max: LV V1 max P.5 cm/sec 173.4 cm/sec 165.3 cm/sec 5.4 mmHg MV A max zulema: MV P1/2t: 54.7 msec Ao max PG: LV V1 max: 94.3 cm/sec MVA(P1/2t): 4.0 cm2 10.9 mmHg 116.0 cm/sec MV E/A: 1.2 MV dec slope: 929.4 cm/sec2 MV dec time: 0.17 sec TV V2 max: PA V2 max: PI end-d zulema: TR max zulema: 101.8 cm/sec 107.2 cm/sec 157.5 cm/sec 307.7 cm/sec TV max P.1 mmHgPA max P.6 mmHg TR max P.9 mmHg MV P1/2t-pr_phl: 54.7 msec Left Ventricle The left ventricle is normal in size. There is normal left ventricular wall thickness. The left ventricular ejection fraction is within normal limits. Left ventricular systolic function is normal. Doppler measurements suggest normal left ventricular diastolic function. The left ventricular wall motion is normal. There is no thrombus. Cannot assess for ASD,VSD , or PFO. Right Ventricle The right ventricle is not well visualized secondary to technical limitations. The right ventricle is grossly normal size. Atria Right atrium not well visualized secondary to technical limitations. The left atrial size is normal. Mitral Valve There is no evidence of mitral valve prolapse. There is no mitral valve stenosis. There is a trace amount of mitral regurgitation. Aortic Valve There is no aortic valve stenosis. No aortic regurgitation is present. Tricuspid Valve There is no tricuspid stenosis. There is a trace to mild amount of tricuspid regurgitation. There is mild pulmonary hypertension by echo. RVSP is 48 mm of Hg , with RA mean of 10. Pulmonic Valve The pulmonic valve is not well visualized. Effusions There is no pericardial effusion. : BLANK MOTA > tSacia Evans
--- NOTE | 2018-09-19 16:42 | PDOC PROGRESS REPORT ---
Subjective Progress Note for:: 09/19/18 Subjective:: JOHN SANDERS is a 52 year old male with a history of multiple medical problems including chronic kidney disease due to diabetic nephropathy, insulin-dependent diabetes mellitus, diabetic neuropathy, reported prior history of stroke, hyperlipidemia, hypertension, morbid obesity, obstructive sleep apnea, and a long history of noncompliance with his treatment regimen. He [facility] to [facility] with a 10-14-day history of progressive shortness of breath. The patient was found to be volume overloaded with +3 pitting edema in his lower extremities. CT chest reveals bibasilar pneumonia. The patient was seen on rounds. He is sitting up in the bedside recliner with supplemental oxygen via nasal cannula. He still endorses mild shortness of breath. The patient has no other complaints. Lung sounds are clear, diminished in the bilateral bases. +2 pitting edema in the bilateral lower extremities. Dr. Llanos consulted yesterday, she recommended continued diuretics for volume overload and IM Procrit for anemia. Resumed home dose of Spironolactone. The patient has appeared very depressed during his hospitalization. There is concerned that his depression may be fogging his good clinical judgment. Consulted psych for medication recommendations. Psych liaison reported that she believes the patient had an auditory hallucination while she was in the room. Patient has a history of auditory and sensory hallucinations, stemming from his PTSD. Psych liaison recommends discontinuing Seroquel and trazodone and initiating Effexor. Additionally she recommends placing the patient on a 24- hour IVC hold. Discussed these findings with the patient and his , the patient reports he was hearing noise outside of his room and was having a hard time concentrating with all of the background noise. The patient denies experiencing an auditory hallucination. The patient and his are agreeable to these psych recommendations. Plan for reevaluation by psych liaison tomorrow. Reason For Visit: SUSPECTED DIASTOLIC HEART FAILURE Physical Exam Vital Signs: Temp Pulse Resp BP Pulse Ox 98.1 F 71 16 150/77 H 97 09/19/18 15:38 09/19/18 15:38 09/19/18 15:38 09/19/18 15:38 09/19/18 15:38 Intake & Output 09/18/18 09/19/18 09/20/18 06:59 06:59 06:59 Intake Total 525 1330 710 Output Total 1700 950 300 Balance -1175 380 410 Weight 114.8 kg 117.1 kg Results Laboratory Results: 09/19/18 06:10 09/19/18 06:10 09/18/18 09/18/18 09/18/18 09:08 09:30 22:14 WBC 6.2 RBC 3.00 L Hgb 9.0 L Hct 25.4 L MCV 85 MCH 30.1 MCHC 35.6 RDW 13.9 Plt Count 192 Seg Neutrophils % Lymphocytes % Monocytes % Eosinophils % Basophils % Absolute Neutrophils Absolute Lymphocytes Absolute Monocytes Absolute Eosinophils Absolute Basophils Retic Count (auto) Absolute Retic Sodium Potassium Chloride Carbon Dioxide Anion Gap BUN Creatinine Est GFR ( Amer) Est GFR (Non-Af Amer) Glucose Calcium Magnesium Iron TIBC % Saturation Ferritin Vitamin B12 Folate Ur 24 Hour Volume 1380 Ur Total Protein 24 Hr 2223 H Ur Sodium 24 Hour 105 Ur Potassium 24 Hour 40.4 Blood Type O NEGATIVE Antibody Screen NEGATIVE 09/19/18 09/19/18 06:10 06:10 WBC 5.7 RBC 3.02 L Hgb 9.0 L Hct 25.6 L MCV 85 MCH 29.7 MCHC 35.0 RDW 14.0 Plt Count 173 Seg Neutrophils % 61.4 Lymphocytes % 24.7 Monocytes % 10.9 Eosinophils % 2.6 Basophils % 0.4 Absolute Neutrophils 3.5 Absolute Lymphocytes 1.4 Absolute Monocytes 0.6 Absolute Eosinophils 0.2 Absolute Basophils 0.0 Retic Count (auto) 3.01 H Absolute Retic 0.091 Sodium 141.2 Potassium 4.1 Chloride 109 H Carbon Dioxide 26 Anion Gap 6 BUN 44 H Creatinine 2.22 H Est GFR ( Amer) 38 L Est GFR (Non-Af Amer) 32 L Glucose 166 H Calcium 8.3 L Magnesium 2.6 H Iron 40.8 L TIBC 192 L % Saturation 21 Ferritin 546.00 H Vitamin B12 270.0 Folate 10.70 Ur 24 Hour Volume Ur Total Protein 24 Hr Ur Sodium 24 Hour Ur Potassium 24 Hour Blood Type Antibody Screen 09/17/18 09/17/18 09/18/18 10:35 10:35 04:14 Creatine Kinase 323 H CK-MB (CK-2) 4.83 H Troponin I 0.021 NT-Pro-B Natriuret Pep 5370 H 5900 H 09/19/18 06:10 Creatine Kinase CK-MB (CK-2) Troponin I NT-Pro-B Natriuret Pep 4230 H Impressions: Abdomen X-Ray 09/17/18 09:27 IMPRESSION: Mild fecal retention. Chest X-Ray 09/17/18 09:27 IMPRESSION: Left lower lobe pneumonia. Chest/Abdomen CTA 09/17/18 11:22 IMPRESSION: 1. No PE. 2. Bilateral lower lobe pneumonia. Assessment and Plan - Diagnosis (1) Volume overload Qualifiers: Hypervolemia type: other Qualified Code(s): E87.79 - Other fluid overload Is this a current diagnosis for this admission?: Yes Plan: Due to medication noncompliance in the setting of chronic kidney disease Patient has history of MAXIMINO, possibly undiagnosed pulmonary hypertension Continue home dose BB and ARB BID IV lasix Initiate home dose spironolactone 1200mL fluid restriction ECHOcardiogram done, awaiting results ECHO from 05/2018 shows LVEF 65% Unable to determine RVSP (2) Anemia Is this a current diagnosis for this admission?: Yes Plan: Improved, Hgb 7.5-->9.0 No evidence of gross blood loss No melena. No coffee-ground emesis. No bleeding wounds. Patient reports he takes Aleve every day Hemoccult negative Anemia studies reveal anemia of chronic disease (Low serum iron and TIBC, elevated ferretin normal MCV) Possibly related to chronic kidney disease and hemodilution, plan to consult Dr. Llanos. Patient received 20k units of Procrit yesterday (3) Chronic kidney disease, stage 3 Is this a current diagnosis for this admission?: Yes Plan: Diabetic nephropathy with known proteinuria Creatinine 2.22 Patient is able to make urine, mild oliguria Consult Dr. Llanos, appreciate her assistance Does not recommend dialysis (4) Noncompliance with medication regimen Is this a current diagnosis for this admission?: Yes Plan: According to , patient has not been taking care of himself Has not taken home medications within 1 week Possible reasoning due to depression and/or auditory hallucinations (5) Diabetes mellitus type II, uncontrolled Qualifiers: Glycemic state: with hyperglycemia Qualified Code(s): E11.65 - Type 2 diabetes mellitus with hyperglycemia Is this a current diagnosis for this admission?: Yes Plan: Accu-Cheks AC at bedtime Humalog sliding scale insulin Diabetic cardiac diet HgbA1c 7.3% (6) Diabetic foot ulcer Qualifiers: Diabetic foot ulcer location: midfoot Diabetes mellitus type: due to underlying condition Laterality: right Non-pressure ulcer stage: with other severity Qualified Code(s): E08.621 - Diabetes mellitus due to underlying condition with foot ulcer; L97.418 - Non-pressure chronic ulcer of right heel and midfoot with other specified severity Is this a current diagnosis for this admission?: Yes Plan: Follows up with the wound care center Currently wrapped in gauze and danielle bandage Topical Iodosorb gel (7) Psychiatric complaint Is this a current diagnosis for this admission?: Yes Plan: Patient has a history of PTSD with auditory and sensory hallucinations, anxiety and depression Currently prescribed Cymbalta for depression but states 'I have a bad reaction to it.' Has not taken the medication in weeks. Consulted psych to make medication recommendations for depression Believe that patient is explained in all vaccinations, placed under 24-hour IVC hold Initiated Effexor 37.5 mg p.o. daily Reevaluation by psych liaison tomorrow - Time Time Spent with patient: 15-24 minutes Medications reviewed and adjusted accordingly: Yes Anticipated discharge: Home Within: Other - unknown - Inpatient Certification Based on my medical assessment, after consideration of the patient's comorbidities, presenting symptoms, or acuity I expect that the services needed warrant INPATIENT care.: Yes I certify that my determination is in accordance with my understanding of Medicare's requirements for reasonable and necessary INPATIENT services [42 CFR 412.3e].: Yes Medical Necessity: Need For Continuous Telemetry Monitoring, Risk of Complication if Not Cared For in Hospital
[2018-09-19] MEDS ORDERED: VENLAFAXINE HCL 37.5 MG CAP.SR.24H PO ONE ×2 (17:15→17:55)
[2018-09-19] MEDS: CADEXOMER IODINE GEL 40 GM/TUBE TP SCH (17:51)
[2018-09-19] MEDS: ATORVASTATIN CALCIUM 10 MG TABLET PO SCH (21:13)
[2018-09-19] MEDS: INSULIN GLARGINE,HUM.REC.ANLOG 1,000 UNIT/10 ML VIAL SUBCUT SCH (21:13)
[2018-09-19] MEDS ORDERED: ALBUMIN HUMAN 12.5 GM/50 ML RTUINJ IV ONE (22:00)
[2018-09-20 05:02] LABS: HEMATOCRIT 26.6 % (37.9-51.0); HEMOGLOBIN 9.3 g/dL (13.5-17.0); MEAN CORPUSCULAR HEMOGLOBIN 29.7 pg (27.0-33.4); MEAN CORPUSCULAR VOLUME 85 fl (80-97); PLATELET COUNT 186 10^3/uL (150-450); RED BLOOD COUNT 3.15 10^6/uL (4.35-5.55); RED CELL DISTRIBUTION WIDTH 14.2 % (11.5-14.0); WHITE BLOOD COUNT 7.5 10^3/uL (4.0-10.5)
[2018-09-20] MEDS: HEPARIN SOD (PORCINE) 5,000 UNIT/ML 1 ML SYRINGE SUBCUT SCH ×3 (05:02→21:28)
[2018-09-20 05:25] LABS: ANION GAP 7 (5-19); BLOOD UREA NITROGEN 45 mg/dL (7-20); CALCIUM 8.5 mg/dL (8.4-10.2); CARBON DIOXIDE 25 mmol/L (22-30); CHLORIDE 108 mmol/L (98-107); GLUCOSE 161 mg/dL (75-110); POTASSIUM 4.3 mmol/L (3.6-5.0); SODIUM 139.7 mmol/L (137-145)
[2018-09-20] MEDS: INSULIN LISPRO 100 UNIT/ML 3 ML VIAL SUBCUT SCH ×4 (09:16→21:31)
[2018-09-20] MEDS ORDERED: ONDANSETRON 4 MG TAB.RAPDIS PO ONE (09:49)
[2018-09-20] MEDS ORDERED: ONDANSETRON 4 MG TAB.RAPDIS ONE (09:54)
[2018-09-20] MEDS: METOPROLOL SUCCINATE 50 MG TAB.SR.24H PO SCH ×2 (12:46→21:31)
[2018-09-20] MEDS: SPIRONOLACTONE 25 MG TABLET PO SCH (12:46)
[2018-09-20] MEDS: FUROSEMIDE INJ/PF 40 MG/4 ML SDV IV SCH ×2 (12:47→21:31)
[2018-09-20] MEDS: LOSARTAN POTASSIUM 50 MG TABLET PO SCH (12:47)
[2018-09-20] MEDS: AMLODIPINE BESYLATE 10 MG TABLET PO SCH (12:47)
[2018-09-20] MEDS: VENLAFAXINE HCL 37.5 MG CAP.SR.24H PO SCH (12:50)
--- NOTE | 2018-09-20 14:51 | PSYCHOLOGICAL NOTE ---
Psych Note - Psych Note Date seen by psych provider: 09/20/18 Time seen by psych provider: 10:50 Psych Note: Reason for consult:Medication recommendations Contact Permissions: Corinne at bedside per patient's request Patient is a 52 yo male admitted for medical concerns heart failure, stage 3 kidney disease, diabetes, pneumonia, and medical non-compliance. Check in conducted with patient Patient's mood is euthymic with congruent affect. He is noted to smile and engage with clinician. It is noted the patient does have some anxiousness when talking about his diagnosis. He reports that he is always is worried because the mental health stigma's that people are just going to throw him in an institution. He discloses that yesterday he had an outburst because he was having a hard time thinking. He reports that he always has a difficult time when there is a lot of background noise and that another patient was yelling. He reports that last night the same patient ended up needing restraints; "I thought I was hearing a man yesterday because the voice was so low but it turns out she is female... She is 2 doors down and was so out of control last night they had to restrain her." He reports that is the patient that he was hearing when trying to do his first evaluation yesterday. He confirms he has a history of both delusions and hallucinations from medications however reports that since adjustments have been made he has not had that problem again since. He continued to discuss some difficulties with isolation and irritability in addition to ongoing nightmares. Many times he uses headphones to block out background noises. He discloses that he goes to the [facility] for PTSD support group, individual therapy, and medication management. Diagnosis: 309.81 (F43.10) Post Traumatic Stress Disorder, per pt hx 300.4 (F34.1) Persistent Depressive Disorder, per pt hx Medication recommendations as per psychiatric provider, Dr. Boyer are as follows: Discontinue Seroquel Discontinue Trazadone Decrease Cymbalta 60mg daily Start Effexor 37.5mg daily Add Clonidine 0.1mg every evening at bedtime Impression/Plan: Patient is recommended for rescind of IVC and is cleared from acute psychiatric services. Patient is not demonstrating any behaviors responding to internal stimuli i.e. good eye contact, organizing her thought process. Normal conversational speech. Patient explained yesterday he was hearing other patients and because of his PTSD he has difficult time with a lot of stuff going on around him. He explains that he was not having any hallucinations he was just frustrated with the other patient yelling. He admits that he did have an outburst and apologizes. [facility]. Consulted Dr. Jones in the care and treatment of this patient and ED physician who is in agreement with disposition and recommendation.
[2018-09-20 16:33] LABS: HEMOGLOBIN 9.9 g/dL (13.5-17.0); MEAN CORPUSCULAR HEMOGLOBIN 29.6 pg (27.0-33.4); MEAN CORPUSCULAR HGB CONC 35.2 g/dL (32.0-36.0); MEAN CORPUSCULAR VOLUME 84 fl (80-97); PLATELET COUNT 214 10^3/uL (150-450); RED BLOOD COUNT 3.33 10^6/uL (4.35-5.55); RED CELL DISTRIBUTION WIDTH 13.8 % (11.5-14.0)
--- NOTE | 2018-09-20 17:23 | PDOC PROGRESS REPORT ---
Subjective Progress Note for:: 09/20/18 Subjective:: JOHN SANDERS is a 52 year old male with a history of multiple medical problems including chronic kidney disease due to diabetic nephropathy, insulin-dependent diabetes mellitus, diabetic neuropathy, reported prior history of stroke, hyperlipidemia, hypertension, morbid obesity, obstructive sleep apnea, and a long history of noncompliance with his treatment regimen. He presented to [facility] with a 10-14-day history of progressive shortness of breath. The patient was found to be volume overloaded with +3 pitting edema in his lower extremities. CT chest reveals bibasilar pneumonia. The patient was seen on rounds. He is sitting up in the bed with supplemental oxygen via nasal cannula. He still endorses mild shortness of breath. States his abdominal distention has gone down since initiating diuretic therapy. The patient has no other complaints. Lung sounds are clear, diminished in the bilateral bases. +2 pitting edema in the bilateral lower extremities. Plan to repeat CXR. Continue diuresis with IV lasix and spironolactone. Reason For Visit: SUSPECTED DIASTOLIC HEART FAILURE Physical Exam Vital Signs: Temp Pulse Resp BP Pulse Ox 98.0 F 65 16 160/81 H 98 09/20/18 11:58 09/20/18 11:58 09/20/18 11:58 09/20/18 11:58 09/20/18 11:58 Intake & Output 09/19/18 09/20/18 09/21/18 06:59 06:59 06:59 Intake Total 1330 1115 118 Output Total 950 300 Balance 380 815 118 Weight 117.1 kg 117.7 kg General appearance: PRESENT: obese Eye exam: PRESENT: conjunctiva pink, PERRLA Mouth exam: PRESENT: moist, tongue midline Teeth exam: PRESENT: poor dentation Neck exam: PRESENT: full ROM Respiratory exam: PRESENT: clear to auscultation rupa, symmetrical, unlabored, other - requiring nasal cannula Cardiovascular exam: PRESENT: RRR Pulses: PRESENT: normal radial pulses, +1 pedal pulses bilateral Vascular exam: PRESENT: pallor GI/Abdominal exam: PRESENT: soft. ABSENT: distended, tenderness Rectal exam: PRESENT: deferred Extremities exam: PRESENT: full ROM, pedal edema Musculoskeletal exam: PRESENT: ambulatory, full ROM. ABSENT: normal inspection Neurological exam: PRESENT: alert, awake, oriented to person, oriented to place, oriented to time, oriented to situation Psychiatric exam: PRESENT: appropriate affect Skin exam: PRESENT: dry, intact, pallor Results Laboratory Results: 09/20/18 16:15 09/20/18 03:57 09/20/18 09/20/18 09/20/18 03:57 03:57 16:15 WBC 7.5 7.0 RBC 3.15 L 3.33 L Hgb 9.3 L 9.9 L Hct 26.6 L 28.0 L MCV 85 84 MCH 29.7 29.6 MCHC 35.0 35.2 RDW 14.2 H 13.8 Plt Count 186 214 Sodium 139.7 Potassium 4.3 Chloride 108 H Carbon Dioxide 25 Anion Gap 7 BUN 45 H Creatinine 2.54 H Est GFR ( Amer) 33 L Est GFR (Non-Af Amer) 27 L Glucose 161 H Calcium 8.5 Magnesium 2.6 H 09/17/18 09/17/18 09/18/18 10:35 10:35 04:14 Creatine Kinase 323 H CK-MB (CK-2) 4.83 H Troponin I 0.021 NT-Pro-B Natriuret Pep 5370 H 5900 H 09/19/18 06:10 Creatine Kinase CK-MB (CK-2) Troponin I NT-Pro-B Natriuret Pep 4230 H Impressions: Abdomen X-Ray 09/17/18 09:27 IMPRESSION: Mild fecal retention. Chest X-Ray 09/17/18 09:27 IMPRESSION: Left lower lobe pneumonia. Chest/Abdomen CTA 09/17/18 11:22 IMPRESSION: 1. No PE. 2. Bilateral lower lobe pneumonia. Status: Imported from PACS Assessment and Plan - Diagnosis (1) Volume overload Qualifiers: Hypervolemia type: other Qualified Code(s): E87.79 - Other fluid overload Is this a current diagnosis for this admission?: Yes Plan: Due to medication noncompliance in the setting of chronic kidney disease Patient has history of MAXIMINO, possibly undiagnosed pulmonary hypertension Continue home dose BB and ARB BID IV lasix Continue home dose spironolactone 1200mL fluid restriction ECHOcardiogram done, results unchanged from previous ECHO ECHO from 05/2018 shows LVEF 65% Unable to determine RVSP (2) Anemia Is this a current diagnosis for this admission?: Yes Plan: Improved, Hgb 7.5-->9.0 following 2 units PRBCs No evidence of gross blood loss No melena. No coffee-ground emesis. No bleeding wounds. Patient reports he takes Aleve every day Hemoccult negative Anemia studies reveal anemia of chronic disease (Low serum iron and TIBC, elevated ferretin normal MCV) Possibly related to chronic kidney disease and hemodilution Patient received one time dose of 20k units of Procrit (3) Chronic kidney disease, stage 3 Is this a current diagnosis for this admission?: Yes Plan: Diabetic nephropathy with known proteinuria Creatinine 2.5 Patient is able to make urine, mild oliguria Consult Dr. Llanos, appreciate her assistance Does not recommend dialysis (4) Noncompliance with medication regimen Is this a current diagnosis for this admission?: Yes Plan: According to , patient has not been taking care of himself Has not taken home medications within 1 week Possible reasoning due to depression and/or auditory hallucinations Initiated Effexor yesterday per psych recommendations (5) Diabetes mellitus type II, uncontrolled Qualifiers: Glycemic state: with hyperglycemia Qualified Code(s): E11.65 - Type 2 diabetes mellitus with hyperglycemia Is this a current diagnosis for this admission?: Yes Plan: Accu-Cheks AC at bedtime Humalog sliding scale insulin Diabetic cardiac diet HgbA1c 7.3% (6) Diabetic foot ulcer Qualifiers: Diabetic foot ulcer location: midfoot Diabetes mellitus type: due to underlying condition Laterality: right Non-pressure ulcer stage: with other severity Qualified Code(s): E08.621 - Diabetes mellitus due to underlying condition with foot ulcer; L97.418 - Non-pressure chronic ulcer of right heel and midfoot with other specified severity Is this a current diagnosis for this admission?: Yes Plan: Follows up with the wound care center Currently wrapped in gauze and danielle bandage Topical Iodosorb gel (7) Psychiatric complaint Is this a current diagnosis for this admission?: Yes Plan: Patient has a history of PTSD with auditory and sensory hallucinations, anxiety and depression Consulted psych to make medication recommendations for depression Continue Effexor 37.5 mg p.o. daily Initiated clonidone 0.1mg QHS for sleep aid Reevaluation by psych liaison today - no need for IVC - Time Time Spent with patient: 15-24 minutes Medications reviewed and adjusted accordingly: Yes Anticipated discharge: Home - Inpatient Certification Based on my medical assessment, after consideration of the patient's comorbidities, presenting symptoms, or acuity I expect that the services needed warrant INPATIENT care.: Yes I certify that my determination is in accordance with my understanding of Medicare's requirements for reasonable and necessary INPATIENT services [42 CFR 412.3e].: Yes Medical Necessity: Need For Continuous Telemetry Monitoring, Risk of Complication if Not Cared For in Hospital
[2018-09-20] MEDS: CLONIDINE HCL 0.1 MG TABLET PO SCH (21:31)
[2018-09-20] MEDS: ATORVASTATIN CALCIUM 10 MG TABLET PO SCH (21:31)
[2018-09-20] MEDS: INSULIN GLARGINE,HUM.REC.ANLOG 1,000 UNIT/10 ML VIAL SUBCUT SCH (21:31)
[2018-09-21] MEDS: HEPARIN SOD (PORCINE) 5,000 UNIT/ML 1 ML SYRINGE SUBCUT SCH ×3 (05:08→21:27)
[2018-09-21 06:11] LABS: ALANINE AMINOTRANSFERASE 26 U/L (21-72); ALBUMIN 2.8 g/dL (3.5-5.0); ALKALINE PHOSPHATASE 127 U/L (38-126); ASPARTATE AMINO TRANSFERASE 17 U/L (17-59); BILIRUBIN,DIRECT 0.2 mg/dL (0.0-0.4); BILIRUBIN,TOTAL 0.5 mg/dL (0.2-1.3); BLOOD UREA NITROGEN 42 mg/dL (7-20); CALCIUM 8.9 mg/dL (8.4-10.2); GLUCOSE 120 mg/dL (75-110); POTASSIUM 4.3 mmol/L (3.6-5.0); TOTAL PROTEIN 5.2 g/dL (6.3-8.2)
[2018-09-21 06:16] LABS: CARBON DIOXIDE 27 mmol/L (22-30); CHLORIDE 109 mmol/L (98-107); SODIUM 140.2 mmol/L (137-145)
[2018-09-21 06:17] LABS: ANION GAP 4 (5-19)
[2018-09-21] MEDS: INSULIN LISPRO 100 UNIT/ML 3 ML VIAL SUBCUT SCH ×4 (11:29→21:32)
[2018-09-21] MEDS: AMLODIPINE BESYLATE 10 MG TABLET PO SCH (11:35)
[2018-09-21] MEDS: FUROSEMIDE INJ/PF 40 MG/4 ML SDV IV SCH ×2 (11:35→21:32)
[2018-09-21] MEDS: SPIRONOLACTONE 25 MG TABLET PO SCH (11:35)
[2018-09-21] MEDS: METOPROLOL SUCCINATE 50 MG TAB.SR.24H PO SCH ×2 (11:35→21:32)
[2018-09-21] MEDS: LOSARTAN POTASSIUM 50 MG TABLET PO SCH (11:35)
[2018-09-21] MEDS: VENLAFAXINE HCL 37.5 MG CAP.SR.24H PO SCH (11:36)
--- NOTE | 2018-09-21 14:39 | RADIOLOGY REPORT (SQ) ---
EXAM DESCRIPTION: CHEST SINGLE VIEW COMPLETED DATE/TIME: 09/21/2018 2:28 pm REASON FOR STUDY: dyspnea COMPARISON: 09/17/2018 EXAM PARAMETERS: NUMBER OF VIEWS: One view. TECHNIQUE: Single frontal radiographic view of the chest acquired. RADIATION DOSE: NA LIMITATIONS: None. FINDINGS: LUNGS AND PLEURA: There is limited opacification in the lung bases. There is improvement in the appearance of the left base. Minimal right pleural effusion. MEDIASTINUM AND HILAR STRUCTURES: No masses. Contour normal. HEART AND VASCULAR STRUCTURES: Cardiomegaly. No pulmonary edema. BONES: No acute findings. HARDWARE: None in the chest. OTHER: No other significant finding. IMPRESSION: Cardiomegaly without pulmonary edema. Improvement in the appearance of the left base. Cannot exclude limited right lower lobe pneumonia. TECHNICAL DOCUMENTATION: JOB ID: [id number] [employer]- All Rights Reserved Reading location - IP/workstation name: [email or web address]
[2018-09-21 15:05] LABS: HEMATOCRIT 32.3 % (37.9-51.0); HEMOGLOBIN 11.2 g/dL (13.5-17.0); MEAN CORPUSCULAR HEMOGLOBIN 29.4 pg (27.0-33.4); MEAN CORPUSCULAR HGB CONC 34.7 g/dL (32.0-36.0); MEAN CORPUSCULAR VOLUME 85 fl (80-97); PLATELET COUNT 255 10^3/uL (150-450); RED BLOOD COUNT 3.82 10^6/uL (4.35-5.55); RED CELL DISTRIBUTION WIDTH 13.9 % (11.5-14.0); WHITE BLOOD COUNT 8.4 10^3/uL (4.0-10.5)
--- NOTE | 2018-09-21 17:12 | PDOC PROGRESS REPORT ---
Subjective Progress Note for:: 09/21/18 Subjective:: JOHN SANDERS is a 52 year old male with a history of multiple medical problems including chronic kidney disease due to diabetic nephropathy, insulin-dependent diabetes mellitus, diabetic neuropathy, reported prior history of stroke, hyperlipidemia, hypertension, morbid obesity, obstructive sleep apnea, and a long history of noncompliance with his treatment regimen. He presented to [facility] with a 10-14-day history of progressive shortness of breath. The patient was found to be volume overloaded with +3 pitting edema in his lower extremities. CT chest reveals bibasilar pneumonia. The patient was seen on rounds. He is sitting up in the bed with supplemental oxygen via nasal cannula. He still endorses mild shortness of breath. Repeat CXR done today, shows small improvement of effusions and persistent R opacity, possibly PNA. Since patient has not experienced much relief from diuretic therapy, plan to initiate antibiotics to treat possible PNA. Lung sounds are clear, diminished in the bilateral bases. +2 pitting edema in the bilateral lower extremities. Continue diuresis with IV lasix and spironolactone. Initiate antibiotics. Awaiting nephrology recommendations. Reason For Visit: SUSPECTED DIASTOLIC HEART FAILURE Physical Exam Vital Signs: Temp Pulse Resp BP Pulse Ox 97.4 F 61 15 138/69 H 92 09/21/18 03:49 09/21/18 03:49 09/21/18 03:49 09/21/18 03:49 09/21/18 03:49 Intake & Output 09/20/18 09/21/18 09/22/18 06:59 06:59 06:59 Intake Total 1115 580 Output Total 300 Balance 815 580 Weight 117.7 kg 116.4 kg General appearance: PRESENT: obese Head exam: PRESENT: atraumatic Eye exam: PRESENT: conjunctiva pink, PERRLA Mouth exam: PRESENT: moist Teeth exam: PRESENT: poor dentation Neck exam: PRESENT: full ROM Respiratory exam: PRESENT: clear to auscultation rupa, decreased breath sounds - Bilateral lower lobes, symmetrical, unlabored Cardiovascular exam: PRESENT: RRR Pulses: PRESENT: normal radial pulses, normal dorsalis pedis pul Vascular exam: PRESENT: normal capillary refill GI/Abdominal exam: PRESENT: normal bowel sounds, soft. ABSENT: distended, tenderness Rectal exam: PRESENT: deferred Extremities exam: PRESENT: full ROM, pedal edema Musculoskeletal exam: PRESENT: ambulatory, full ROM Neurological exam: PRESENT: alert, awake, oriented to person, oriented to place, oriented to time, oriented to situation Psychiatric exam: PRESENT: appropriate affect Skin exam: PRESENT: dry, intact, pallor Results Laboratory Results: 09/21/18 14:25 09/21/18 05:19 09/20/18 09/21/18 09/21/18 16:15 05:19 14:25 WBC 7.0 8.4 RBC 3.33 L 3.82 L Hgb 9.9 L 11.2 L Hct 28.0 L 32.3 L MCV 84 85 MCH 29.6 29.4 MCHC 35.2 34.7 RDW 13.8 13.9 Plt Count 214 255 Sodium 140.2 Potassium 4.3 Chloride 109 H Carbon Dioxide 27 Anion Gap 4 L BUN 42 H Creatinine 2.37 H Est GFR ( Amer) 35 L Est GFR (Non-Af Amer) 29 L Glucose 120 H Calcium 8.9 Magnesium 2.7 H Total Bilirubin 0.5 AST 17 ALT 26 Alkaline Phosphatase 127 H Total Protein 5.2 L Albumin 2.8 L 09/17/18 09/17/18 09/18/18 10:35 10:35 04:14 Creatine Kinase 323 H CK-MB (CK-2) 4.83 H Troponin I 0.021 NT-Pro-B Natriuret Pep 5370 H 5900 H 09/19/18 09/21/18 06:10 05:19 Creatine Kinase CK-MB (CK-2) Troponin I NT-Pro-B Natriuret Pep 4230 H 3820 H Impressions: Abdomen X-Ray 09/17/18 09:27 IMPRESSION: Mild fecal retention. Chest/Abdomen CTA 09/17/18 11:22 IMPRESSION: 1. No PE. 2. Bilateral lower lobe pneumonia. Chest X-Ray 09/21/18 07:00 IMPRESSION: Cardiomegaly without pulmonary edema. Improvement in the appearance of the left base. Cannot exclude limited right lower lobe pneumonia. Status: Imported from PACS Assessment and Plan - Diagnosis (1) Volume overload Qualifiers: Hypervolemia type: other Qualified Code(s): E87.79 - Other fluid overload Is this a current diagnosis for this admission?: Yes Plan: Due to medication noncompliance in the setting of chronic kidney disease Continue home dose BB and ARB BID IV lasix Continue home dose spironolactone 1200mL fluid restriction ECHOcardiogram done, results unchanged from previous ECHO ECHO from 05/2018 shows LVEF 65% Unable to determine RVSP Consulted nephrology, appreciate their recommendations (2) Anemia Is this a current diagnosis for this admission?: Yes Plan: Improved, Hgb 7.5-->11 s/p 2 units PRBCs No evidence of gross blood loss No melena. No coffee-ground emesis. No bleeding wounds. Patient reports he takes Aleve every day Hemoccult negative Anemia studies reveal anemia of chronic disease (Low serum iron and TIBC, elevated ferretin normal MCV) Possibly related to chronic kidney disease and hemodilution Patient received one time dose of 20k units of Procrit (3) Chronic kidney disease, stage 3 Is this a current diagnosis for this admission?: Yes Plan: Diabetic nephropathy with known proteinuria Creatinine 2.5 Patient is able to make urine, mild oliguria Consult Dr. Llanos, appreciate her assistance Does not recommend dialysis (4) Noncompliance with medication regimen Is this a current diagnosis for this admission?: Yes Plan: According to , patient has not been taking care of himself Has not taken home medications within 1 week Possible reasoning due to depression and/or auditory hallucinations Initiated Effexor per psych recommendations Encourage ambulation around 4th floor & day/night cues (5) Diabetes mellitus type II, uncontrolled Qualifiers: Glycemic state: with hyperglycemia Qualified Code(s): E11.65 - Type 2 diabetes mellitus with hyperglycemia Is this a current diagnosis for this admission?: Yes Plan: Accu-Cheks AC at bedtime Humalog sliding scale insulin Diabetic cardiac diet HgbA1c 7.3% (6) Diabetic foot ulcer Qualifiers: Diabetic foot ulcer location: midfoot Diabetes mellitus type: due to underlying condition Laterality: right Non-pressure ulcer stage: with other severity Qualified Code(s): E08.621 - Diabetes mellitus due to underlying condition with foot ulcer; L97.418 - Non-pressure chronic ulcer of right heel and midfoot with other specified severity Is this a current diagnosis for this admission?: Yes Plan: Open wound on plantar surface of R foot Open wound, pink, no drainage Follows up with the wound care center Currently wrapped in gauze and danielle bandage Topical Iodosorb gel (7) Psychiatric complaint Is this a current diagnosis for this admission?: Yes Plan: Patient has a history of PTSD with auditory and sensory hallucinations, anxiety and depression Consulted psych to make medication recommendations for depression Discontinue Seroquel and trazodone Continue Effexor 37.5 mg p.o. daily Initiated clonidone 0.1mg QHS for sleep aid (8) Pneumonia Is this a current diagnosis for this admission?: Yes Plan: Possible pneumonia seen on radiology studies Patient complains of persistent dyspnea despite extensive diuresis Plan for empiric antibiotic coverage Will initiate Levaquin 750 p.o. today - Time Time Spent with patient: 15-24 minutes Medications reviewed and adjusted accordingly: Yes Anticipated discharge: Home - Inpatient Certification Based on my medical assessment, after consideration of the patient's comorbidities, presenting symptoms, or acuity I expect that the services needed warrant INPATIENT care.: Yes I certify that my determination is in accordance with my understanding of Medicare's requirements for reasonable and necessary INPATIENT services [42 CFR 412.3e].: Yes Medical Necessity: Need For Continuous Telemetry Monitoring, Risk of Complication if Not Cared For in Hospital
[2018-09-21] MEDS: CADEXOMER IODINE GEL 40 GM/TUBE TP SCH (20:04)
[2018-09-21] MEDS: LEVOFLOXACIN 750 MG TABLET PO SCH (20:05)
[2018-09-21] MEDS: ATORVASTATIN CALCIUM 10 MG TABLET PO SCH (21:32)
[2018-09-21] MEDS: CLONIDINE HCL 0.1 MG TABLET PO SCH (21:32)
[2018-09-21] MEDS: INSULIN GLARGINE,HUM.REC.ANLOG 1,000 UNIT/10 ML VIAL SUBCUT SCH (21:33)
[2018-09-22] MEDS: HEPARIN SOD (PORCINE) 5,000 UNIT/ML 1 ML SYRINGE SUBCUT SCH ×3 (05:18→21:16)
[2018-09-22 06:18] LABS: ALANINE AMINOTRANSFERASE 22 U/L (21-72); ALKALINE PHOSPHATASE 134 U/L (38-126); ANION GAP 8 (5-19); ASPARTATE AMINO TRANSFERASE 17 U/L (17-59); BILIRUBIN,DIRECT 0.3 mg/dL (0.0-0.4); BILIRUBIN,TOTAL 0.7 mg/dL (0.2-1.3); BLOOD UREA NITROGEN 38 mg/dL (7-20); CALCIUM 9.1 mg/dL (8.4-10.2); CARBON DIOXIDE 27 mmol/L (22-30); CHLORIDE 105 mmol/L (98-107); GLUCOSE 95 mg/dL (75-110); POTASSIUM 4.4 mmol/L (3.6-5.0); SODIUM 140.1 mmol/L (137-145); TOTAL PROTEIN 5.5 g/dL (6.3-8.2)
[2018-09-22] MEDS: INSULIN LISPRO 100 UNIT/ML 3 ML VIAL SUBCUT SCH ×4 (08:13→21:18)
[2018-09-22] MEDS: METOPROLOL SUCCINATE 50 MG TAB.SR.24H PO SCH ×2 (09:52→21:20)
[2018-09-22] MEDS: SPIRONOLACTONE 25 MG TABLET PO SCH (09:52)
[2018-09-22] MEDS: VENLAFAXINE HCL 37.5 MG CAP.SR.24H PO SCH (09:52)
[2018-09-22] MEDS: LOSARTAN POTASSIUM 50 MG TABLET PO SCH (09:52)
[2018-09-22] MEDS: FUROSEMIDE INJ/PF 40 MG/4 ML SDV IV SCH (09:53)
[2018-09-22] MEDS: AMLODIPINE BESYLATE 10 MG TABLET PO SCH (10:01)
[2018-09-22] MEDS: TRAMADOL HCL 50 MG TABLET PO PRN (10:06)
[2018-09-22] MEDS: MAGNESIUM HYDROXIDE SUSP 30 ML UDCUP PO PRN ×2 (12:34→21:26)
[2018-09-22 15:44] LABS: HEMATOCRIT 33.6 % (37.9-51.0); HEMOGLOBIN 11.6 g/dL (13.5-17.0); MEAN CORPUSCULAR HEMOGLOBIN 29.2 pg (27.0-33.4); MEAN CORPUSCULAR HGB CONC 34.6 g/dL (32.0-36.0); MEAN CORPUSCULAR VOLUME 85 fl (80-97); PLATELET COUNT 316 10^3/uL (150-450); RED BLOOD COUNT 3.97 10^6/uL (4.35-5.55); RED CELL DISTRIBUTION WIDTH 14.1 % (11.5-14.0); WHITE BLOOD COUNT 10.7 10^3/uL (4.0-10.5)
[2018-09-22] MEDS: LEVOFLOXACIN 750 MG TABLET PO SCH (17:04)
--- NOTE | 2018-09-22 17:12 | PDOC PROGRESS REPORT ---
Subjective Progress Note for:: 09/22/18 Reason For Visit: Patient seen today in the hospital. His is at the bedside. He says he has been walking on the floor and is not as dyspneic as when he came in. Still has got a lot of edema of his legs. No complaints of any chest pains. No complaints of any fever or chills. Labs and medications were reviewed. It seems like plans have been made by the hospitalist to discharge him home tomorrow. Physical Exam Vital Signs: Temp Pulse Resp BP Pulse Ox 98.1 F 65 16 166/80 H 94 09/22/18 11:53 09/22/18 14:00 09/22/18 11:53 09/22/18 11:53 09/22/18 11:53 Intake & Output 09/21/18 09/22/18 09/23/18 06:59 06:59 06:59 Intake Total 580 625 700 Balance 580 625 700 Weight 116.4 kg 114.3 kg General appearance: PRESENT: no acute distress Respiratory exam: PRESENT: clear to auscultation rupa, crackles - Has baseline fi ne crackles.. ABSENT: rhonchi Cardiovascular exam: PRESENT: +S1, +S2 GI/Abdominal exam: PRESENT: normal bowel sounds, soft. ABSENT: organomegaly, te nderness Extremities exam: PRESENT: +2 edema Neurological exam: PRESENT: alert, awake, oriented to person, oriented to place Psychiatric exam: PRESENT: appropriate affect Skin exam: PRESENT: erythema - Venous stasis changes in both lower extremities., rash. ABSENT: mottled Results Laboratory Results: 09/22/18 15:20 09/22/18 04:37 09/22/18 09/22/18 04:37 15:20 WBC 10.7 H RBC 3.97 L Hgb 11.6 L Hct 33.6 L MCV 85 MCH 29.2 MCHC 34.6 RDW 14.1 H Plt Count 316 Sodium 140.1 Potassium 4.4 Chloride 105 Carbon Dioxide 27 Anion Gap 8 BUN 38 H Creatinine 2.16 H Est GFR ( Amer) 39 L Est GFR (Non-Af Amer) 33 L Glucose 95 Calcium 9.1 Magnesium 2.5 H Total Bilirubin 0.7 AST 17 ALT 22 Alkaline Phosphatase 134 H Total Protein 5.5 L Albumin 3.0 L 09/17/18 09/17/18 09/18/18 10:35 10:35 04:14 Creatine Kinase 323 H CK-MB (CK-2) 4.83 H Troponin I 0.021 NT-Pro-B Natriuret Pep 5370 H 5900 H 09/19/18 09/21/18 09/22/18 06:10 05:19 04:37 Creatine Kinase CK-MB (CK-2) Troponin I NT-Pro-B Natriuret Pep 4230 H 3820 H 4180 H Impressions: Abdomen X-Ray 09/17/18 09:27 IMPRESSION: Mild fecal retention. Chest/Abdomen CTA 09/17/18 11:22 IMPRESSION: 1. No PE. 2. Bilateral lower lobe pneumonia. Chest X-Ray 09/21/18 07:00 IMPRESSION: Cardiomegaly without pulmonary edema. Improvement in the appearance of the left base. Cannot exclude limited right lower lobe pneumonia. Assessment & Plan - Diagnosis (1) Acute kidney failure Qualifiers: Acute renal failure type: unspecified Qualified Code(s): N17.9 - Acute kidney failure, unspecified Plan: Patient has got acute on chronic kidney disease. His baseline creatinine is around 1.3-1.5. Presently static at around 2+. He in my opinion has got congestive heart failure with preserved ejection fraction. He would benefit from some more IV diuresis. He needs to modify his lifestyle habits and keep his blood sugar and blood pressure under better control. With that in mind I am going to convert his p.o. to IV furosemide. (2) New onset of congestive heart failure Plan: Congestive heart failure with preserved ejection fraction. Echocardiogram is not very conclusive given his body habitus. However he has got clinical features to indicate that he still has decompensated heart failure. Given the fact that he has been noncompliant I would like to have him still the benefit of IV diuresis as long as he is able to stay in the hospital. Discussed at length dietary changes and lifestyle changes she has to make. (3) Chronic kidney disease, stage 3 Is this a current diagnosis for this admission?: Yes Plan: Base creatinine between 1.3-1.5 from diabetic nephropathy/CKD.Advised the need for better blood sugar and hypertension control. (4) Noncompliance with medication regimen Is this a current diagnosis for this admission?: Yes Plan: Discussed the need for better compliance and he understands. (5) Diabetes mellitus type II, uncontrolled Qualifiers: Glycemic state: with hyperglycemia Qualified Code(s): E11.65 - Type 2 diabetes mellitus with hyperglycemia Is this a current diagnosis for this admission?: Yes Plan: Advised for tight control. (6) Proteinuria due to type 2 diabetes mellitus Plan: Monitor.
[2018-09-22] MEDS ORDERED: FUROSEMIDE 20 MG TABLET PO SCH (18:00)
[2018-09-22] MEDS: FUROSEMIDE INJ/PF 20 MG/2 ML SDV IV SCH (21:19)
[2018-09-22] MEDS: ATORVASTATIN CALCIUM 10 MG TABLET PO SCH (21:20)
[2018-09-22] MEDS: CLONIDINE HCL 0.1 MG TABLET PO SCH (21:20)
[2018-09-22] MEDS: INSULIN GLARGINE,HUM.REC.ANLOG 1,000 UNIT/10 ML VIAL SUBCUT SCH (21:20)
--- NOTE | 2018-09-22 21:35 | PDOC PROGRESS REPORT ---
Subjective Progress Note for:: 09/22/18 Subjective:: JOHN SANDERS is a 52 year old male with a history of multiple medical problems including chronic kidney disease due to diabetic nephropathy, insulin-dependent diabetes mellitus, diabetic neuropathy, reported prior history of stroke, hyperlipidemia, hypertension, morbid obesity, obstructive sleep apnea, and a long history of noncompliance with his treatment regimen admited 09/17/18 for A/CKD and A/CHF. Patient was seen on morning rounds with his present. He was found sitting upright to the recliner comfortably on room air. He reports that his dyspnea has resolved; he continues to have BLE edema (near baseline per patient), but otherwise feels significantly improved. His primary concern today is constipation (last bm 4-5 days ago) and difficulty sleeping after psych medication recommendations were implemented (trazodone -> clonidine). We also discussed his lab results (specifically liver enzymes as patient's was concerned about possible liver disease) and echocardiogram findings. ROS as above and otherwise negative. Patient had no other questions or concerns. No concerns per nursing. Reason For Visit: SUSPECTED DIASTOLIC HEART FAILURE Physical Exam Vital Signs: Temp Pulse Resp BP Pulse Ox 97.5 F 64 12 160/82 H 95 09/22/18 19:50 09/22/18 19:50 09/22/18 19:50 09/22/18 19:50 09/22/18 19:50 Intake & Output 09/21/18 09/22/18 09/23/18 06:59 06:59 06:59 Intake Total 399 666 1641 Balance 192 246 2089 Weight 116.4 kg 114.3 kg General appearance: PRESENT: no acute distress, cooperative, obese, well- developed, well-nourished Head exam: PRESENT: atraumatic, normocephalic Eye exam: PRESENT: conjunctiva pink, EOMI, PERRLA. ABSENT: scleral icterus Mouth exam: PRESENT: moist, tongue midline Neck exam: ABSENT: carotid bruit, JVD, lymphadenopathy, thyromegaly Respiratory exam: PRESENT: crackles - right base, decreased breath sounds - bibasilar, symmetrical, unlabored. ABSENT: rales, rhonchi, wheezes Cardiovascular exam: PRESENT: RRR. ABSENT: diastolic murmur, rubs, systolic murmur Pulses: PRESENT: normal dorsalis pedis pul Vascular exam: PRESENT: normal capillary refill GI/Abdominal exam: PRESENT: normal bowel sounds, soft. ABSENT: distended, guar ding, mass, organolmegaly, rebound, tenderness Rectal exam: PRESENT: deferred Extremities exam: PRESENT: full ROM, pedal edema - (+) pitting edema rupa aterally. ABSENT: calf tenderness, clubbing Musculoskeletal exam: PRESENT: ambulatory Neurological exam: PRESENT: alert, awake, oriented to person, oriented to place, oriented to time, oriented to situation, CN II-XII grossly intact. ABSENT: motor sensory deficit Psychiatric exam: PRESENT: appropriate affect, normal mood. ABSENT: homicidal ideation, suicidal ideation Skin exam: PRESENT: dry, intact, warm. ABSENT: cyanosis, rash Results Laboratory Results: 09/22/18 15:20 09/22/18 04:37 09/22/18 09/22/18 04:37 15:20 WBC 10.7 H RBC 3.97 L Hgb 11.6 L Hct 33.6 L MCV 85 MCH 29.2 MCHC 34.6 RDW 14.1 H Plt Count 316 Sodium 140.1 Potassium 4.4 Chloride 105 Carbon Dioxide 27 Anion Gap 8 BUN 38 H Creatinine 2.16 H Est GFR ( Amer) 39 L Est GFR (Non-Af Amer) 33 L Glucose 95 Calcium 9.1 Magnesium 2.5 H Total Bilirubin 0.7 AST 17 ALT 22 Alkaline Phosphatase 134 H Total Protein 5.5 L Albumin 3.0 L 09/17/18 09/17/18 09/18/18 10:35 10:35 04:14 Creatine Kinase 323 H CK-MB (CK-2) 4.83 H Troponin I 0.021 NT-Pro-B Natriuret Pep 5370 H 5900 H 09/19/18 09/21/18 09/22/18 06:10 05:19 04:37 Creatine Kinase CK-MB (CK-2) Troponin I NT-Pro-B Natriuret Pep 4230 H 3820 H 4180 H Impressions: Abdomen X-Ray 09/17/18 09:27 IMPRESSION: Mild fecal retention. Chest/Abdomen CTA 09/17/18 11:22 IMPRESSION: 1. No PE. 2. Bilateral lower lobe pneumonia. Chest X-Ray 09/21/18 07:00 IMPRESSION: Cardiomegaly without pulmonary edema. Improvement in the appearance of the left base. Cannot exclude limited right lower lobe pneumonia. Assessment and Plan - Diagnosis (1) Volume overload Qualifiers: Hypervolemia type: other Qualified Code(s): E87.79 - Other fluid overload Is this a current diagnosis for this admission?: Yes Plan: Due to medication noncompliance in the setting of chronic kidney disease and new onset diastolic CHF ECHOcardiogram done, results unchanged from previous ECHO ECHO from 05/2018 shows LVEF 65% Unable to determine RVSP. Poor quality study secondary to body habitus. Continue home dose BB and ARB Planned to transition to p.o. furosemide in preparation for d/c home; however, nephrology requesting continued IV Lasix (dosing per Dr. Pace). Continue home dose spironolactone 1500mL fluid restriction Consulted nephrology, appreciate their recommendations (2) Acute worsening of stage 3 chronic kidney disease Is this a current diagnosis for this admission?: Yes Plan: Dr. Pace has been consulted; appreciate his assistance. (3) New onset of congestive heart failure Is this a current diagnosis for this admission?: Yes Plan: ECHOcardiogram done, results unchanged from previous ECHO ECHO from 05/2018 shows LVEF 65% Unable to determine RVSP. Poor quality study secondary to body habitus. Continue home dose amlodipine, metoprolol, losartan, spironolactone and ASA therapy. IV Furosemide as above. Fluid restricted. Daily weights, strict I&Os Patient educator is consulted. (4) Anemia Is this a current diagnosis for this admission?: Yes Plan: Improved, Hgb 7.5-->11 s/p 2 units PRBCs; appears to have stabilized. No evidence of gross blood loss No melena. No coffee-ground emesis. No bleeding wounds. Patient reports he takes Aleve every day Hemoccult negative Anemia studies reveal anemia of chronic disease (Low serum iron and TIBC, elevated ferretin normal MCV) Possibly related to chronic kidney disease and hemodilution Patient received one time dose of 20k units of Procrit. Continue daily MVI and ferrous sulfate. beck operator is consulted. Nephrology is consulted. (5) Chronic kidney disease, stage 3 Is this a current diagnosis for this admission?: Yes Plan: Diabetic nephropathy with known proteinuria Creatinine 2.5; slightly improved. Baseline is 1.5-1.7 Patient is able to make urine, mild oliguria Nephrology is consulted. (6) Constipation Qualifiers: Constipation type: unspecified constipation type Qualified Code(s): K59.00 - Constipation, unspecified Is this a current diagnosis for this admission?: Yes Plan: Resume home dose Sennakot. Milk of Mag BID prn. (7) Pneumonia Is this a current diagnosis for this admission?: Yes Plan: Possible pneumonia seen on radiology studies Patient complains of persistent dyspnea despite extensive diuresis Continue Levaquin 750 p.o. for empiric coverage of a CAP. (8) Psychiatric complaint Is this a current diagnosis for this admission?: Yes Plan: Patient has a history of PTSD with auditory and sensory hallucinations, anxiety and depression Consulted psych to make medication recommendations for depression Discontinue Seroquel and trazodone Continue Effexor 37.5 mg p.o. daily Initiated clonidone 0.1mg QHS for sleep aid (9) Diabetes mellitus type II, uncontrolled Qualifiers: Glycemic state: with hyperglycemia Qualified Code(s): E11.65 - Type 2 diabetes mellitus with hyperglycemia Is this a current diagnosis for this admission?: Yes Plan: Accu-Cheks AC at bedtime Humalog sliding scale insulin Diabetic cardiac diet HgbA1c 7.3% (10) Diabetic foot ulcer Qualifiers: Diabetic foot ulcer location: midfoot Diabetes mellitus type: due to underlying condition Laterality: right Non-pressure ulcer stage: with other severity Qualified Code(s): E08.621 - Diabetes mellitus due to underlying condition with foot ulcer; L97.418 - Non-pressure chronic ulcer of right heel and midfoot with other specified severity Is this a current diagnosis for this admission?: Yes Plan: Open wound on plantar surface of R foot Open wound, pink, no drainage Follows up with the wound care center Dressing changes daily and as needed: Topical Iodosorb gel, gauze and danielle bandage (11) Noncompliance with medication regimen Is this a current diagnosis for this admission?: Yes Plan: According to , patient has not been taking care of himself Has not taken home medications for > 1 week Possible reasoning due to depression and/or auditory hallucinations Initiated Effexor per psych recommendations Encourage ambulation around floor & day/night cues - Time Time Spent with patient: 35 or more minutes Medications reviewed and adjusted accordingly: Yes Anticipated discharge: Home Within: Other - pending nephrology clearance; ?48-72 hrs
[2018-09-23] MEDS: HEPARIN SOD (PORCINE) 5,000 UNIT/ML 1 ML SYRINGE SUBCUT SCH ×3 (05:07→21:42)
[2018-09-23] MEDS: FUROSEMIDE INJ/PF 20 MG/2 ML SDV IV SCH ×3 (05:07→21:41)
[2018-09-23 05:28] LABS: HEMATOCRIT 29.7 % (37.9-51.0); HEMOGLOBIN 10.5 g/dL (13.5-17.0); MEAN CORPUSCULAR HEMOGLOBIN 29.8 pg (27.0-33.4); MEAN CORPUSCULAR HGB CONC 35.2 g/dL (32.0-36.0); MEAN CORPUSCULAR VOLUME 85 fl (80-97); PLATELET COUNT 276 10^3/uL (150-450); RED BLOOD COUNT 3.51 10^6/uL (4.35-5.55); RED CELL DISTRIBUTION WIDTH 13.7 % (11.5-14.0); WHITE BLOOD COUNT 8.8 10^3/uL (4.0-10.5)
[2018-09-23 05:54] LABS: ALANINE AMINOTRANSFERASE 32 U/L (21-72); ALBUMIN 2.8 g/dL (3.5-5.0); ALKALINE PHOSPHATASE 130 U/L (38-126); ANION GAP 7 (5-19); ASPARTATE AMINO TRANSFERASE 15 U/L (17-59); BILIRUBIN,DIRECT 0.3 mg/dL (0.0-0.4); BILIRUBIN,TOTAL 0.6 mg/dL (0.2-1.3); BLOOD UREA NITROGEN 37 mg/dL (7-20); CALCIUM 8.9 mg/dL (8.4-10.2); CARBON DIOXIDE 29 mmol/L (22-30); CHLORIDE 102 mmol/L (98-107); GLUCOSE 170 mg/dL (75-110); POTASSIUM 4.5 mmol/L (3.6-5.0); SODIUM 137.7 mmol/L (137-145); TOTAL PROTEIN 5.4 g/dL (6.3-8.2)
[2018-09-23] MEDS: INSULIN LISPRO 100 UNIT/ML 3 ML VIAL SUBCUT SCH ×4 (07:59→21:42)
[2018-09-23] MEDS ORDERED: (PENDING PHARMACY ID) (Sennosides [Senna] 17.2 MG) PO SCH (10:00)
[2018-09-23] MEDS: METOPROLOL SUCCINATE 50 MG TAB.SR.24H PO SCH ×2 (10:37→21:42)
[2018-09-23] MEDS: LOSARTAN POTASSIUM 50 MG TABLET PO SCH (10:37)
[2018-09-23] MEDS: SENNOSIDES/DOCUSATE 8.6-50 MG 1 EACH TABLET PO SCH (10:37)
[2018-09-23] MEDS: AMLODIPINE BESYLATE 10 MG TABLET PO SCH (10:37)
[2018-09-23] MEDS: MULTIVITAMIN TABLET PO SCH (10:37)
[2018-09-23] MEDS: SPIRONOLACTONE 25 MG TABLET PO SCH (10:37)
[2018-09-23] MEDS: VENLAFAXINE HCL 37.5 MG CAP.SR.24H PO SCH (10:38)
[2018-09-23] MEDS: FERROUS SULFATE 325 MG TABLET PO SCH (10:38)
[2018-09-23] MEDS ORDERED: MAGNESIUM CITRATE 296 ML BOTTLE PO ONE (12:31)
--- NOTE | 2018-09-23 16:33 | PDOC PROGRESS REPORT ---
Subjective Progress Note for:: 09/23/18 Reason For Visit: Patient seen in the hospital today. He is feeling better. He is diuresing better since being back on IV diuretics. No complaints of any chest pains or shortness of breath even on exertion. Labs and medications were reviewed and discussed with patient. Physical Exam Vital Signs: Temp Pulse Resp BP Pulse Ox 97.6 F 66 17 162/71 H 95 09/23/18 15:11 09/23/18 15:11 09/23/18 15:11 09/23/18 15:11 09/23/18 15:11 Intake & Output 09/22/18 09/23/18 09/24/18 06:59 06:59 06:59 Intake Total 625 2004 118 Balance 625 2004 118 Weight 114.3 kg 112.1 kg General appearance: PRESENT: no acute distress Respiratory exam: PRESENT: clear to auscultation rupa. ABSENT: crackles Cardiovascular exam: PRESENT: +S1, +S2 GI/Abdominal exam: PRESENT: normal bowel sounds, soft. ABSENT: organomegaly, tenderness Extremities exam: PRESENT: +1 edema Neurological exam: PRESENT: alert, awake, oriented to person, oriented to place Psychiatric exam: PRESENT: appropriate affect Results Laboratory Results: 09/23/18 04:31 09/23/18 04:31 09/23/18 09/23/18 04:31 04:31 WBC 8.8 RBC 3.51 L Hgb 10.5 L Hct 29.7 L MCV 85 MCH 29.8 MCHC 35.2 RDW 13.7 Plt Count 276 Sodium 137.7 Potassium 4.5 Chloride 102 Carbon Dioxide 29 Anion Gap 7 BUN 37 H Creatinine 2.09 H Est GFR ( Amer) 41 L Est GFR (Non-Af Amer) 34 L Glucose 170 H Calcium 8.9 Magnesium 2.5 H Total Bilirubin 0.6 AST 15 L ALT 32 Alkaline Phosphatase 130 H Total Protein 5.4 L Albumin 2.8 L 09/17/18 09/17/18 09/18/18 10:35 10:35 04:14 Creatine Kinase 323 H CK-MB (CK-2) 4.83 H Troponin I 0.021 NT-Pro-B Natriuret Pep 5370 H 5900 H 09/19/18 09/21/18 09/22/18 06:10 05:19 04:37 Creatine Kinase CK-MB (CK-2) Troponin I NT-Pro-B Natriuret Pep 4230 H 3820 H 4180 H 09/23/18 04:31 Creatine Kinase CK-MB (CK-2) Troponin I NT-Pro-B Natriuret Pep 2970 H Impressions: Abdomen X-Ray 09/17/18 09:27 IMPRESSION: Mild fecal retention. Chest/Abdomen CTA 09/17/18 11:22 IMPRESSION: 1. No PE. 2. Bilateral lower lobe pneumonia. Chest X-Ray 09/21/18 07:00 IMPRESSION: Cardiomegaly without pulmonary edema. Improvement in the appearance of the left base. Cannot exclude limited right lower lobe pneumonia. Assessment & Plan - Diagnosis (1) Acute kidney failure Qualifiers: Acute renal failure type: unspecified Qualified Code(s): N17.9 - Acute kidney failure, unspecified Plan: Patient has got acute on chronic kidney disease. His baseline creatinine is around 1.3-1.5. His renal status is improving and I would continue current medication/management.If he continues to diuresis and feel as good as he is today he can be discharged home tomorrow on oral diuretics and follow with Dr. Llanos 2-3 weeks post discharge with labs. (2) New onset of congestive heart failure Is this a current diagnosis for this admission?: Yes Plan: Improving. Continue current medications. Advised proper dietary modifications (3) Chronic kidney disease, stage 3 Is this a current diagnosis for this admission?: Yes Plan: Base creatinine between 1.3-1.5 from diabetic nephropathy/CKD.Advised the need for better blood sugar and hypertension control. (4) Noncompliance with medication regimen Is this a current diagnosis for this admission?: Yes Plan: Discussed the need for better compliance and he understands. (5) Diabetes mellitus type II, uncontrolled Qualifiers: Glycemic state: with hyperglycemia Qualified Code(s): E11.65 - Type 2 diabetes mellitus with hyperglycemia Is this a current diagnosis for this admission?: Yes Plan: Advised for tight control. (6) Proteinuria due to type 2 diabetes mellitus Plan: Monitor.
--- NOTE | 2018-09-23 16:48 | PDOC PROGRESS REPORT ---
Subjective Progress Note for:: 09/23/18 Subjective:: JOHN SANDERS is a 52 year old male with a history of multiple medical problems including chronic kidney disease due to diabetic nephropathy, insulin-dependent diabetes mellitus, diabetic neuropathy, reported prior history of stroke, hyperlipidemia, hypertension, morbid obesity, obstructive sleep apnea, and a long history of noncompliance with his treatment regimen admited 09/17/18 for A/CKD and A/CHF. Patient was seen on morning rounds with his present. He was found sitting upright to the edge of the bed comfortably on room air. He reports that his dyspnea has resolved; he continues to have BLE edema (near baseline per patient), but otherwise feels well. His primary concern today remains constipation (last bm 4-5 days ago); no improvement with Milk of Mag yesterday. ROS as above and otherwise negative. Patient had no other questions or concerns. No concerns per nursing. Reason For Visit: SUSPECTED DIASTOLIC HEART FAILURE Physical Exam Vital Signs: Temp Pulse Resp BP Pulse Ox 97.6 F 66 17 162/71 H 95 09/23/18 15:11 09/23/18 15:11 09/23/18 15:11 09/23/18 15:11 09/23/18 15:11 Intake & Output 09/22/18 09/23/18 09/24/18 06:59 06:59 06:59 Intake Total 625 2004 118 Balance 625 2004 118 Weight 114.3 kg 112.1 kg General appearance: PRESENT: no acute distress, cooperative, obese, well-de veloped, well-nourished Head exam: PRESENT: atraumatic, normocephalic Eye exam: PRESENT: conjunctiva pink, EOMI, PERRLA. ABSENT: scleral icterus Ear exam: PRESENT: normal external ear exam Mouth exam: PRESENT: moist, tongue midline Neck exam: ABSENT: carotid bruit, JVD, lymphadenopathy, thyromegaly Respiratory exam: PRESENT: clear to auscultation rupa, symmetrical, unlabored. ABSENT: rales, rhonchi, wheezes Cardiovascular exam: PRESENT: RRR, +S1, +S2. ABSENT: diastolic murmur, rubs, systolic murmur Pulses: PRESENT: normal dorsalis pedis pul Vascular exam: PRESENT: normal capillary refill GI/Abdominal exam: PRESENT: normal bowel sounds, soft. ABSENT: distended, guarding, mass, organolmegaly, rebound, tenderness Rectal exam: PRESENT: deferred Extremities exam: PRESENT: full ROM, pedal edema - +2 pitting edema bilaterally. ABSENT: calf tenderness, clubbing Musculoskeletal exam: PRESENT: ambulatory Neurological exam: PRESENT: alert, awake, oriented to person, oriented to place, oriented to time, oriented to situation, CN II-XII grossly intact. ABSENT: motor sensory deficit Psychiatric exam: PRESENT: appropriate affect, normal mood. ABSENT: homicidal ideation, suicidal ideation Skin exam: PRESENT: dry, warm. ABSENT: cyanosis, rash Results Laboratory Results: 09/23/18 04:31 09/23/18 04:31 09/23/18 09/23/18 04:31 04:31 WBC 8.8 RBC 3.51 L Hgb 10.5 L Hct 29.7 L MCV 85 MCH 29.8 MCHC 35.2 RDW 13.7 Plt Count 276 Sodium 137.7 Potassium 4.5 Chloride 102 Carbon Dioxide 29 Anion Gap 7 BUN 37 H Creatinine 2.09 H Est GFR ( Amer) 41 L Est GFR (Non-Af Amer) 34 L Glucose 170 H Calcium 8.9 Magnesium 2.5 H Total Bilirubin 0.6 AST 15 L ALT 32 Alkaline Phosphatase 130 H Total Protein 5.4 L Albumin 2.8 L 09/17/18 09/17/18 09/18/18 10:35 10:35 04:14 Creatine Kinase 323 H CK-MB (CK-2) 4.83 H Troponin I 0.021 NT-Pro-B Natriuret Pep 5370 H 5900 H 09/19/18 09/21/18 09/22/18 06:10 05:19 04:37 Creatine Kinase CK-MB (CK-2) Troponin I NT-Pro-B Natriuret Pep 4230 H 3820 H 4180 H 09/23/18 04:31 Creatine Kinase CK-MB (CK-2) Troponin I NT-Pro-B Natriuret Pep 2970 H Impressions: Abdomen X-Ray 09/17/18 09:27 IMPRESSION: Mild fecal retention. Chest/Abdomen CTA 09/17/18 11:22 IMPRESSION: 1. No PE. 2. Bilateral lower lobe pneumonia. Chest X-Ray 09/21/18 07:00 IMPRESSION: Cardiomegaly without pulmonary edema. Improvement in the appearanc e of the left base. Cannot exclude limited right lower lobe pneumonia. Assessment and Plan - Diagnosis (1) Volume overload Qualifiers: Hypervolemia type: other Qualified Code(s): E87.79 - Other fluid overload Is this a current diagnosis for this admission?: Yes Plan: Due to medication noncompliance in the setting of chronic kidney disease and new onset diastolic CHF ECHOcardiogram done, results unchanged from previous ECHO ECHO from 05/2018 shows LVEF 65% Unable to determine RVSP. Poor quality study secondary to body habitus. Weigt down 6 kg since admission Continue home dose BB and ARB Resumed IV Lasix (dosing per Dr. Pace; per his note may transition to p.o. and d/c home tomorrow). Continue home dose spironolactone 1500mL fluid restriction Consulted nephrology, appreciate their recommendations (2) Acute worsening of stage 3 chronic kidney disease Is this a current diagnosis for this admission?: Yes Plan: Now improving; Cr 1.56-> 2.54-> 2.[address] Pace has been consulted; appreciate his assistance. Avoid nephrotoxic medications as able. (3) New onset of congestive heart failure Is this a current diagnosis for this admission?: Yes Plan: ECHOcardiogram done, results unchanged from previous ECHO ECHO from 05/2018 shows LVEF 65% Unable to determine RVSP. Poor quality study secondary to body habitus. BNP trending down; 5370-> 5900-> 2970 Continue home dose amlodipine, metoprolol, losartan, spironolactone and ASA therapy. IV Furosemide as above. Fluid restricted. Daily weights, strict I&Os Patient educator is consulted. (4) Anemia Is this a current diagnosis for this admission?: Yes Plan: Improved, Hgb 7.5-->11-> 10.5 s/p 2 units PRBCs. No evidence of gross blood loss No melena. No coffee-ground emesis. No bleeding wounds. Patient reports he takes Aleve every day Hemoccult negative Anemia studies reveal anemia of chronic disease (Low serum iron and TIBC, elevated ferretin normal MCV) Possibly related to chronic kidney disease and hemodilution Patient received one time dose of 20k units of Procrit. Continue daily MVI and ferrous sulfate. supervisor fusing room is consulted. Nephrology is consulted. (5) Chronic kidney disease, stage 3 Is this a current diagnosis for this admission?: Yes Plan: Diabetic nephropathy with known proteinuria Baseline is 1.5-1.7 Patient is able to make urine, mild oliguria Nephrology is consulted. (6) Constipation Qualifiers: Constipation type: unspecified constipation type Qualified Code(s): K59.00 - Constipation, unspecified Is this a current diagnosis for this admission?: Yes Plan: Resume home dose Sennakot. Milk of Mag BID prn. Mag Citrate x 1 today (7) Pneumonia Is this a current diagnosis for this admission?: Yes Plan: Possible pneumonia seen on radiology studies Patient complains of persistent dyspnea despite extensive diuresis Continue Levaquin 750 p.o. for empiric coverage of a CAP. Day #3 (8) Psychiatric complaint Is this a current diagnosis for this admission?: Yes Plan: Patient has a history of PTSD with auditory and sensory hallucinations, anxiety and depression Consulted psych to make medication recommendations for depression Discontinue Seroquel and trazodone Continue Effexor 37.5 mg p.o. daily Initiated clonidone 0.1mg QHS for sleep aid (9) Diabetes mellitus type II, uncontrolled Qualifiers: Glycemic state: with hyperglycemia Qualified Code(s): E11.65 - Type 2 diabetes mellitus with hyperglycemia Is this a current diagnosis for this admission?: Yes Plan: Accu-Cheks AC at bedtime Humalog sliding scale insulin Diabetic cardiac diet HgbA1c 7.3% (10) Diabetic foot ulcer Qualifiers: Diabetic foot ulcer location: midfoot Diabetes mellitus type: due to underlying condition Laterality: right Non-pressure ulcer stage: with other severity Qualified Code(s): E08.621 - Diabetes mellitus due to underlying condition with foot ulcer; L97.418 - Non-pressure chronic ulcer of right heel and midfoot with other specified severity Is this a current diagnosis for this admission?: Yes Plan: Open wound on plantar surface of R foot Open wound, pink, no drainage Follows up with the wound care center Dressing changes daily and as needed: Topical Iodosorb gel, gauze and danielle bandage (11) Noncompliance with medication regimen Is this a current diagnosis for this admission?: Yes Plan: According to , patient has not been taking care of himself Has not taken home medications for > 1 week Possible reasoning due to depression and/or auditory hallucinations Initiated Effexor per psych recommendations Encourage ambulation around floor & day/night cues - Time Time Spent with patient: 15-24 minutes Anticipated discharge: Home Within: within 24 hours
[2018-09-23] MEDS: CADEXOMER IODINE GEL 40 GM/TUBE TP SCH (17:32)
[2018-09-23] MEDS: TRAMADOL HCL 50 MG TABLET PO PRN (17:35)
[2018-09-23] MEDS: INSULIN GLARGINE,HUM.REC.ANLOG 1,000 UNIT/10 ML VIAL SUBCUT SCH (21:41)
[2018-09-23] MEDS: ATORVASTATIN CALCIUM 10 MG TABLET PO SCH (21:42)
[2018-09-23] MEDS: CLONIDINE HCL 0.1 MG TABLET PO SCH (21:42)
[2018-09-23] MEDS ORDERED: LEVOFLOXACIN 750 MG TABLET PO SCH (22:00)
[2018-09-24] MEDS: HEPARIN SOD (PORCINE) 5,000 UNIT/ML 1 ML SYRINGE SUBCUT SCH (05:08)
[2018-09-24] MEDS: FUROSEMIDE INJ/PF 20 MG/2 ML SDV IV SCH (05:58)
[2018-09-24 05:59] LABS: ANION GAP 6 (5-19); BLOOD UREA NITROGEN 36 mg/dL (7-20); CALCIUM 9.2 mg/dL (8.4-10.2); CARBON DIOXIDE 30 mmol/L (22-30); CHLORIDE 103 mmol/L (98-107); GLUCOSE 81 mg/dL (75-110); POTASSIUM 4.7 mmol/L (3.6-5.0); SODIUM 138.8 mmol/L (137-145)
[2018-09-24] MEDS: INSULIN LISPRO 100 UNIT/ML 3 ML VIAL SUBCUT SCH (07:40)
[2018-09-24] MEDS ORDERED: NA PHOS,M-B/NA PHOS,DI-BA (ADULT) 133 ML ENEMA PR ONE (09:30)
[2018-09-24] MEDS: VENLAFAXINE HCL 37.5 MG CAP.SR.24H PO SCH (09:33)
[2018-09-24] MEDS: METOPROLOL SUCCINATE 50 MG TAB.SR.24H PO SCH (09:33)
[2018-09-24] MEDS: SENNOSIDES/DOCUSATE 8.6-50 MG 1 EACH TABLET PO SCH (09:33)
[2018-09-24] MEDS: LOSARTAN POTASSIUM 50 MG TABLET PO SCH (09:34)
[2018-09-24] MEDS: SPIRONOLACTONE 25 MG TABLET PO SCH (09:34)
[2018-09-24] MEDS: AMLODIPINE BESYLATE 10 MG TABLET PO SCH (09:34)
[2018-09-24] MEDS: MULTIVITAMIN TABLET PO SCH (09:34)
[2018-09-24] MEDS: FERROUS SULFATE 325 MG TABLET PO SCH (09:34)
[2018-09-24 10:52] VITALS: BP 141/66
--- NOTE | 2018-09-29 10:28 | PDOC DISCHARGE SUMMARY ---
General - Admit/Disc Date/PCP Admission Date/Primary Care Provider: 09/17/18 13:59 [facility] Discharge Date: 09/24/18 - Discharge Diagnosis (1) Volume overload Is this a current diagnosis for this admission?: Yes Summary: Due to medication noncompliance in the setting of chronic kidney disease and new onset diastolic CHF ECHOcardiogram done, results unchanged from previous ECHO ECHO from 05/2018 shows LVEF 65% Unable to determine RVSP. Poor quality study secondary to body habitus. Weight down 8 kg since admission, lung sounds have improved and he is now ambulatory on room air. Patient was admitted to [facility] on continuous cardiac telemetry. His home dose spironolactone, amlodipine, and Toprolol XL were continued. He was diuresed utilizing IV furosemide with excellent urinary output which was transitioned to p.o furosemide at discharge. He was placed on a 1.5L fluid rest riction and low sodium diet. He met with the registered pharmacy technician and patient educator. Consulted nephrology, appreciate their recommendations At time of discharge, patient is in stable condition and maintaining oxygen saturations while ambulatory on room air. He is advised to follow up with his primary care provider within [address] Llanos in 2-3 weeks. He is advised to continue a low sodium, fluid restricted diet; to weight himself daily and to report any weight gain greater than 2 lbs overnight to his PCP. He is instructed to take all medications as prescribed. Return to the emergency room as needed for concerning symptoms. (2) Acute worsening of stage 3 chronic kidney disease Is this a current diagnosis for this admission?: Yes Summary: Now improving; Cr 1.56-> 2.54-> 2.08 today. Secondary to CHF exacerbation. Nephrology was consulted; appreciate their assistance. Dr. Pace has cleared patient for discharge. Avoid nephrotoxic medications as able (NSAIDS) Follow up with Dr. Llanos in 2-3 weeks. (3) New onset of congestive heart failure Is this a current diagnosis for this admission?: Yes Summary: ECHOcardiogram done, results unchanged from previous ECHO ECHO from 05/2018 shows LVEF 65% Unable to determine RVSP. Poor quality study secondary to body habitus. BNP trending down; 5370-> 5900-> 2970 Continue home dose amlodipine, metoprolol, losartan, spironolactone and ASA and statin therapy. He received IV furosemide and is transitioned to p.o furosemide at discharge. Recommend continued cardiac diet and 1.5L fluid restriction with daily weights. Patient met with the registered pharmacy technician and patient educator. (4) Anemia Is this a current diagnosis for this admission?: Yes Summary: Improved, Hgb 7.5-->11-> 10.5 s/p 2 units PRBCs. No evidence of gross blood loss No melena. No coffee-ground emesis. No bleeding wounds. Hemoccult negative; would still benefit from outpatient routine colonoscopy screening. Anemia studies reveal anemia of chronic disease (Low serum iron and TIBC, elevated ferretin normal MCV) Possibly related to chronic kidney disease and hemodilution (fluid volume overload on admission) Patient received one time dose of 20k units of Procrit and was placed on daily MVI and ferrous sulfate to continue at discharge. He received 2 units PRBC. Nephrology is consulted; keep scheduled appointment. Recommend routine colonoscopy screening. (5) Chronic kidney disease, stage 3 Is this a current diagnosis for this admission?: Yes Summary: Diabetic nephropathy with known proteinuria Baseline is 1.5-1.7 Patient is able to make urine, mild oliguria Nephrology was consulted; follow up with Dr. Llanos in 2-3 weeks. (6) Constipation Is this a current diagnosis for this admission?: Yes Summary: Resolved following Mag Citrate Continue home dose Sennakot. Recommend daily MiraLax. Ambulate often. (7) Pneumonia Is this a current diagnosis for this admission?: Yes Summary: Improved; frequency/severity of cough is decreased, now ambulatory on room air. Possible pneumonia seen on radiology studies Continue Levaquin 750 p.o. for empiric coverage of a CAP; he is provided a prescription to complete his course of therapy at discharge. (8) Psychiatric complaint Is this a current diagnosis for this admission?: Yes Summary: Patient has a history of PTSD with auditory and sensory hallucinations, anxiety and depression Consulted psych to make medication recommendations for depression Discontinued Seroquel and trazodone Continue Effexor 37.5 mg p.o. daily Initiated clonidone 0.1mg QHS for sleep aid Recommend patient follow up with his established mental health provider as soon as possible to review medication changes. (9) Diabetes mellitus type II, uncontrolled Is this a current diagnosis for this admission?: Yes Summary: HgbA1c 7.3% Continue dietary compliance and outpatient medication regimen at discharge. (10) Diabetic foot ulcer Is this a current diagnosis for this admission?: Yes Summary: Stable; Open wound on plantar surface of R foot (POA) Open wound, pink, no drainage Follows up with the wound care center as scheduled. (11) Noncompliance with medication regimen Is this a current diagnosis for this admission?: Yes Summary: According to , patient has not been taking care of himself Had not taken home medications for > 1 week prior to arrival. Possible reasoning due to depression and/or auditory hallucinations Initiated Effexor per psych recommendations Encourage ambulation Follow up with established outpatient mental health provider as soon as possible. - Additional Information Resuscitation Status: Full Code Discharge Diet: Cardiac, Diabetic Discharge Activity: Activity As Tolerated, Balance Activity w/Rest, Weigh Daily Prescriptions: Clonidine HCl [Catapres 0.1 mg Tablet] 0.1 mg PO QHS #30 tablet Levofloxacin [Levaquin 750 mg Tablet] 750 mg PO QHS #3 tablet Metoprolol Succinate [Toprol Xl 50 mg Tab.sr] 50 mg PO Q12 #60 tab.sr.24h Venlafaxine HCl ER [Effexor Xr 37.5 mg Cap.sr] 37.5 mg PO DAILY #30 cap.sr.24h Home Medications: Amlodipine Besylate [Norvasc 10 mg Tablet] 10 mg PO DAILY 09/17/18 Aspirin [Ecotrin 81 mg EC Tablet] 81 mg PO DAILY 09/17/18 Atorvastatin Calcium [Lipitor 20 mg Tablet] 10 mg PO QHS 09/17/18 Cyanocobalamin (Vitamin B-12) [Vitamin B-12 500 mcg Tablet] 500 mcg PO DAILY 09/17/18 Duloxetine HCl [Cymbalta] 60 mg PO Q12 09/17/18 Ferrous Sulfate [Feosol 325 mg Tablet] 325 mg PO DAILY 09/17/18 Furosemide [Lasix 20 mg Tablet] 60 mg PO BID 09/17/18 Garlic [Garlic Oil] 1,000 mg PO SUTUTHSA@0800 09/17/18 Insulin Aspart [Novolog Insulin (Aspart) 100 unit/mL] 0 unit SQ .SLIDING SCALE 09/17/18 Insulin Glargine,Hum.rec.anlog [Lantus Insulin 100 Unit/1 ml 10 ml] 40 unit SQ QHS 09/17/18 Losartan Potassium [Cozaar 100 mg Tablet] 100 mg PO DAILY 09/17/18 Multivitamin with Minerals [One Daily Plus Minerals] 1 tab PO DAILY 09/17/18 Sennosides [Senna] 17.2 mg PO DAILY 09/17/18 Spironolactone [Aldactone 25 mg Tablet] 25 mg PO DAILY 09/17/18 Amlodipine Besylate [Norvasc 10 mg Tablet] 10 mg PO DAILY #0 tablet 09/24/18 Clonidine HCl [Catapres 0.1 mg Tablet] 0.1 mg PO QHS #30 tablet 09/24/18 Duloxetine HCl [Cymbalta 30 mg Capsule.] 60 mg PO Q12 #0 capsule.dr 09/24/18 Levofloxacin [Levaquin 750 mg Tablet] 750 mg PO QHS #3 tablet 09/24/18 Losartan Potassium [Cozaar 50 mg Tablet] 100 mg PO DAILY #0 tablet 09/24/18 Metoprolol Succinate [Toprol Xl 50 mg Tab.sr] 50 mg PO Q12 #60 tab.sr.24h 09/24/18 Multivitamin [Tab-A-Drea (Multiple Vitamin) Tablet] 1 tab PO DAILY tablet 09/24/18 Venlafaxine HCl ER [Effexor Xr 37.5 mg Cap.sr] 37.5 mg PO DAILY #30 cap.sr.24h 09/24/18 History of Present Illness History of Present Illness: Per H&P by Dr. Bishop: JOHN SANDERS is a 52 year old male with a history of multiple medical problems including chronic kidney disease due to diabetic nephropathy, insulin-dependent diabetes mellitus, diabetic neuropathy, reported prior history of stroke, hyperlipidemia, hypertension, morbid obesity, obstructive sleep apnea, and a long history of noncompliance with his treatment regimen for his various conditions, especially in the last few months, and according to his for the past 7 years. He comes in today with a 10-14-day history of progressive shortness of breath. He is not been having any fevers. No cough. He does endorse orthopnea. He says his shortness of breath gets worse with exertion. He has had worsening bilateral leg edema over that period of time. He has not taken his blood pressure medication in over a week. He only takes his Lasix intermittently. His says that he only takes his insulin periodically. The patient cannot or will not tell me why he is so noncompliant with his treatment regimen. He has been to the hospital twice in the last couple of months with the exact same problems. Some of his fluid retention was attributed to diabetic nephropathy, and an echocardiogram was done but the right ventricle could not be visualized, this was back in May. Today a d-dimer was slightly elevated and so a CTA of the chest was performed. The test was negative for PE, but the pulmonary arteries did seem to be a bit prominent, and he has some bilateral edema and small bilateral pleural effu sions. He was also hypertensive in the ER, with systolics in the 180s and diastolics near 100. He is being admitted for diuresis and further evaluation. Physical Exam Vital Signs: Temp Pulse Resp BP Pulse Ox 97.7 F 60 16 141/66 H 97 09/24/18 10:51 09/24/18 10:51 09/24/18 10:51 09/24/18 10:51 09/24/18 10:51 General appearance: PRESENT: no acute distress, cooperative, obese, well- developed, well-nourished Head exam: PRESENT: atraumatic, normocephalic Eye exam: PRESENT: conjunctiva pink, EOMI, PERRLA. ABSENT: scleral icterus Ear exam: PRESENT: normal external ear exam Mouth exam: PRESENT: moist, tongue midline Neck exam: ABSENT: carotid bruit, JVD, lymphadenopathy, thyromegaly Respiratory exam: PRESENT: clear to auscultation rupa, symmetrical, unlabored. ABSENT: rales, rhonchi, wheezes Cardiovascular exam: PRESENT: RRR, +S1, +S2. ABSENT: diastolic murmur, rubs, systolic murmur Pulses: PRESENT: normal dorsalis pedis pul Vascular exam: PRESENT: normal capillary refill GI/Abdominal exam: PRESENT: normal bowel sounds, soft. ABSENT: distended, guarding, mass, organolmegaly, rebound, tenderness Rectal exam: PRESENT: deferred Extremities exam: PRESENT: full ROM, +2 edema - BLE. ABSENT: calf tenderness, clubbing, pedal edema Neurological exam: PRESENT: alert, awake, oriented to person, oriented to place, oriented to time, oriented to situation, CN II-XII grossly intact. ABSENT: motor sensory deficit Psychiatric exam: PRESENT: appropriate affect, normal mood. ABSENT: homicidal ideation, suicidal ideation Skin exam: PRESENT: dry, warm, other - chronic right plantar foot wound (POA). ABSENT: cyanosis, rash Results Laboratory Results: 09/23/18 04:31 09/24/18 04:22 09/17/18 09/17/18 09/18/18 10:35 10:35 04:14 Creatine Kinase 323 H CK-MB (CK-2) 4.83 H Troponin I 0.021 NT-Pro-B Natriuret Pep 5370 H 5900 H 09/19/18 09/21/18 09/22/18 06:10 05:19 04:37 Creatine Kinase CK-MB (CK-2) Troponin I NT-Pro-B Natriuret Pep 4230 H 3820 H 4180 H 09/23/18 04:31 Creatine Kinase CK-MB (CK-2) Troponin I NT-Pro-B Natriuret Pep 2970 H Impressions: Abdomen X-Ray 09/17/18 09:27 IMPRESSION: Mild fecal retention. Chest/Abdomen CTA 09/17/18 11:22 IMPRESSION: 1. No PE. 2. Bilateral lower lobe pneumonia. Chest X-Ray 09/21/18 07:00 IMPRESSION: Cardiomegaly without pulmonary edema. Improvement in the appearance of the left base. Cannot exclude limited right lower lobe pneumonia. Qualifiers - * PATIENT BEING DISCHARGED WITH ANY OF THE FOLLOWING DIAGNOSIS: Heart Failure HF Pt being discharged on ACEI for LVEF less than 40%?: No Reason(s) for not prescribing ACEI:: Not indicated HF Pt being discharged on ARBS for LVEF less than 40%?: Yes HF Pt with Afib discharged with Warfarin?: No Reason(s) for not prescribing Warfarin:: Not indicated HF Pt discharged on evidence-based Beta Soco:: Yes Plan Discharge Plan: Follow up with primary care provider within 1 week. Follow up with Dr. Llanos within 2-3 weeks. Follow up with mental health provider as scheduled. Follow up with [facility] as scheduled. Eat a low sodium diet. Continue to restrict total fluid intake to 1.5-2L daily. Weight daily and report any weight gain of more than 2 lbs overnight to PCP. Return to the Emergency Department as needed for concerning symptoms. Time Spent: Greater than 30 Minutes
== END 2018-09-24 11:27 | disposition home or self-care (01) | DRG 291 ==
LOC: ER 08:34 → EH 13:59 → 3N 15:45
PROVIDERS: ADMIT Family Medicine; ATTEND Family Medicine
PROC: 5A09357 Assistance with Respiratory Ventilation, Less than 24 Consecutive Hours, Continuous Positive Airway Pressure (ICD-10-PCS; principal; 2018-09-18)
PROC: 30233N1 Transfusion of Nonautologous Red Blood Cells into Peripheral Vein, Percutaneous Approach (ICD-10-PCS; 2018-09-18)
DX: I13.0 Hypertensive heart and chronic kidney disease with heart failure and stage 1 through stage 4 chronic kidney disease, or unspecified chronic kidney disease (principal); I50.31 Acute diastolic (congestive) heart failure; J18.9 Pneumonia, unspecified organism; N25.81 Secondary hyperparathyroidism of renal origin; L97.418 Non-pressure chronic ulcer of right heel and midfoot with other specified severity; N17.9 Acute kidney failure, unspecified; N18.3 Chronic kidney disease, stage 3 (moderate); D63.1 Anemia in chronic kidney disease; E11.22 Type 2 diabetes mellitus with diabetic chronic kidney disease; E11.21 Type 2 diabetes mellitus with diabetic nephropathy; I25.10 Atherosclerotic heart disease of native coronary artery without angina pectoris; G47.30 Sleep apnea, unspecified; E11.319 Type 2 diabetes mellitus with unspecified diabetic retinopathy without macular edema; E83.39 Other disorders of phosphorus metabolism; N25.0 Renal osteodystrophy; F43.10 Post-traumatic stress disorder, unspecified; E11.65 Type 2 diabetes mellitus with hyperglycemia; E11.40 Type 2 diabetes mellitus with diabetic neuropathy, unspecified; E78.5 Hyperlipidemia, unspecified; E66.01 Morbid (severe) obesity due to excess calories; G47.33 Obstructive sleep apnea (adult) (pediatric); E11.621 Type 2 diabetes mellitus with foot ulcer; K59.00 Constipation, unspecified; I25.2 Old myocardial infarction; Z86.73 Personal history of transient ischemic attack (TIA), and cerebral infarction without residual deficits; Z89.411 Acquired absence of right great toe; Z79.82 Long term (current) use of aspirin; Z79.4 Long term (current) use of insulin; Z79.899 Other long term (current) drug therapy; Z88.8 Allergy status to other drugs, medicaments and biological substances; Z91.14 Patient's other noncompliance with medication regimen; Z91.19 Patient's noncompliance with other medical treatment and regimen
CPT/HCPCS: 36415; 36430; 71045; 71046; 71275; 74019; 80048; 80053; 80061; 82272; 82550; 82553; 82570; 82607; 82728; 82746; 82803; 82962; 83036; 83540; 83550; 83615; 83735; 83880; 84133; 84156; 84300; 84484; 85025; 85027; 85045; 85379; 85610; 86850; 86900; 86901; 86920; 93005; 93010; 93306; 96365; 96375; 99291; J0696; J1644; J1815; J1940; J3490; P9016; P9047; Q4081; S0119

== ENCOUNTER → 2018-10-22 | Outpatient (CLI) | payer OTHER ==
[2018-10-22 11:52] LABS: ABSOLUTE EOSINOPHILS # (AUTO) 0.2 10^3/uL (0.0-0.6); ABSOLUTE LYMPHOCYTES (AUTO) 1.5 10^3/uL (0.5-4.7); ABSOLUTE MONOCYTES (AUTO) 0.7 10^3/uL (0.1-1.4); ABSOLUTE NEUT (AUTO) 8.7 10^3/uL (1.7-8.2); BASOPHILS % (AUTO) 0.3 % (0-2); EOSINOPHILS % (AUTO) 1.5 % (0-6); HEMATOCRIT 36.3 % (37.9-51.0); HEMOGLOBIN 12.5 g/dL (13.5-17.0); LYMPHOCYTES % (AUTO) 13.4 % (13-45); MEAN CORPUSCULAR HGB CONC 34.3 g/dL (32.0-36.0); MEAN CORPUSCULAR VOLUME 82 fl (80-97); MONOCYTES % (AUTO) 6.1 % (3-13); PLATELET COUNT 243 10^3/uL (150-450); RED BLOOD COUNT 4.45 10^6/uL (4.35-5.55); RED CELL DISTRIBUTION WIDTH 13.9 % (11.5-14.0); SEGMENTED NEUTROPHILS % (AUTO) 78.7 % (42-78); TOTAL CELLS COUNTED % (AUTO) 100 %; WHITE BLOOD COUNT 11.1 10^3/uL (4.0-10.5)
[2018-10-22 11:56] LABS: APPEARANCE,URINE CLEAR; BILIRUBIN,URINE NEGATIVE (NEGATIVE); COLOR,URINE YELLOW; GLUCOSE, URINE 150 mg/dL (NEGATIVE); KETONES,URINE NEGATIVE (NEGATIVE); LEUKOCYTE ESTERASE,URINE NEGATIVE (NEGATIVE); NITRITE,URINE NEGATIVE (NEGATIVE); PROTEIN,URINE 100 mg/dL (NEGATIVE); URINE SPECIFIC GRAVITY 1.012; UROBILINOGEN,URINE NEGATIVE mg/dL (<2.0)
[2018-10-22 12:02] LABS: URINE CREATININE 76.2 mg/dL (22-328)
[2018-10-22 12:06] LABS: ALANINE AMINOTRANSFERASE 25 U/L (21-72); ALBUMIN 3.6 g/dL (3.5-5.0); ALKALINE PHOSPHATASE 130 U/L (38-126); ANION GAP 10 (5-19); ASPARTATE AMINO TRANSFERASE 19 U/L (17-59); BILIRUBIN,DIRECT 0.2 mg/dL (0.0-0.4); BILIRUBIN,TOTAL 0.5 mg/dL (0.2-1.3); BLOOD UREA NITROGEN 44 mg/dL (7-20); CALCIUM 9.3 mg/dL (8.4-10.2); CARBON DIOXIDE 27 mmol/L (22-30); CHLORIDE 104 mmol/L (98-107); GLUCOSE 257 mg/dL (75-110); IRON(TIBC) 101.1 ug/dL (49-181); PHOSPHORUS 4.4 mg/dL (2.5-4.5); POTASSIUM 4.7 mmol/L (3.6-5.0); SODIUM 141.2 mmol/L (137-145); TOTAL PROTEIN 6.4 g/dL (6.3-8.2)
[2018-10-22 12:40] LABS: UR PRO/CREAT RATIO RESULT 3.7 mg/mg (0.0-0.2); URINE PROTEIN 279.2 mg/dL (<12)
== END ==
LOC: LAB 11:20
PROVIDERS: ATTEND Internal Medicine Nephrology
DX: I12.9 Hypertensive chronic kidney disease with stage 1 through stage 4 chronic kidney disease, or unspecified chronic kidney disease (principal); N18.3 Chronic kidney disease, stage 3 (moderate); D63.1 Anemia in chronic kidney disease; E55.9 Vitamin D deficiency, unspecified; E11.22 Type 2 diabetes mellitus with diabetic chronic kidney disease; N25.81 Secondary hyperparathyroidism of renal origin
CPT/HCPCS: 36415; 80048; 80076; 81001; 82306; 82570; 82728; 83540; 83550; 83735; 83970; 84100; 84156; 85025